=== PATIENT | male | born 1950 | race Caucasian/White ===

== ENCOUNTER → 2016-12-11 | Outpatient (CLI) | payer MEDICARE, OTHER ==
[~2016-12-11] MED LIST: AMLO10TA PO; APIX5TAB2 PO; ASP81CT PO; ATEN-158 PO; ATR20T PO; ATRV10T PO; CEFD300C3 PO; CHLO25TA2 PO; DILT180C67 PO; DLT120CCR PO; ENAL20TA PO; ENALAPRIL MALEATE; FURO40TA4 PO; HYDR-3004 PO; HYDR-3156 PO; INSU100I14 SQ; INSU100V5 SQ; LISI40TA PO; METF-380 PO; OMEP20CA12 PO; PNT40TEC PO; POTA10TA36 PO; POTA20TA15 PO; ROPI1TAB PO; ROSU40TA PO; amlodipine besylate; atenolol; chlorthalidone; hydralazine hcl; levemir SQ; metformin; novalog SQ
--- OUTSIDE RECORDS SUMMARY | 2016-12-11 13:40 | XMS REPORT | Continuity of Care Document ---
Author Author [facility] Organization [facility] Address Unknown Phone Unavailable Care Team Providers Care Shrimp Picker Name Role Phone SHALINI GONZALEZ MD PCP Insurance Providers Payer Name Policy Number Subscriber Name Relationship [employer] [id number] Mery Green 18 Self / Same As Patient Comm Crossover Enter Ins Name [id number] Mery Green 17 Self / Same As Patient Advance Directives Directive Response Recorded Date/Time Advance Directives No 04/12/16 5:10pm Health Care Power of Novelty Dipper No 04/12/16 5:10pm Organ Donor No 04/12/16 5:10pm Problems Active Problems Medical Problem Onset Date Status Anemia Unknown Acute Anemia Unknown Acute Atrial fibrillation Unknown Acute Atrial fibrillation with normal ventricular rate Unknown Acute CHF exacerbation Unknown Acute Pharyngitis Unknown Acute Pneumonia Unknown Acute Transient cerebral ischemia Unknown Acute Uvulitis Unknown Acute fluid overload Unknown Acute Medications Current Home Medications Medication Dose Units Route Directions Days/Qty Instructions Start Date Aspirin 81 Mg 81 Mg Oral Daily 12/17/13 Metformin Hcl (Glucophage) 1,000 Mg 1,000 Mg Oral Twice A Day With Meals 12/17/13 Insulin Detemir 100 Unit/1 Ml 69 Unit Sub-Q 12/17/13 Insulin Aspart 100 Unit/1 Ml 35 Units Sub-Q Before Meals TAKES WITH MEALS 12/17/13 Apixaban 5 Mg 5 Mg Oral Twice A Day 12/18/13 Diltiazem Hcl 180 Mg 180 Mg Oral Daily 04/26/15 Hydralazine Hcl (Apresoline) 50 Mg 50 Mg Oral Three Times A Day 05/04 Furosemide (Lasix) 40 Mg 40 Mg Oral Daily 04/26/15 Potassium Chloride 20 Meq 10 Meq Oral Daily 04/26/15 Omeprazole 20 Mg 20 Mg Oral Daily 30 04/26/15 Lisinopril 40 Mg 40 Mg Oral Twice A Day 04/26/15 Rosuvastatin Calcium 40 Mg 20 Mg Oral Bedtime TAKES ONE HALF OF 40 MG TAB 04/26/15 Ropinirole Hcl 1 Mg 3 Mg Oral Bedtime for Restlessness 04/29/15 Cefdinir (Omnicef) 300 Mg 300 Mg Oral Twice A Day 04/12/16 Past Home Medications Medication Directions Ordered Status [Enalapril Maleate] , 12/17/13 Discontinued [Amlodipine Besylate] , 12/17/13 Discontinued [Atenolol] , 12/17/13 Discontinued [Chlorthalidone] , 12/17/13 Discontinued [Hydralazine Hcl] , 12/17/13 Discontinued [Metformin] , 12/17/13 Discontinued [Novalog ] , 47 Sub-Q Twice A Day 12/17/13 Discontinued [Levemir] , 18 Sub-Q As Directed 12/17/13 Discontinued Enalapril Maleate 20 Mg Tablet, 40 Mg Oral Daily 12/17/13 Discontinued Amlodipine Besylate 10 Mg Tablet, 10 Mg Oral Daily 12/17/13 Discontinued Atenolol 50 Mg Tab, 75 Mg Oral Daily 12/17/13 Discontinued Chlorthalidone 25 Mg Tablet, 25 Mg Oral Daily 12/17/13 Discontinued Hydralazine Hcl (Apresoline) 25 Mg Tablet, 50 Mg Oral Twice A Day 12/17/13 Discontinued Atorvastatin Calcium 10 Mg Tablet, 2.5 Mg Oral Bedtime 12/17/13 Discontinued Atorvastatin Calcium 20 Mg Tablet, 5 Mg Oral Bedtime 12/17/13 Discontinued Diltiazem Hcl 120 Mg Cap.sr.24h, 120 Mg Oral Daily 12/18/13 Discontinued Hydralazine Hcl (Apresoline) 25 Mg Tablet, 25 Mg Oral Twice A Day 12/18/13 Discontinued Furosemide (Lasix) 40 Mg Tablet, 1 Each Oral Daily 12/18/13 Discontinued Pantoprazole Sodium 40 Mg Tablet.dr, 1 Tab Oral Daily 12/18/13 Discontinued Potassium Chloride 10 Meq Tab.prt.sr, 1 Each Oral Daily With Meal 12/18/13 Discontinued Social History Social History Problem Response Recorded Date/Time Alcohol Use Denies Use 04/12/2016 5:10pm Recreational Drug Use No 04/12/2016 5:10pm Recent Foreign Travel No 12/17/2013 1:30am Recent Infectious Disease Exposure No 12/17/2013 1:30am Hospitalization with Isolation Denies 12/18/2013 12:14pm Do you dip or chew tobacco? No 04/12/2016 5:10pm Hospitalization with Isolation Denies 12/18/2013 12:14pm Hospital Discharge Instructions No hospital discharge instructions. Plan of Care Discharge Date 10/20/16 3:35am Prescriptions See Medication Section Functional Status No functional status results. Allergies, Adverse Reactions, Alerts No known allergies. Immunizations No immunization records. Vital Signs No known vital signs results. Results No known relevant diagnostic tests, laboratory data and/or discharge summary. Procedures No known history of procedures. Encounters Encounter Location Arrival/Admit Date Discharge/Depart Date Attending Provider Departed Clinic [facility] 10/19/16 7:57pm 10/20/16 3: 35am FLIP PEDERSEN DO
== END ==
LOC: RAD 13:29
PROVIDERS: ATTEND Internal Medicine Cardiovascular Disease
DX: I73.9 Peripheral vascular disease, unspecified (principal); I48.0 Paroxysmal atrial fibrillation; I65.23 Occlusion and stenosis of bilateral carotid arteries; R06.09 Other forms of dyspnea; Z87.891 Personal history of nicotine dependence; E78.4 Other hyperlipidemia; I10 Essential (primary) hypertension; G47.33 Obstructive sleep apnea (adult) (pediatric); J98.4 Other disorders of lung
CPT/HCPCS: 93923

== ENCOUNTER → 2017-02-04 | Outpatient (CLI) | payer MEDICARE, OTHER ==
--- NOTE | 2017-02-04 13:46 | Diagnostic Imaging Report ---
PROCEDURE: CT chest without contrast. TECHNIQUE: Multiple contiguous axial images were obtained through the chest without the use of intravenous contrast. INDICATION: Lung nodule follow-up. COMPARISON: 07/27/2016. FINDINGS: There is a 5 mm left lower lobe nodule stable from the April 2015 exam suggestive of benign etiology. There is no significant consolidation, mass, or suspicious nodule seen otherwise. Minimal atelectasis in the left lung base is seen. The heart size is slightly enlarged. There is minimal lymphadenopathy in the mediastinum up to 1 cm short axis in the infracarinal station and similar-sized lymph node in the right paratracheal station similar to the prior exams with no adverse development. No significantly enlarged axillary lymph nodes are noted. The thoracic aorta is normal in caliber. Sections of the upper abdomen demonstrate hepatic steatosis. The osseous structures demonstrate degenerative changes. IMPRESSION: 1. Stable left lower lobe 5 mm pulmonary nodule from April 2015 suggestive of scarring. 2. Hepatic steatosis. Dictated by: Dictated on workstation # [id number]
== END ==
LOC: RAD 12:39
PROVIDERS: ATTEND Internal Medicine Critical Care Medicine
DX: R06.09 Other forms of dyspnea (principal); G47.33 Obstructive sleep apnea (adult) (pediatric); J98.4 Other disorders of lung; R06.02 Shortness of breath; Z87.891 Personal history of nicotine dependence
CPT/HCPCS: 71250

== ENCOUNTER → 2017-05-20 | Outpatient (CLI) | payer MEDICARE, OTHER ==
[~2017-05-20] MED LIST changes: +CLON0.3T PO
[2017-05-20 14:39] LABS: BASOPHILS % (AUTO) 0 % (0-10); EOSINOPHILS # (AUTO) 0.3 10^3/uL (0.0-0.3); EOSINOPHILS % (AUTO) 3 % (0-10); LYMPHOCYTES # (AUTO) 1.9 X 10^3 (1.0-4.0); LYMPHOCYTES % (AUTO) 18 % (12-44); MEAN CORPUSCULAR HEMOGLOBIN 23 PG (25-34); MEAN CORPUSCULAR HGB CONC 30 G/DL (32-36); MEAN CORPUSCULAR VOLUME 75 FL (80-99); MEAN PLATELET VOLUME 9.8 FL (7.4-10.4); MONOCYTES % (AUTO) 9 % (0-12); NEUTROPHILS % (AUTO) 69 % (42-75); PLATELET COUNT 294 10^3/uL (130-400); RED BLOOD COUNT 4.79 10^6/uL (4.35-5.85); RED CELL DISTRIBUTION WIDTH 18.1 % (10.0-14.5); WHITE BLOOD COUNT 10.1 10^3/uL (4.3-11.0)
[2017-05-20 14:56] LABS: ALANINE AMINOTRANSFERASE 16 U/L (0-55); ALBUMIN 3.9 GM/DL (3.2-4.5); ANION GAP 10 MMOL/L (5-14); ASPARTATE AMINO TRANSFERASE 16 U/L (5-34); BILIRUBIN,TOTAL 0.5 MG/DL (0.1-1.0); BLOOD UREA NITROGEN 14 MG/DL (7-18); BUN/CREATININE RATIO 14; CALCIUM 9.6 MG/DL (8.5-10.1); CARBON DIOXIDE 26 MMOL/L (21-32); CHLORIDE 105 MMOL/L (98-107); GFR ESTIMATED > 60; GLUCOSE 144 MG/DL (70-105); MAGNESIUM 1.9 MG/DL (1.8-2.4); POTASSIUM 3.7 MMOL/L (3.6-5.0); SODIUM 141 MMOL/L (135-145); TOTAL PROTEIN 7.2 GM/DL (6.4-8.2)
== END ==
LOC: LAB 14:16
PROVIDERS: ATTEND Nurse Practitioner Family
DX: R06.09 Other forms of dyspnea (principal); I10 Essential (primary) hypertension; E78.4 Other hyperlipidemia; J98.4 Other disorders of lung; I73.89 Other specified peripheral vascular diseases
CPT/HCPCS: 36415; 80053; 83735; 85025

== ENCOUNTER 2017-06-04 06:42 | Day surgery (SDC) | payer MEDICARE, OTHER ==
[2017-06-04] VITALS (12 sets, daily range): BP systolic 138–178; BP diastolic 70–88
[~2017-06-04] VITALS: Ht 180.3 cm; Wt 106.6 kg
[~2017-06-04 06:42] MED LIST changes: -CLON0.3T PO
[2017-06-04] MEDS ORDERED: HEParin (CATH LAB) 2,000 ML IV ONE (07:00)
[2017-06-04] MEDS ORDERED: NS IV 1000 ML 1,000 ML ONE (07:00)
[2017-06-04] MEDS ORDERED: NS IV 1000 ML 1,000 ML IV SCH ×2 (07:15→09:21)
[2017-06-04 07:42] LABS: MEAN PLATELET VOLUME 10.2 FL (7.4-10.4); RED BLOOD COUNT 4.8 10^6/uL (4.35-5.85); RED CELL DISTRIBUTION WIDTH 17.7 % (10.0-14.5); WHITE BLOOD COUNT 8.4 10^3/uL (4.3-11.0)
[2017-06-04] MEDS ORDERED: CLON0.3T PO (07:48)
[2017-06-04 07:52] LABS: INR 1.1 (0.8-1.4); PROTHROMBIN TIME PATIENT 13.4 SEC (12.2-14.7)
[2017-06-04 07:58] LABS: ALANINE AMINOTRANSFERASE 24 U/L (0-55); ALBUMIN 3.9 GM/DL (3.2-4.5); ANION GAP 10 MMOL/L (5-14); ASPARTATE AMINO TRANSFERASE 25 U/L (5-34); BILIRUBIN,TOTAL 0.4 MG/DL (0.1-1.0); BLOOD UREA NITROGEN 16 MG/DL (7-18); BUN/CREATININE RATIO 17; CALCIUM 9.2 MG/DL (8.5-10.1); CARBON DIOXIDE 24 MMOL/L (21-32); CHLORIDE 104 MMOL/L (98-107); CHOLESTEROL 95 MG/DL (< 200); CREATININE SERUM 0.94 MG/DL (0.60-1.30); DIRECT LDL 52 MG/DL (1-129); GFR ESTIMATED > 60; GLUCOSE 235 MG/DL (70-105); POTASSIUM 4.2 MMOL/L (3.6-5.0); SODIUM 138 MMOL/L (135-145); TOTAL PROTEIN 7.4 GM/DL (6.4-8.2); TRIGLYCERIDES 121 MG/DL (<150); VLDL CHOLESTEROL 24 MG/DL (5-40)
[2017-06-04] MEDS ORDERED: MIDAZOLAM 5 MG/5 ML (VERSED) VIAL ONE (08:17)
[2017-06-04] MEDS ORDERED: fentaNYL INJECTION 100 MCG/2 ML AMP ONE (08:17)
[2017-06-04] MEDS ORDERED: diphenhydrAMINE 50 MG/ML INJ (BENADRYL) ONE (08:17)
--- NOTE | 2017-06-04 09:21 | Cardiac Procedure Note-CS/ASA ---
Pre-Procedure Note Pre-Op Procedure Note H&P Reviewed The H&P was reviewed, patient examined and no changes noted. Date H&P Reviewed: Jun 04, 2017 Time H&P Reviewed: 08:50 Conscious Sedation Pre-Proced Time Reviewed: 08:50 ASA Class: 3 Airway Mallampati Classification: (holy cross appropriate class) I. II. III, IV Lungs Heart ASA score ASA 1: a normal healthy patient ASA 2: a patient with a mild systemic disease (mid diabetes, controlled hypertension, obesity ASA 3: a patient with a severe systemic disease that limits activity (angina , COPD, prior Myocardial infarction) ASA 4: a patient with an incapacitating disease that is a constant threat to life (CHF, renal failure) ASA 5: a moribund patient not expected to survive 24 hrs. (ruptured aneurysm) ASA 6: a declared brain patient whose organs are being harvested. For emergent operations, add the letter E after the classification Grade 3 Sedation Plan: Analgesia, Amnesia, Plan communicated to team members, Discussed options with patient/fam, Discussed risks with patient/fam Note The patient is an appropriate candidate to undergo the planned procedure, sedation, and anesthesia. The patient immediately re-assessed prior to indication. ANTONIO LAWRENCE MD FACP FAC [facility] Jun 04, 2017 09:21
--- NOTE | 2017-06-04 09:24 | Discharge Inst-Post CATH ---
Discharge Inst-CATH Post Cardiac Cath D/C Inst Follow Up/Plan F/u with Dr Hannon in 2 weeks CARDIAC CATH DISCHARGE INSTRUCTIONS *Hold Metformin for 48 hours post heart cath. ACTIVITY * Go Home directly and rest. * Limit activity of the leg (or wrist if it was used) for 7 days including aerobics, swimming, jogging, bicycling, etc. * Restrict stair-climbing for 7 days if possible, if not, climb up with your non -cath leg, then bring together on the same step. * Avoid lifting, pushing, pulling or excessive movement of the affected extremity for 7 days. * Customary sexual activity may be resumed after 2 days-use caution not to use a position that strains or causes pain to the affected extremity. * No driving for 24 hours. * NO SMOKING. * Avoid straining for bowel movements for 7 days. * Gentle walking on level ground is allowed. * Returning to work will depend on the type of procedure and the results. Your doctor will discuss this with you. CALL YOUR DOCTOR FOR ANY OF THE FOLLOWING: *If bleeding from the puncture site occurs- Apply gentle pressure to site with clean cloth and call your doctor or EMS. * If a knot or lump forms under the skin, increases in size, or causes pain. * If bruising appears to be worsening or moving further down your leg instead of disappearing. * Temperature above 101 F. CARE OF YOUR GROIN INCISION; * Bruising or purple discoloration of the skin near the puncture site is common. * You may shower only, no bathtub bathing for 5 days. Be careful to avoid slipping as your leg may feel stiff. * If a closure device was used on your femoral artery, please see the attached guide regarding care of the device and your leg. * REMOVE the dressing from your groin the next day after your procedure in the shower. CARE OF YOUR WRIST INCISION; * Bruising or purple discoloration of the skin near the puncture site is common. * You may shower. * DO NOT submerge wrist. * Remove dressing in 24 hours. ANTONIO HANNON MD [facility] Jun 04, 2017 09:24
--- NOTE | 2017-06-04 09:25 | Discharge Inst-Cardiology ---
Discharge Inst-Cardiac Discharge Medications Continued Medications: Apixaban (Eliquis Tablet) 5 Mg Tablet 5 MG PO BID, #30 Aspirin (Aspirin 81 Mg Chew Tab) 81 Mg Chew 81 MG PO DAILY, TAB.CHEW Cefdinir (Cefdinir) 300 Mg Capsule 300 MG PO BID, #14 CAP Clonidine HCl (Clonidine HCl) 0.3 Mg Tablet 0.15 MG PO BID, TAB Diltiazem HCl (Cardizem Cd) 180 Mg Cap.er.24h 180 MG PO DAILY, CAP Furosemide (Furosemide) 40 Mg Tablet 40 MG PO DAILY, TAB Hydralazine Hcl (Hydralazine Hcl) 50 Mg Tablet 50 MG PO TID, TAB Insulin Aspart (Novolog Pen) 100 Unit/1 Ml Insuln.pen 35 UNITS SQ AC TAKES WITH MEALS Insulin Detemir (Levemir Vial) 100 Unit/1 Ml Vial 69 UNIT SQ , Lisinopril (Prinivil) 40 Mg Tablet 40 MG PO BID, TAB Metformin Hcl (Metformin 1000 Mg) 1,000 Mg Tablet 1000 MG PO BID WITH MEALS Potassium Chloride (Potassium Chloride 20 Meq Tab) 20 Meq Tab.prt.sr 10 MEQ PO DAILY, TAB Ropinirole Hcl (Requip Tablet) 1 Mg Tablet 3 MG PO HS for Restlessness, #30 TAB 1 Refill Rosuvastatin Calcium (Crestor) 40 Mg Tablet 20 MG PO HS, TAB TAKES ONE HALF OF 40 MG TAB Patient Instructions Patient Instructions: DO NOT TAKE METFORMIN until the evening of 06/06/17 ANTONIO LAWRENCE MD [facility] Jun 04, 2017 09:25
[2017-06-04] MEDS ORDERED: PATIENT MAY USE OWN MEDS, ALL PO SCH (09:30)
--- NOTE | 2017-06-04 10:28 | CARDIAC CATHETERIZATION ---
DATE OF SERVICE: 06/04/2017 The patient is a 67-year-old man with multiple coronary artery disease risk factors and symptoms of exertional shortness of breath. Cardiac catheterization was carried out today after having obtained informed consent. PROCEDURE: He was brought to the cardiac catheterization laboratory in a fasting state. Right groin was prepared and draped in usual sterile fashion. Lidocaine 1% local anesthesia. Modified Seldinger technique was used to advance a 5-[place] sheath into the right femoral artery. Angiography of the right femoral artery was carried out through the sheath. We used 5-[place] JL3.5 catheter for left coronary angiography and 5-[place] JR4 catheter for right coronary angiography. We used 5-[place] pigtail catheter for left heart catheterization and left ventricular angiography. This was then pulled back to the aortic arch and aortic arch angiography was performed. The catheter was then removed and Mynx was used to achieve hemostasis following sheath removal. He tolerated the procedure well. HEMODYNAMICS: Left ventricular end-diastolic pressure following coronary angiography was 16 mmHg. There was no significant pressure gradient on pullback across the aortic valve. Ascending aortic pressure was 151/80 with a mean of 104 mmHg. LEFT VENTRICULAR ANGIOGRAPHY: Left ventricular angiography was carried out in the right anterior oblique projection. Global left ventricular systolic function appears well preserved. Left ventricular ejection fraction is 50% to 55%. There did not appear to be significant mitral regurgitation. AORTIC ARCH ANGIOGRAPHY: Aortic arch angiography shows aortic arch calcification. There is no significant thoracic aortic aneurysm or dissection to the extent visualized. The neck arteries, to the extent visualized, do not have significant obstructive disease. There is significant obstructive disease in their proximal portions. CORONARY ANGIOGRAPHY: Coronary calcification is present. Left main coronary artery does not exhibit significant disease. Left anterior descending artery has 50% mid vessel stenosis. The left circumflex artery has 30% proximal and 70% distal stenosis. The distal stenosis is at the site where the vessel is of a relatively small caliber. The right coronary artery is dominant and has mild plaques. CONCLUSIONS: 1. Mild to moderate coronary artery disease as outlined above. The left anterior descending artery has 50% mid vessel stenosis. Left circumflex artery has approximately 70% distal stenosis. 2. Well preserved global left ventricular systolic function with ejection fraction of 50 to 55%. 3. Mild to moderate elevation of left ventricular end-diastolic pressure. 4. No significant mitral regurgitation. DISCUSSION AND RECOMMENDATIONS: Based on the results of the study, it appears appropriate to continue a conservative approach. There is moderate distal disease in the left circumflex, but the vessel is of a relatively small caliber and no ischemia was demonstrated in this territory at the time of myocardial perfusion imaging of mid 2015. We will continue to follow this clinically closely. Stenting can be considered if clinically indicated. However, given his troubles with gastrointestinal bleeding at this stage a conservative approach appears best. Risk factor modification has been reviewed. Outpatient followup is advised. Job ID: [id number] DocumentID: [id number] Dictated Date: 06/04/2017 09:32:06 Heel Molder Date: 06/04/2017 10:27:26 Dictated By: ANTONIO LAWRENCE MD, MA, FACP, FACC,
== END 2017-06-04 14:00 | disposition home or self-care (01) ==
LOC: CATH 06:42 → SURG 09:40 → ENPENDDIS 14:00 → CATH 14:00
PROVIDERS: ATTEND Internal Medicine Cardiovascular Disease
DX: R06.02 Shortness of breath (principal); I25.10 Atherosclerotic heart disease of native coronary artery without angina pectoris; I25.84 Coronary atherosclerosis due to calcified coronary lesion; I70.0 Atherosclerosis of aorta; I48.2 Chronic atrial fibrillation; G47.33 Obstructive sleep apnea (adult) (pediatric); E11.9 Type 2 diabetes mellitus without complications; I10 Essential (primary) hypertension; E66.01 Morbid (severe) obesity due to excess calories; E78.5 Hyperlipidemia, unspecified; D64.9 Anemia, unspecified; Z87.891 Personal history of nicotine dependence; Z79.899 Other long term (current) drug therapy; Z79.01 Long term (current) use of anticoagulants; Z68.32 Body mass index [BMI] 32.0-32.9, adult
CPT/HCPCS: 36221; 36415; 80053; 80061; 85027; 85610; 85730; 87081; 93005; 93458

== ENCOUNTER → 2017-06-20 | Outpatient (CLI) | payer MEDICARE, OTHER ==
[~2017-06-20] MED LIST changes: +CLON0.3T PO
--- NOTE | 2017-06-20 14:42 | Diagnostic Imaging Report ---
INDICATION: Difficulty breathing. PA and lateral chest obtained at 11:17 a.m. and compared with 05/28/2015. There is mild cardiomegaly. There is mild central vascular prominence without ronal edema. There is no consolidation, pneumothorax, or pleural fluid. IMPRESSION: Cardiomegaly with mild central vascular prominence. No ronal edema, infiltrate, or pleural fluid. Dictated by: Dictated on workstation # [id number]
== END ==
LOC: RAD 10:47
PROVIDERS: ATTEND Nurse Practitioner Family
DX: I51.7 Cardiomegaly (principal); R06.02 Shortness of breath; R05 Cough; R06.09 Other forms of dyspnea
CPT/HCPCS: 71020

== ENCOUNTER 2017-12-26 10:00 | Outpatient (RCR) | payer MEDICARE, OTHER | END 2017-12-29 | disposition home or self-care (01) | LOC: PULM 10:00 | PROVIDERS: ATTEND Nurse Practitioner Family | DX: J98.4 Other disorders of lung (principal); R06.09 Other forms of dyspnea | CPT/HCPCS: 99211 ==

== ENCOUNTER 2018-01-07 10:19 | Outpatient (RCR) | payer MEDICARE, OTHER ==
[2018-04-01] MEDS ORDERED: ROSU40TA21 PO (08:26)
[2018-04-01] MEDS ORDERED: ROPI3TAB PO (08:26)
[2018-04-01] MEDS ORDERED: POTA-51 PO (08:26)
[2018-04-01] MEDS ORDERED: METF10002 PO (08:26)
[2018-04-01] MEDS ORDERED: ASPI-586 PO (08:26)
[2018-04-01] MEDS ORDERED: INSU100V5 SQ (08:26)
[2018-04-01] MEDS ORDERED: LOSA50TA36 PO (08:26)
[2018-04-01] MEDS ORDERED: APIX5TAB PO (08:26)
[2018-04-01] MEDS ORDERED: INSU100I14 SQ (08:26)
[2018-04-01] MEDS ORDERED: BUDE10.2 IH (08:26)
[2018-04-01] MEDS ORDERED: CHOL10007 PO (08:26)
[2018-04-01] MEDS ORDERED: DILT180C82 PO (08:26)
[2018-04-01] MEDS ORDERED: FURO40TA4 PO (08:26)
[2018-04-01] MEDS ORDERED: HYDR100T27 PO (08:26)
== END 2018-04-07 | disposition home or self-care (01) ==
LOC: PULM 10:19
PROVIDERS: ATTEND Nurse Practitioner Family
DX: J98.4 Other disorders of lung (principal); R06.09 Other forms of dyspnea

== ENCOUNTER → 2018-04-01 | Day surgery (SDC) | payer MEDICARE, OTHER ==
[2018-04-01] VITALS (8 sets, daily range): BP systolic 142–163; BP diastolic 68–82
[~2018-04-01] VITALS: Ht 175.3 cm; Wt 113.4 kg
[~2018-04-01] MED LIST changes: +APIX5TAB PO; +ASPI-586 PO; +BUDE10.2 IH; +CHOL10007 PO; +DILT180C82 PO; +HYDR100T27 PO; +LOSA50TA36 PO; +METF10002 PO; +MIDAZOLAM 2 MG/2 ML (VERSED) VIAL ONE; +NS IV 1000 ML 1,000 ML IV SCH; +NS IV 1000 ML 1,000 ML ONE; +POTA-51 PO; +ROPI3TAB PO; +ROSU40TA21 PO; +proPOfol 200 MG/20 ML (DIPRIVAN) VIAL IV ONE
--- OUTSIDE RECORDS SUMMARY | 2018-04-01 07:25 | XMS REPORT | Continuity of Care Document ---
Author Author [facility] Organization [facility] Address Unknown Phone Unavailable Allergies Active Description Code Type Severity Reaction Onset Reported/Identified Relationship to Patient Clinical Status Yes No Known Drug Allergies [id number] Drug Allergy Unknown N/A 12/16/2013 Medications There is no data. Problems Date Dx Coded Attending Type Code Diagnosis Diagnosed By 12/18/2013 SHALINI GONZALEZ MD R Ot 250.00 DIAB ROMY WO COMPL, TYPE II OR UNSPEC TY 12/18/2013 SHALINI GONZALEZ MD Ot 272.4 HYPERLIPIDEMIA NEC/NOS 12/18/2013 SHALINI GONZALEZ MD Ot 276.9 ELECTROLYT/FLUID DIS NEC 12/18/2013 SHALINI GONZALEZ MD R Ot 403.90 HYPTNSV CHR KID DIS, UNSPEC, W CHR KD ST 12/18/2013 SHALINI GONZALEZ MD R Ot 414.01 CORONARY ATHEROSCLEROSIS OF [place] CORON 12/18/2013 SHALINI GONZALEZ MD Ot 427.31 ATRIAL FIBRILLATION 12/18/2013 SHALINI GONZALEZ MD Ot 428.0 CONGESTIVE HEART FAILURE NOS 12/18/2013 SHALINI GONZALEZ MD, Ot 428.31 ACUTE DIASTOLIC HRT FAILURE 12/18/2013 SHALINI GONZALEZ MD Ot 486 PNEUMONIA, ORGANISM NOS 12/18/2013 SHALINI GONZALEZ MD Ot 585.9 CHRONIC KIDNEY DISEASE, UNSPECIFIED 12/18/2013 SHALINI GONZALEZ MD Ot V12.54 PERSONAL HX OF TIA, CEREBRAL INFARCTION 12/18/2013 SHALINI GONZALEZ MD Ot V15.82 HISTORY OF TOBACCO USE 12/18/2013 SHALINI GONZALEZ MD Ot V58.67 LONG-TERM (CURRENT) USE OF INSULIN 04/25/2015 SHALINI GONZALEZ MD Ot 276.69 04/25/2015 ANTONIO LAWRENCE MD, FACC, FACP CCDS Ot 250.00 04/25/2015 ANTONIO LAWRENCE MD, FACC, FACP CCDS Ot 280.0 04/25/2015 HOWARD LACEY FACC, ALI FACP CCDS Ot 401.9 04/25/2015 HOWARD LACEY FACC, ALI FACP CCDS Ot 427.31 04/25/2015 HOWARD LACEY FACC, ALI FACP CCDS Ot 428.0 04/25/2015 HOWARD LACEY FACC, ALI FACP CCDS Ot 486 04/25/2015 HOWARD LACEY FACC, ALI FACP CCDS Ot 593.9 04/25/2015 HOWARD LACEY FACC, ALI FACP CCDS Ot V85.33 04/25/2015 PAULINE RINALDI METAL NEUTRALIZER Ot 275.2 04/26/2015 CARLOS LACEY, SHALINI R Ot 276.69 04/26/2015 HOWARD LACEY FACC, ALI FACP CCDS Ot 250.00 04/26/2015 HOWARD LACEY FACC, ALI FACP CCDS Ot 280.0 04/26/2015 HOWARD LACEY FACC, ALI FACP CCDS Ot 401.9 04/26/2015 HOWARD LACEY FACC, ALI FACP CCDS Ot 427.31 04/26/2015 HOWARD LACEY FACC, ALI FACP CCDS Ot 428.0 04/26/2015 HOWARD LACEY FACC, ALI FACP CCDS Ot 486 04/26/2015 HOWARD LACEY FACC, ALI FACP CCDS Ot 593.9 04/26/2015 HOWARD LACEY FACC, ALI FACP CCDS Ot V85.33 04/26/2015 PAULINE RINALDI L METAL NEUTRALIZER Ot 275.2 04/28/2015 CARLOS LACEY, SHALINI R Ot 276.69 04/28/2015 HOWARD LACEY FACC, ALI FACP CCDS Ot 250.00 04/28/2015 HOWARD LACEY FACC, ALI FACP CCDS Ot 280.0 04/28/2015 HOWARD LACEY FACC, ALI FACP CCDS Ot 401.9 04/28/2015 HOWARD LACEY FACC, ALI FACP CCDS Ot 427.31 04/28/2015 HOWARD LACEY FACC, ALI FACP CCDS Ot 428.0 04/28/2015 HOWARD LACEY FACC, ALI FACP CCDS Ot 486 04/28/2015 HOWARD LACEY FACC, ALI FACP CCDS Ot 593.9 04/28/2015 HOWARD LACEY FACC, ALI FACP CCDS Ot V85.33 04/28/2015 PAULINE RINALDI METAL NEUTRALIZER Ot 275.2 04/29/2015 CARLOS LACEY, SHALINI R Ot 211.3 BENIGN NEOPLASM LG BOWEL 04/29/2015 CARLOS LACEY, SHALINI R Ot 211.4 BENIGN NEOPL RECTUM/ANUS 04/29/2015 CARLOS LACEY, SHALINI R Ot 250.00 DIAB ROMY WO COMPL, TYPE II OR UNSPEC TY 04/29/2015 SHALINI GONZALEZ MD R Ot 272.4 HYPERLIPIDEMIA NEC/NOS 04/29/2015 SHALINI GONZALEZ MD R Ot 285.1 AC POSTHEMORRHAG ANEMIA 04/29/2015 SHALINI GONZALEZ MD R Ot 285.9 04/29/2015 SHALINI GONZALEZ MD R Ot 401.9 HYPERTENSION NOS 04/29/2015 SHALINI GONZALEZ MD R Ot 427.31 ATRIAL FIBRILLATION 04/29/2015 SHALINI GONZALEZ MD R Ot 455.0 04/29/2015 SHALINI GONZALEZ MD R Ot 455.2 INT HEMRRHOID W COMP NEC 04/29/2015 SHALINI GONZALEZ MD R Ot 455.3 04/29/2015 CARLOS LACEY, SHALINI R Ot 455.5 EXT HEMRRHOID W COMP NEC 04/29/2015 SHALINI GONZALEZ MD R Ot 530.11 REFLUX ESOPHAGITIS 04/29/2015 SHALINI GONZALEZ MD R Ot 535.50 UNSP GASTRITIS GASTRODUODENITIS W/O ME 04/29/2015 SHALINI GONZALEZ MD R Ot 553.3 DIAPHRAGMATIC HERNIA 04/29/2015 SHALINI GONZALEZ MD R Ot V03.82 PROPHYLACTIC VACC AGAINST STREPTOCOCCUS 04/29/2015 SHALINI GONZALEZ MD R Ot V12.54 PERSONAL HX OF TIA, CEREBRAL INFARCTION 04/29/2015 SHALINI GONZALEZ MD R Ot V12.72 PERSONAL HISTORY OF COLONIC POLYPS 04/29/2015 SHALINI GONZALEZ MD R Ot V15.82 HISTORY OF TOBACCO USE 04/29/2015 SHALINI GONZALEZ MD R Ot V58.66 LONG-TERM (CURRENT) USE OF ASPIRIN 04/29/2015 SHALINI GONZALEZ MD R Ot V58.67 LONG-TERM (CURRENT) USE OF INSULIN 04/29/2015 CARLOS LACEY, SHALINI R Ot V64.1 05/20/2015 SHALINI GONZALEZ MD R Ot 276.69 05/20/2015 HOWARD LACEY FAC, ALI FACP CCDS Ot 250.00 05/20/2015 HOWARD LCAEY FAC, ALI FACP CCDS Ot 280.0 05/20/2015 HOWADR LACEY FAC, ALI FACP CCDS Ot 401.9 05/20/2015 HOWARD LACEY FAC, ALI FACP CCDS Ot 427.31 05/20/2015 HOWARD LACEY FAC, ALI FACP CCDS Ot 428.0 05/20/2015 HOWARD LACEY FAC, ALI FACP CCDS Ot 486 05/20/2015 HOWARD LACEY FAC, ALI FACP CCDS Ot 593.9 05/20/2015 HOWARD LACEY [facility], ALI FACP CCDS Ot V85.33 05/20/2015 BAIMA, PAULINE L METAL NEUTRALIZER Ot 275.2 05/20/2015 BAIMA, PAULINE L METAL NEUTRALIZER Ot 272.4 05/20/2015 BAIMA, PAULINE L METAL NEUTRALIZER Ot 285.9 05/20/2015 BAIMA, PAULINE L METAL NEUTRALIZER Ot 427.31 05/20/2015 BAIMA, PAULINE L METAL NEUTRALIZER Ot 428.0 05/28/2015 VIDA ESTEVEZ DO Ot 250.00 DIAB ORMY WO COMPL, TYPE II OR UNSPEC TY 05/28/2015 VIDA ESTEVEZ DO Ot 285.9 ANEMIA NOS 05/28/2015 VIDA ESTEVEZ DO Ot 427.31 ATRIAL FIBRILLATION 05/28/2015 VIDA ESTEVEZ DO Ot 428.0 CONGESTIVE HEART FAILURE NOS 05/28/2015 VIDA ESTEVEZ DO Ot 786.05 SHORTNESS OF BREATH 05/28/2015 VIDA ESTEVEZ DO Ot V58.67 LONG-TERM (CURRENT) USE OF INSULIN 06/08/2015 BAIMA, PAULINE L METAL NEUTRALIZER Ot 272.4 06/08/2015 BAIMA, PAULINE L METAL NEUTRALIZER Ot 285.9 06/08/2015 BAIMA, PAULINE L METAL NEUTRALIZER Ot 427.31 06/08/2015 BAIMA, PAULINE L METAL NEUTRALIZER Ot 428.0 06/23/2015 BAIMA, PAULINE L METAL NEUTRALIZER Ot 272.4 06/23/2015 BAIMA, PAULINE L METAL NEUTRALIZER Ot 285.9 06/23/2015 NIMCOPAULINE METAL NEUTRALIZER Ot 427.31 06/23/2015 NIMCOPAULINE METAL NEUTRALIZER Ot 428.0 08/03/2015 DADA ALEXIS MD Ot G45.9 TRANSIENT CEREBRAL ISCHEMIC ATTACK, UNSP 08/03/2015 DADA ALEXIS MD Ot R20.0 ANESTHESIA OF SKIN 03/07/2016 Ot E78.4 OTHER HYPERLIPIDEMIA 03/07/2016 Ot G47.33 OBSTRUCTIVE SLEEP APNEA (ADULT) (PEDIATR 03/07/2016 Ot I10 ESSENTIAL ( PRIMARY) HYPERTENSION 03/07/2016 Ot I48.0 PAROXYSMAL ATRIAL FIBRILLATION 03/07/2016 Ot I50.32 CHRONIC DIASTOLIC (CONGESTIVE) HEART TONE 03/07/2016 Ot I65.23 OCCLUSION AND STENOSIS OF BILATERAL WEBB 03/07/2016 Ot R06.02 SHORTNESS OF BREATH 03/26/2016 HOWARD LACEY FACC, ANTONIO FACP CCDS Ot E78.4 OTHER HYPERLIPIDEMIA 03/26/2016 HOWARD LACEY FACC, ANTONIO FACP CCDS Ot G47.33 OBSTRUCTIVE SLEEP APNEA (ADULT) (PEDIATR 03/26/2016 HOWARD LACEY FACC, ALI FACP CCDS Ot I10 ESSENTIAL (PRIMARY) HYPERTENSION 03/26/2016 HOWARD LACEY FACC, ALI FACP CCDS Ot I48.0 PAROXYSMAL ATRIAL FIBRILLATION 03/26/2016 HOWARD LACEY FACC, ALI FACP CCDS Ot I50.23 ACUTE ON CHRONIC SYSTOLIC (CONGESTIVE) H 03/26/2016 HOWARD LACEY FACC, ANTONIO FACP CCDS Ot I65.23 OCCLUSION AND STENOSIS OF BILATERAL WEBB 03/26/2016 HOWARD LACEY FACC, ALI FACP CCDS Ot R06.02 SHORTNESS OF BREATH 03/26/2016 HOWARD LACEY FACC, ALI FACP CCDS Ot E78.4 OTHER HYPERLIPIDEMIA 03/26/2016 HOWARD LACEY FACC, ALI FACP CCDS Ot G47.33 OBSTRUCTIVE SLEEP APNEA (ADULT) (PEDIATR 03/26/2016 HOWARD LACEY FACC, ALI FACP CCDS Ot I10 ESSENTIAL (PRIMARY) HYPERTENSION 03/26/2016 HOWARD LACEY FACC, ALI FACP CCDS Ot I48.0 PAROXYSMAL ATRIAL FIBRILLATION 03/26/2016 HOWARD LACEY FACC, ALI FACP CCDS Ot I50.23 ACUTE ON CHRONIC SYSTOLIC (CONGESTIVE) H 03/26/2016 HOWARD LACEY FACC, ALI FACP CCDS Ot I65.23 OCCLUSION AND STENOSIS OF BILATERAL WEBB 03/26/2016 HOWARD LACEY FACC, ALI FACP CCDS Ot R06.02 SHORTNESS OF BREATH 03/27/2016 CARLOS LACEY, SHALINI R Ot 276.69 OTHER FLUID OVERLOAD 03/27/2016 HOWARD LACEY FACC, ALI FACP CCDS Ot 250.00 DIAB ROMY WO COMPL, TYPE II OR UNSPEC TY 03/27/2016 HOWARD LACEY FACC, ALI FACP CCDS Ot 280.0 CHR BLOOD LOSS ANEMIA 03/27/2016 HOWARD LACEY FACC, ALI FACP CCDS Ot 401.9 HYPERTENSION NOS 03/27/2016 HOWARD LACEY FACC, ALI FACP CCDS Ot 427.31 ATRIAL FIBRILLATION 03/27/2016 HOWARD LACEY FACC, ALI FACP CCDS Ot 428.0 CONGESTIVE HEART FAILURE NOS 03/27/2016 HOWARD LACEY FACC, ALI FACP CCDS Ot 486 PNEUMONIA, ORGANISM NOS 03/27/2016 HOWARD LACEY FACC, ALI FACP CCDS Ot 593.9 RENAL URETERAL DIS NOS 03/27/2016 HOWARD LACEY FACC, ALI FACP CCDS Ot V85.33 BODY MASS INDEX 33.0-33.9, ADULT 03/27/2016 BAIMA, PAULINE L METAL NEUTRALIZER Ot 275.2 DIS MAGNESIUM METABOLISM 03/27/2016 BAIMA PAULINE L METAL NEUTRALIZER Ot 272.4 HYPERLIPIDEMIA NEC/NOS 03/27/2016 BAIMA, PAULINE L METAL NEUTRALIZER Ot 285.9 ANEMIA NOS 03/27/2016 CHEOMA PAULINE L METAL NEUTRALIZER Ot 427.31 ATRIAL FIBRILLATION 03/27/2016 BAIMA PAULINE L METAL NEUTRALIZER Ot 428.0 CONGESTIVE HEART FAILURE NOS 03/27/2016 HOWARD LACEY FACC, ALI FACP CCDS Ot E78.4 OTHER HYPERLIPIDEMIA 03/27/2016 HOWARD LACEY FACC, ALI FACP CCDS Ot G47.33 OBSTRUCTIVE SLEEP APNEA (ADULT) (PEDIATR 03/27/2016 HOWARD LACEY FACC, ALI FACP CCDS Ot I10 ESSENTIAL (PRIMARY) HYPERTENSION 03/27/2016 HOWARD LACEY FACC, ALI FACP CCDS Ot I48.0 PAROXYSMAL ATRIAL FIBRILLATION 03/27/2016 HOWARD LACEY FACC, ALI FACP CCDS Ot I50.23 ACUTE ON CHRONIC SYSTOLIC (CONGESTIVE) H 03/27/2016 HOWARD MD FACC, ALI FACP CCDS Ot I65.23 OCCLUSION AND STENOSIS OF BILATERAL [place]BB 03/27/2016 HOWARD LACEY FACC, ALI FACP CCDS Ot R06.02 SHORTNESS OF BREATH 03/27/2016 Ot E78.4 OTHER HYPERLIPIDEMIA 03/27/2016 Ot G47.33 OBSTRUCTIVE SLEEP APNEA (ADULT) (PEDIATR 03/27/2016 Ot I10 ESSENTIAL ( PRIMARY) HYPERTENSION 03/27/2016 Ot I48.0 PAROXYSMAL ATRIAL FIBRILLATION 03/27/2016 Ot I50.32 CHRONIC DIASTOLIC (CONGESTIVE) HEART OTNE 03/27/2016 Ot I65.23 OCCLUSION AND STENOSIS OF BILATERAL [place] 03/27/2016 Ot R06.02 SHORTNESS OF BREATH 03/28/2016 HOWARD LACEY FACC, ALI FACP CCDS Ot E78.4 OTHER HYPERLIPIDEMIA 03/28/2016 HOWARD LACEY FACC, ALI FACP CCDS Ot G47.33 OBSTRUCTIVE SLEEP APNEA (ADULT) (PEDIATR 03/28/2016 HOWARD CASTILLOC, ALI FACP CCDS Ot I10 ESSENTIAL (PRIMARY) HYPERTENSION 03/28/2016 HOWARD CASTILLOC, ALI FACP CCDS Ot I48.0 PAROXYSMAL ATRIAL FIBRILLATION 03/28/2016 HOWARD LACEY FACC, ALI FACP CCDS Ot I50.32 CHRONIC DIASTOLIC (CONGESTIVE) HEART TONE 03/28/2016 HOWARD CASTILLOC, ALI FACP CCDS Ot I65.23 OCCLUSION AND STENOSIS OF BILATERAL [place]BB 03/28/2016 HOWARD LACEY FACC, ALI FACP CCDS Ot R06.02 SHORTNESS OF BREATH 03/28/2016 HOWARD LACEY FACC, ALI FACP CCDS Ot E78.4 OTHER HYPERLIPIDEMIA 03/28/2016 HOWARD LACEY FACC, ALI FACP CCDS Ot G47.33 OBSTRUCTIVE SLEEP APNEA (ADULT) (PEDIATR 03/28/2016 HOWARD LACEY FACC, ALI FACP CCDS Ot I10 ESSENTIAL (PRIMARY) HYPERTENSION 03/28/2016 HOWARD LACEY FACC, ALI FACP CCDS Ot I48.0 PAROXYSMAL ATRIAL FIBRILLATION 03/28/2016 HOWARD LACEY FACC, ALI FACP CCDS Ot I50.32 CHRONIC DIASTOLIC (CONGESTIVE) HEART TONE 03/28/2016 HOWARD LACEY FACC, ALI FACP CCDS Ot I65.23 OCCLUSION AND STENOSIS OF BILATERAL [place]BB 03/28/2016 HOWARD LACEY FACC, ALI FACP CCDS Ot R06.02 SHORTNESS OF BREATH 04/06/2016 Ot E78.4 OTHER HYPERLIPIDEMIA 04/06/2016 Ot G47.33 OBSTRUCTIVE SLEEP APNEA (ADULT) (PEDIATR 04/06/2016 Ot I10 ESSENTIAL ( PRIMARY) HYPERTENSION 04/06/2016 Ot I48.0 PAROXYSMAL ATRIAL FIBRILLATION 04/06/2016 Ot I50.32 CHRONIC DIASTOLIC (CONGESTIVE) HEART TONE 04/06/2016 Ot I65.23 OCCLUSION AND STENOSIS OF BILATERAL WEBB 04/06/2016 Ot R06.02 SHORTNESS OF BREATH 04/12/2016 HOWARD LACEY FACC, ALI FACP CCDS Ot E78.4 OTHER HYPERLIPIDEMIA 04/12/2016 HOWARD LACEY FACC, ALI FACP CCDS Ot G47.33 OBSTRUCTIVE SLEEP APNEA (ADULT) (PEDIATR 04/12/2016 HOWARD LACEY FACC, ALI FACP CCDS Ot I10 ESSENTIAL (PRIMARY) HYPERTENSION 04/12/2016 HOWARD LACEY FACC, ALI FACP CCDS Ot I48.0 PAROXYSMAL ATRIAL FIBRILLATION 04/12/2016 HOWARD LACEY FACC, ALI FACP CCDS Ot I50.23 ACUTE ON CHRONIC SYSTOLIC (CONGESTIVE) H 04/12/2016 HOWARD LACEY FACC, ALI FACP CCDS Ot I65.23 OCCLUSION AND STENOSIS OF BILATERAL [place]BB 04/12/2016 HOWARD LACEY FACC, ALI FACP CCDS Ot R06.02 SHORTNESS OF BREATH 04/12/2016 FÁTIMA ADRIAN MD Ot J02.9 ACUTE PHARYNGITIS, UNSPECIFIED 04/12/2016 FÁTIMA ADRIAN MD Ot K12.2 CELLULITIS AND ABSCESS OF MOUTH 04/13/2016 FÁTIMA ADRIAN MD Ot J02.9 ACUTE PHARYNGITIS, UNSPECIFIED 04/13/2016 FÁTIMA ADRIAN MD Ot K12.2 CELLULITIS AND ABSCESS OF MOUTH 04/14/2016 FÁTIMA ADRIAN MD Ot J02.9 ACUTE PHARYNGITIS, UNSPECIFIED 04/14/2016 FÁTIMA ADRIAN MD Ot K12.2 CELLULITIS AND ABSCESS OF MOUTH 04/17/2016 HOWARD LACEY FACC, ALI FACP CCDS Ot E78.4 OTHER HYPERLIPIDEMIA 04/17/2016 HOWARD LACEY FACC, ALI FACP CCDS Ot G47.33 OBSTRUCTIVE SLEEP APNEA (ADULT) (PEDIATR 04/17/2016 HOWARD LACEY FACC, ALI FACP CCDS Ot I10 ESSENTIAL (PRIMARY) HYPERTENSION 04/17/2016 HOWARD LACEY FACC, ALI FACP CCDS Ot I48.0 PAROXYSMAL ATRIAL FIBRILLATION 04/17/2016 HOWARD LACEY FACC, ALI FACP CCDS Ot I50.32 CHRONIC DIASTOLIC (CONGESTIVE) HEART TONE 04/17/2016 HOWARD LACEY FACC, ALI FACP CCDS Ot I65.23 OCCLUSION AND STENOSIS OF BILATERAL WEBB 04/17/2016 HOWARD LACEY FACC, ALI FACP CCDS Ot R06.02 SHORTNESS OF BREATH 07/13/2016 CARLOS LACEY, SHALINI R Ot 276.69 OTHER FLUID OVERLOAD 07/13/2016 HOWARD LACEY FACC, ALI FACP CCDS Ot 250.00 DIAB ROMY WO COMPL, TYPE II OR UNSPEC TY 07/13/2016 HOWARD LACEY FACC, ALI FACP CCDS Ot 280.0 CHR BLOOD LOSS ANEMIA 07/13/2016 HOWARD LACEY FACC, ALI FACP CCDS Ot 401.9 HYPERTENSION NOS 07/13/2016 HOWARD LACEY FACC, ALI FACP CCDS Ot 427.31 ATRIAL FIBRILLATION 07/13/2016 HOWARD LACEY FACC, ALI FACP CCDS Ot 428.0 CONGESTIVE HEART FAILURE NOS 07/13/2016 HOWARD LACEY FACC, ALI FACP CCDS Ot 486 PNEUMONIA, ORGANISM NOS 07/13/2016 HOWARD LACEY FACC, ALI FACP CCDS Ot 593.9 RENAL URETERAL DIS NOS 07/13/2016 HOWARD LACEY FACC, ALI FACP CCDS Ot V85.33 BODY MASS INDEX 33.0-33.9, ADULT 07/13/2016 SANJANA RINALDIHER L METAL NEUTRALIZER Ot 275.2 DIS MAGNESIUM METABOLISM 07/13/2016 NIMCO PAULINE L METAL NEUTRALIZER Ot 272.4 HYPERLIPIDEMIA NEC/NOS 07/13/2016 BAIMA, PAULINE L METAL NEUTRALIZER Ot 285.9 ANEMIA NOS 07/13/2016 CHEOMA, PAULINE L METAL NEUTRALIZER Ot 427.31 ATRIAL FIBRILLATION 07/13/2016 CHEOMA PAULINE L METAL NEUTRALIZER Ot 428.0 CONGESTIVE HEART FAILURE NOS 07/13/2016 HOWARD LACEY FACC, ALI FACP CCDS Ot E78.4 OTHER HYPERLIPIDEMIA 07/13/2016 HOWARD LACEY FACC, ALI FACP CCDS Ot G47.33 OBSTRUCTIVE SLEEP APNEA (ADULT) (PEDIATR 07/13/2016 HOWARD LACEY FACC, ALI FACP CCDS Ot I10 ESSENTIAL (PRIMARY) HYPERTENSION 07/13/2016 HOWARD LACEY FACC, ALI FACP CCDS Ot I48.0 PAROXYSMAL ATRIAL FIBRILLATION 07/13/2016 HOWARD LACEY FACC, ALI FACP CCDS Ot I50.23 ACUTE ON CHRONIC SYSTOLIC (CONGESTIVE) H 07/13/2016 HOWARD LACEY FACNydia, ALI FACP CCDS Ot I65.23 OCCLUSION AND STENOSIS OF BILATERAL [place]BB 07/13/2016 HOWARD LACEY FACC, ALI FACP CCDS Ot R06.02 SHORTNESS OF BREATH 07/13/2016 HOWARD LACEY FACC, ALI FACP CCDS Ot E78.4 OTHER HYPERLIPIDEMIA 07/13/2016 HOWARD LACEY FACC, ALI FACP CCDS Ot G47.33 OBSTRUCTIVE SLEEP APNEA (ADULT) (PEDIATR 07/13/2016 HOWARD LACEY FACC, ALI FACP CCDS Ot I10 ESSENTIAL (PRIMARY) HYPERTENSION 07/13/2016 HOWARD LACEY FACC, ALI FACP CCDS Ot I48.0 PAROXYSMAL ATRIAL FIBRILLATION 07/13/2016 HOWARD LACEY FACC, ALI FACP CCDS Ot I50.32 CHRONIC DIASTOLIC (CONGESTIVE) HEART TONE 07/13/2016 HOWARD LACEY FACC, ALI FACP CCDS Ot I65.23 OCCLUSION AND STENOSIS OF BILATERAL [place]BB 07/13/2016 HOWARD LACEY FACC, ALI FACP CCDS Ot R06.02 SHORTNESS OF BREATH 07/13/2016 Ot E78.4 OTHER HYPERLIPIDEMIA 07/13/2016 Ot G47.33 OBSTRUCTIVE SLEEP APNEA (ADULT) (PEDIATR 07/13/2016 Ot I10 ESSENTIAL ( PRIMARY) HYPERTENSION 07/13/2016 Ot I48.0 PAROXYSMAL ATRIAL FIBRILLATION 07/13/2016 Ot I50.32 CHRONIC DIASTOLIC (CONGESTIVE) HEART TONE 07/13/2016 Ot I65.23 OCCLUSION AND STENOSIS OF BILATERAL WEBB 07/13/2016 Ot R06.02 SHORTNESS OF BREATH 07/16/2016 ANTHONY ROMERO MD Ot J02.9 ACUTE PHARYNGITIS, UNSPECIFIED 07/16/2016 ANTHONY ROMERO MD Ot R06.02 SHORTNESS OF BREATH 07/24/2016 CARLOS LACEY, SHALINI R Ot 276.69 OTHER FLUID OVERLOAD 07/24/2016 HOWARD LACEY FACC, ALI FACP CCDS Ot 250.00 DIAB ROMY WO COMPL, TYPE II OR UNSPEC TY 07/24/2016 HOWARD LACEY FACC, ALI FACP CCDS Ot 280.0 CHR BLOOD LOSS ANEMIA 07/24/2016 HOWARD LACEY FACC, ALI FACP CCDS Ot 401.9 HYPERTENSION NOS 07/24/2016 HOWARD LACEY FACC, ALI FACP CCDS Ot 427.31 ATRIAL FIBRILLATION 07/24/2016 HOWARD LACEY FACC, ALI FACP CCDS Ot 428.0 CONGESTIVE HEART FAILURE NOS 07/24/2016 HOWARD LACEY FACC, ALI FACP CCDS Ot 486 PNEUMONIA, ORGANISM NOS 07/24/2016 HOWARD LACEY FACC, ALI FACP CCDS Ot 593.9 RENAL URETERAL DIS NOS 07/24/2016 HOWARD LACEY FACC, ANTONIO FACP CCDS Ot V85.33 BODY MASS INDEX 33.0-33.9, ADULT 07/24/2016 BAIMA PAULINE L METAL NEUTRALIZER Ot 275.2 DIS MAGNESIUM METABOLISM 07/24/2016 BAIJORDEN PAULINE L METAL NEUTRALIZER Ot 272.4 HYPERLIPIDEMIA NEC/NOS 07/24/2016 CHEOMA PAULINE L METAL NEUTRALIZER Ot 285.9 ANEMIA NOS 07/24/2016 CHEOMA, PAULINE L METAL NEUTRALIZER Ot 427.31 ATRIAL FIBRILLATION 07/24/2016 BAIMA, PAULINE L METAL NEUTRALIZER Ot 428.0 CONGESTIVE HEART FAILURE NOS 07/24/2016 ANTONIO LAWRENCE MD, FACC FACP CCDS Ot E78.4 OTHER HYPERLIPIDEMIA 07/24/2016 HOWARD LACEY FACC, ANTONIO FACP CCDS Ot G47.33 OBSTRUCTIVE SLEEP APNEA (ADULT) (PEDIATR 07/24/2016 HOWARD LACEY FACC, ANTONIO FACP CCDS Ot I10 ESSENTIAL (PRIMARY) HYPERTENSION 07/24/2016 HOWARD LACEY FACC, ALI FACP CCDS Ot I48.0 PAROXYSMAL ATRIAL FIBRILLATION 07/24/2016 ANTONIO LAWRENCE MD, FACC FACP CCDS Ot I50.23 ACUTE ON CHRONIC SYSTOLIC (CONGESTIVE) H 07/24/2016 ANTONIO LAWRENCE MD, FACC FACP CCDS Ot I65.23 OCCLUSION AND STENOSIS OF BILATERAL WEBB 07/24/2016 HOWARD LACEY FACC ALI FACP CCDS Ot R06.02 SHORTNESS OF BREATH 07/24/2016 HOWARD LACEY FACC ALI FACP CCDS Ot E78.4 OTHER HYPERLIPIDEMIA 07/24/2016 HOWARD LACEY FACC, ALI FACP CCDS Ot G47.33 OBSTRUCTIVE SLEEP APNEA (ADULT) (PEDIATR 07/24/2016 HOWARD LACEY [facility], ALI FACP CCDS Ot I10 ESSENTIAL (PRIMARY) HYPERTENSION 07/24/2016 HOWARD LACEY FAC, ALI FACP CCDS Ot I48.0 PAROXYSMAL ATRIAL FIBRILLATION 07/24/2016 HOWARD LACEY FAC, ALI FACP CCDS Ot I50.32 CHRONIC DIASTOLIC (CONGESTIVE) HEART TONE 07/24/2016 HOWARD LACEY FAC, ALI FACP CCDS Ot I65.23 OCCLUSION AND STENOSIS OF BILATERAL WEBB 07/24/2016 HOWARD LACEY [facility], ALI FACP CCDS Ot R06.02 SHORTNESS OF BREATH 07/24/2016 Ot E78.4 OTHER HYPERLIPIDEMIA 07/24/2016 Ot G47.33 OBSTRUCTIVE SLEEP APNEA (ADULT) (PEDIATR 07/24/2016 Ot I10 ESSENTIAL ( PRIMARY) HYPERTENSION 07/24/2016 Ot I48.0 PAROXYSMAL ATRIAL FIBRILLATION 07/24/2016 Ot I50.32 CHRONIC DIASTOLIC (CONGESTIVE) HEART TONE 07/24/2016 Ot I65.23 OCCLUSION AND STENOSIS OF BILATERAL WEBB 07/24/2016 Ot R06.02 SHORTNESS OF BREATH 07/24/2016 HEATHER LACEY, ANTHONY Claros Ot J02.9 ACUTE PHARYNGITIS, UNSPECIFIED 07/24/2016 ANTHONY ORMERO MD Ot R06.02 SHORTNESS OF BREATH 07/26/2016 ANTHONY ROMERO MD Ot J02.9 ACUTE PHARYNGITIS, UNSPECIFIED 07/26/2016 ANTHONY ROMERO MD Ot R06.02 SHORTNESS OF BREATH 07/26/2016 PAULINE RINALDI METAL NEUTRALIZER Ot I48.0 PAROXYSMAL ATRIAL FIBRILLATION 07/27/2016 PAULINE RINALDI METAL NEUTRALIZER Ot I48.0 PAROXYSMAL ATRIAL FIBRILLATION 07/27/2016 PAULINE RINALDI METAL NEUTRALIZER Ot I48.0 PAROXYSMAL ATRIAL FIBRILLATION 08/01/2016 FLIP PEDERSEN DO Ot D68.9 COAGULATION DEFECT, UNSPECIFIED 08/01/2016 FLIP PEDERSEN DO Ot G47.33 OBSTRUCTIVE SLEEP APNEA (ADULT) (PEDIATR 08/01/2016 FLIP PEDERSEN DO Ot I50.32 CHRONIC DIASTOLIC (CONGESTIVE) HEART TONE 08/01/2016 FLIP PEDERSEN DO Ot R06.02 SHORTNESS OF BREATH 08/01/2016 FLIP PEDERSEN DO Ot R06.09 OTHER FORMS OF DYSPNEA 08/01/2016 FLIP PEDERSEN DO Ot R91.8 OTHER NONSPECIFIC ABNORMAL FINDING OF DIVAY 08/01/2016 FLIP PEDERSEN DO Ot Z87.891 PERSONAL HISTORY OF NICOTINE DEPENDENCE 08/03/2016 FLIP PEDERSEN DO Ot D68.9 COAGULATION DEFECT, UNSPECIFIED 08/03/2016 FLIP PEDERSEN DO Ot G47.33 OBSTRUCTIVE SLEEP APNEA (ADULT) (PEDIATR 08/03/2016 FLIP PEDERSEN DO Ot I50.32 CHRONIC DIASTOLIC (CONGESTIVE) HEART TONE 08/03/2016 FLIP PEDERSEN DO Ot R06.02 SHORTNESS OF BREATH 08/03/2016 FLIP PEDERSEN DO Ot R06.09 OTHER FORMS OF DYSPNEA 08/03/2016 FLIP PEDERSEN DO Ot R91.8 OTHER NONSPECIFIC ABNORMAL FINDING OF DIVYA 08/03/2016 FLIP PEDERSEN DO Ot Z87.891 PERSONAL HISTORY OF NICOTINE DEPENDENCE 08/03/2016 HEATHER LACEY, ANTHONY Claros Ot J02.9 ACUTE PHARYNGITIS, UNSPECIFIED 08/03/2016 HEATHER LACEY, ANTHONY Claros Ot R06.02 SHORTNESS OF BREATH 08/10/2016 FLIP PEDERSEN DO Ot G47.33 OBSTRUCTIVE SLEEP APNEA (ADULT) (PEDIATR 08/11/2016 FLIP PEDERSEN DO Ot G47.33 OBSTRUCTIVE SLEEP APNEA (ADULT) (PEDIATR 08/15/2016 FLIP PEDERSEN DO Ot D64.9 ANEMIA, UNSPECIFIED 08/15/2016 FLIP PEDERSEN DO Ot D68.9 COAGULATION DEFECT, UNSPECIFIED 08/15/2016 FLIP PEDERSEN DO Ot G47.33 OBSTRUCTIVE SLEEP APNEA (ADULT) (PEDIATR 08/15/2016 FLIP PEDERSEN DO Ot I48.0 PAROXYSMAL ATRIAL FIBRILLATION 08/15/2016 FLIP PEDERSEN DO Ot I50.32 CHRONIC DIASTOLIC (CONGESTIVE) HEART TONE 08/15/2016 FLIP PEDERSEN DO Ot Z87.891 PERSONAL HISTORY OF NICOTINE DEPENDENCE 08/16/2016 FLIP PEDERSEN DO Ot G47.33 OBSTRUCTIVE SLEEP APNEA (ADULT) (PEDIATR 08/16/2016 PAULINE RINALDI Ot I48.0 PAROXYSMAL ATRIAL FIBRILLATION 08/20/2016 FLIP PEDERSEN DO Ot D68.9 COAGULATION DEFECT, UNSPECIFIED 08/20/2016 FLIP PEDERSEN DO Ot G47.33 OBSTRUCTIVE SLEEP APNEA (ADULT) (PEDIATR 08/20/2016 FLIP PEDERSEN DO Ot I50.32 CHRONIC DIASTOLIC (CONGESTIVE) HEART TONE 08/20/2016 FLIP PEDERSEN DO Ot R06.02 SHORTNESS OF BREATH 08/20/2016 FLIP PEDERSEN DO Ot R06.09 OTHER FORMS OF DYSPNEA 08/20/2016 FLIP PEDERSEN DO Ot R91.8 OTHER NONSPECIFIC ABNORMAL FINDING OF DIVYA 08/20/2016 FLIP PEDERSEN DO Ot Z87.891 PERSONAL HISTORY OF NICOTINE DEPENDENCE 09/03/2016 FLIP PEDERSEN DO Ot D68.9 COAGULATION DEFECT, UNSPECIFIED 09/03/2016 FLIP PEDERSEN DO Ot G47.33 OBSTRUCTIVE SLEEP APNEA (ADULT) (PEDIATR 09/03/2016 FLIP PEDERSEN DO Ot I50.32 CHRONIC DIASTOLIC (CONGESTIVE) HEART TONE 09/03/2016 FLIP PEDERSEN DO Ot R06.02 SHORTNESS OF BREATH 09/03/2016 FLIP PEDERSEN DO Ot R06.09 OTHER FORMS OF DYSPNEA 09/03/2016 FLIP PEDERSEN DO Ot Z87.891 PERSONAL HISTORY OF NICOTINE DEPENDENCE 10/20/2016 FLIP PEDERSEN DO Ot G47.33 OBSTRUCTIVE SLEEP APNEA (ADULT) (PEDIATR 10/22/2016 FLIP PEDERSEN DO Ot G47.33 OBSTRUCTIVE SLEEP APNEA (ADULT) (PEDIATR 12/12/2016 HOWARD LACEY FACC, ANTONIO FACP CCDS Ot I73.9 PERIPHERAL VASCULAR DISEASE, UNSPECIFIED 01/01/2017 HOWARD LACEY FACC, ANTONIO FACP CCDS Ot E78.4 OTHER HYPERLIPIDEMIA 01/01/2017 HOWARD LACEY FACC, ANOTNIO FACP CCDS Ot G47.33 OBSTRUCTIVE SLEEP APNEA (ADULT) (PEDIATR 01/01/2017 HOWARD LACEY FACC, ALI FACP CCDS Ot I10 ESSENTIAL (PRIMARY) HYPERTENSION 01/01/2017 HOWARD LACEY FACC, ALI FACP CCDS Ot I48.0 PAROXYSMAL ATRIAL FIBRILLATION 01/01/2017 HOWARD LACEY FACC, ALI FACP CCDS Ot I65.23 OCCLUSION AND STENOSIS OF BILATERAL WEBB 01/01/2017 HOWARD LACEY FACC, ALI FACP CCDS Ot I73.9 PERIPHERAL VASCULAR DISEASE, UNSPECIFIED 01/01/2017 HOWARD LACEY FACC, ALI FACP CCDS Ot J98.4 OTHER DISORDERS OF LUNG 01/01/2017 HOWARD LACEY FACC, ALI FACP CCDS Ot R06.09 OTHER FORMS OF DYSPNEA 01/01/2017 HOWARD LACEY FACC, ALI FACP CCDS Ot Z87.891 PERSONAL HISTORY OF NICOTINE DEPENDENCE 02/04/2017 CARLOS LACEY, SHALINI R Ot 276.69 OTHER FLUID OVERLOAD 02/04/2017 HOWARD LACEY FACC, ALI FACP CCDS Ot 250.00 DIAB ROMY WO COMPL, TYPE II OR UNSPEC TY 02/04/2017 HOWARD CASTILLOC, ALI FACP CCDS Ot 280.0 CHR BLOOD LOSS ANEMIA 02/04/2017 HOWARD LACEY FACC, ALI FACP CCDS Ot 401.9 HYPERTENSION NOS 02/04/2017 HOWARD LACEY FACC, ALI FACP CCDS Ot 427.31 ATRIAL FIBRILLATION 02/04/2017 HOWARD LACEY FACC, ALI FACP CCDS Ot 428.0 CONGESTIVE HEART FAILURE NOS 02/04/2017 HOWARD LACEY FACC, ALI FACP CCDS Ot 486 PNEUMONIA, ORGANISM NOS 02/04/2017 HOWARD LACEY FACC, ALI FACP CCDS Ot 593.9 RENAL URETERAL DIS NOS 02/04/2017 HOWARD LACEY FACC, ALI FACP CCDS Ot V85.33 BODY MASS INDEX 33.0-33.9, ADULT 02/04/2017 BAIMA, PAULINE L METAL NEUTRALIZER Ot 275.2 DIS MAGNESIUM METABOLISM 02/04/2017 BAIMA, PAULINE L METAL NEUTRALIZER Ot 272.4 HYPERLIPIDEMIA NEC/NOS 02/04/2017 BAIMA, PAULINE L METAL NEUTRALIZER Ot 285.9 ANEMIA NOS 02/04/2017 BAIMA, PAULINE L METAL NEUTRALIZER Ot 427.31 ATRIAL FIBRILLATION 02/04/2017 BAIMA, PAULINE L METAL NEUTRALIZER Ot 428.0 CONGESTIVE HEART FAILURE NOS 02/04/2017 HOWARD LACEY FACC, ALI FACP CCDS Ot E78.4 OTHER HYPERLIPIDEMIA 02/04/2017 HOWARD LACEY FACC, ALI FACP CCDS Ot G47.33 OBSTRUCTIVE SLEEP APNEA (ADULT) (PEDIATR 02/04/2017 HOWARD LACEY FACC, ALI FACP CCDS Ot I10 ESSENTIAL (PRIMARY) HYPERTENSION 02/04/2017 HOWARD LACEY FACC, ALI FACP CCDS Ot I48.0 PAROXYSMAL ATRIAL FIBRILLATION 02/04/2017 HOWARD LACEY FAC, ALI FACP CCDS Ot I50.23 ACUTE ON CHRONIC SYSTOLIC (CONGESTIVE) H 02/04/2017 HOWARD LACEY FACC, ALI FACP CCDS Ot I65.23 OCCLUSION AND STENOSIS OF BILATERAL [place]BB 02/04/2017 HOWARD LACEY FACC, ALI FACP CCDS Ot R06.02 SHORTNESS OF BREATH 02/04/2017 HOWARD LACEY FACC, ALI FACP CCDS Ot E78.4 OTHER HYPERLIPIDEMIA 02/04/2017 HOWARD LACEY FAC, ALI FACP CCDS Ot G47.33 OBSTRUCTIVE SLEEP APNEA (ADULT) (PEDIATR 02/04/2017 HOWARD LACEY FACC, ALI FACP CCDS Ot I10 ESSENTIAL (PRIMARY) HYPERTENSION 02/04/2017 HOWARD LACEY FACC, ALI FACP CCDS Ot I48.0 PAROXYSMAL ATRIAL FIBRILLATION 02/04/2017 HOWARD LACEY FACC, ALI FACP CCDS Ot I50.32 CHRONIC DIASTOLIC (CONGESTIVE) HEART TONE 02/04/2017 HOWARD LACEY FACC, ALI FACP CCDS Ot I65.23 OCCLUSION AND STENOSIS OF BILATERAL [place]BB 02/04/2017 HOWARD LACEY FACC, ALI FACP CCDS Ot R06.02 SHORTNESS OF BREATH 02/04/2017 Ot E78.4 OTHER HYPERLIPIDEMIA 02/04/2017 Ot G47.33 OBSTRUCTIVE SLEEP APNEA (ADULT) (PEDIATR 02/04/2017 Ot I10 ESSENTIAL ( PRIMARY) HYPERTENSION 02/04/2017 Ot I48.0 PAROXYSMAL ATRIAL FIBRILLATION 02/04/2017 Ot I50.32 CHRONIC DIASTOLIC (CONGESTIVE) HEART TONE 02/04/2017 Ot I65.23 OCCLUSION AND STENOSIS OF BILATERAL [place]BB 02/04/2017 Ot R06.02 SHORTNESS OF BREATH 02/04/2017 ANTHONY ROMERO MD Ot J02.9 ACUTE PHARYNGITIS, UNSPECIFIED 02/04/2017 ANTHONY ROMERO MD Ot R06.02 SHORTNESS OF BREATH 02/04/2017 FLIP PEDERSEN DO Ot D68.9 COAGULATION DEFECT, UNSPECIFIED 02/04/2017 FLIP PEDERSEN DO Ot G47.33 OBSTRUCTIVE SLEEP APNEA (ADULT) (PEDIATR 02/04/2017 FLIP PEDERSEN DO Ot I50.32 CHRONIC DIASTOLIC (CONGESTIVE) HEART TONE 02/04/2017 SLAVA DO, FLIP M Ot R06.02 SHORTNESS OF BREATH 02/04/2017 FLIP PEDERSEN DO Ot R06.09 OTHER FORMS OF DYSPNEA 02/04/2017 FLIP PEDERSEN DO Ot R91.8 OTHER NONSPECIFIC ABNORMAL FINDING OF DIVYA 02/04/2017 FLIP PEDERSEN DO Ot Z87.891 PERSONAL HISTORY OF NICOTINE DEPENDENCE 02/04/2017 FLIP PEDERSEN DO Ot D64.9 ANEMIA, UNSPECIFIED 02/04/2017 FLIP PEDERSEN DO Ot D68.9 COAGULATION DEFECT, UNSPECIFIED 02/04/2017 FLIP PEDERSEN DO Ot G47.33 OBSTRUCTIVE SLEEP APNEA (ADULT) (PEDIATR 02/04/2017 FLIP PEDERSEN DO Ot I48.0 PAROXYSMAL ATRIAL FIBRILLATION 02/04/2017 FLIP PEDERSEN DO Ot I50.32 CHRONIC DIASTOLIC (CONGESTIVE) HEART TONE 02/04/2017 FLIP PEDERSEN DO Ot Z87.891 PERSONAL HISTORY OF NICOTINE DEPENDENCE 02/04/2017 PAULINE RINALDI Ot I48.0 PAROXYSMAL ATRIAL FIBRILLATION 02/04/2017 FLIP PEDERSEN DO Ot D68.9 COAGULATION DEFECT, UNSPECIFIED 02/04/2017 FLIP PEDERSEN DO Ot G47.33 OBSTRUCTIVE SLEEP APNEA (ADULT) (PEDIATR 02/04/2017 FLIP PEDERSEN DO Ot I50.32 CHRONIC DIASTOLIC (CONGESTIVE) HEART TONE 02/04/2017 FLIP PEDERSEN DO Ot R06.02 SHORTNESS OF BREATH 02/04/2017 FLIP PEDERSEN DO Ot R06.09 OTHER FORMS OF DYSPNEA 02/04/2017 FLIP PEDERSEN DO Ot Z87.891 PERSONAL HISTORY OF NICOTINE DEPENDENCE 02/04/2017 HOWARD LACEY FACC, ANTONIO FACP CCDS Ot E78.4 OTHER HYPERLIPIDEMIA 02/04/2017 HOWARD LACEY FACC, ANTONIO FACP CCDS Ot G47.33 OBSTRUCTIVE SLEEP APNEA (ADULT) (PEDIATR 02/04/2017 HOWARD LACEY FACC, ALI FACP CCDS Ot I10 ESSENTIAL (PRIMARY) HYPERTENSION 02/04/2017 HOWARD LACEY FACC, ALI FACP CCDS Ot I48.0 PAROXYSMAL ATRIAL FIBRILLATION 02/04/2017 HOWARD LACEY FACC, ALI FACP CCDS Ot I65.23 OCCLUSION AND STENOSIS OF BILATERAL [place]BB 02/04/2017 HOWARD LACEY FACC, ANTONIO FACP CCDS Ot I73.9 PERIPHERAL VASCULAR DISEASE, UNSPECIFIED 02/04/2017 HOWARD LACEY FACC, ANTONIO FACP CCDS Ot J98.4 OTHER DISORDERS OF LUNG 02/04/2017 HOWARD LACEY FACC, ALI FACP CCDS Ot R06.09 OTHER FORMS OF DYSPNEA 02/04/2017 HOWARD LACEY FACC, ALI FACP CCDS Ot Z87.891 PERSONAL HISTORY OF NICOTINE DEPENDENCE 02/10/2017 FLIP PEDERSEN DO Ot G47.33 OBSTRUCTIVE SLEEP APNEA (ADULT) (PEDIATR 02/10/2017 FLIP PEDERSEN DO Ot J98.4 OTHER DISORDERS OF LUNG 02/10/2017 FLIP PEDERSEN DO Ot R06.02 SHORTNESS OF BREATH 02/10/2017 FLIP PEDERSEN DO Ot R06.09 OTHER FORMS OF DYSPNEA 02/10/2017 FLIP PEDERSEN DO Ot Z87.891 PERSONAL HISTORY OF NICOTINE DEPENDENCE 03/04/2017 FLIP PEDERSEN DO Ot G47.33 OBSTRUCTIVE SLEEP APNEA (ADULT) (PEDIATR 03/04/2017 FLIP PEDERSEN DO Ot J98.4 OTHER DISORDERS OF LUNG 03/04/2017 FLIP PEDERSEN DO Ot R06.02 SHORTNESS OF BREATH 03/04/2017 FLIP PEDERSEN DO Ot R06.09 OTHER FORMS OF DYSPNEA 03/04/2017 FLIP PEDERSEN DO Ot Z87.891 PERSONAL HISTORY OF NICOTINE DEPENDENCE 05/26/2017 PAULINE RINALDI METAL NEUTRALIZER Ot E78.4 OTHER HYPERLIPIDEMIA 05/26/2017 PAULINE RINALDI METAL NEUTRALIZER Ot I10 ESSENTIAL (PRIMARY) HYPERTENSION 05/26/2017 PAULINE RINALDI METAL NEUTRALIZER Ot I73.89 OTHER SPECIFIED PERIPHERAL VASCULAR DISE 05/26/2017 PAULINE RINALDI METAL NEUTRALIZER Ot J98.4 OTHER DISORDERS OF LUNG 05/26/2017 PAULINE RINALDI METAL NEUTRALIZER Ot R06.09 OTHER FORMS OF DYSPNEA 06/04/2017 HOWARD LACEY FACC, ANTONIO FACP CCDS Ot D64.9 ANEMIA, UNSPECIFIED 06/04/2017 HOWARD LACEY FACC, ALI FACP CCDS Ot E11.9 TYPE 2 DIABETES MELLITUS WITHOUT COMPLIC 06/04/2017 HOWARD LACEY FACC, ALI FACP CCDS Ot E66.01 MORBID (SEVERE) OBESITY DUE TO EXCESS CA 06/04/2017 HOWARD LACEY FACC, ANTONIO FACP CCDS Ot E78.5 HYPERLIPIDEMIA, UNSPECIFIED 06/04/2017 HOWARD LACEY FACC, ALI FACP CCDS Ot G47.33 OBSTRUCTIVE SLEEP APNEA (ADULT) (PEDIATR 06/04/2017 HOWARD LACEY FACC, ALI FACP CCDS Ot I10 ESSENTIAL (PRIMARY) HYPERTENSION 06/04/2017 HOWARD LACEY FACC, ALI FACP CCDS Ot I25.10 ATHSCL HEART DISEASE OF [place] CORONARY 06/04/2017 HOWARD LACEY FACC, ALI FACP CCDS Ot I25.84 CORONARY ATHEROSCLEROSIS DUE TO CALCIFIE 06/04/2017 HOWARD LACEY FACC, ANTONIO FACP CCDS Ot I48.2 CHRONIC ATRIAL FIBRILLATION 06/04/2017 HOWARD LACEY FACC, ALI FACP CCDS Ot I70.0 ATHEROSCLEROSIS OF [place] 06/04/2017 HOWARD LACEY FACC, ANTONIO FACP CCDS Ot R06.02 SHORTNESS OF BREATH 06/04/2017 HOWARD LACEY FACC, ALI FACP CCDS Ot Z68.32 BODY MASS INDEX (BMI) 32.0-32.9, ADULT 06/04/2017 HOWARD LACEY FACC, ANTONIO FACP CCDS Ot Z79.01 CORRECTION (CURRENT) USE OF ANTICOAGULANT 06/04/2017 HOWARD LACEY FACC, ALI FACP CCDS Ot Z79.899 OTHER CORRECTION (CURRENT) DRUG THERAPY 06/04/2017 HOWARD LACEY FACC, ALI FACP CCDS Ot Z87.891 PERSONAL HISTORY OF NICOTINE DEPENDENCE 06/13/2017 ANTONIO LAWRENCE MD, FACC FACP CCDS Ot D64.9 ANEMIA, UNSPECIFIED 06/13/2017 HOWARD LACEY FACC, ALI FACP CCDS Ot E11.9 TYPE 2 DIABETES MELLITUS WITHOUT COMPLIC 06/13/2017 HOWARD LACEY FACC, ANTONIO FACP CCDS Ot E66.01 MORBID (SEVERE) OBESITY DUE TO EXCESS CA 06/13/2017 HOWARD LACEY FACC, ALI FACP CCDS Ot E78.5 HYPERLIPIDEMIA, UNSPECIFIED 06/13/2017 HOWARD LACEY FACC, ALI FACP CCDS Ot G47.33 OBSTRUCTIVE SLEEP APNEA (ADULT) (PEDIATR 06/13/2017 HOWARD LACEY FACC, ALI FACP CCDS Ot I10 ESSENTIAL (PRIMARY) HYPERTENSION 06/13/2017 HOWARD LACEY FACC, ANTONIO FACP CCDS Ot I25.10 ATHSCL HEART DISEASE OF [place] CORONARY 06/13/2017 HOWARD LACEY FACC, ANTONIO FACP CCDS Ot I25.84 CORONARY ATHEROSCLEROSIS DUE TO CALCIFIE 06/13/2017 HOWARD LACEY FACC, ANTONIO FACP CCDS Ot I48.2 CHRONIC ATRIAL FIBRILLATION 06/13/2017 HOWARD LACEY FACC, ANTONIO FACP CCDS Ot I70.0 ATHEROSCLEROSIS OF [place] 06/13/2017 HOWARD LACEY FACC, ANTONIO FACP CCDS Ot R06.02 SHORTNESS OF BREATH 06/13/2017 HOWARD LACEY FACC, ALI FACP CCDS Ot Z68.32 BODY MASS INDEX (BMI) 32.0-32.9, ADULT 06/13/2017 HOWARD LACEY FACC, ALI FACP CCDS Ot 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 06/13/2017 HOWARD LACEY FACC, ANTONIO FACP CCDS Ot Z79.899 OTHER PROJECTION TECHNICIAN (CURRENT) DRUG THERAPY 06/13/2017 HOWARD LACEY FACC, ALI FACP CCDS Ot Z87.891 PERSONAL HISTORY OF NICOTINE DEPENDENCE 06/17/2017 PAULINE RINALDI METAL NEUTRALIZER Ot E78.4 OTHER HYPERLIPIDEMIA 06/17/2017 PAULINE RINALDI METAL NEUTRALIZER Ot I10 ESSENTIAL (PRIMARY) HYPERTENSION 06/17/2017 PAULINE RINALDI METAL NEUTRALIZER Ot I73.89 OTHER SPECIFIED PERIPHERAL VASCULAR DISE 06/17/2017 PAULINE RINALDI METAL NEUTRALIZER Ot J98.4 OTHER DISORDERS OF LUNG 06/17/2017 PAULINE RINALDI METAL NEUTRALIZER Ot R06.09 OTHER FORMS OF DYSPNEA 06/22/2017 JASS CORDOVA MILLER FIRST Ot I51.7 CARDIOMEGALY 06/22/2017 JASS CORDOVA MILLER FIRST Ot R05 COUGH 06/22/2017 JASS CORDOVA MILLER FIRST Ot R06.02 SHORTNESS OF BREATH 06/22/2017 JASS CORDOVA MILLER FIRST Ot R06.09 OTHER FORMS OF DYSPNEA 06/22/2017 JASS CORDOVA MILLER FIRST Ot I51.7 CARDIOMEGALY 06/22/2017 JASS CORDOVA MILLER FIRST Ot R05 COUGH 06/22/2017 ART, JASS E MILLER FIRST Ot R06.02 SHORTNESS OF BREATH 06/22/2017 ART, JASS E MILLER FIRST Ot R06.09 OTHER FORMS OF DYSPNEA 06/26/2017 ART, JASS E MILLER FIRST Ot I51.7 CARDIOMEGALY 06/26/2017 ART, JASS E MILLER FIRST Ot R05 COUGH 06/26/2017 ART, JASS E MILLER FIRST Ot R06.02 SHORTNESS OF BREATH 06/26/2017 ART, JASS E MILLER FIRST Ot R06.09 OTHER FORMS OF DYSPNEA 07/12/2017 ART, JASS E MILLER FIRST Ot I51.7 CARDIOMEGALY 07/12/2017 ART, JASS E MILLER FIRST Ot R05 COUGH 07/12/2017 ART, JASS E MILLER FIRST Ot R06.02 SHORTNESS OF BREATH 07/12/2017 ART, JASS E MILLER FIRST Ot R06.09 OTHER FORMS OF DYSPNEA 10/01/2017 ART, JASS E MILLER FIRST Ot J98.4 OTHER DISORDERS OF LUNG 10/01/2017 ART, JASS E MILLER FIRST Ot R06.09 OTHER FORMS OF DYSPNEA 11/12/2017 ART, JASS E MILLER FIRST Ot J98.4 OTHER DISORDERS OF LUNG 11/12/2017 ART, JASS E MILLER FIRST Ot R06.09 OTHER FORMS OF DYSPNEA 12/17/2017 ART, JASS E MILLER FIRST Ot J98.4 OTHER DISORDERS OF LUNG 12/17/2017 ART, JASS E MILLER FIRST Ot R06.09 OTHER FORMS OF DYSPNEA 12/26/2017 ART, JASS E MILLER FIRST Ot J98.4 OTHER DISORDERS OF LUNG 12/26/2017 ART, JASS E MILLER FIRST Ot R06.09 OTHER FORMS OF DYSPNEA 12/29/2017 ART, JASS E MILLER FIRST Ot J98.4 OTHER DISORDERS OF LUNG 12/29/2017 ART, JASS E MILLER FIRST Ot R06.09 OTHER FORMS OF DYSPNEA 12/31/2017 ART, JASS E MILLER FIRST Ot J98.4 OTHER DISORDERS OF LUNG 12/31/2017 ART, JASS E MILLER FIRST Ot R06.09 OTHER FORMS OF DYSPNEA 01/08/2018 ART, JASS E MILLER FIRST Ot J98.4 OTHER DISORDERS OF LUNG 01/08/2018 ART, JASS E MILLER FIRST Ot R06.09 OTHER FORMS OF DYSPNEA 01/24/2018 CARLOS LACEY, SHALINI R Ot 276.69 OTHER FLUID OVERLOAD 01/24/2018 HOWARD LACEY FACC, ALI FACP CCDS Ot 250.00 DIAB ROMY WO COMPL, TYPE II OR UNSPEC TY 01/24/2018 HOWARD LACEY FACC, ALI FACP CCDS Ot 280.0 CHR BLOOD LOSS ANEMIA 01/24/2018 HOWARD LACEY FACC, ALI FACP CCDS Ot 401.9 HYPERTENSION NOS 01/24/2018 HOWARD LACEY FACC, ALI FACP CCDS Ot 427.31 ATRIAL FIBRILLATION 01/24/2018 HOWARD LACEY FACC, ALI FACP CCDS Ot 428.0 CONGESTIVE HEART FAILURE NOS 01/24/2018 HOWARD LACEY FACC, ALI FACP CCDS Ot 486 PNEUMONIA, ORGANISM NOS 01/24/2018 HOWARD LACEY FACC, ALI FACP CCDS Ot 593.9 RENAL URETERAL DIS NOS 01/24/2018 HOWARD LACEY FACC, ALI FACP CCDS Ot V85.33 BODY MASS INDEX 33.0-33.9, ADULT 01/24/2018 BAIMA, PAULINE L METAL NEUTRALIZER Ot 275.2 DIS MAGNESIUM METABOLISM 01/24/2018 BAIMA, PAULINE L METAL NEUTRALIZER Ot 272.4 HYPERLIPIDEMIA NEC/NOS 01/24/2018 BAIMA, PAULINE L METAL NEUTRALIZER Ot 285.9 ANEMIA NOS 01/24/2018 BAIMA, PAULINE L METAL NEUTRALIZER Ot 427.31 ATRIAL FIBRILLATION 01/24/2018 BAIMA, PAULINE L METAL NEUTRALIZER Ot 428.0 CONGESTIVE HEART FAILURE NOS 01/24/2018 HOWARD LACEY FACC, ANTONIO FACP CCDS Ot E78.4 OTHER HYPERLIPIDEMIA 01/24/2018 HOWARD LACEY FACC, ALI FACP CCDS Ot G47.33 OBSTRUCTIVE SLEEP APNEA (ADULT) (PEDIATR 01/24/2018 HOWARD LACEY FACC, ALI FACP CCDS Ot I10 ESSENTIAL (PRIMARY) HYPERTENSION 01/24/2018 HOWARD LACEY FACC, ALI FACP CCDS Ot I48.0 PAROXYSMAL ATRIAL FIBRILLATION 01/24/2018 HOWARD LACEY FACC, ALI FACP CCDS Ot I50.23 ACUTE ON CHRONIC SYSTOLIC (CONGESTIVE) H 01/24/2018 HOWARD LACEY FACC, ALI FACP CCDS Ot I65.23 OCCLUSION AND STENOSIS OF BILATERAL [place] 01/24/2018 HOWARD LACEY FACC, ALI FACP CCDS Ot R06.02 SHORTNESS OF BREATH 01/24/2018 HOWARD LACEY FAC, ALI FACP CCDS Ot E78.4 OTHER HYPERLIPIDEMIA 01/24/2018 HOWARD LACEY FAC, ALI FACP CCDS Ot G47.33 OBSTRUCTIVE SLEEP APNEA (ADULT) (PEDIATR 01/24/2018 HOWARD LACEY FACC, ALI FACP CCDS Ot I10 ESSENTIAL (PRIMARY) HYPERTENSION 01/24/2018 HOWARD LACEY FAC, ALI FACP CCDS Ot I48.0 PAROXYSMAL ATRIAL FIBRILLATION 01/24/2018 HOWARD LACEY FAC, ALI FACP CCDS Ot I50.32 CHRONIC DIASTOLIC (CONGESTIVE) HEART TONE 01/24/2018 HOWARD LACEY FAC, ALI FACP CCDS Ot I65.23 OCCLUSION AND STENOSIS OF BILATERAL [place] 01/24/2018 HOWARD LACEY FAC, ALI FACP CCDS Ot R06.02 SHORTNESS OF BREATH 01/24/2018 Ot E78.4 OTHER HYPERLIPIDEMIA 01/24/2018 Ot G47.33 OBSTRUCTIVE SLEEP APNEA (ADULT) (PEDIATR 01/24/2018 Ot I10 ESSENTIAL ( PRIMARY) HYPERTENSION 01/24/2018 Ot I48.0 PAROXYSMAL ATRIAL FIBRILLATION 01/24/2018 Ot I50.32 CHRONIC DIASTOLIC (CONGESTIVE) HEART TONE 01/24/2018 Ot I65.23 OCCLUSION AND STENOSIS OF BILATERAL [place] 01/24/2018 Ot R06.02 SHORTNESS OF BREATH 01/24/2018 HEATHER LACEY, ANTHONY Claros Ot J02.9 ACUTE PHARYNGITIS, UNSPECIFIED 01/24/2018 HEATHER LACEY, ANTHONY Claros Ot R06.02 SHORTNESS OF BREATH 01/24/2018 FLIP PEDERSEN DO Ot D68.9 COAGULATION DEFECT, UNSPECIFIED 01/24/2018 FLIP PEDERSEN DO Ot G47.33 OBSTRUCTIVE SLEEP APNEA (ADULT) (PEDIATR 01/24/2018 FLIP PEDERSEN DO Ot I50.32 CHRONIC DIASTOLIC (CONGESTIVE) HEART TONE 01/24/2018 FLIP PEDERSEN DO Ot R06.02 SHORTNESS OF BREATH 01/24/2018 FLIP PEDERSEN DO Ot R06.09 OTHER FORMS OF DYSPNEA 01/24/2018 FLIP PEDERSEN DO Ot R91.8 OTHER NONSPECIFIC ABNORMAL FINDING OF DIVYA 01/24/2018 FLIP PEDERSEN DO Ot Z87.891 PERSONAL HISTORY OF NICOTINE DEPENDENCE 01/24/2018 FLIP PEDERSEN DO Ot D64.9 ANEMIA, UNSPECIFIED 01/24/2018 FLIP PEDERSEN DO Ot D68.9 COAGULATION DEFECT, UNSPECIFIED 01/24/2018 FLIP PEDERSEN DO Ot G47.33 OBSTRUCTIVE SLEEP APNEA (ADULT) (PEDIATR 01/24/2018 FLIP PEDERSEN DO Ot I48.0 PAROXYSMAL ATRIAL FIBRILLATION 01/24/2018 FLIP PEDERSEN DO Ot I50.32 CHRONIC DIASTOLIC (CONGESTIVE) HEART TONE 01/24/2018 FLIP PEDERSEN DO Ot Z87.891 PERSONAL HISTORY OF NICOTINE DEPENDENCE 01/24/2018 CHEOPAULINE LEONARDO VIKTORIA Ot I48.0 PAROXYSMAL ATRIAL FIBRILLATION 01/24/2018 FLIP EPDERSEN DO Ot G47.33 OBSTRUCTIVE SLEEP APNEA (ADULT) (PEDIATR 01/24/2018 FLIP PEDERSEN DO Ot J98.4 OTHER DISORDERS OF LUNG 01/24/2018 FLIP PEDERSEN DO Ot R06.02 SHORTNESS OF BREATH 01/24/2018 FLIP PEDERSEN DO Ot R06.09 OTHER FORMS OF DYSPNEA 01/24/2018 FLIP PEDERSEN DO Ot Z87.891 PERSONAL HISTORY OF NICOTINE DEPENDENCE 01/24/2018 FLIP PEDERSEN DO Ot D68.9 COAGULATION DEFECT, UNSPECIFIED 01/24/2018 FLIP PEDERSEN DO Ot G47.33 OBSTRUCTIVE SLEEP APNEA (ADULT) (PEDIATR 01/24/2018 FLIP PEDERSEN DO Ot I50.32 CHRONIC DIASTOLIC (CONGESTIVE) HEART TONE 01/24/2018 FLIP PEDERSEN DO Ot R06.02 SHORTNESS OF BREATH 01/24/2018 FLIP PEDERSEN DO Ot R06.09 OTHER FORMS OF DYSPNEA 01/24/2018 FLIP PEDERSEN DO Ot Z87.891 PERSONAL HISTORY OF NICOTINE DEPENDENCE 01/24/2018 HOWARD LACEY FACC, ANTONIO CASTILLOP CCDS Ot E78.4 OTHER HYPERLIPIDEMIA 01/24/2018 HOWARD LACEY FACC, ANTONIO CASTILLOP CCDS Ot G47.33 OBSTRUCTIVE SLEEP APNEA (ADULT) (PEDIATR 01/24/2018 HOWARD LACEY FACC, ANTONIO FACP CCDS Ot I10 ESSENTIAL (PRIMARY) HYPERTENSION 01/24/2018 HOWARD LACEY FACC, ANTONIO CASTILLOP CCDS Ot I48.0 PAROXYSMAL ATRIAL FIBRILLATION 01/24/2018 HOWARD LACEY FACC, ANTONIO FACP CCDS Ot I65.23 OCCLUSION AND STENOSIS OF BILATERAL [place] 01/24/2018 HOWARD LACEY FACC, ALI FACP CCDS Ot I73.9 PERIPHERAL VASCULAR DISEASE, UNSPECIFIED 01/24/2018 HOWARD LACEY FACC, ALI FACP CCDS Ot J98.4 OTHER DISORDERS OF LUNG 01/24/2018 HOWARD LACEY FACC, ALI FACP CCDS Ot R06.09 OTHER FORMS OF DYSPNEA 01/24/2018 HOWARD LACEY FACC, ALI FACP CCDS Ot Z87.891 PERSONAL HISTORY OF NICOTINE DEPENDENCE 01/24/2018 NIMCO PAULINE L METAL NEUTRALIZER Ot E78.4 OTHER HYPERLIPIDEMIA 01/24/2018 PAULINE RINALDI METAL NEUTRALIZER Ot I10 ESSENTIAL (PRIMARY) HYPERTENSION 01/24/2018 NIMCO PAULINE L METAL NEUTRALIZER Ot I73.89 OTHER SPECIFIED PERIPHERAL VASCULAR DISE 01/24/2018 PAULINE RINALDI METAL NEUTRALIZER Ot J98.4 OTHER DISORDERS OF LUNG 01/24/2018 PAULINE RINALDI METAL NEUTRALIZER Ot R06.09 OTHER FORMS OF DYSPNEA 01/24/2018 JASS CORDOVA MILLER FIRST Ot I51.7 CARDIOMEGALY 01/24/2018 JASS CORDOVA MILLER FIRST Ot R05 COUGH 01/24/2018 JASS CORDOVA E MILLER FIRST Ot R06.02 SHORTNESS OF BREATH 01/24/2018 JASS CORDOVA E MILLER FIRST Ot R06.09 OTHER FORMS OF DYSPNEA 01/24/2018 JASS CORDOVA E MILLER FIRST Ot J98.4 OTHER DISORDERS OF LUNG 01/24/2018 JASS CORDOVA MILLER FIRST Ot R06.09 OTHER FORMS OF DYSPNEA 01/25/2018 JASS CORDOVA E MILLER FIRST Ot J98.4 OTHER DISORDERS OF LUNG 01/25/2018 ZULAY CORDOVAINE E MILLER FIRST Ot R06.09 OTHER FORMS OF DYSPNEA Procedures Code Description Performed By Performed On 45.16 ESOPHAGOGASTRODUODENOSCOPY [ EGD] W/CLOSE 04/29/2015 45.42 ENDOSC POLYPECTOMY OF LG INTEST 04/29/2015 48.36 ENDO RECTUM POLYPECTOMY 04/29/2015 Results Test Result Range [id number] - 07/13/16 14:15 Serum or plasma urea nitrogen measurement (mass/volume) 15 mg/dL 7-18 Serum or plasma creatinine measurement (mass/volume) 0.95 mg/dL 0.60-1.30 Serum or plasma urea nitrogen/creatinine mass ratio 16 NRG Serum or plasma creatinine measurement with calculation of estimated glomerular filtration rate > NRG Arterial blood gas measurement - 08/10/16 10:49 Blood pCO2 39 mm[Hg] 35-45 Blood pO2 97 mm[Hg] 79-93 Arterial blood bicarbonate measurement (moles/volume) 25 mmol/L 23-27 Arterial blood base excess by calculation 0.4 mmol/L -2.5 -2.5 Arterial blood oxygen saturation measurement 98 % 94-100 * Inhaled oxygen flow rate RA NRG Arterial blood pH measurement with patient temperature correction 7.42 7.37-7.43 Arterial blood carbon dioxide, total measurement (moles/volume) 25.9 mmol/L 21.0-31.0 Body site L RAD NRG Assessment of wrist artery patency prior to arterial puncture YES- POS NRG Setting of ventilation mode NO NRG Measurement of body temperature 98.8 NRG Automated blood complete blood count (hemogram) panel - 06/04/17 07:29 Blood leukocytes automated count (number/volume) 8.4 10*3/uL 4.3-11.0 Blood erythrocytes automated count (number/volume) 4.80 10*6/uL 4.35-5.85 Venous blood hemoglobin measurement (mass/volume) 10.7 g/dL 13.3-17.7 Blood hematocrit (volume fraction) 36 % 40-54 Automated erythrocyte mean corpuscular volume 75 [foz_us] 80-99 Automated erythrocyte mean corpuscular hemoglobin (mass per erythrocyte) 22 pg 25-34 Automated erythrocyte mean corpuscular hemoglobin concentration measurement ( mass/volume) 30 g/dL 32-36 Automated erythrocyte distribution width ratio 17.7 % 10.0-14.5 Automated blood platelet count (count/volume) 268 10*3/uL 130-400 Automated blood platelet mean volume measurement 10.2 [foz_us] 7.4-10.4 PT panel in platelet poor plasma by coagulation assay - 06/04/17 07:29 Prothrombin time (PT) in platelet poor plasma by coagulation assay 13.4 s 12.2-14.7 INR in platelet poor plasma or blood by coagulation assay 1.1 0.8-1.4 Activated partial thromboplastin time (aPTT) in platelet poor plasma bycoagulation assay - 06/04/17 07:29 Activated partial thromboplastin time (aPTT) in platelet poor plasma bycoagulation assay 30 s 24-35 Comprehensive metabolic panel - 06/04/17 07:29 Serum or plasma sodium measurement (moles/volume) 138 mmol/L 135-145 Serum or plasma potassium measurement (moles/volume) 4.2 mmol/L 3.6-5.0 Serum or plasma chloride measurement (moles/volume) 104 mmol/L 98-107 Carbon dioxide 24 mmol/L 21-32 Serum or plasma anion gap determination (moles/volume) 10 mmol/L 5-14 Serum or plasma urea nitrogen measurement (mass/volume) 16 mg/dL 7-18 Serum or plasma creatinine measurement (mass/volume) 0.94 mg/dL 0.60-1.30 Serum or plasma urea nitrogen/creatinine mass ratio 17 NRG Serum or plasma creatinine measurement with calculation of estimated glomerular filtration rate > NRG Serum or plasma glucose measurement (mass/volume) 235 mg/dL 70-105 Serum or plasma calcium measurement (mass/volume) 9.2 mg/dL 8.5-10.1 Serum or plasma total bilirubin measurement (mass/volume) 0.4 mg/dL 0.1-1.0 Serum or plasma alkaline phosphatase measurement (enzymatic activity/volume) 80 U/L 40-136 Serum or plasma aspartate aminotransferase measurement (enzymatic activity/ volume) 25 U/L 5-34 Serum or plasma alanine aminotransferase measurement (enzymatic activity/volume ) 24 U/L 0-55 Serum or plasma protein measurement (mass/volume) 7.4 g/dL 6.4-8.2 Serum or plasma albumin measurement (mass/volume) 3.9 g/dL 3.2-4.5 Lipid 1996 panel - 06/04/17 07:29 Serum or plasma triglyceride measurement (mass/volume) 121 mg/dL <150 Serum or plasma cholesterol measurement (mass/volume) 95 mg/dL < 200 Serum or plasma cholesterol in HDL measurement (mass/volume) 29 mg/ dL 40-60 Cholesterol in LDL [mass/volume] in serum or plasma by direct assay 52 mg/dL 1-129 Serum or plasma cholesterol in VLDL measurement (mass/volume) 24 mg/ dL 5-40 Methicillin resistant Staphylococcus aureus (MRSA) screening culture - 07:29 Methicillin resistant Staphylococcus aureus (MRSA) screening culture NEG NRG Encounters ACCT No. Visit Date/Time Discharge Status Pt. 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 LUNG DISEASE [id number] 06/20/2017 10:47:00 06/20/2017 23:59:59 CLS Outpatient JASS CORDOVA APRN [facility] RAD R06.02;R05;R06.09; J98.4 [id number] 06/04/2017 06:42:00 06/04/2017 14:00:00 DIS Outpatient ANTONIO LAWRENCE MD, FACC, FACP CCDS [facility] CATH SOB,ANGINA [id number] 05/20/2017 14:16:00 05/20/2017 23:59:59 CLS Outpatient PAULINE RINALDI [facility] LAB R06.09 I10 [id number] 02/04/2017 12:39:00 02/04/2017 23:59:59 CLS Outpatient FLIP PEDERSEN DO [facility] RAD LUNG NODULE [id number] 12/11/2016 13:29:00 12/11/2016 23:59:59 CLS Outpatient ANTONIO LAWRENCE MD, FACC, FACP CCDS [facility] RAD LEFT LEG CLAUDICATION,AFIB,CAROTID ARTERIAL DISEAS [id number] 10/19/2016 19:57:00 10/20/2016 03:35:00 DIS Outpatient FLIP PEDERSEN DO [facility] SLEEP OBSERVED APNEAS, IVANNA [id number] 08/10/2016 19:00:00 08/11/2016 04:10:00 DIS Outpatient FLIP PEDERSEN DO [facility] SLEEP IVANNA [id number] 08/10/2016 10:22:00 08/10/2016 23:59:59 CLS Outpatient SLAVA MARTINEZFLIP [facility] LAB RIDER,SOB,CHF,IVANNA [id number] 07/27/2016 11:58:00 07/27/2016 23:59:59 CLS Outpatient SLAVA FLIP [facility] RAD IRDER,CHF,IVANNA,SOB,BLEEDING DIATHESIS [id number] 07/26/2016 11:45:00 07/26/2016 23:59:59 CLS Outpatient CHEOPAULINE LEONARDO Antonella BLUM [facility] CARD AFIB [id number] 07/24/2016 12:03:00 07/24/2016 23:59:59 CLS Outpatient SLAVA MARTINEZ FLIP Barakat [facility] LAB RIDER,CHF,IVANNA,SOB,HX OF TOBACCO USE,BLEEDING DIATHES [id number] 07/13/2016 14:05:00 07/13/2016 23:59:59 CLS Outpatient ANTHONY ROMERO MD [facility] RAD SOB W/ACTIVITY,HX SORE THROATS [id number] 04/12/2016 17:07:00 04/12/2016 19:22:00 DIS Emergency FÁTIMA ADRIAN MD [facility] ER SOA/SWOLLEN TONSILS [id number] 03/27/2016 07:32:00 03/27/2016 23:59:59 CLS Outpatient ANTONIO LAWRENCE MD, FACC, FACP CCDS [facility] CARD SOB, AFIB [id number] 03/23/2016 14:09:00 03/23/2016 23:59:59 CLS Outpatient ANTONIO LAWRENCE MD, FACC, FACP CCDS [facility] CARD SOB AFIB [id number] 08/03/2015 10:25:00 08/03/2015 11:25:00 DIS Emergency DADA ALEXIS MD [facility] ER RIGHT SIDE NUMB [id number] 05/28/2015 08:47:00 05/28/2015 11:39:00 DIS Emergency VIDA ESTEVEZ DO [facility] ER SOA [id number] 05/16/2015 10:59:00 05/16/2015 23:59:59 CLS Outpatient PAULINE RINALDI [facility] LAB ATRIAL FIB,CHF,ANEMIA ,HYPERLIPIDEMIA [id number] 04/26/2015 12:46:00 04/29/2015 18:30:00 DIS Inpatient SHALINI GONZALEZ MD [facility] CSD SEVERE ANEMIA,AFIB, DSYPNEA,HLP,HTN [id number] 01/12/2014 07:20:00 01/12/2014 23:59:59 CLS Outpatient PAULINE RINALDI [facility] LAB LOW BLOOD MAGNESIUM [id number] 12/29/2013 07:37:00 12/29/2013 23:59:59 CLS Outpatient HOWARD LACEY FACC, ANTONIO THOMAS CCDS [facility] RAD AFIB,CHF,DM, HTN [id number] 12/21/2013 09:36:00 12/21/2013 23:59:59 CLS Outpatient SHALINI GONZALEZ MD [facility] LAB FLUID OVER [id number] 12/17/2013 00:45:00 12/18/2013 11:50:00 DIS Inpatient SHALINI GONZALEZ MD [facility] CSD A-FIB(NEW ONSET),FLUID OVERLOAD,PNEUMONIA [id number] 03/06/2016 09:42:00 Document Registration
[2018-04-01 08:11] LABS: HEMOGLOBIN 9.7 G/DL (13.3-17.7); MEAN PLATELET VOLUME 9.8 FL (7.4-10.4); RED BLOOD COUNT 4.27 10^6/uL (4.35-5.85); RED CELL DISTRIBUTION WIDTH 18.5 % (10.0-14.5)
[2018-04-01 08:22] LABS: INR 1.3 (0.8-1.4); PROTHROMBIN TIME PATIENT 16.4 SEC (12.2-14.7)
[2018-04-01 08:29] LABS: ALANINE AMINOTRANSFERASE 17 U/L (0-55); ALBUMIN 3.7 GM/DL (3.2-4.5); ALKALINE PHOSPHATASE 76 U/L (40-136); BILIRUBIN,TOTAL 0.4 MG/DL (0.1-1.0); BUN/CREATININE RATIO 21; CALCIUM 9.2 MG/DL (8.5-10.1); CARBON DIOXIDE 22 MMOL/L (21-32); CHLORIDE 106 MMOL/L (98-107); CHOLESTEROL 83 MG/DL (< 200); CREATININE SERUM 0.92 MG/DL (0.60-1.30); GFR ESTIMATED > 60; GLUCOSE 191 MG/DL (70-105); HDL CHOLESTEROL 25 MG/DL (40-60); POTASSIUM 4.2 MMOL/L (3.6-5.0); SODIUM 139 MMOL/L (135-145); TRIGLYCERIDES 134 MG/DL (<150); VLDL CHOLESTEROL 27 MG/DL (5-40)
--- NOTE | 2018-04-01 09:39 | Cardiac Procedure Note-CS/ASA ---
Pre-Procedure Note Pre-Op Procedure Note H&P Reviewed The H&P was reviewed, patient examined and no changes noted. Date H&P Reviewed: Apr 01, 2018 Time H&P Reviewed: 09:30 Conscious Sedation Pre-Proced Time Reviewed: 09:30 ASA Class: 3 Airway Mallampati Classification: ([place] appropriate class) I. II. III, IV Lungs Heart ASA score ASA 1: a normal healthy patient ASA 2: a patient with a mild systemic disease (mid diabetes, controlled hypertension, obesity ASA 3: a patient with a severe systemic disease that limits activity (angina , COPD, prior Myocardial infarction) ASA 4: a patient with an incapacitating disease that is a constant threat to life (CHF, renal failure) ASA 5: a moribund patient not expected to survive 24 hrs. (ruptured aneurysm) ASA 6: a declared brain patient whose organs are being harvested. For emergent operations, add the letter E after the classification Grade 3 Sedation Plan: Analgesia, Amnesia, Plan communicated to team members, Discussed options with patient/fam, Discussed risks with patient/fam Note The patient is an appropriate candidate to undergo the planned procedure, sedation, and anesthesia. The patient immediately re-assessed prior to indication. ANTONIO LAWRENCE MD FACP FACC CCDS Apr 01, 2018 09:39
--- NOTE | 2018-04-01 09:42 | Discharge Inst-Cardiology ---
Discharge Inst-Cardiac Discharge Medications Continued Medications: Apixaban (Eliquis) 5 Mg Tablet 5 MG PO BID, TAB Aspirin (Aspir 81) 81 Mg Tablet.dr 81 MG PO DAILY, TAB Budesonide/Formoterol Fumarate (Symbicort 160-4.5 Mcg Inhaler) 10.2 Gm Hfa.aer.ad 2 PUFF IH BID, INHALER Cholecalciferol (Vitamin D3) (Vitamin D3) 1,000 Unit Capsule 1000 UNIT PO DAILY, CAP Clonidine HCl (Clonidine HCl) 0.3 Mg Tablet 0.15 MG PO BID, TAB TAKES 1/2 (0.3MG) TABLET Diltiazem HCl (Diltiazem ER) 180 Mg Capsule.er 180 MG PO DAILY, CAP Furosemide (Furosemide) 40 Mg Tablet 80 MG PO DAILY, TAB TAKES 2 (40MG) TABLETS Hydralazine HCl (Hydralazine HCl) 100 Mg Tablet 100 MG PO BID, TAB Insulin Aspart (Novolog Flexpen) 300 Units/3 Ml Solution 50 UNITS SQ AC, EA Insulin Determir (Levemir) 1,000 Units/10 Ml Soln 75 UNITS SQ BID, EA Losartan Potassium (Losartan Potassium) 50 Mg Tablet 50 MG PO DAILY, TAB Metformin HCl (Metformin HCl) 1,000 Mg Tablet 1000 MG PO BID WITH MEALS, TAB Potassium Chloride (Potassium Chloride) 20 Meq Tablet.er 20 MEQ PO DAILY, TAB Ropinirole HCl (Requip) 3 Mg Tablet 3 MG PO HS, TAB Rosuvastatin Calcium (Rosuvastatin Calcium) 40 Mg Tablet 20 MG PO HS, TAB TAKES 1/2 (40MG) TABLET Patient Instructions Patient Instructions: F/u with Dr Hannon next week ANTONIO HNANON MD [facility] CCDS Apr 01, 2018 09:42
--- NOTE | 2018-04-01 09:44 | Anesthesia-Procedure Note ---
Procedures/Interventions Procedure Start/Stop/Diagnosis Date of Procedure: Apr 01, 2018 Start Time: 09:32 Stop Time: 09:38 LICHA/Cardioversion Anesthesia Type: mac ASA Class: 3 Medications Propofol 50 mg IV Monitors and Equipment: Continuous EKG, End Tidal CO2, Pulse Oximeter ZACH CÁRDENAS CRNA Apr 01, 2018 09:43
--- NOTE | 2018-04-01 10:54 | Anesthesia-General Post-Op ---
MAC Patient Condition Mental Status/LOC: Same as Preop Cardiovascular: Satisfactory Nausea/Vomiting: Absent Respiratory: Satisfactory Pain: Controlled Complications: Absent Post Op Complications Complications None Follow Up Care/Instructions Patient Instructions None needed. Anesthesiology Discharge Order Discharge Order Patient is doing well, no complaints, stable vital signs, no apparent adverse anesthesia problems. No complications reported per nursing. ZACH CÁRDENAS CRNA Apr 01, 2018 10:54
--- NOTE | 2018-04-01 14:39 | OPERATIVE REPORT ---
DATE OF SERVICE: 04/01/2018 PREOPERATIVE DIAGNOSIS: Atrial fibrillation. POSTOPERATIVE DIAGNOSIS: Normal sinus rhythm. PROCEDURE: External electrical cardioversion. SURGEON: Esvin Hannon MD, JORDEN, JONATHANP, FACC INDICATIONS: The patient is a 67-year-old man, who is known to have atrial fibrillation and is on chronic stroke prophylaxis with apixaban, which he has continued without any interruption. DESCRIPTION OF PROCEDURE: Informed consent was obtained for electrical cardioversion and this was carried out under short acting anesthesia that was administered by the nurse boat canvas maker and installer. 120 joules of synchronized shock did not convert to sinus rhythm, but 200 joules of external synchronized shock did convert to normal sinus rhythm. He tolerated the procedure well. Job ID: [id number] DocumentID: [id number] Dictated Date: 04/01/2018 09:44:57 Director Of Global Sales Date: 04/01/2018 14:38:24 Dictated By: ESVIN HANNON MD, JORDEN, FACP, FACC,
== END | disposition home or self-care (01) ==
LOC: CATH 07:20
PROVIDERS: ATTEND Internal Medicine Cardiovascular Disease
DX: I48.2 Chronic atrial fibrillation (principal); I50.9 Heart failure, unspecified; I11.0 Hypertensive heart disease with heart failure; E11.9 Type 2 diabetes mellitus without complications; E78.5 Hyperlipidemia, unspecified; E66.2 Morbid (severe) obesity with alveolar hypoventilation; J44.9 Chronic obstructive pulmonary disease, unspecified; D64.9 Anemia, unspecified; I77.89 Other specified disorders of arteries and arterioles; Z79.4 Long term (current) use of insulin; Z87.891 Personal history of nicotine dependence
CPT/HCPCS: 36415; 80053; 80061; 85027; 85610; 85730; 87081; 92960; 93005

== ENCOUNTER → 2018-04-02 | Outpatient (CLI) | payer MEDICARE ==
[~2018-04-02] MED LIST changes: -MIDAZOLAM 2 MG/2 ML (VERSED) VIAL ONE; -NS IV 1000 ML 1,000 ML IV SCH; -NS IV 1000 ML 1,000 ML ONE; -proPOfol 200 MG/20 ML (DIPRIVAN) VIAL IV ONE
== END ==
LOC: CARD 10:19
PROVIDERS: ATTEND Internal Medicine Cardiovascular Disease
DX: I48.0 Paroxysmal atrial fibrillation (principal); R06.02 Shortness of breath
CPT/HCPCS: 93306

== ENCOUNTER → 2018-04-29 | Outpatient (CLI) | payer MEDICARE ==
[~2018-04-29] VITALS: Ht 175.3 cm; Wt 113.4 kg
[2018-04-29] VITALS (8 sets, daily range): BP systolic 121–141; BP diastolic 52–67
[~2018-04-29] MED LIST changes: +NS IV 500 ML 500 ML IV SCH; +NS IV 500 ML 500 ML ONE; -ROSU40TA21 PO; +ROSU40TA22 PO
[2018-04-29 10:58] LABS: BASOPHILS % (AUTO) 0 % (0-10); EOSINOPHILS # (AUTO) 0.3 10^3/uL (0.0-0.3); EOSINOPHILS % (AUTO) 3 % (0-10); HEMATOCRIT 31 % (40-54); HEMOGLOBIN 9.6 G/DL (13.3-17.7); LYMPHOCYTES # (AUTO) 1.3 X 10^3 (1.0-4.0); LYMPHOCYTES % (AUTO) 17 % (12-44); MEAN CORPUSCULAR HEMOGLOBIN 22 PG (25-34); MEAN CORPUSCULAR HGB CONC 31 G/DL (32-36); MEAN CORPUSCULAR VOLUME 73 FL (80-99); MEAN PLATELET VOLUME 9.3 FL (7.4-10.4); MONOCYTES # (AUTO) 0.7 X 10^3 (0.0-1.0); MONOCYTES % (AUTO) 9 % (0-12); NEUTROPHILS # (AUTO) 5.6 X 10^3 (1.8-7.8); NEUTROPHILS % (AUTO) 71 % (42-75); PLATELET COUNT 304 10^3/uL (130-400); RED BLOOD COUNT 4.29 10^6/uL (4.35-5.85); WHITE BLOOD COUNT 7.9 10^3/uL (4.3-11.0)
[2018-04-29 11:19] LABS: ALANINE AMINOTRANSFERASE 16 U/L (0-55); ALBUMIN 3.8 GM/DL (3.2-4.5); ALKALINE PHOSPHATASE 72 U/L (40-136); BILIRUBIN,TOTAL 0.4 MG/DL (0.1-1.0); BUN/CREATININE RATIO 17; CALCIUM 9.3 MG/DL (8.5-10.1); CARBON DIOXIDE 28 MMOL/L (21-32); CHLORIDE 105 MMOL/L (98-107); CREATININE SERUM 1.02 MG/DL (0.60-1.30); GFR ESTIMATED > 60; GLUCOSE 159 MG/DL (70-105); POTASSIUM 3.9 MMOL/L (3.6-5.0); SODIUM 140 MMOL/L (135-145)
== END ==
LOC: LAB 10:35
PROVIDERS: ATTEND Family Medicine
DX: D64.9 Anemia, unspecified (principal)
CPT/HCPCS: 36415; 36430; 80053; 82728; 83540; 85018; 85025; 86850; 86900; 86901; 86920

== ENCOUNTER → 2018-04-30 | Outpatient (CLI) | payer MEDICARE ==
[~2018-04-30] MED LIST changes: -NS IV 500 ML 500 ML IV SCH; -NS IV 500 ML 500 ML ONE
[2018-04-30 10:15] LABS: HEMOGLOBIN 11.1 G/DL (13.3-17.7)
== END ==
LOC: LAB 09:58
PROVIDERS: ATTEND Family Medicine
DX: D64.9 Anemia, unspecified (principal)
CPT/HCPCS: 36415; 85014; 85018

== ENCOUNTER → 2018-08-01 | Outpatient (CLI) | payer MEDICARE ==
[~2018-08-01] MED LIST changes: +DILT180C84 PO; -LOSA50TA36 PO; +LOSA50TA7 PO; +METF-399 PO; -METF10002 PO; +OMEP40CA36 PO; +PANT40TA2 PO; +REGADENOSON 0.4 MG/5 ML SYR (LEXISCAN) IV ONE
[2018-08-01] MEDS: CATHETER FLUSH 10 ML SYR IV PRN ×2 (07:26→09:20)
[2018-08-01 09:18] VITALS: BP 173/93
--- NOTE | 2018-08-01 13:49 | STRESS TEST ---
DATE OF SERVICE: 08/01/2018 RESTING AND POST REGADENOSON TECHNETIUM-99M TETROFOSMIN SPECT CT IMAGING ORDERING PHYSICIAN: Glo Mims APRN PRIMARY PHYSICIAN: Dr. Schultz. CLINICAL DIAGNOSIS: Atrial fibrillation. Baseline images were carried out after injection of 10.64 mCi of technetium-99m Tetrofosmin. This was followed by 0.4 mg of regadenoson and 29.6 mCi of technetium-99m Tetrofosmin for stress imaging. The electrocardiogram showed atrial fibrillation throughout the study. There was nonspecific ST and T-wave abnormality. The electrocardiogram did not change significantly with the regadenoson infusion. Review of images at rest and following stress does not indicate any distinct perfusion defects consistent with significant myocardial ischemia or infarction. Gated images show well preserved global left ventricular systolic function with a calculated ejection fraction of 52%. Left ventricular end-diastolic volume indicated cardiomegaly. TID is absent (1.07). CONCLUSIONS: 1. No evidence of significant myocardial ischemia or infarction on this study. 2. Well preserved global left ventricular systolic function with ejection fraction of approximately 52%. 3. No regional wall motion abnormalities are seen on this study. 4. Moderate cardiomegaly. Job ID: [id number] DocumentID: [id number] Dictated Date: 08/01/2018 13:06:19 Mail Handlers Supervisor Date: 08/01/2018 13:48:28 Dictated By: ANTONIO LAWRENCE MD, MA, FACP, FACC, MTDD
== END ==
LOC: CARD 06:46
PROVIDERS: ATTEND Nurse Practitioner Family
DX: I48.91 Unspecified atrial fibrillation (principal); I10 Essential (primary) hypertension
CPT/HCPCS: 78452; 93017

== ENCOUNTER 2018-08-07 08:16 | Outpatient (CLI) | payer MEDICARE ==
[~2018-08-07] VITALS: Ht 175.3 cm; Wt 118.9 kg
[~2018-08-07 08:16] MED LIST changes: -DILT180C84 PO; -OMEP40CA36 PO; -PANT40TA2 PO; -REGADENOSON 0.4 MG/5 ML SYR (LEXISCAN) IV ONE
[2018-08-07] MEDS ORDERED: LISI40TA PO (08:33)
[2018-08-07] MEDS ORDERED: OMEP40CA36 PO (08:34)
[2018-08-07 08:38] VITALS: BP 119/60
[2018-08-07 09:14] LABS: BASOPHILS % (AUTO) 0 % (0-10); EOSINOPHILS # (AUTO) 0.4 10^3/uL (0.0-0.3); EOSINOPHILS % (AUTO) 4 % (0-10); HEMATOCRIT 32 % (40-54); HEMOGLOBIN 9.4 G/DL (13.3-17.7); LYMPHOCYTES # (AUTO) 1.4 X 10^3 (1.0-4.0); LYMPHOCYTES % (AUTO) 16 % (12-44); MEAN CORPUSCULAR HEMOGLOBIN 21 PG (25-34); MEAN CORPUSCULAR HGB CONC 30 G/DL (32-36); MEAN CORPUSCULAR VOLUME 71 FL (80-99); MEAN PLATELET VOLUME 10.4 FL (7.4-10.4); MONOCYTES # (AUTO) 0.8 X 10^3 (0.0-1.0); MONOCYTES % (AUTO) 9 % (0-12); NEUTROPHILS # (AUTO) 6.4 X 10^3 (1.8-7.8); NEUTROPHILS % (AUTO) 71 % (42-75); PLATELET COUNT 276 10^3/uL (130-400); RED BLOOD COUNT 4.48 10^6/uL (4.35-5.85); RED CELL DISTRIBUTION WIDTH 17.3 % (10.0-14.5); WHITE BLOOD COUNT 9.1 10^3/uL (4.3-11.0)
[2018-08-07 09:39] LABS: BUN/CREATININE RATIO 16; CALCIUM 9.5 MG/DL (8.5-10.1); CARBON DIOXIDE 23 MMOL/L (21-32); CHLORIDE 104 MMOL/L (98-107); CREATININE SERUM 1.06 MG/DL (0.60-1.30); GFR ESTIMATED > 60; GLUCOSE 162 MG/DL (70-105); POTASSIUM 4.1 MMOL/L (3.6-5.0); SODIUM 139 MMOL/L (135-145)
[2018-08-07] MEDS ORDERED: DILT180C84 PO (13:57)
[2018-08-07] MEDS ORDERED: PANT40TA2 PO (13:59)
== END 2018-08-07 16:30 | disposition home or self-care (01) ==
LOC: PREOP 08:16
PROVIDERS: ATTEND Surgery
DX: Z01.812 Encounter for preprocedural laboratory examination (principal); Z11.2 Encounter for screening for other bacterial diseases; D12.6 Benign neoplasm of colon, unspecified; Z79.01 Long term (current) use of anticoagulants
CPT/HCPCS: 36415; 80048; 85025; 86850; 86900; 86901; 87081

== ENCOUNTER → 2018-09-23 | Outpatient (CLI) | payer MEDICARE ==
[~2018-09-23] MED LIST changes: +DILT180C84 PO; +HYDR-3812 PO; +OMEP40CA36 PO; +PANT40TA2 PO
== END ==
LOC: ONC 08:56
PROVIDERS: ATTEND Nurse Practitioner Adult Health
DX: Z86.010 Personal history of colon polyps (principal); Z80.0 Family history of malignant neoplasm of digestive organs; E11.9 Type 2 diabetes mellitus without complications; I50.9 Heart failure, unspecified; Z87.891 Personal history of nicotine dependence; E78.5 Hyperlipidemia, unspecified; I10 Essential (primary) hypertension; I48.91 Unspecified atrial fibrillation
CPT/HCPCS: 99213

== ENCOUNTER → 2018-10-15 | Outpatient (CLI) | payer MEDICARE ==
[~2018-10-15] MED LIST changes: +ALBU18HF2 INH
[2018-10-15 09:34] LABS: BASOPHILS % (AUTO) 1 % (0-10); EOSINOPHILS # (AUTO) 0.3 10^3/uL (0.0-0.3); EOSINOPHILS % (AUTO) 4 % (0-10); HEMATOCRIT 30 % (40-54); HEMOGLOBIN 8.5 G/DL (13.3-17.7); LYMPHOCYTES # (AUTO) 1.4 X 10^3 (1.0-4.0); LYMPHOCYTES % (AUTO) 17 % (12-44); MEAN CORPUSCULAR HGB CONC 28 G/DL (32-36); MEAN CORPUSCULAR VOLUME 69 FL (80-99); MEAN PLATELET VOLUME 9.7 FL (7.4-10.4); MONOCYTES # (AUTO) 0.7 X 10^3 (0.0-1.0); MONOCYTES % (AUTO) 9 % (0-12); NEUTROPHILS # (AUTO) 5.8 X 10^3 (1.8-7.8); NEUTROPHILS % (AUTO) 70 % (42-75); PLATELET COUNT 358 10^3/uL (130-400); RED BLOOD COUNT 4.36 10^6/uL (4.35-5.85); RED CELL DISTRIBUTION WIDTH 21.7 % (10.0-14.5); WHITE BLOOD COUNT 8.3 10^3/uL (4.3-11.0)
[2018-10-15 09:35] LABS: MEAN CORPUSCULAR HEMOGLOBIN 19 PG (25-34)
[2018-10-15 09:49] LABS: ALANINE AMINOTRANSFERASE 14 U/L (0-55); ALBUMIN 3.8 GM/DL (3.2-4.5); ALKALINE PHOSPHATASE 92 U/L (40-136); BILIRUBIN,TOTAL 0.7 MG/DL (0.1-1.0); BUN/CREATININE RATIO 18; CALCIUM 9.2 MG/DL (8.5-10.1); CARBON DIOXIDE 23 MMOL/L (21-32); CHLORIDE 106 MMOL/L (98-107); CREATININE SERUM 1.03 MG/DL (0.60-1.30); GFR ESTIMATED > 60; GLUCOSE 188 MG/DL (70-105); POTASSIUM 3.8 MMOL/L (3.6-5.0); SODIUM 141 MMOL/L (135-145); TOTAL PROTEIN 7.1 GM/DL (6.4-8.2)
== END ==
LOC: LAB 09:19
PROVIDERS: ATTEND Family Medicine
DX: K92.2 Gastrointestinal hemorrhage, unspecified (principal)
CPT/HCPCS: 36415; 80053; 85025

== ENCOUNTER 2018-10-27 08:50 | Inpatient (IN) | payer MEDICARE, OTHER ==
[~2018-10-27] VITALS: Ht 180.3 cm; Wt 108.6 kg
[2018-10-27] MEDS ORDERED: ONDANSETRON 4 MG/2 ML (SDV) Z0FRAN IV PRN ×2 (09:00→12:15)
[2018-10-27] MEDS ORDERED: RT-ALBUTEROL/IPRATROPIUM 3 ML (DUONEB) VIAL INH ONE (09:00)
[2018-10-27] MEDS ORDERED: cefTRIAXone FOR IV USE 1,000 MG in NS (IVPB) 50 ML IV ONE (09:00)
--- NOTE | 2018-10-27 09:03 | ED Respiratory ---
General Stated Complaint: SOB Source: patient, spouse Exam Limitations: no limitations History of Present Illness Date Seen by Provider: Oct 27, 2018 Time Seen by Provider: 08:50 Initial Comments Patient presents to ER by private conveyance with chief complaint that he is having shortness of breath since last night. He's had a productive cough with sputum but no known fevers or chills. His history of COPD, restrictive lung disease, uses CPAP for sleep apnea at night but no oxygen at baseline. He's noted Dr. Grey, pulmonology. He is not having any pain but he is having some nausea without vomiting occasionally. No sick contacts known. He had pneumonia in the past and feels like he is getting it again. He also has a history of diabetes. He is having increased swelling in his feet for the last day or so. No known history of CHF but he does have a history of atrial fibrillation. Allergies and Home Medications Allergies Coded Allergies: No Known Drug Allergies (Unverified , 10/04/18) Home Medications Albuterol Sulfate 18 Gm Hfa.aer.ad, 1-2 PUFF INH Q4H PRN for SHORTNESS OF BREATH , (Reported) Aspirin 81 Mg Tablet.dr, 81 MG PO DAILY, (Reported) Budesonide/Formoterol Fumarate 10.2 Gm Hfa.aer.ad, 2 PUFF IH BID, (Reported) Cholecalciferol (Vitamin D3) 1,000 Unit Capsule, 1,000 UNIT PO DAILY, (Reported) Clonidine HCl 0.3 Mg Tablet, 0.15 MG PO BID, (Reported) TAKES 1/2 (0.3MG) TABLET Diltiazem HCl 180 Mg Cap.er.24h, 180 MG PO DAILY, (Reported) Furosemide 40 Mg Tablet, 80 MG PO DAILY, (Reported) TAKES 2 (40MG) TABLETS Hydralazine HCl 100 Mg Tablet, 100 MG PO BID, (Reported) Hydrocodone/Acetaminophen 1 Each Tablet, 1-2 EACH PO Q4-6hr PRN for PAIN- MODERATE Prescribed by: MALIKA THOMSON on 08/17/18 1102 Insulin Aspart 300 Units/3 Ml Solution, 35 UNITS SQ AC, (Reported) Insulin Determir 1,000 Units/10 Ml Soln, 75 UNITS SQ BID, (Reported) Losartan Potassium 50 Mg Tablet, 50 MG PO DAILY, (Reported) Metformin HCl 1,000 Mg Tablet, 1,000 MG PO BID WITH MEALS, (Reported) Pantoprazole Sodium 40 Mg Tablet.dr, 40 MG PO DAILY, (Reported) Potassium Chloride 20 Meq Tablet.er, 20 MEQ PO DAILY, (Reported) Ropinirole HCl 3 Mg Tablet, 3 MG PO HS, (Reported) Rosuvastatin Calcium 40 Mg Tablet, 20 MG PO HS, (Reported) TAKES 1/2 (40MG) TABLET Patient Home Medication List Home Medication List Reviewed: Yes Review of Systems Review of Systems Constitutional: No chills, No fever; malaise EENTM: No ear discharge, No ear pain Respiratory: cough, phlegm, short of breath, wheezing Cardiovascular: No chest pain; edema; No palpitations Gastrointestinal: No abdominal pain, No constipation, No diarrhea, No nausea Genitourinary: No discharge, No dysuria Musculoskeletal: No back pain, No joint pain Skin: No pruritus, No rash Psychiatric/Neurological: Denies Headache, Denies Numbness, Denies Paresthesia Past Nhzedtf-Gfdxut-Ukkhiv Hx Patient Social History Alcohol Use: Denies Use Recreational Drug Use: No Smoking Status: Former Smoker Type Used: Cigarettes Former Smoker, Quit: Jun 04, 1997 Recent Hopitalizations: Yes (JUL 2018) Immunizations Up To Date Date of Pneumonia Vaccine: Jul 21, 2018 Date of Influenza Vaccine: Jul 21, 2018 Seasonal Allergies Seasonal Allergies: No Past Medical History Surgeries: Yes (MULTIPLE HERNIA REPAIRS, HEMMORHOIDECTOMY right hemicolectomy) Abdominal, Cardiac Respiratory: Yes Sleep Apnea, COPD Currently Using CPAP: Yes Currently Using BIPAP: No Cardiac: Yes Atrial Fibrillation, Coronary Artery Disease, Hypertension Neurological: Yes Stroke Reproductive Disorders: No Sexually Transmitted Disease: No HIV/AIDS: No Genitourinary: No Gastrointestinal: Yes Gastroesophageal Reflux, Hemorrhoids, Polyps Musculoskeletal: No Endocrine: Yes Diabetes, Insulin dep HEENT: Yes (GLASSES, DENTURES) Loss of Vision: Bilateral Hearing Impairment: Denies Cancer: No Psychosocial: No Integumentary: No Blood Disorders: No Adverse Reaction/Blood Tranf: No (N/A) Family Medical History Family history: Hypertension 03 FATHER, Onset:Unknown 03 MOTHER, Onset:50's - 60 Stroke 03 MOTHER, Onset:50's - 60 No Family History of: Cancer of colon Chest pain Dementia Family history: Alzheimer's disease Family history: Asthma Family history: Diabetes mellitus Kidney disease Myocardial infarction Seizure disorder CVA, Hypertension Physical Exam Vital Signs - First Documented 10/27/18 08:50 Temp 99.4 Pulse 96 Resp 21 B/P (MAP) 177/72 (107) Pulse Ox 97 O2 Delivery Nasal Cannula O2 Flow Rate 4.00 Capillary Refill : Height: 5'11.00" Weight: 254lbs. 0.9oz. 115.000035lu; 36.3 BMI Method:Stated General Appearance: moderate distress, obese Eyes: Bilateral Eye Normal Inspection, Bilateral Eye PERRL, Bilateral Eye EOMI HEENT: PERRL/EOMI, pharynx normal Respiratory: chest non-tender, respiratory distress (mod), decreased breath sounds, accessory muscle use, wheezing Cardiovascular: normal peripheral pulses, regular rate, rhythm, tachycardia, other (bilateral lower extremity edema 1+ pitting up the legs) Gastrointestinal: normal bowel sounds, non tender, soft Extremities: non-tender, no calf tenderness, normal capillary refill, pedal edema Neurologic/Psychiatric: alert, normal mood/affect, oriented x 3 Skin: normal color, warm/dry Focused Exam Lactate Level 10/27/18 09:05: Lactic Acid Level 1.90 Lactic Acid Level Laboratory Tests Test 10/27/18 09:05 Lactic Acid Level 1.90 MMOL/L (0.50-2.00) Progress/Results/Core Measures Suspected Sepsis SIRS Temperature: Pulse: Respiratory Rate: Laboratory Tests 10/27/18 09:05: White Blood Count 10.7 Blood Pressure / Mean: 10/27/18 09:05: Lactic Acid Level 1.90 Laboratory Tests 10/27/18 09:05: Creatinine 1.07, INR Comment 1.7H, Platelet Count 350, Total Bilirubin 1.5H Results/Orders Lab Results Laboratory Tests Test 10/27/18 09:05 Range/Units White Blood Count 10.7 4.3-11.0 10^3/uL Red Blood Count 4.57 4.35-5.85 10^6/uL Hemoglobin 8.6 L 13.3-17.7 G/DL Hematocrit 31 L 40-54 % Mean Corpuscular Volume 67 L 80-99 FL Mean Corpuscular Hemoglobin 19 L 25-34 PG Mean Corpuscular Hemoglobin Concent 28 L 32-36 G/DL Red Cell Distribution Width 21.6 H 10.0-14.5 % Platelet Count 350 130-400 10^3/uL Mean Platelet Volume 9.7 7.4-10.4 FL Neutrophils (%) (Auto) 84 H 42-75 % Lymphocytes (%) (Auto) 6 L 12-44 % Monocytes (%) (Auto) 8 0-12 % Eosinophils (%) (Auto) 1 0-10 % Basophils (%) (Auto) 0 0-10 % Neutrophils # (Auto) 9.0 H 1.8-7.8 X 10^3 Lymphocytes # (Auto) 0.7 L 1.0-4.0 X 10^3 Monocytes # (Auto) 0.9 0.0-1.0 X 10^3 Eosinophils # (Auto) 0.1 0.0-0.3 10^3/uL Basophils # (Auto) 0.0 0.0-0.1 10^3/uL Neutrophils % (Manual) 86 % Lymphocytes % (Manual) 7 % Monocytes % (Manual) 7 % Eosinophils % (Manual) 0 % Basophils % (Manual) 0 % Band Neutrophils 0 % Polychromasia SLIGHT Hypochromasia MODERATE Anisocytosis MARKED Microcytosis SLIGHT Elliptocytes SLIGHT Prothrombin Time 20.4 H 12.2-14.7 SEC INR Comment 1.7 H 0.8-1.4 Activated Partial Thromboplast Time 44 H 24-35 SEC Sodium Level 138 135-145 MMOL/L Potassium Level 3.6 3.6-5.0 MMOL/L Chloride Level 101 98-107 MMOL/L Carbon Dioxide Level 23 21-32 MMOL/L Anion Gap 14 5-14 MMOL/L Blood Urea Nitrogen 14 7-18 MG/DL Creatinine 1.07 0.60-1.30 MG/DL Estimat Glomerular Filtration Rate > 60 BUN/Creatinine Ratio 13 Glucose Level 103 70-105 MG/DL Lactic Acid Level 1.90 0.50-2.00 MMOL/L Calcium Level 9.4 8.5-10.1 MG/DL Corrected Calcium 9.2 8.5-10.1 MG/DL Total Bilirubin 1.5 H 0.1-1.0 MG/DL Aspartate Amino Transf (AST/SGOT) 19 5-34 U/L Alanine Aminotransferase (ALT/SGPT) 9 0-55 U/L Alkaline Phosphatase 112 40-136 U/L C-Reactive Protein High Sensitivity 5.91 H 0.00-0.50 MG/DL B-Type Natriuretic Peptide 484.0 H <100.0 PG/ML Total Protein 8.3 H 6.4-8.2 GM/DL Albumin 4.2 3.2-4.5 GM/DL My Orders Orders - RHONDA PEREIRA Cbc With Automated Diff (10/27/18 08:54) Comprehensive Metabolic Panel (10/27/18 08:54) Blood Culture (10/27/18 08:54) Sputum Culture (10/27/18 08:54) Protime With Inr (10/27/18 08:54) Partial Thromboplastin Time (10/27/18 08:54) Chest 1 View, Ap/Pa Only (10/27/18 08:54) Saline Lock/Iv-Start (10/27/18 08:54) Saline Lock/Iv-Start (10/27/18 08:54) Vital Signs Adult Sepsis Patie Q15M (10/27/18 08:54) Ondansetron Injection (Zofran Injectio (10/27/18 09:00) O2 (10/27/18 08:54) Remove Rings In Anticipation O (10/27/18 08:54) Lactic Acid Analyzer (10/27/18 08:54) Ceftriaxone For Iv Use (Rocephin For I (10/27/18 09:00) BNP (10/27/18 08:54) Hs C Reactive Protein (10/27/18 08:54) Albuterol/Ipra Inhalation Soln (Duoneb I (10/27/18 09:00) Svn Small Volume Nebulizer (10/27/18 08:54) Manual Differential (10/27/18 09:05) Cefepime Injection (Maxipime Injection) (10/27/18 09:30) Furosemide Injection (Lasix Injection) (10/27/18 10:30) Medications Given in ED Current Medications Medications Dose Ordered Sig/Silva Route Start Time Stop Time Status Last Admin Dose Admin Albuterol/ Ipratropium 3 ml ONCE ONCE INH 10/27/18 09:00 10/27/18 09:01 DC 10/27/18 09:10 3 ML Cefepime HCl 2000 mg/Sodium Chloride 50 ml @ 100 mls/hr ONCE ONCE IV 10/27/18 09:30 10/27/18 09:59 DC 10/27/18 09:37 100 MLS/HR Vital Signs/I&O 10/27/18 10/27/18 08:50 09:13 Temp 99.4 Pulse 96 Resp 21 B/P (MAP) 177/72 (107) Pulse Ox 97 98 O2 Delivery Nasal Cannula Nasal Cannula O2 Flow Rate 4.00 4.00 Capillary Refill : Progress Note #1: Time: 09:10 Progress Note CHF versus COPD. He is not having any hemoptysis or chest pain: Well score of 1.5 points, PE unlikely. DuoNeb breathing treatment, chest x-ray and labs. Approximately a month ago the patient had some GI bleeds and required transfusions. Dr. Davidson did a EGD and colonoscopy and with multiple polypectomy. Prior to that in July, 2 months ago he had right hemicolectomy secondary to polyposis by Dr. Mcbride. He was off of his Eliquis but recently restarted. Cardiac catheterization 2016 mild to moderate coronary artery disease with a left ventricular ejection fraction of 50-55%. Mild to moderate left ventricular end diastolic pressure elevation. History of diastolic CHF with an echocardiogram of March 2018 showing mild to moderate concentric left ventricular hypertrophy, LV EF 60-65% Progress Note #2: Time: 09:34 Progress Note Switch his antibiotic to cefepime since he was here in the hospital for more 2 days and the last 90 days. After the breathing treatment is having less wheezes however he still has crackles especially in the right base. Diagnostic Imaging Diagonstic Imaging: Xray Plain Films/CT/US/NM/MRI: chest (1v) Comments NAME: MERY GARCIA MED REC#: [id number] PT STATUS: REG ER : 1950 PHYSICIAN: RHONDA PEREIRA MD ADMIT DATE: 10/27/18/ER Draft Date of Exam:10/27/18 CHEST 1 VIEW, AP/PA ONLY EXAMINATION: CHEST 1 VIEW, AP/PA ONLY INDICATION: Shortness of air. COMPARISON: Chest radiograph dated 10/04/2018. FINDINGS: Cardiomegaly with mild pulmonary venous congestion. Calcified aorta. No focal pulmonary opacity, pleural effusion or pneumothorax. No acute osseous findings. IMPRESSION: Cardiomegaly with mild pulmonary venous congestion which has progressed since the prior exam. Dictated on workstation # [id number] Dict: 10/27/1826 Trans: 10/27/1830 [facility] [id number] Interpreted by: FELIPE DYSON MD Electronically signed by: Reviewed: Reviewed by Me Departure Communication (Admissions) Time/Spoke to Admitting Phy: 10:08 Dr Jones agrees to accept the patient would like pulmonology and cardiology consulted. Time/Spoke to Consulting Phy: 10:15 Dr. Hannon consulted and he recommends Lasix. Dr. Grey consulted: He will follow along Impression Primary Impression: Acute and chronic respiratory failure with hypoxia Additional Impressions: COPD (chronic obstructive pulmonary disease) Qualified Codes: J44.1 - Chronic obstructive pulmonary disease with (acute) exacerbation Pneumonia Qualified Codes: J18.9 - Pneumonia, unspecified organism Heart failure, diastolic, with acute decompensation Disposition: ADMITTED INPATIENT Condition: Stable Admissions Decision to Admit Reason: Admit from ER (General) Decision to Admit/Date: Oct 27, 2018 Time/Decision to Admit Time: 10:19 Departure-Patient Inst. Referrals: SHALINI GONZALEZ MD (PCP/Family) Primary Care Physician RHONDA PEREIRA Oct 27, 2018 09:03
[2018-10-27 09:17] LABS: BASOPHILS % (AUTO) 0 % (0-10); EOSINOPHILS # (AUTO) 0.1 10^3/uL (0.0-0.3); EOSINOPHILS % (AUTO) 1 % (0-10); HEMATOCRIT 31 % (40-54); HEMOGLOBIN 8.6 G/DL (13.3-17.7); LYMPHOCYTES # (AUTO) 0.7 X 10^3 (1.0-4.0); LYMPHOCYTES % (AUTO) 6 % (12-44); MEAN CORPUSCULAR HEMOGLOBIN 19 PG (25-34); MEAN CORPUSCULAR HGB CONC 28 G/DL (32-36); MEAN CORPUSCULAR VOLUME 67 FL (80-99); MEAN PLATELET VOLUME 9.7 FL (7.4-10.4); MONOCYTES # (AUTO) 0.9 X 10^3 (0.0-1.0); MONOCYTES % (AUTO) 8 % (0-12); NEUTROPHILS % (AUTO) 84 % (42-75); PLATELET COUNT 350 10^3/uL (130-400); RED BLOOD COUNT 4.57 10^6/uL (4.35-5.85); RED CELL DISTRIBUTION WIDTH 21.6 % (10.0-14.5); WHITE BLOOD COUNT 10.7 10^3/uL (4.3-11.0)
[2018-10-27] MEDS ORDERED: CEFEPIME INJECTION 2,000 MG in NS (IVPB) 50 ML IV ONE (09:30)
--- NOTE | 2018-10-27 09:31 | Diagnostic Imaging Report ---
EXAMINATION: CHEST 1 VIEW, AP/PA ONLY INDICATION: Shortness of air. COMPARISON: Chest radiograph dated 10/04/2018. FINDINGS: Cardiomegaly with mild pulmonary venous congestion. Calcified aorta. No focal pulmonary opacity, pleural effusion or pneumothorax. No acute osseous findings. IMPRESSION: Cardiomegaly with mild pulmonary venous congestion which has progressed since the prior exam. Dictated by: Dictated on workstation # [id number]
[2018-10-27 09:34] LABS: INR 1.7 (0.8-1.4); PROTHROMBIN TIME PATIENT 20.4 SEC (12.2-14.7)
[2018-10-27 09:40] LABS: ALANINE AMINOTRANSFERASE 9 U/L (0-55); ALBUMIN 4.2 GM/DL (3.2-4.5); ALKALINE PHOSPHATASE 112 U/L (40-136); BILIRUBIN,TOTAL 1.5 MG/DL (0.1-1.0); BUN/CREATININE RATIO 13; CALCIUM 9.4 MG/DL (8.5-10.1); CARBON DIOXIDE 23 MMOL/L (21-32); CHLORIDE 101 MMOL/L (98-107); CREATININE SERUM 1.07 MG/DL (0.60-1.30); GFR ESTIMATED > 60; GLUCOSE 103 MG/DL (70-105); POTASSIUM 3.6 MMOL/L (3.6-5.0); SODIUM 138 MMOL/L (135-145); TOTAL PROTEIN 8.3 GM/DL (6.4-8.2)
[2018-10-27 09:56] LABS: ANISOCYTOSIS MARKED; BAND NEUTROPHILS 0 %; BASOPHILS % (MANUAL) 0 %; EOSINOPHILS % (MANUAL) 0 %; HYPOCHROMASIA MODERATE; LYMPHOCYTES % (MANUAL) 7 %; MONOCYTES % (MANUAL) 7 %; NEUTROPHILS % (MANUAL) 86 %; POLYCHROMASIA SLIGHT
[2018-10-27 09:57] LABS: ELLIPT/OVALOCYTES SLIGHT; MICROCYTOSIS SLIGHT
[2018-10-27] MEDS ORDERED: FUROSEMIDE 40 MG/4 ML INJ (LASIX) IVP ONE (10:30)
--- NOTE | 2018-10-27 10:30 | NUR ---
Pastoral care visit in the ER just prior to pt moving to the floor, offered support and encouragement.
--- NOTE | 2018-10-27 11:44 | NUR ---
pharmacy called for med rec
[2018-10-27 11:45] VITALS: BP 149/57
--- NOTE | 2018-10-27 12:10 | History & Physical-Hospitalist ---
MAYE MULLINS DO 10/27/18 1209: History of Present Illness HPI/Chief Complaint CC: Shortness of breath HPI: This is a 68-year-old white male clinic patient of Dr. Schultz'chicho with a past medical history of severe anemia who presented to the hospital ER with shortness of breath and wheezing. Patient was found to have elevated BNP and exacerbation of COPD component requiring oxygen and multiple other interventions. I have consulted Dr. Warren for continued iron deficiency issues with a previous vinicio-colectomy due to severe polyps. Source: patient Exam Limitations: no limitations Date Seen 10/27/18 Time Seen by a Provider: 12:00 Attending Physician Maye Mullins DO PCP Álvaro Schultz MD Referring Physician Date of Admission Oct 27, 2018 at 11:25 Home Medications & Allergies Home Medications Reviewed patient Home Medication Reconciliation performed by pharmacy medication reconciliations medical records field technician and/or nursing. Patients Allergies have been reviewed. Allergies Allergies Coded Allergies No Known Drug Allergies (Megdhfilch08/15/18) Past Chkxrzg-Lceiil-Mcobkg Hx Past Med/Social Hx: Reviewed Nursing Past Med/Soc Hx, Reviewed and Corrections made Patient Social History Marrital Status: Employed/Student: retired Alcohol Use: Denies Use Recreational Drug Use: No Smoking Status: Former Smoker Former Smoker, Quit: Jun 04, 1997 Type Used: Cigarettes Recent Foreign Travel: No Contact w/other who traveled: No Recent Hopitalizations: Yes (JUL 2018) Recent Infectious Disease Expo: No Immunizations Up To Date Date of Pneumonia Vaccine: Jul 21, 2018 Date of Influenza Vaccine: Jul 21, 2018 Seasonal Allergies Seasonal Allergies: No Past Medical History Surgeries: Abdominal, Cardiac Respiratory: COPD Currently Using CPAP: Yes Currently Using BIPAP: No Cardiac: Atrial Fibrillation, Coronary Artery Disease, Hypertension Neurological: Stroke Reproductive: No Sexually Transmitted Disease: No HIV/AIDS: No Gastrointestinal: Gastroesophageal Reflux, Hemorrhoids, Polyps Endocrine: Diabetes, Insulin dep Loss of Vision: Bilateral Hearing Impairment: Denies History of Blood Disorders: No Adverse Reaction to Blood [place]worth: No (N/A) Family History Family history: Hypertension 03 FATHER, Onset:Unknown 03 MOTHER, Onset:50's - 60 Stroke 03 MOTHER, Onset:50's - 60 No Family History of: Cancer of colon Chest pain Dementia Family history: Alzheimer's disease Family history: Asthma Family history: Diabetes mellitus Kidney disease Myocardial infarction Seizure disorder CVA, Hypertension Review of Systems Constitutional: see HPI, malaise, weakness EENTM: no symptoms reported Respiratory: cough, dyspnea on exertion, short of breath, wheezing Cardiovascular: palpitations Gastrointestinal: loss of appetite Genitourinary: no symptoms reported Musculoskeletal: no symptoms reported Skin: no symptoms reported Psychiatric/Neurological: No Symptoms Reported All Other Systems Reviewed Negative Unless Noted: Yes Physical Exam Physical Exam Vital Signs Vital Signs - First Documented 10/27/18 08:50 Temp 99.4 Pulse 96 Resp 21 B/P (MAP) 177/72 (107) Pulse Ox 97 O2 Delivery Nasal Cannula O2 Flow Rate 4.00 Capillary Refill : Less Than 3 Seconds Height, Weight, BMI Height: 5'11.00" Weight: 240lbs. 0.9oz. 108.212362lu; 36.3 BMI Method:Stated General Appearance: No Apparent Distress, WD/WN, Chronically ill Eyes: Bilateral Eye Normal Inspection, Bilateral Eye PERRL HEENT: PERRL/EOMI, TMs Normal, Normal ENT Inspection, Pharynx Normal Neck: Full Range of Motion, Normal Inspection, Non Tender, Supple, Carotid Bruit Respiratory: Chest Non Tender, Lungs Clear, No Accessory Muscle Use, No Respiratory Distress, Crackles, Decreased Breath Sounds, Respiratory Distress ( mild), Wheezing Cardiovascular: Regular Rate, Rhythm, No Edema, No Gallop, No JVD, No Murmur, Normal Peripheral Pulses Gastrointestinal: Normal Bowel Sounds, No Organomegaly, No Pulsatile Mass, Non Tender, Soft Back: Normal Inspection, No CVA Tenderness, No Vertebral Tenderness Extremity: Normal Capillary Refill, Normal Inspection, Normal Range of Motion, Non Tender, No Calf Tenderness, No Pedal Edema Neurologic/Psychiatric: Alert, Oriented x3, No Motor/Sensory Deficits, Normal Mood/Affect Skin: Normal Color, Warm/Dry Lymphatic: No Adenopathy Results Results/Procedures Labs Laboratory Tests 10/27/18 09:05 10/28/18 06:00 Patient resulted labs reviewed. Assessment/Plan Admission Diagnosis Assessment: Acute dyspnea Volume overload with elevated BNP Acute exacerbation of COPD Hypoxia Severe anemia iron deficiency type consulting hematology since he's been given 11 units of blood in the past year History of colon polyps status post hemicolectomy July and EGD and colonoscopy recently done in September 2018 no source found may need capsule endoscopy Atrial fibrillation CAD Hypertension Plan: Restart all home meds Consult hematology Check iron studies Admission Status: Inpatient Order (span 2 midnights) Reason for Inpatient Admission: Dyspnea with anemia and elevated BNP will require 3 days of hospital stay Diagnosis/Problems Diagnosis/Problems (1) Heart failure, diastolic, with acute decompensation Status: Acute (2) COPD (chronic obstructive pulmonary disease) Status: Chronic Qualifiers: COPD type: COPD with acute exacerbation Qualified Codes: J44.1 - Chronic obstructive pulmonary disease with (acute) exacerbation (3) GI bleed Status: Chronic Qualifiers: GI bleed type/associated pathology: unspecified gastrointestinal hemorrhage type Qualified Codes: K92.2 - Gastrointestinal hemorrhage, unspecified (4) Anemia Status: Chronic Qualifiers: Anemia type: iron deficiency Iron deficiency anemia type: chronic blood loss Qualified Codes: D50.0 - Iron deficiency anemia secondary to blood loss ( chronic) (5) IVANNA (obstructive sleep apnea) Status: Chronic (6) Insulin dependent diabetes mellitus Status: Chronic (7) Atrial fibrillation with normal ventricular rate Status: Chronic (8) fluid overload Status: Acute ANTHONY WILLETT MEDICAL STUDENT 10/27/18 1246: History of Present Illness HPI/Chief Complaint 68 year old male with Hx of COPD, DM, ristrictive lung disease, HTN, HLD admitted from the ED for 1 day history of progressively worsening SOB. Pt states that this is the worse episode that he has had. Pt states that laying down or activity worsens symptoms and if he sits up for longer periods of time his symptoms improve slightly. Pt sates his SOB was so bad last night he couldnt even use his CPAP. Pt states that he was hospitalized last month for GI bleed from unknown source and had to be given 2 units of RBC. Pt admits orthopnea, RIDER, and productive cough with yellow sputum. Pt states he has not coughed up any blood. Pt states he has not taken anything for his symptoms at home but the duoneb in the ED has helped improve his symptoms. Pt denies fever, chills, CP. Past Ilgwwpg-Qopcgz-Yxtvcl Hx Family History Family history: Hypertension 03 FATHER, Onset:Unknown 03 MOTHER, Onset:50's - 60 Stroke 03 MOTHER, Onset:50's - 60 No Family History of: Cancer of colon Chest pain Dementia Family history: Alzheimer's disease Family history: Asthma Family history: Diabetes mellitus Kidney disease Myocardial infarction Seizure disorder Review of Systems Constitutional: No chills, No fever Respiratory: cough; No hemoptysis; orthopnea, phlegm, short of breath Gastrointestinal: No abdominal pain, No vomiting Psychiatric/Neurological: No Symptoms Reported Physical Exam Physical Exam General Appearance: Mild Distress Eyes: Bilateral Eye PERRL, Bilateral Eye EOMI HEENT: PERRL/EOMI Neck: Full Range of Motion, Supple; No JVD Respiratory: Decreased Breath Sounds, Respiratory Distress (mild) Cardiovascular: Regular Rate, Rhythm, No JVD Gastrointestinal: Normal Bowel Sounds, Non Tender, Soft Extremity: Pedal Edema Assessment/Plan Admission Diagnosis Admission Status: Inpatient Order (span 2 midnights) Assessment and Plan AECOPE CHF Anemia secondary to unknown source History of DM History of HTN History HLD DVT prophylaxis IV Steroids, nebulizer ACEi and diuresis Consult Dr. Camacho for anemia Start on home meds SCD MAYE MULLINS DO Oct 27, 2018 12:09 ANTHONY WILLETT MEDICAL STUDENT Oct 27, 2018 12:46
[2018-10-27] MEDS ORDERED: CALCIUM CARBONATE 500 MG (TUMS) TAB.CHEW PO PRN (12:15)
[2018-10-27] MEDS ORDERED: HYDROcodone/APAP 5 MG/325 MG (LORTAB) TAB PO PRN (12:15)
[2018-10-27] MEDS ORDERED: ONDANSETRON 4 MG (ZOFRAN) ORAL DISSOLVE TAB PO PRN (12:15)
[2018-10-27] MEDS ORDERED: ALPRAZolam 0.25 MG (XANAX) TAB PO PRN (12:15)
[2018-10-27] MEDS ORDERED: MELATONIN 3 MG TABLET PO PRN (12:15)
[2018-10-27] MEDS ORDERED: ACETAMINOPHEN 500 MG TAB (TYLENOL) PO PRN ×2 (12:15)
[2018-10-27] MEDS ORDERED: DOCUSATE SODIUM 100 MG (COLACE) CAP PO PRN (12:15)
[2018-10-27] MEDS ORDERED: diphenhydrAMINE 25 MG TAB (BENADRYL) PO PRN (12:15)
[2018-10-27] MEDS ORDERED: LOPERAMIDE 2 MG (IMODIUM) CAP PO PRN (12:15)
--- NOTE | 2018-10-27 12:55 | Pulmonary Consultation ---
History of Present Illness History of Present Illness Date of Consultation 10/27/18 12:50 Time Seen by Provider: 12:50 Date of Admission History of Present Illness 68yo with hx of recent hospitalization for GIB, IVANNA, COPD/RLD presented to ED secondary to worsening SOB over the last 1-2dyas. He was not able to use his CPAP last night secondary to SOB. Last hospitalization he was transfused 2 units of PRBC. No F/NS/C. No CP or syncope. I am consulted for pulmonary management. Allergies and Home Medications Allergies Coded Allergies: No Known Drug Allergies (Unverified , 10/04/18) Home Medications Albuterol Sulfate 18 Gm Hfa.aer.ad, 1-2 PUFF INH Q4H PRN for SHORTNESS OF BREATH , (Reported) Aspirin 81 Mg Tablet.dr, 81 MG PO DAILY, (Reported) Budesonide/Formoterol Fumarate 10.2 Gm Hfa.aer.ad, 2 PUFF IH BID, (Reported) Cholecalciferol (Vitamin D3) 1,000 Unit Capsule, 1,000 UNIT PO DAILY, (Reported) Clonidine HCl 0.3 Mg Tablet, 0.15 MG PO BID, (Reported) TAKES 1/2 (0.3MG) TABLET Diltiazem HCl 180 Mg Cap.er.24h, 180 MG PO DAILY, (Reported) Furosemide 40 Mg Tablet, 80 MG PO DAILY, (Reported) TAKES 2 (40MG) TABLETS Hydralazine HCl 100 Mg Tablet, 100 MG PO BID, (Reported) Hydrocodone/Acetaminophen 1 Each Tablet, 1-2 EACH PO Q4-6hr PRN for PAIN- MODERATE Prescribed by: MALIKA THOMSON on 08/17/18 1102 Insulin Aspart 300 Units/3 Ml Solution, 35 UNITS SQ AC, (Reported) Insulin Determir 1,000 Units/10 Ml Soln, 75 UNITS SQ BID, (Reported) Losartan Potassium 50 Mg Tablet, 50 MG PO DAILY, (Reported) Metformin HCl 1,000 Mg Tablet, 1,000 MG PO BID WITH MEALS, (Reported) Pantoprazole Sodium 40 Mg Tablet.dr, 40 MG PO DAILY, (Reported) Potassium Chloride 20 Meq Tablet.er, 20 MEQ PO DAILY, (Reported) Ropinirole HCl 3 Mg Tablet, 3 MG PO HS, (Reported) Rosuvastatin Calcium 40 Mg Tablet, 20 MG PO HS, (Reported) TAKES 1/2 (40MG) TABLET Past Pynwhnd-Wzuwpx-Mojmcq Hx Patient Social History Alcohol Use: Denies Use Recreational Drug Use: No Smoking Status: Former Smoker Type Used: Cigarettes Former Smoker, Quit: Jun 04, 1997 Recent Foreign Travel: No Contact w/Someone Who Travel: No Recent Infectious Disease Expo: No Recent Hopitalizations: Yes (JUL 2018) Physical Abuse: No Sexual Abuse: No Immunizations Up To Date Date of Pneumonia Vaccine: Jul 21, 2018 Date of Influenza Vaccine: Jul 21, 2018 Seasonal Allergies Seasonal Allergies: No Past Medical History Surgeries: Yes (MULTIPLE HERNIA REPAIRS, HEMMORHOIDECTOMY right hemicolectomy) Abdominal, Cardiac Respiratory: Yes Sleep Apnea, COPD Currently Using CPAP: Yes Currently Using BIPAP: No Cardiac: Yes Atrial Fibrillation, Coronary Artery Disease, Hypertension Neurological: Yes Stroke Reproductive Disorders: No Sexually Transmitted Disease: No HIV/AIDS: No Genitourinary: No Gastrointestinal: Yes Gastroesophageal Reflux, Hemorrhoids, Polyps Musculoskeletal: No Endocrine: Yes Diabetes, Insulin dep HEENT: Yes (GLASSES, DENTURES) Loss of Vision: Bilateral Hearing Impairment: Denies Cancer: No Psychosocial: No Integumentary: No Blood Disorders: No Adverse Reaction/Blood Tranf: No (N/A) Family Medical History Family history: Hypertension 03 FATHER, Onset:Unknown 03 MOTHER, Onset:50's - 60 Stroke 03 MOTHER, Onset:50's - 60 No Family History of: Cancer of colon Chest pain Dementia Family history: Alzheimer's disease Family history: Asthma Family history: Diabetes mellitus Kidney disease Myocardial infarction Seizure disorder CVA, Hypertension Sepsis Event Evaluation Height, Weight, BMI Height: 5'11.00" Weight: 240lbs. 3.2oz. 108.166086jj; 36.3 BMI Method:Stated Exam Exam Vital Signs Date Time Temp Pulse Resp B/P (MAP) Pulse Ox O2 Delivery O2 Flow Rate FiO2 10/27/18 11:45 98.7 64 20 149/57 (87) 96 Room Air 10/27/18 11:38 99.4 73 28 137/56 (83) 99 Nasal Cannula 4.00 10/27/18 09:13 98 Nasal Cannula 4.00 10/27/18 08:50 99.4 96 21 177/72 (107) 97 Nasal Cannula 4.00 Height & Weight Height: '." Weight: 240lbs. 3.2oz. 108.128789mv; 36.3 BMI Method:Stated General Appearance: Mild Distress HEENT: PERRL/EOMI Neck: Full Range of Motion, Supple; No JVD Respiratory: Decreased Breath Sounds, Respiratory Distress (mild) Cardiovascular: Regular Rate, Rhythm, No JVD Capillary Refill: Less Than 3 Seconds Gastrointestinal: normal bowel sounds, non tender, soft Extremity: Pedal Edema Results Lab Laboratory Tests 10/27/18 09:05 Assessment/Plan Assessment/Plan Acute on chronic respiratory failure -Oxygen -Check ABG COPDAE --SVNS -Solumedrol 40 IV Q 6 CHFAE -Lasix Hypokalemia -replace IVANNA -He uses home CPAP FLIP PEDERSEN DO Oct 27, 2018 12:55
[2018-10-27] MEDS ORDERED: KCL 10 MEQ TAB (MICRO K) PO NR (13:01)
--- NOTE | 2018-10-27 13:43 | Consultation-Cardiology ---
HPI-Cardiology Cardiology Consultation: Date of Consultation 10/27/18 Time Seen by a Provider: 12:45 Date of Admission Attending Physician Maye Jones DO Admitting Physician Álvaro Schultz MD Consulting Physician ANTONIO LAWRENCE MD, MA, FACP, FACC, FSCAI, CCDS HPI: Chief Complaint: CC: Shortness of breath and cough 68 yo man with increasing shortness of breath and cough productive of yellowish sputum for the last 1-2 days. No cp or palp or syncope. No significant leg swelling. Notes gen malaise and tiredness. No blood in stools or stool discoloration. Review of Systems-Cardiology Review of Systems Constitutional: malaise, tiredness; No weight loss, No weight gain Ears/Nose/Throat: As described under HPI; No nasal drainage, No recent hearing loss Respiratory: As described under HPI Cardiovascular: As described under HPI Gastrointestinal: No constipation, No diarrhea, No nausea, No vomiting Genitourinary: No dysuria, No hematuria, No urine frequency changes Musculoskeletal: back pain (chronic), joint pain (chronic) Skin: No rash, No ulcerations Psychiatric/Neurological: No seizure, No focal weakness, No syncope Hematologic: No bleeding abnormalities TOP-Fwruwe-Duwcnl Hx Patient Social History Alcohol Use: Denies Use Recreational Drug Use: No Smoking Status: Former Smoker Former smoker/When Quit: Apr 26, 1994 Type Used: Cigarettes Recent Foreign Travel: No Recent Infectious Disease Expo: No Hospitalization with Isolation: Denies Physical Abuse Screen: No Sexual Abuse: No Immunizations Up To Date Date of Pneumonia Vaccine: Jul 21, 2018 Date of Influenza Vaccine: Jul 21, 2018 Past Medical History PMH As described under Assessment. Family Medical History Family History: Family history: Hypertension 03 FATHER, Onset:Unknown 03 MOTHER, Onset:50's - 60 Stroke 03 MOTHER, Onset:50's - 60 No Family History of: Cancer of colon Chest pain Dementia Family history: Alzheimer's disease Family history: Asthma Family history: Diabetes mellitus Kidney disease Myocardial infarction Seizure disorder Allergies and Home Medications Allergies Coded Allergies: No Known Drug Allergies (Unverified , 10/04/18) Home Medications Albuterol Sulfate 18 Gm Hfa.aer.ad, 1-2 PUFF INH Q4H PRN for SHORTNESS OF BREATH , (Reported) Aspirin 81 Mg Tablet.dr, 81 MG PO DAILY, (Reported) Budesonide/Formoterol Fumarate 10.2 Gm Hfa.aer.ad, 2 PUFF IH BID, (Reported) Cholecalciferol (Vitamin D3) 1,000 Unit Capsule, 1,000 UNIT PO DAILY, (Reported) Clonidine HCl 0.3 Mg Tablet, 0.15 MG PO BID, (Reported) TAKES 1/2 (0.3MG) TABLET Diltiazem HCl 180 Mg Cap.er.24h, 180 MG PO DAILY, (Reported) Furosemide 40 Mg Tablet, 80 MG PO DAILY, (Reported) TAKES 2 (40MG) TABLETS Hydralazine HCl 100 Mg Tablet, 100 MG PO BID, (Reported) Hydrocodone/Acetaminophen 1 Each Tablet, 1-2 EACH PO Q4-6hr PRN for PAIN- MODERATE Prescribed by: MALIKA THOMSON on 08/17/18 1102 Insulin Aspart 300 Units/3 Ml Solution, 35 UNITS SQ AC, (Reported) Insulin Determir 1,000 Units/10 Ml Soln, 75 UNITS SQ BID, (Reported) Losartan Potassium 50 Mg Tablet, 50 MG PO DAILY, (Reported) Metformin HCl 1,000 Mg Tablet, 1,000 MG PO BID WITH MEALS, (Reported) Pantoprazole Sodium 40 Mg Tablet.dr, 40 MG PO DAILY, (Reported) Potassium Chloride 20 Meq Tablet.er, 20 MEQ PO DAILY, (Reported) Ropinirole HCl 3 Mg Tablet, 3 MG PO HS, (Reported) Rosuvastatin Calcium 40 Mg Tablet, 20 MG PO HS, (Reported) TAKES 1/2 (40MG) TABLET Patient Home Medication List Home Medication List Reviewed: Yes Physical Exam-Cardiology Physical Exam Vital Signs/I&O 10/27/18 10/27/18 10/27/18 10/27/18 08:50 09:13 11:38 11:45 Temp 99.4 99.4 98.7 Pulse 96 73 64 Resp 21 28 20 B/P (MAP) 177/72 (107) 137/56 (83) 149/57 (87) Pulse Ox 97 98 99 96 O2 Delivery Nasal Cannula Nasal Cannula Nasal Cannula Room Air O2 Flow Rate 4.00 4.00 4.00 10/27/18 12:53 O2 Delivery Nasal Cannula O2 Flow Rate 2.00 Capillary Refill : Less Than 3 Seconds Constitutional: AAO x 3, well-developed, well-nourished HEENT: EOMI, hearing is well preserved; No xanthelasmas are seen Neck: carotid pulses are 2 + bilaterally, with good upstrokes Respiratory: No accessory muscle use; other (fair to good air entry, prolong exp phase, rhonchi over large airways) Cardiovascular: regular rate-rhythm, S1 and S2, systolic murmur (soft CEASAR at card base) Gastrointestinal: No tender; soft; No guarding, No rebound; audible bowel sounds Extremities: No clubbing, No cyanosis, No significant edema Neurologic/Psychiatric: oriented x 3, grossly intact, power is 5/5 both on sides Skin: No rash on exposed areas, No ulcerations on exposed areas Data Review Labs Laboratory Tests 10/27/18 09:05: White Blood Count 10.7, Red Blood Count 4.57, Hemoglobin 8.6L, Hematocrit 31L, Mean Corpuscular Volume 67L, Mean Corpuscular Hemoglobin 19L, Mean Corpuscular Hemoglobin Concent 28L, Red Cell Distribution Width 21.6H, Platelet Count 350, Mean Platelet Volume 9.7, Neutrophils (%) (Auto) 84H, Lymphocytes (%) (Auto) 6L , Monocytes (%) (Auto) 8, Eosinophils (%) (Auto) 1, Basophils (%) (Auto) 0, Neutrophils # (Auto) 9.0H, Lymphocytes # (Auto) 0.7L, Monocytes # (Auto) 0.9, Eosinophils # (Auto) 0.1, Basophils # (Auto) 0.0, Neutrophils % (Manual) 86, Lymphocytes % (Manual) 7, Monocytes % (Manual) 7, Eosinophils % (Manual) 0, Basophils % (Manual) 0, Band Neutrophils 0, Polychromasia SLIGHT, Hypochromasia MODERATE, Anisocytosis MARKED, Microcytosis SLIGHT, Elliptocytes SLIGHT, Prothrombin Time 20.4H, INR Comment 1.7H, Activated Partial Thromboplast Time 44H, Sodium Level 138, Potassium Level 3.6, Chloride Level 101, Carbon Dioxide Level 23, Anion Gap 14, Blood Urea Nitrogen 14, Creatinine 1.07, Estimat Glomerular Filtration Rate > 60, BUN/Creatinine Ratio 13, Glucose Level 103, Lactic Acid Level 1.90, Calcium Level 9.4, Corrected Calcium 9.2, Total Bilirubin 1.5H, Aspartate Amino Transf (AST/SGOT) 19, Alanine Aminotransferase ( ALT/SGPT) 9, Alkaline Phosphatase 112, C-Reactive Protein High Sensitivity 5.91H , B-Type Natriuretic Peptide 484.0H, Total Protein 8.3H, Albumin 4.2 Laboratory Tests 10/27/18 09:05 A/P-Cardiology Assessment/Admission Diagnosis Multifactorial shorntess of breath: COPD with ac exac due to lower resp tract infection, ac diastolic CHF, blood-loss anemia, obesity-hypoventilation Recent (Sep 2018)GI bleed and anemia requiring transfusions GI history: H/o anemia d/t GI bleed. Upper and lower endoscopy by Dr. Mcbride on 04-28-15 showed reflux esophagitis and gastritis and a small hiatal hernia. He also had ext and int hemorrhoids. He underwent colon polypectomy by Dr. Mcbride. H /H on 04/01/18. History of right hemicolectomy in July 2018. Repeat endoscopy in Sep 2018 Ch atrial fibrillation with RVR, first diagnosed in Nov 2013, requiring apixaban stroke prophylaxis - rate controlled. Successful conversion to NSR on , but has reverted back to A Fib with a controlled rate (ECG of 04/16/18) Obesity with obesity-hypoventilation syndrome. IVANNA diagnosed in Sep 2016, treated with CPAP COPD, followed by his special educator (Dr Salmeron in [place], [place]) MPI of 08-01-18 did not show any evidence of alok significant myocardial ischemia or infarction, LVEF was 52%, there was no no significant regional wall motion abnormality, there was moderate cardiomegaly Cardiac cath of May 2017: mild to mod CAD. The left cx has approx 70% distal stenosis which is of relatively small caliber. LVEF 50-55%. Mild to mod LVEDP elevation. No signif MR PAD: mild to mod inflow disease in the arterial circulation fo the right lower limb and mild mod inflow and outflow disease in the L lower limb H/o diastolic CHF in Nov 2013, currently clinically compensated. Echo of 04/02/18 : mild to mod conc LVH, LVEF 60-65%, mild MAC, mild MR, PASP 40 mmHg DMII, insulin requiring H/o possible diabetic nephropathy. eGFR on blood work of 12/18/13 is >60 Hyperlipidemia, treated with statin therapy. His hepatic and lipid profiles and other blood work [facility] [place] [place] Hypertension - controlled on current multi-therapy regimen Mild carotid art disease on carotid u/s of 09/24/17 Quit tobacco use in or around 1999 Discussion and Recomendations * Diuretics for CHF * Apixaban for stroke prophylaxis (if no evidence of ongoing bleeding) * Monitor labs * Risk factor mod reviewed and questions answered Clinical Quality Measures DVT/VTE Risk/Contraindication: Risk Factor Score Per Nursin RFS Level Per Nursing on Admit: 4+=Very High ANTONIO LAWRENCE MD FACP FAC CCDS Oct 27, 2018 13:43
[2018-10-27] MEDS ORDERED: PANT40TA3 PO (14:07)
[2018-10-27 14:50] VITALS: BP 137/56
[2018-10-27 14:55] LABS: ABG BASE EXCESS 2.4 MMOL/L (-2.5-2.5); ABG OXYGEN SATURATION 98 % (94-100); ABG PCO2 36 MMHG (35-45); ABG PH 7.47 (7.37-7.43); ABG PO2 83 MMHG (79-93); ABG TCO2 26.9 MMOL/L (21.0-31.0)
[2018-10-27 14:56] LABS: ALLENS TEST YES-POS; INSPIRED O2 2; VENTILATOR NO
[2018-10-27 14:57] LABS: PATIENT TEMP 98.7
[2018-10-27] MEDS ORDERED: RT-ALBUTEROL/IPRATROPIUM 3 ML (DUONEB) VIAL INH PRN (15:00)
[2018-10-27] MEDS ORDERED: RT-ALBUTEROL/IPRATROPIUM 3 ML (DUONEB) VIAL ONE (15:01)
--- NOTE | 2018-10-27 15:13 | NUR ---
PATIENT FILLS HIS MEDICATIONS PRIM[facility]ILY [facility]. I REQUESTED A LIST FROM THEM HOWEVER IT IS UNCLEAR WHEN THAT INFORMATION WILL ARRIVE. I WENT OVER THE LIST WE HAD ON FILE FROM THE PATIENTS ADMISSION IN SEPTEMBER AND HE VERIFIED NOTHING HAS CHANGED. Addendum: 10/28/18 at 1436 by ASHLEY STEVE [facility] RECEIVED THE MEDICATION LIST FROM [facility] AT THIS TIME AND COMPARED IT WITH WHAT WAS ON FILE FOR THE PATIENT. IN ADDITION TO WHAT I REVIEWED WITH THE PATIENT YESTERDAY WHEN HE WAS ADMITTED THE [facility] HAS DISPENSED IRON 324MG TID AND ELIQUIS 5MG BID. THE PATIENT VERIFIED HE HAS BEEN TAKING THE IRON TID WHICH WAS NOT ON THE MED LIST FROM THE PREVIOUS ADMISSION. THE ELIQUIS WAS STOPPED AT DISCHARGE ON 10-08-18 HOWEVER THE PATIENT HAD SINCE RESUMED TAKING IT JUST 2 DOSES PRIOR TO RE ADMISSION. HE STATES NOW THAT HE HAS BEEN HERE IN THE HOSPITAL THEY HAVE SAID TO STOP TAKING IT AGAIN. I ADDED BOTH MEDS TO THE MED REC TO BE ADDRESSED AT DISCHARGE. INFORMED PHARMACIST LINDSAY OF CHANGES MADE TO MED REC.
[2018-10-27 16:00] VITALS: BP 154/64
[2018-10-27] MEDS: inSUlin ASPART (NovoLOG) 1 UNIT/0.01 ML (CHARGE PER UNIT) SC SCH ×3 (16:15→21:07)
[2018-10-27] MEDS: metFORMIN 500 MG (GLUCOPHAGE) TAB PO SCH (17:42)
[2018-10-27] MEDS: methylPREDNISolone 40 MG/ML (Solu-MEDROL) VIAL IV SCH ×2 (17:43→23:58)
[2018-10-27] MEDS: FUROSEMIDE 40 MG/4 ML INJ (LASIX) IV SCH (17:46)
[2018-10-27 18:00] VITALS: BP 163/63
[2018-10-27] MEDS: inSUlin DETERMIR 1 UNIT/0.01 ML (LEVEMIR) CHARGE PER UNIT SQ SCH (18:23)
[2018-10-27] MEDS: RT-ADVAIR HFA 115/21 MCG PER PUFF IH SCH (18:51)
[2018-10-27] MEDS: RT-ALBUTEROL/IPRATROPIUM 3 ML (DUONEB) VIAL INH SCH ×2 (18:51→21:51)
[2018-10-27 20:09] VITALS: BP 163/63
[2018-10-27] MEDS ORDERED: CEFEPIME 2 GM/NS 50 ML IVPB IV SCH ×2 (21:00)
[2018-10-27 21:38] VITALS: BP 170/72
[2018-10-27] MEDS: rOPINIRole 1 MG (REQUIP) TABLET PO SCH (21:41)
[2018-10-27] MEDS: ROSUVASTATIN 20 MG (CRESTOR) TABLET PO SCH (21:41)
[2018-10-27] MEDS: hydrALAZINE (APRESOLINE) 25 MG TAB PO SCH (21:41)
[2018-10-27] MEDS: cloNIDine 0.1 MG (CATAPRES) TAB PO SCH (21:41)
--- NOTE | 2018-10-27 23:27 | CONSULTATION REPORT ---
DATE OF SERVICE: 10/27/2018 The patient is admitted to room 416. REFERRING PHYSICIAN: Maye Jones DO. IMPRESSION: 1. A 68-year-old male admitted with worsening shortness of breath, it is probably multifactorial. 2. Microcytic anemia with a history of iron deficiency during the last 1-1/2 years. The patient has required 11 units of packed red blood cell transfusion during this time and has been on oral iron replacement throughout. 3. EGD and colonoscopy with multiple colon polyps, but no definite bleeding source in the past. The patient underwent a right hemicolectomy in 07/2018 because of numerous polyps. 4. History of atrial fibrillation and chronic anticoagulation with rivaroxaban and aspirin. RECOMMENDATIONS: 1. Agree with serum iron studies and I will await the serum ferritin level before making a decision on parenteral iron therapy. 2. Obtain reticulocyte count with CBC tomorrow. 3. I will obtain an occult blood test on stools to rule out chronic GI bleeding. If the stool studies are positive, the patient will need a capsule endoscopy to rule out bleeding site, as he had recent EGD and colonoscopy in 09/2018. 4. Agree with holding anticoagulation with rivaroxaban until the workup for anemia is completed. 5. Continue management of exacerbation of COPD as you are doing. 6. We will follow the patient with you. BRIEF HISTORY OF PRESENT ILLNESS: The patient is a 68-year-old male admitted to the hospital with a significant shortness of breath. He has a longstanding history of microcytic anemia with a low iron level documented in 04/2018. He has been on oral iron replacement and has required multiple transfusions during the last 1.5 years. He has received a total of 11 units of packed red blood cells during this time. He was also noted to have numerous polyps in the right colon and underwent a right hemicolectomy in 07/2018. No evidence of invasive malignancy, but several tubular and serrated adenomas were noted. The patient continues to be anemic and a hematology consultation was obtained for further evaluation and management. PAST MEDICAL HISTORY: Significant for COPD diagnosed several years ago. He has history of coronary artery disease involving small vessels, hypertension and was diagnosed with atrial fibrillation last year. He has had a history of CVA several years ago with no residual. He has a history of diabetes mellitus, which is insulin requiring. He was diagnosed with obstructive sleep apnea and has a CPAP machine at home. PRIOR SURGERIES: Include right hemicolectomy in 07/2018 as mentioned above. He has had bilateral inguinal hernia repair in the past as well as an abdominal hernia repair. SOCIAL HISTORY: The patient is and lives in [place], [place]. He has one son who lives close by. The patient has an approximately [id number] history of tobacco use. He smoked 2 packs a day for 35 years. He quit smoking approximately 20 years ago. Denied any alcohol or other recreational drug use. He served in the [employer] and he is a [place] war . He gives history of significant exposure to Agent [place] for a year when he served in [employer]. 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 and worked at [employer] for 23 years in the [employer] before retiring four years ago. FAMILY HISTORY: Unremarkable with no malignancies or hematologic problems that the patient knows of. Parents had hypertension. Mother had history of a CVA. PHYSICAL EXAMINATION: GENERAL: Today showed an elderly male, moderately obese, awake and oriented, in mild respiratory distress. VITAL SIGNS: His temperature was 100.2, pulse rate 65, respirations 21, blood pressure 154/64 with oxygen saturation of 97% on 2 liters of oxygen by nasal cannula. HEENT: Normocephalic with male pattern baldness, extraocular muscles intact, conjunctivae slightly pale, oral mucosa moist without lesions. NECK: Supple with no JVD. No cervical, supraclavicular or axillary lymphadenopathy palpable. CHEST: Symmetrical. Lungs with diminished breath sounds bilaterally without wheezes or rales. CARDIOVASCULAR: Irregular, but with controlled rate. No murmurs or gallops heard. ABDOMEN: Slightly obese with a healed midline incision. No hepatosplenomegaly or other masses palpable. EXTREMITIES: Showed no edema. NEUROLOGIC: Showed no focal motor deficits. LABORATORY DATA: CBC done today morning showed WBC 10.7, hemoglobin 8.6, MCV 67, RDW 21.6, platelet count 350,000 with a neutrophil count 9.0 and lymphocyte count 0.7. Chemistry panel done today showed normal electrolytes. BUN was 14 and creatinine 1.07 with GFR more than 60 mL per minute. Total bilirubin was 1.5. The rest of the liver function studies within normal limits. Serum ferritin level is pending and serum iron level was below normal at 19. Protime was 20.4 with INR of 1.7 and PTT was 44. Serum ferritin level from 04/29/2018 was low at 11.8 with serum iron level of 21 and TIBC of 363. Pathology report from right hemicolectomy done on 08/14/2018 showed a serrated adenoma x5 and tubular adenoma x10 with a submucosal lipoma. Five lymph nodes were benign. Mismatch repair protein IHC analysis showed a normal immunohistochemical expression. Thank you for allowing me to participate in this patient's care. I will follow the patient with you and make appropriate recommendations. Job ID: [id number] DocumentID: [id number] Dictated Date: 10/27/2018 18:30:42 Tower Truck Driver Date: 10/27/2018 23:26:24 Dictated By: TIERRA GRIFFIN MD
[2018-10-28 00:05] VITALS: BP 161/67
[2018-10-28] MEDS: guaiFENesin/CODEINE (ROBITUSSIN AC) 10ML UDC PO PRN ×2 (01:23→22:18)
[2018-10-28] MEDS: RT-ALBUTEROL/IPRATROPIUM 3 ML (DUONEB) VIAL INH SCH ×6 (01:31→21:35)
--- NOTE | 2018-10-28 01:45 | NUR ---
0115-PT SITTING UP ON SIDE OF THE BED COUGHING-PT STATES THAT HE WOULD LIKE SOME COUGH SYRUP-PT SATES "BEING UP LATE LIKE THIS REMINDS ME OF COMING HOME FROM [place] WHEN I WAS UP FOR DAYS." THIS RN ATTEMPTED THERAPEUTIC COMMUNICATION. PT STATES THAT BEING DARK OUTSIDE & BEING IN THE HOSPITAL IS WHAT IS CAUSING HIM TO THINK ABOUT HIS DIFFICULT TIME. PT STATED THAT HE YOU LAY BACK DOWN AFTER HIS COUGH SYRUP IS GIVEN. PRN ROBITUSSIN GIVEN 0145-PT LAYING IN BED RESTING WITH EYES CLOSED-RESPIRATIONS EVEN NOT LABORED-NO COUGHING NOTED
[2018-10-28 04:07] VITALS: BP 169/66
[2018-10-28 06:14] LABS: ABSOLUTE RETIC # 64 10e9/L (24-90); BASOPHILS % (AUTO) 0 % (0-10); EOSINOPHILS % (AUTO) 0 % (0-10); HEMATOCRIT 28 % (40-54); HEMOGLOBIN 8.1 G/DL (13.3-17.7); LYMPHOCYTES # (AUTO) 0.4 X 10^3 (1.0-4.0); LYMPHOCYTES % (AUTO) 5 % (12-44); MEAN CORPUSCULAR HEMOGLOBIN 19 PG (25-34); MEAN CORPUSCULAR HGB CONC 29 G/DL (32-36); MEAN CORPUSCULAR VOLUME 66 FL (80-99); MONOCYTES # (AUTO) 0.1 X 10^3 (0.0-1.0); MONOCYTES % (AUTO) 2 % (0-12); NEUTROPHILS % (AUTO) 93 % (42-75); PLATELET COUNT 324 10^3/uL (130-400); RED BLOOD COUNT 4.28 10^6/uL (4.35-5.85); RED CELL DISTRIBUTION WIDTH 21.9 % (10.0-14.5); RETICULOCYTE % 1.49 % (0.50-2.40); WHITE BLOOD COUNT 7.6 10^3/uL (4.3-11.0)
[2018-10-28 06:40] LABS: ALANINE AMINOTRANSFERASE 14 U/L (0-55); ALKALINE PHOSPHATASE 93 U/L (40-136); BILIRUBIN,TOTAL 1.1 MG/DL (0.1-1.0); BUN/CREATININE RATIO 19; CALCIUM 9.2 MG/DL (8.5-10.1); CARBON DIOXIDE 23 MMOL/L (21-32); CHLORIDE 101 MMOL/L (98-107); CREATININE SERUM 1.18 MG/DL (0.60-1.30); GFR ESTIMATED > 60; GLUCOSE 230 MG/DL (70-105); MAGNESIUM 2.3 MG/DL (1.8-2.4); POTASSIUM 3.8 MMOL/L (3.6-5.0); SODIUM 137 MMOL/L (135-145); TOTAL PROTEIN 7.5 GM/DL (6.4-8.2)
[2018-10-28] MEDS: RT-ADVAIR HFA 115/21 MCG PER PUFF IH SCH ×2 (06:42→18:35)
[2018-10-28] MEDS: methylPREDNISolone 40 MG/ML (Solu-MEDROL) VIAL IV SCH ×4 (06:51→23:59)
[2018-10-28] MEDS: KCL 20 MEQ TAB (K-DUR) PO SCH (06:53)
[2018-10-28] MEDS: FUROSEMIDE 40 MG/4 ML INJ (LASIX) IV SCH ×2 (06:53→16:51)
[2018-10-28] MEDS: metFORMIN 500 MG (GLUCOPHAGE) TAB PO SCH ×2 (06:53→16:52)
[2018-10-28] MEDS: inSUlin DETERMIR 1 UNIT/0.01 ML (LEVEMIR) CHARGE PER UNIT SQ SCH ×2 (06:54→17:41)
[2018-10-28] MEDS: inSUlin ASPART (NovoLOG) 1 UNIT/0.01 ML (CHARGE PER UNIT) SC SCH ×7 (06:54→20:38)
--- NOTE | 2018-10-28 06:55 | Pulmonary Progress Note ---
Sepsis Event Evaluation Height, Weight, BMI Height: " Weight: 239lbs. 8.0oz. [id number]; 33.4 BMI Method:Stated Focused Exam Lactate Level 10/27/18 09:05: Lactic Acid Level 1.90 Exam Exam Vital Signs Date Time Temp Pulse Resp B/P (MAP) Pulse Ox O2 Delivery O2 Flow Rate FiO2 10/28/18 06:43 94 Room Air 10/28/18 04:07 97.8 95 20 169/66 (100) 96 Nasal Cannula 2.00 10/28/18 01:31 96 Nasal Cannula 2.00 10/28/18 00:05 97.9 79 18 161/67 (98) 97 Nasal Cannula 2.00 10/27/18 21:51 96 Nasal Cannula 2.00 10/27/18 21:38 80 20 170/72 (104) 97 Nasal Cannula 2.00 10/27/18 20:09 80 19 163/63 (96) 95 Room Air 10/27/18 20:00 Nasal Cannula 2.00 10/27/18 18:59 Nasal Cannula 2.00 10/27/18 18:52 94 Nasal Cannula 2.00 10/27/18 18:00 80 19 163/63 (96) 95 Room Air 10/27/18 16:00 100.2 65 21 154/64 (94) 97 Room Air 10/27/18 15:07 95 Nasal Cannula 2.00 10/27/18 14:50 61 95 10/27/18 12:53 Nasal Cannula 2.00 10/27/18 11:45 98.7 64 20 149/57 (87) 96 Room Air 10/27/18 11:38 99.4 73 28 137/56 (83) 99 Nasal Cannula 4.00 10/27/18 09:13 98 Nasal Cannula 4.00 10/27/18 08:50 99.4 96 21 177/72 (107) 97 Nasal Cannula 4.00 I & O 10/28/18 07:00 Intake Total 2160 ml Output Total 2875 ml Balance -715 ml Height & Weight Height: '00" Weight: 239lbs. 8.0oz. 108.589218zr; 33.4 BMI Method:Stated General Appearance: No Apparent Distress HEENT: PERRL/EOMI Neck: Full Range of Motion, Supple; No JVD Respiratory: Decreased Breath Sounds, Respiratory Distress (mild) Cardiovascular: Regular Rate, Rhythm, No JVD Capillary Refill: Less Than 3 Seconds Gastrointestinal: normal bowel sounds, non tender, soft Extremity: Pedal Edema Results Lab Laboratory Tests 10/27/18 09:05 10/28/18 06:00 Assessment/Plan Assessment/Plan Acute on chronic respiratory failure -Oxygen COPDAE - Doubt pneumonia -D/C cefepime --SVNS -Solumedrol 40 IV Q 6 CHFAE -Lasix IVANNA -He uses home CPAP FLIP PEDERSEN DO Oct 28, 2018 06:55
[2018-10-28 08:00] VITALS: BP 168/70
[2018-10-28] MEDS: cloNIDine 0.1 MG (CATAPRES) TAB PO SCH ×2 (08:27→20:39)
[2018-10-28] MEDS: hydrALAZINE (APRESOLINE) 25 MG TAB PO SCH ×2 (08:28→20:38)
[2018-10-28] MEDS: PANTOPRAZOLE 40 MG (PROTONIX) TAB PO SCH (08:28)
[2018-10-28] MEDS: ASPIRIN 81 MG CHEW (CHILDREN'S ASA) PO SCH (08:29)
[2018-10-28] MEDS: DILTIAZEM 180 MG (CARDIZEM CD) CAP PO SCH (08:29)
[2018-10-28] MEDS ORDERED: LOSARTAN 50 MG (COZAAR) TAB PO SCH (09:00)
--- NOTE | 2018-10-28 09:06 | Progress Note-Hospitalist ---
DOMITILA MULLINS DO 10/28/18 0906: Subjective HPI/CC On Admission Date Seen by Provider: Oct 28, 2018 Time Seen by Provider: 09:00 68 year old male with Hx of COPD, DM, ristrictive lung disease, HTN, HLD admitted from the ED for 1 day history of progressively worsening SOB. Pt states that this is the worse episode that he has had. Pt states that laying down or activity worsens symptoms and if he sits up for longer periods of time his symptoms improve slightly. Pt sates his SOB was so bad last night he couldnt even use his CPAP. Pt states that he was hospitalized last month for GI bleed from unknown source and had to be given 2 units of RBC. Pt admits orthopnea, RIDER, and productive cough with yellow sputum. Pt states he has not coughed up any blood. Pt states he has not taken anything for his symptoms at home but the duoneb in the ED has helped improve his symptoms. Pt denies fever, chills, CP. 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 Denies any pain Review of Systems General: Fatigue Pulmonary: Dyspnea Focused Exam Lactate Level 10/27/18 09:05: Lactic Acid Level 1.90 Objective Exam Vital Signs Vital Signs Date Time Temp Pulse Resp B/P (MAP) Pulse Ox O2 Delivery O2 Flow Rate FiO2 10/28/18 08:00 Nasal Cannula 2.00 10/28/18 06:43 94 10/28/18 04:07 97.8 95 20 169/66 (100) Capillary Refill : Less Than 3 Seconds General Appearance: No Apparent Distress, WD/WN, Chronically ill, Obese Neck: Full Range of Motion, Normal Inspection, Non Tender, Supple, Carotid Bruit Respiratory: Chest Non Tender, Lungs Clear, Normal Breath Sounds, No Accessory Muscle Use, No Respiratory Distress Cardiovascular: No Edema, No Gallop, No JVD, No Murmur, Normal Peripheral Pulses, Irregularly Irregular Neurologic/Psychiatric: Alert, Oriented x3, No Motor/Sensory Deficits, Normal Mood/Affect Results/Procedures Lab Laboratory Tests 10/28/18 06:00 Patient resulted labs reviewed. Assessment/Plan Assessment and Plan Assess & Plan/Chief Complaint Assessment: Acute dyspnea Volume overload with elevated BNP Acute exacerbation of COPD Hypoxia Severe anemia iron deficiency type consulting hematology since he's been given 11 units of blood in the past year History of colon polyps status post hemicolectomy July and EGD and colonoscopy recently done in September 2018 no source found may need capsule endoscopy Atrial fibrillation CAD Hypertension Plan: Restart all home meds Consult hematology Check iron studies Appreciate all consultation advice Diagnosis/Problems Diagnosis/Problems (1) fluid overload Status: Acute (2) Atrial fibrillation with normal ventricular rate Status: Chronic (3) IVANNA (obstructive sleep apnea) Status: Chronic (4) GI bleed Status: Chronic Qualifiers: GI bleed type/associated pathology: unspecified gastrointestinal hemorrhage type Qualified Codes: K92.2 - Gastrointestinal hemorrhage, unspecified (5) Anemia Status: Chronic Qualifiers: Anemia type: iron deficiency Iron deficiency anemia type: chronic blood loss Qualified Codes: D50.0 - Iron deficiency anemia secondary to blood loss ( chronic) (6) Insulin dependent diabetes mellitus Status: Chronic (7) Acute and chronic respiratory failure with hypoxia Status: Acute Clinical Quality Measures DVT/VTE Risk/Contraindication: Risk Factor Score Per Nursin RFS Level Per Nursing on Admit: 4+=Very High ANTHONY WILLETT MEDICAL STUDENT 10/28/18 0943: Subjective Subjective/Events-last exam Pt feeling much better today, not using any supplemental O2 Pt able to ambulate without dyspnea Pt tolerated sleeping supine Objective Exam General Appearance: No Apparent Distress, WD/WN HEENT: PERRL/EOMI Neck: Full Range of Motion, Supple Respiratory: No Respiratory Distress, Wheezing Cardiovascular: Regular Rate, Rhythm Assessment/Plan Assessment and Plan Assess & Plan/Chief Complaint AECOPD CHF Anemia Pt SOB symptoms much improved Dr Grey does not think pt has PNA, d/c cefepime, continue IV steroids Continue IV diuresis Iron and ferritin low at 19 and 22.9, will discuss management with DOMITILA Whitmore DO Oct 28, 2018 09:06 ANTHONY WILLETT MEDICAL STUDENT Oct 28, 2018 09:43
--- NOTE | 2018-10-28 09:18 | Diagnostic Imaging Report ---
INDICATION: Shortness of breath, COPD. COMPARISON: 10/27/2018. FINDINGS: Frontal and lateral views of the chest demonstrate cardiac enlargement with central vascular congestion. No focal consolidation is seen. There is no pneumothorax. Osseous structures are stable. IMPRESSION: Cardiac enlargement with persistent but slightly decreased central vascular congestion. Dictated by: Dictated on workstation # [id number]
[2018-10-28] MEDS ORDERED: LOSARTAN 50 MG (COZAAR) TAB PO NR (09:30)
--- NOTE | 2018-10-28 09:30 | Progress Note-Cardiology ---
Cardiology SOAP Progress Note Objective: I&O/Vital Signs 10/28/18 10/28/18 10/28/18 10/28/18 04:07 06:43 08:00 08:00 Temp 97.8 98.6 Pulse 95 84 Resp 20 20 B/P (MAP) 169/66 (100) 168/70 (102) Pulse Ox 96 94 97 O2 Delivery Nasal Cannula Room Air Nasal Cannula Nasal Cannula O2 Flow Rate 2.00 2.00 2.00 10/28/18 10/28/18 10/28/18 10/28/18 09:00 10:48 11:37 13:00 Temp 98.6 Pulse 83 74 Pulse Ox 95 O2 Delivery Room Air 10/28/18 14:26 Pulse Ox 93 O2 Delivery Room Air 10/28/18 00:00 Intake Total 1810 ml Output Total 2375 ml Balance -565 ml Weight (Pounds): 239 Weight (Ounces): 8.0 Weight (Calculated Kilograms): 108.411124 Constitutional: AAO x 3, well-developed, well-nourished Respiratory: No accessory muscle use; other (fair to good air entry, prolong exp phase, rhonchi over large airways) Cardiovascular: regular rate-rhythm, S1 and S2, systolic murmur (soft CEASAR at card base) Gastrointestional: No tender; soft; No guarding, No rebound; audible bowel sounds Extremities: No clubbing, No cyanosis, No significant edema Neurologic/Psychiatric: oriented x 3, grossly intact, power is 5/5 both on sides Skin: No rash on exposed areas, No ulcerations on exposed areas Results/Procedures: Labs Laboratory Tests 10/27/18 15:39: Glucometer 86 10/27/18 20:52: Glucometer 180H 10/28/18 05:53: Glucometer 258H 10/28/18 06:00: White Blood Count 7.6, Red Blood Count 4.28L, Hemoglobin 8.1L, Hematocrit 28L, Mean Corpuscular Volume 66L, Mean Corpuscular Hemoglobin 19L, Mean Corpuscular Hemoglobin Concent 29L, Red Cell Distribution Width 21.9H, Platelet Count 324, Mean Platelet Volume 9.0, Neutrophils (%) (Auto) 93H, Lymphocytes (%) (Auto) 5L , Monocytes (%) (Auto) 2, Eosinophils (%) (Auto) 0, Basophils (%) (Auto) 0, Neutrophils # (Auto) 7.0, Lymphocytes # (Auto) 0.4L, Monocytes # (Auto) 0.1, Eosinophils # (Auto) 0.0, Basophils # (Auto) 0.0, Absolute Reticulocyte Count 64 , Percent Reticulocyte Count 1.49, Sodium Level 137, Potassium Level 3.8, Chloride Level 101, Carbon Dioxide Level 23, Anion Gap 13, Blood Urea Nitrogen 23H, Creatinine 1.18, Estimat Glomerular Filtration Rate > 60, BUN/Creatinine Ratio 19, Glucose Level 230H, Calcium Level 9.2, Corrected Calcium 9.2, Magnesium Level 2.3, Total Bilirubin 1.1H, Aspartate Amino Transf (AST/SGOT) 16 , Alanine Aminotransferase (ALT/SGPT) 14, Alkaline Phosphatase 93, Total Protein 7.5, Albumin 4.0 10/28/18 11:42: Glucometer 170H Microbiology 10/27/18 Blood Culture - Preliminary, Resulted No growth Procedures NAME: MERY GARCIA [facility] REC#: [id number] PT STATUS: ADM IN : 1950 PHYSICIAN: DOMITILA MULLINS DO ADMIT DATE: 10/27/18 Draft Date of Exam:10/28/18 CHEST PA/LAT (2 VIEW) INDICATION: Shortness of breath, COPD. COMPARISON: 10/27/2018. FINDINGS: Frontal and lateral views of the chest demonstrate cardiac enlargement with central vascular congestion. No focal consolidation is seen. There is no pneumothorax. Osseous structures are stable. IMPRESSION: Cardiac enlargement with persistent but slightly decreased central vascular congestion. Dictated on workstation # [id number] Dict: 10/28/18 0747 Trans: 10/28/18 0918 [id number] Interpreted by: GAVIN WESLEY Electronically signed by: A/P: Assessment: Multifactorial shorntess of breath: COPD with ac exac due to lower resp tract infection, ac diastolic CHF, blood-loss anemia, obesity-hypoventilation Recent (Sep 2018)GI bleed and anemia requiring transfusions GI history: H/o anemia d/t GI bleed. Upper and lower endoscopy by Dr. Mcbride on 7- 9-15 showed reflux esophagitis and gastritis and a small hiatal hernia. He also had ext and int hemorrhoids. He underwent colon polypectomy by Dr. Mcbride. H /H on 04/01/18. History of right hemicolectomy in July 2018. Repeat endoscopy in Sep 2018 Ch atrial fibrillation with RVR, first diagnosed in Nov 2013, requiring apixaban stroke prophylaxis - rate controlled. Successful conversion to NSR on , but has reverted back to A Fib with a controlled rate (ECG of 04/16/18) Obesity with obesity-hypoventilation syndrome. IVANNA diagnosed in Sep 2016, treated with CPAP COPD, followed by his registered dietitian (Dr Salmeron in [place], [place]) MPI of 08-01-18 did not show any evidence of alok significant myocardial ischemia or infarction, LVEF was 52%, there was no no significant regional wall motion abnormality, there was moderate cardiomegaly Cardiac cath of May 2017: mild to mod CAD. The left cx has approx 70% distal stenosis which is of relatively small caliber. LVEF 50-55%. Mild to mod LVEDP elevation. No signif MR PAD: mild to mod inflow disease in the arterial circulation fo the right lower limb and mild mod inflow and outflow disease in the L lower limb H/o diastolic CHF in Nov 2013, currently clinically compensated. Echo of 04/02/18 : mild to mod conc LVH, LVEF 60-65%, mild MAC, mild MR, PASP 40 mmHg DMII, insulin requiring H/o possible diabetic nephropathy. eGFR on blood work of 12/18/13 is >60 Hyperlipidemia, treated with statin therapy. His hepatic and lipid profiles and other blood work [facility] [place] [place] Hypertension - controlled on current multi-therapy regimen Mild carotid art disease on carotid u/s of 09/24/17 Quit tobacco use in or around 1999 Plan: * Diuretics for CHF * Worsening anemia of undetermined source, suspect slow GI bleed. Apixaban currently being withheld d/t worsening anemia. This seems reasonable to do for now. However, it does place him at increased risk for stroke d/t known a-fib. Advise source of bleeding be determined and treated expediently so that stroke prophylaxis can be resumed. ASA is being continued at this point which will provide some protection. * HTN not well controlled, increase ARB * Monitor labs * Risk factor mod reviewed and questions answered BAIMA,PAULINE L ORTHOPEDIC RN Oct 28, 2018 09:30
--- NOTE | 2018-10-28 11:37 | Progress Note-Cardiology ---
Cardiology SOAP Progress Note Subjective: Generally weak and tired Shortness of breath somewhat improved No cp or palp or syncope Objective: I&O/Vital Signs 10/28/18 10/28/18 10/28/18 10/28/18 00:05 01:31 04:07 06:43 Temp 97.9 97.8 Pulse 79 95 Resp 18 20 B/P (MAP) 161/67 (98) 169/66 (100) Pulse Ox 97 96 96 94 O2 Delivery Nasal Cannula Nasal Cannula Nasal Cannula Room Air O2 Flow Rate 2.00 2.00 2.00 10/28/18 10/28/18 10/28/18 10/28/18 08:00 08:00 09:00 10:48 Temp 98.6 98.6 Pulse 84 Resp 20 B/P (MAP) 168/70 (102) Pulse Ox 97 95 O2 Delivery Nasal Cannula Nasal Cannula Room Air O2 Flow Rate 2.00 2.00 10/27/18 23:59 Intake Total 1810 ml Output Total 2375 ml Balance -565 ml Weight (Pounds): 239 Weight (Ounces): 8.0 Weight (Calculated Kilograms): 108.531322 Constitutional: AAO x 3, well-developed, well-nourished Respiratory: No accessory muscle use; other (fair to good air entry, prolong exp phase, rhonchi over large airways) Cardiovascular: regular rate-rhythm, S1 and S2, systolic murmur (soft CEASAR at card base) Gastrointestional: No tender; soft; No guarding, No rebound; audible bowel sounds Extremities: No clubbing, No cyanosis, No significant edema Neurologic/Psychiatric: oriented x 3, grossly intact, power is 5/5 both on sides Skin: No rash on exposed areas, No ulcerations on exposed areas Results/Procedures: Labs Laboratory Tests 10/27/18 14:48: Blood Gas Puncture Site R RADIAL, Blood Gas Patient Temperature 98.7, Arterial Blood pH 7.47H, Arterial Blood Partial Pressure CO2 36, Arterial Blood Partial Pressure O2 83, Arterial Blood HCO3 26, Arterial Blood Total CO2 26.9, Arterial Blood Oxygen Saturation 98, Arterial Blood Base Excess 2.4, Shade Test YES-POS, Blood Gas Ventilator Setting NO, Blood Gas Inspired Oxygen 2 10/27/18 15:39: Glucometer 86 10/27/18 20:52: Glucometer 180H 10/28/18 05:53: Glucometer 258H 10/28/18 06:00: White Blood Count 7.6, Red Blood Count 4.28L, Hemoglobin 8.1L, Hematocrit 28L, Mean Corpuscular Volume 66L, Mean Corpuscular Hemoglobin 19L, Mean Corpuscular Hemoglobin Concent 29L, Red Cell Distribution Width 21.9H, Platelet Count 324, Mean Platelet Volume 9.0, Neutrophils (%) (Auto) 93H, Lymphocytes (%) (Auto) 5L , Monocytes (%) (Auto) 2, Eosinophils (%) (Auto) 0, Basophils (%) (Auto) 0, Neutrophils # (Auto) 7.0, Lymphocytes # (Auto) 0.4L, Monocytes # (Auto) 0.1, Eosinophils # (Auto) 0.0, Basophils # (Auto) 0.0, Absolute Reticulocyte Count 64 , Percent Reticulocyte Count 1.49, Sodium Level 137, Potassium Level 3.8, Chloride Level 101, Carbon Dioxide Level 23, Anion Gap 13, Blood Urea Nitrogen 23H, Creatinine 1.18, Estimat Glomerular Filtration Rate > 60, BUN/Creatinine Ratio 19, Glucose Level 230H, Calcium Level 9.2, Corrected Calcium 9.2, Magnesium Level 2.3, Total Bilirubin 1.1H, Aspartate Amino Transf (AST/SGOT) 16 , Alanine Aminotransferase (ALT/SGPT) 14, Alkaline Phosphatase 93, Total Protein 7.5, Albumin 4.0 Laboratory Tests 10/27/18 09:05 10/28/18 06:00 A/P: Assessment: Multifactorial shorntess of breath: COPD with ac exac due to lower resp tract infection, ac diastolic CHF, blood-loss anemia, obesity-hypoventilation Recent (Sep 2018)GI bleed and anemia requiring transfusions GI history: H/o anemia d/t GI bleed. Upper and lower endoscopy by Dr. Mcbride on 04-28-15 showed reflux esophagitis and gastritis and a small hiatal hernia. He also had ext and int hemorrhoids. He underwent colon polypectomy by Dr. Mcbride. H /H on 04/01/18. History of right hemicolectomy in July 2018. Repeat endoscopy in Sep 2018 Ch atrial fibrillation with RVR, first diagnosed in Nov 2013, requiring apixaban stroke prophylaxis - rate controlled. Successful conversion to NSR on , but has reverted back to A Fib with a controlled rate (ECG of 04/16/18) Obesity with obesity-hypoventilation syndrome. IVANNA diagnosed in Sep 2016, treated with CPAP COPD, followed by his review nurse (Dr Salmeron in [place], [place]) MPI of 08-01-18 did not show any evidence of alok significant myocardial ischemia or infarction, LVEF was 52%, there was no no significant regional wall motion abnormality, there was moderate cardiomegaly Cardiac cath of May 2017: mild to mod CAD. The left cx has approx 70% distal stenosis which is of relatively small caliber. LVEF 50-55%. Mild to mod LVEDP elevation. No signif MR PAD: mild to mod inflow disease in the arterial circulation fo the right lower limb and mild mod inflow and outflow disease in the L lower limb H/o diastolic CHF in Nov 2013, currently clinically compensated. Echo of 04/02/18 : mild to mod conc LVH, LVEF 60-65%, mild MAC, mild MR, PASP 40 mmHg DMII, insulin requiring H/o possible diabetic nephropathy. eGFR on blood work of 12/18/13 is >60 Hyperlipidemia, treated with statin therapy. His hepatic and lipid profiles and other blood work [facility] [place] [place] Hypertension - controlled on current multi-therapy regimen Mild carotid art disease on carotid u/s of 09/24/17 Quit tobacco use in or around 1999 Plan: * Diuretics for CHF * Worsening anemia of undetermined source, suspect slow GI bleed. Apixaban currently being withheld d/t worsening anemia. This seems reasonable to do for now. However, it does place him at increased risk for stroke d/t known a-fib. Advise source of bleeding be determined and treated expediently so that stroke prophylaxis can be resumed. ASA is being continued at this point which will provide some protection. * HTN not well controlled, increase ARB * Monitor labs * Risk factor mod reviewed and questions answered ANTONIO LAWRENCE MD FACP FAC CCDS Oct 28, 2018 11:37
[2018-10-28 12:00] VITALS: BP 160/61
--- NOTE | 2018-10-28 13:44 | NUR ---
Initial analyst programmer visit: Pt is non-denominational, however demonstrates appreciation of analyst programmer presence and support. 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 Strong emotional support present through his , Randa, and friends in the community. Expresses desire to have root issue of blood loss resolved. States he will swallow a camera and do any test necessary to pinpoint the issue. He demonstrated a positive attitude and engaged warmly throughout our visit.
[2018-10-28] MEDS ORDERED: FERR324T4 PO (14:26)
[2018-10-28] MEDS ORDERED: APIX5TAB PO (14:26)
--- NOTE | 2018-10-28 15:23 | NUR ---
Pastoral Care Visit.
[2018-10-28 16:00] VITALS: BP 159/70
--- NOTE | 2018-10-28 16:14 | Progress Note-Standard ---
Standard Progress Note Progress Notes/Assess & Plan Date Seen by a Provider: Oct 28, 2018 Time Seen by a Provider: 16:10 Progress/Assessment & Plan 68-year-old male admitted with increasing shortness of breath. History of microcytic anemia and iron deficiency most likely related to chronic GI blood loss. Status post EGD and colonoscopy multiple times with the numerous colon polyps. Status post right hemicolectomy in July 2018 with several serrated polyps. Has been taking oral iron preparations for several months. Serum ferritin level low. We will start the patient on event of further 200 mg IV 5 doses. Fecal occult blood test pending. If this is positive, patient may benefit from a capsule endoscopy to rule out small bowel lesions or bleeding. Will follow patient with you. Focused Exam Lactate Level 10/27/18 09:05: Lactic Acid Level 1.90 TIERRA GRIFFIN Oct 28, 2018 16:14
[2018-10-28] MEDS ORDERED: IRON SUCROSE 200 MG/10 ML (VENOFER) VIAL IV SCH (16:33)
[2018-10-28 20:33] VITALS: BP 184/74
[2018-10-28] MEDS: ROSUVASTATIN 20 MG (CRESTOR) TABLET PO SCH (20:37)
[2018-10-28] MEDS: rOPINIRole 1 MG (REQUIP) TABLET PO SCH (20:38)
--- NOTE | 2018-10-28 22:19 | NUR ---
pt coughing requesting prn cough medication-see mar
[2018-10-29] VITALS: BP 176/77
[2018-10-29] MEDS: RT-ALBUTEROL/IPRATROPIUM 3 ML (DUONEB) VIAL INH SCH ×3 (01:30→10:53)
[2018-10-29 04:01] VITALS: BP 140/69
[2018-10-29] MEDS: inSUlin ASPART (NovoLOG) 1 UNIT/0.01 ML (CHARGE PER UNIT) SC SCH ×4 (05:34→11:23)
[2018-10-29] MEDS: metFORMIN 500 MG (GLUCOPHAGE) TAB PO SCH (05:35)
--- NOTE | 2018-10-29 05:35 | NUR ---
pt states that he is not going to take the metformin until the tells him to. this rn spoke with the pt about the fact that the doctors are the ones that order the medications. pt still stating he will not take it.
[2018-10-29] MEDS: KCL 20 MEQ TAB (K-DUR) PO SCH (07:02)
[2018-10-29] MEDS: methylPREDNISolone 40 MG/ML (Solu-MEDROL) VIAL IV SCH (07:03)
[2018-10-29] MEDS: FUROSEMIDE 40 MG/4 ML INJ (LASIX) IV SCH (07:03)
[2018-10-29] MEDS: inSUlin DETERMIR 1 UNIT/0.01 ML (LEVEMIR) CHARGE PER UNIT SQ SCH (07:04)
[2018-10-29 07:22] LABS: ALANINE AMINOTRANSFERASE 14 U/L (0-55); ALKALINE PHOSPHATASE 92 U/L (40-136); BILIRUBIN,TOTAL 0.7 MG/DL (0.1-1.0); BUN/CREATININE RATIO 36; CALCIUM 9.6 MG/DL (8.5-10.1); CARBON DIOXIDE 23 MMOL/L (21-32); CHLORIDE 102 MMOL/L (98-107); CREATININE SERUM 1.17 MG/DL (0.60-1.30); GFR ESTIMATED > 60; GLUCOSE 97 MG/DL (70-105); MAGNESIUM 2.3 MG/DL (1.8-2.4); POTASSIUM 3.5 MMOL/L (3.6-5.0); SODIUM 139 MMOL/L (135-145); TOTAL PROTEIN 7.7 GM/DL (6.4-8.2)
[2018-10-29 08:00] VITALS: BP 135/58
[2018-10-29] MEDS: RT-ADVAIR HFA 115/21 MCG PER PUFF IH SCH (08:01)
[2018-10-29] MEDS: cloNIDine 0.1 MG (CATAPRES) TAB PO SCH (08:28)
[2018-10-29] MEDS: ASPIRIN 81 MG CHEW (CHILDREN'S ASA) PO SCH (08:28)
[2018-10-29] MEDS: hydrALAZINE (APRESOLINE) 25 MG TAB PO SCH (08:28)
[2018-10-29] MEDS: PANTOPRAZOLE 40 MG (PROTONIX) TAB PO SCH (08:28)
[2018-10-29] MEDS: DILTIAZEM 180 MG (CARDIZEM CD) CAP PO SCH (08:28)
[2018-10-29] MEDS ORDERED: LOSARTAN 100 MG (COZAAR) TABLET PO SCH (09:00)
--- NOTE | 2018-10-29 09:08 | Progress Note-Cardiology ---
Cardiology SOAP Progress Note Subjective: Notes some improvement of shortness of breath Has gen weakness and malaise Denies palp or syncope or cp Objective: I&O/Vital Signs 10/28/18 10/29/18 10/29/18 10/29/18 21:35 00:00 01:08 01:30 Temp 98.6 Pulse 81 87 Resp 18 B/P (MAP) 176/77 (110) Pulse Ox 95 95 94 O2 Delivery Room Air Nasal Cannula Room Air O2 Flow Rate 2.00 10/29/18 10/29/18 10/29/18 04:01 07:00 08:02 Temp 97.4 Pulse 83 77 Resp 18 B/P (MAP) 140/69 (92) Pulse Ox 94 95 O2 Delivery Nasal Cannula Room Air O2 Flow Rate 2.00 10/29/18 00:00 Intake Total 2260 ml Output Total 2550 ml Balance -290 ml Weight (Pounds): 239 Weight (Ounces): 8.0 Weight (Calculated Kilograms): 108.358937 Constitutional: AAO x 3, well-developed, well-nourished Respiratory: No accessory muscle use; other (fair to good air entry, prolong exp phase, rhonchi over large airways) Cardiovascular: irregularly irregular, S1 and S2, systolic murmur (soft CEASAR at card base) Gastrointestional: No tender; soft; No guarding, No rebound; audible bowel sounds Extremities: No clubbing, No cyanosis, No significant edema Neurologic/Psychiatric: oriented x 3, grossly intact, power is 5/5 both on sides Skin: No rash on exposed areas, No ulcerations on exposed areas Results/Procedures: Labs Laboratory Tests 10/28/18 11:42: Glucometer 170H 10/28/18 15:59: Glucometer 285H 10/28/18 19:40: Glucometer 286H 10/29/18 05:32: Glucometer 107 10/29/18 06:20: Sodium Level 139, Potassium Level 3.5L, Chloride Level 102, Carbon Dioxide Level 23, Anion Gap 14, Blood Urea Nitrogen 42H, Creatinine 1.17, Estimat Glomerular Filtration Rate > 60, BUN/Creatinine Ratio 36, Glucose Level 97, Calcium Level 9.6, Corrected Calcium 9.6, Magnesium Level 2.3, Total Bilirubin 0.7, Aspartate Amino Transf (AST/SGOT) 27, Alanine Aminotransferase (ALT/SGPT) 14, Alkaline Phosphatase 92, Total Protein 7.7, Albumin 4.0 Microbiology 10/27/18 Blood Culture - Preliminary, Resulted No growth Laboratory Tests 10/27/18 09:05 10/28/18 06:00 10/29/18 06:20 A/P: Assessment: Multifactorial shorntess of breath: COPD with ac exac due to lower resp tract infection, ac diastolic CHF, blood-loss anemia, obesity-hypoventilation Recent (Sep 2018)GI bleed and anemia requiring transfusions GI history: H/o anemia d/t GI bleed. Upper and lower endoscopy by Dr. Mcbride on 04-28-15 showed reflux esophagitis and gastritis and a small hiatal hernia. He also had ext and int hemorrhoids. He underwent colon polypectomy by Dr. Mcbride. H /H on 04/01/18. History of right hemicolectomy in July 2018. Repeat endoscopy in Sep 2018 Ch atrial fibrillation with RVR, first diagnosed in Nov 2013. Last successful conversion to NSR on 04/01/18, but has reverted back to A Fib with a controlled rate (ECG of 04/16/18). Currently rate-controlled. Has been on apixaban for stroke prophylaxis that the Med Sv[facility] is currently holding because of occult GI bleed leading to anemia requiring transfusions Obesity with obesity-hypoventilation syndrome. IVANNA diagnosed in Sep 2016, treated with CPAP COPD, followed by his behavioral psychologist (Dr Salmeron in [place], [place]) MPI of 08-01-18 did not show any evidence of alok significant myocardial ischemia or infarction, LVEF was 52%, there was no no significant regional wall motion abnormality, there was moderate cardiomegaly Cardiac cath of May 2017: mild to mod CAD. The left cx has approx 70% distal stenosis which is of relatively small caliber. LVEF 50-55%. Mild to mod LVEDP elevation. No signif MR PAD: mild to mod inflow disease in the arterial circulation fo the right lower limb and mild mod inflow and outflow disease in the L lower limb H/o diastolic CHF in Nov 2013, currently clinically compensated. Echo of 04/02/18 : mild to mod conc LVH, LVEF 60-65%, mild MAC, mild MR, PASP 40 mmHg DMII, insulin requiring H/o possible diabetic nephropathy. eGFR on blood work of 12/18/13 is >60 Hyperlipidemia, treated with statin therapy. His hepatic and lipid profiles and other blood work [facility] [place] [place] Hypertension - controlled on current multi-therapy regimen Mild carotid art disease on carotid u/s of 09/24/17 Quit tobacco use in or around 1999 Plan: * Complex management due to multiple comorbidities, some of which are opposing, such as the simultaneous need for OAC and the need to hold off on OAC (see above ) * Monitor labs * Follow closely as outpt when discharged * I spoke with him and answered his questions ANTONIO LAWRENCE MD FACP FACC CCDS Oct 29, 2018 09:08
[2018-10-29] MEDS ORDERED: KCL 20 MEQ TAB (K-DUR) PO ONE (09:15)
[2018-10-29] MEDS ORDERED: LOSA100T8 PO (09:32)
[2018-10-29] MEDS ORDERED: PRED10TA22 PO (09:32)
[2018-10-29] MEDS ORDERED: IPRA3AMP31 INH (09:32)
[2018-10-29] MEDS ORDERED: IRON100V2 IV (09:34)
--- NOTE | 2018-10-29 09:35 | Discharge Summary-Hospitalist ---
DOMITILA MULLINS DO 10/29/18 0935: Diagnosis/Chief Complaint Date of Admission Oct 27, 2018 at 11:25 Date of Discharge Discharge Date: Oct 29, 2018 Admission Diagnosis Assessment: Acute dyspnea Volume overload with elevated BNP Acute exacerbation of COPD Hypoxia Severe anemia iron deficiency type consulting hematology since he's been given 11 units of blood in the past year History of colon polyps status post hemicolectomy July and EGD and colonoscopy recently done in September 2018 no source found may need capsule endoscopy Atrial fibrillation CAD Hypertension Plan: Restart all home meds Consult hematology Check iron studies Discharge Diagnosis (1) COPD exacerbation Status: Acute (2) fluid overload Status: Acute (3) Atrial fibrillation with normal ventricular rate Status: Chronic (4) IVANNA (obstructive sleep apnea) Status: Chronic (5) GI bleed Status: Chronic (6) Anemia Status: Chronic (7) Insulin dependent diabetes mellitus Status: Chronic (8) Acute and chronic respiratory failure with hypoxia Status: Acute Discharge Summary Discharge Physical Exam Allergies: Coded Allergies: No Known Drug Allergies (Unverified , 10/04/18) Vitals & I&Os Vital Signs Date Time Temp Pulse Resp B/P (MAP) Pulse Ox O2 Delivery O2 Flow Rate FiO2 10/29/18 11:30 10/29/18 08:45 Room Air 10/29/18 08:02 95 10/29/18 08:00 99.8 90 20 10/29/18 04:01 2.00 General Appearance: No Apparent Distress, WD/WN Respiratory: Chest Non Tender, Lungs Clear, Normal Breath Sounds, No Accessory Muscle Use, No Respiratory Distress Cardiovascular: Regular Rate, Rhythm, No Edema, No Gallop, No JVD, No Murmur, Normal Peripheral Pulses Neurologic/Psychiatric: Alert, Oriented x3, No Motor/Sensory Deficits, Normal Mood/Affect Hospital Course Hospital course: Patient was admitted for exacerbation of respiratory insufficiency placed on IV Solu-Medrol and pulmonology and cardiology consultations were initiated. He responded quickly no longer needed oxygen and he did not meet criteria for home oxygen at discharge. He will remain on a tapered dose of steroids and will have iron infusions under Dr. Hester care and will have close follow-up with primary care provider. Labs (last 24 hrs) Laboratory Tests 10/28/18 15:59: Glucometer 285H 10/28/18 19:40: Glucometer 286H 10/29/18 05:32: Glucometer 107 10/29/18 06:20: Sodium Level 139, Potassium Level 3.5L, Chloride Level 102, Carbon Dioxide Level 23, Anion Gap 14, Blood Urea Nitrogen 42H, Creatinine 1.17, Estimat Glomerular Filtration Rate > 60, BUN/Creatinine Ratio 36, Glucose Level 97, Calcium Level 9.6, Corrected Calcium 9.6, Magnesium Level 2.3, Total Bilirubin 0.7, Aspartate Amino Transf (AST/SGOT) 27, Alanine Aminotransferase (ALT/SGPT) 14, Alkaline Phosphatase 92, Total Protein 7.7, Albumin 4.0 Microbiology 10/27/18 Blood Culture - Preliminary, Resulted No growth Patient resulted labs reviewed. Pending Labs Laboratory Tests 10/29/18 06:20: Sodium Level 139, Potassium Level 3.5, Chloride Level 102, Carbon Dioxide Level 23, Anion Gap 14, Blood Urea Nitrogen 42, Creatinine 1.17, Estimat Glomerular Filtration Rate > 60, BUN/Creatinine Ratio 36, Glucose Level 97, Calcium Level 9.6, Corrected Calcium 9.6, Magnesium Level 2.3, Total Bilirubin 0.7, Aspartate Amino Transf (AST/SGOT) 27, Alanine Aminotransferase (ALT/SGPT) 14, Alkaline Phosphatase 92, Total Protein 7.7, Albumin 4.0 Discussion & Recommendations Discharge Planning: <30 minutes discharge planning Discharge Home Medications: Active Scripts Active Venofer (Iron Sucrose Complex) 200 Mg/10 Ml Vial 200 Mg IV Q48H Prednisone 10 Mg Tab.ds.pk 10 Mg PO DAILY Take 6 tabs(60mg)daily,decrease by 1 tab(10MG)daily. Losartan Potassium 100 Mg Tablet 100 Mg PO DAILY Iprat-Albut 0.5-3(2.5) mg/3 ml (Ipratropium/Albuterol Sulfate) 3 Ml Ampul.neb 3 Ml INH RTQ4HR Reported Pantoprazole Sodium 40 Mg Tablet.dr 40 Mg PO DAILY Ventolin Hfa (Albuterol Sulfate) 18 Gm Hfa.aer.ad 1-2 Puff INH Q4H PRN Diltiazem 24Hr Cd (Diltiazem HCl) 180 Mg Cap.er.24h 180 Mg PO DAILY Requip (Ropinirole HCl) 3 Mg Tablet 3 Mg PO HS Vitamin D3 (Cholecalciferol (Vitamin D3)) 1,000 Unit Capsule 1,000 Unit PO DAILY Symbicort 160-4.5 Mcg Inhaler (Budesonide/Formoterol Fumarate) 10.2 Gm Hfa.aer.ad 2 Puff IH BID Rosuvastatin Calcium 40 Mg Tablet 20 Mg PO HS TAKES 1/2 (40MG) TABLET Potassium Chloride 20 Meq Tablet.er 20 Meq PO DAILY Furosemide 40 Mg Tablet 80 Mg PO DAILY TAKES 2 (40MG) TABLETS Hydralazine HCl 100 Mg Tablet 100 Mg PO BID Novolog Flexpen (Insulin Aspart) 300 Units/3 Ml Solution 35 Units SQ AC Levemir (Insulin Determir) 1,000 Units/10 Ml Soln 75 Units SQ 0600,1800 Metformin HCl 1,000 Mg Tablet 1,000 Mg PO BID WITH MEALS Aspir 81 (Aspirin) 81 Mg Tablet.dr 81 Mg PO DAILY Clonidine HCl 0.3 Mg Tablet 0.15 Mg PO BID TAKES 1/2 (0.3MG) TABLET Instructions to patient/family Please see electronic discharge instructions given to patient. Clinical Quality Measures DVT/VTE Risk/Contraindication: Risk Factor Score Per Nursin RFS Level Per Nursing on Admit: 4+=Very High ANTHONY WILLETT MEDICAL STUDENT 10/29/18 1140: Discharge Summary Discharge Physical Exam Allergies: Coded Allergies: No Known Drug Allergies (Unverified , 10/04/18) General Appearance: No Apparent Distress HEENT: PERRL/EOMI Respiratory: No Respiratory Distress, Wheezing Cardiovascular: Regular Rate, Rhythm Hospital Course Pt is a 68 year old male with Hx of COPD, DM, restrictive lung disease, HTN, HLD , CHF who was admitted on 10/27/18 for SOB with orthopnea and RIDER. Pt was started on IV solumedrol and duonebs. Pt was also found to have anemia and Dr Warren was consulted. Pt received Iron infusion and will follow up with Dr Warren. Pt has history of colon polyps and had R hemicolectomy in September [address] Mcbride. Pt had elevated BNP and was given lasix. CXR showed cardiomegally with mild pulmonary venous congestion that has progressed. Pt improved, no longer requiring oxygen, will discharge patient home with nebulizer. Problem Qualifiers (1) GI bleed: GI bleed type/associated pathology: unspecified gastrointestinal hemorrhage type Qualified Codes: K92.2 - Gastrointestinal hemorrhage, unspecified (2) Anemia: Anemia type: iron deficiency Iron deficiency anemia type: chronic blood loss Qualified Codes: D50.0 - Iron deficiency anemia secondary to blood loss ( chronic) DOMITILA MULLINS DO Oct 29, 2018 09:35 ANTHONY WILLETT MEDICAL STUDENT Oct 29, 2018 11:40
--- NOTE | 2018-10-29 10:33 | NUR ---
CM/SS patient is discharging this day and has new need for a nebulizer. Patient would like to sampler pickup his new nebulizer from [facility]. Information sent and patient will sampler pickup. Patient will have Iron from [facility] 10[facility].
--- NOTE | 2018-10-29 11:23 | NUR ---
PT DOES NOT WANT INSULIN, IS D/C'ING HOME.
--- NOTE | 2018-10-29 11:30 | NUR ---
MERY GARCIA demonstrates understanding of discharge instructions and accurately returns instructions upon questioning. Copy of Post-Discharge Instructions and Medication Discharge Instructions given to PT. MERY GARCIA is able to manage continuing needs after discharge. Patients belongings returned to PT. Skin dry and intact; no breakdown noted. Patient discharged from [facility] on 10/29/18 at 1130. MERY GARCIA left floor via AMBULATION, accompanied by STAFF/.
== END 2018-10-29 11:30 | disposition home or self-care (01) | DRG 189 ==
LOC: EDUNIT# 08:50 → ER 08:51 → 4TH 11:25
PROVIDERS: ADMIT Internal Medicine; ATTEND Internal Medicine
DX: J96.21 Acute and chronic respiratory failure with hypoxia (principal); I11.0 Hypertensive heart disease with heart failure; I50.31 Acute diastolic (congestive) heart failure; J44.1 Chronic obstructive pulmonary disease with (acute) exacerbation; K92.2 Gastrointestinal hemorrhage, unspecified; D50.0 Iron deficiency anemia secondary to blood loss (chronic); E11.52 Type 2 diabetes mellitus with diabetic peripheral angiopathy with gangrene; E87.6 Hypokalemia; G47.33 Obstructive sleep apnea (adult) (pediatric); I25.10 Atherosclerotic heart disease of native coronary artery without angina pectoris; I48.91 Unspecified atrial fibrillation; K21.9 Gastro-esophageal reflux disease without esophagitis; E78.5 Hyperlipidemia, unspecified; Z79.4 Long term (current) use of insulin; Z87.891 Personal history of nicotine dependence; Z90.49 Acquired absence of other specified parts of digestive tract; Z86.010 Personal history of colon polyps; Z86.73 Personal history of transient ischemic attack (TIA), and cerebral infarction without residual deficits; Z87.01 Personal history of pneumonia (recurrent)
CPT/HCPCS: 36415; 36600; 71045; 71046; 80053; 82728; 82805; 82962; 83540; 83605; 83735; 83880; 85007; 85025; 85027; 85045; 85610; 85730; 86141; 87040; 94640; 94760; 96365; 96375

== ENCOUNTER → 2018-11-05 | Outpatient (CLI) | payer MEDICARE, OTHER ==
[~2018-11-05] MED LIST changes: +FERR324T4 PO; +IPRA3AMP31 INH; +IRON100V2 IV; +LOSA100T8 PO; +PANT40TA3 PO; +PRED10TA22 PO
[2018-11-05 10:39] LABS: BASOPHILS % (AUTO) 0 % (0-10); EOSINOPHILS # (AUTO) 0.4 10^3/uL (0.0-0.3); EOSINOPHILS % (AUTO) 2 % (0-10); HEMATOCRIT 37 % (40-54); HEMOGLOBIN 10.7 G/DL (13.3-17.7); LYMPHOCYTES % (AUTO) 12 % (12-44); MEAN CORPUSCULAR HEMOGLOBIN 20 PG (25-34); MEAN CORPUSCULAR HGB CONC 29 G/DL (32-36); MEAN CORPUSCULAR VOLUME 70 FL (80-99); MEAN PLATELET VOLUME 9.3 FL (7.4-10.4); MONOCYTES # (AUTO) 1.3 X 10^3 (0.0-1.0); MONOCYTES % (AUTO) 7 % (0-12); NEUTROPHILS # (AUTO) 13.9 X 10^3 (1.8-7.8); NEUTROPHILS % (AUTO) 79 % (42-75); PLATELET COUNT 431 10^3/uL (130-400); RED BLOOD COUNT 5.32 10^6/uL (4.35-5.85); RED CELL DISTRIBUTION WIDTH 26.1 % (10.0-14.5); WHITE BLOOD COUNT 17.5 10^3/uL (4.3-11.0)
[2018-11-05 11:42] LABS: BAND NEUTROPHILS 0 %; BASOPHILS % (MANUAL) 0 %; EOSINOPHILS % (MANUAL) 0 %; LYMPHOCYTES % (MANUAL) 17 %; MONOCYTES % (MANUAL) 5 %; NEUTROPHILS % (MANUAL) 78 %
[2018-11-05 11:43] LABS: ANISOCYTOSIS MARKED; ELLIPT/OVALOCYTES SLIGHT; POLYCHROMASIA SLIGHT
== END ==
LOC: LAB 10:28
PROVIDERS: ATTEND Family Medicine
DX: D50.9 Iron deficiency anemia, unspecified (principal)
CPT/HCPCS: 36415; 85007; 85027

== ENCOUNTER 2019-01-15 08:45 | Outpatient (RCR) | payer MEDICARE, OTHER ==
[2018-12-08 09:37] LABS: ABSOLUTE RETIC # 74 10e9/L (24-90); BASOPHILS % (AUTO) 0 % (0-10); EOSINOPHILS # (AUTO) 0.3 10^3/uL (0.0-0.3); EOSINOPHILS % (AUTO) 3 % (0-10); HEMATOCRIT 36 % (40-54); HEMOGLOBIN 10.6 G/DL (13.3-17.7); LYMPHOCYTES # (AUTO) 1.2 X 10^3 (1.0-4.0); LYMPHOCYTES % (AUTO) 11 % (12-44); MEAN CORPUSCULAR HEMOGLOBIN 23 PG (25-34); MEAN CORPUSCULAR HGB CONC 29 G/DL (32-36); MEAN CORPUSCULAR VOLUME 77 FL (80-99); MONOCYTES # (AUTO) 0.7 X 10^3 (0.0-1.0); MONOCYTES % (AUTO) 7 % (0-12); NEUTROPHILS # (AUTO) 8.3 X 10^3 (1.8-7.8); NEUTROPHILS % (AUTO) 79 % (42-75); PLATELET COUNT 299 10^3/uL (130-400); RED CELL DISTRIBUTION WIDTH 25.1 % (10.0-14.5); RETICULOCYTE % 1.57 % (0.50-2.40); WHITE BLOOD COUNT 10.4 10^3/uL (4.3-11.0)
[2018-12-08 10:00] LABS: BILIRUBIN,TOTAL 0.5 MG/DL (0.1-1.0); CALCIUM 9.9 MG/DL (8.5-10.1); CREATININE SERUM 1.23 MG/DL (0.60-1.30); POTASSIUM 3.8 MMOL/L (3.6-5.0); TOTAL PROTEIN 7.2 GM/DL (6.4-8.2)
[2019-01-12 10:10] LABS: ABSOLUTE RETIC # 71 10e9/L (24-90); BASOPHILS % (AUTO) 1 % (0-10); EOSINOPHILS # (AUTO) 0.3 10^3/uL (0.0-0.3); EOSINOPHILS % (AUTO) 3 % (0-10); HEMATOCRIT 37 % (40-54); HEMOGLOBIN 11.3 G/DL (13.3-17.7); LYMPHOCYTES # (AUTO) 1.2 X 10^3 (1.0-4.0); LYMPHOCYTES % (AUTO) 15 % (12-44); MEAN CORPUSCULAR HEMOGLOBIN 26 PG (25-34); MEAN CORPUSCULAR HGB CONC 31 G/DL (32-36); MEAN CORPUSCULAR VOLUME 84 FL (80-99); MEAN PLATELET VOLUME 9.8 FL (7.4-10.4); MONOCYTES # (AUTO) 0.6 X 10^3 (0.0-1.0); MONOCYTES % (AUTO) 8 % (0-12); NEUTROPHILS # (AUTO) 5.8 X 10^3 (1.8-7.8); NEUTROPHILS % (AUTO) 73 % (42-75); PLATELET COUNT 217 10^3/uL (130-400); RED CELL DISTRIBUTION WIDTH 20.4 % (10.0-14.5); RETICULOCYTE % 1.64 % (0.50-2.40); WHITE BLOOD COUNT 7.9 10^3/uL (4.3-11.0)
[2019-01-12 10:30] LABS: ALANINE AMINOTRANSFERASE 18 U/L (0-55); ALKALINE PHOSPHATASE 82 U/L (40-136); BILIRUBIN,TOTAL 0.5 MG/DL (0.1-1.0); BUN/CREATININE RATIO 17; CALCIUM 9.3 MG/DL (8.5-10.1); CARBON DIOXIDE 25 MMOL/L (21-32); CHLORIDE 105 MMOL/L (98-107); CREATININE SERUM 0.94 MG/DL (0.60-1.30); GFR ESTIMATED > 60; GLUCOSE 182 MG/DL (70-105); POTASSIUM 3.7 MMOL/L (3.6-5.0); SODIUM 141 MMOL/L (135-145); TOTAL PROTEIN 6.7 GM/DL (6.4-8.2)
[~2019-01-15 08:45] MED LIST changes: +FERRIC CARBOXYMALTOSE (CANCER) 750 MG in NS (IVPB) CANCER CENTER 250 ML IV SCH; +IRON SUCROSE 100 MG/5 ML (VENOFER) VIAL CANCER CTR IV SCH; +LOSA100T57 PO; -LOSA100T8 PO; +LOSA50TA63 PO; -LOSA50TA7 PO
== END 2019-01-28 | disposition home or self-care (01) ==
LOC: ONC 08:45
PROVIDERS: ATTEND Internal Medicine Hematology & Oncology
DX: D50.9 Iron deficiency anemia, unspecified (principal); Z86.010 Personal history of colon polyps; Z80.0 Family history of malignant neoplasm of digestive organs; E11.9 Type 2 diabetes mellitus without complications; I11.0 Hypertensive heart disease with heart failure; I50.9 Heart failure, unspecified; E78.5 Hyperlipidemia, unspecified; I48.91 Unspecified atrial fibrillation; Z87.891 Personal history of nicotine dependence; Z79.82 Long term (current) use of aspirin; Z79.4 Long term (current) use of insulin; Z79.899 Other long term (current) drug therapy
CPT/HCPCS: 36415; 80053; 82728; 85025; 85045; 96365; 96374; 99213

== ENCOUNTER → 2019-02-23 | Outpatient (CLI) | payer MEDICARE, OTHER ==
[~2019-02-23] MED LIST changes: -FERRIC CARBOXYMALTOSE (CANCER) 750 MG in NS (IVPB) CANCER CENTER 250 ML IV SCH; -IRON SUCROSE 100 MG/5 ML (VENOFER) VIAL CANCER CTR IV SCH
== END ==
LOC: CARD 11:50
PROVIDERS: ATTEND Internal Medicine Cardiovascular Disease
DX: R00.1 Bradycardia, unspecified (principal); I12.9 Hypertensive chronic kidney disease with stage 1 through stage 4 chronic kidney disease, or unspecified chronic kidney disease; N18.3 Chronic kidney disease, stage 3 (moderate); E78.5 Hyperlipidemia, unspecified; R06.02 Shortness of breath
CPT/HCPCS: 93225; 93226

== ENCOUNTER → 2019-03-25 | Outpatient (CLI) | payer MEDICARE ==
[2019-03-25 09:46] LABS: BASOPHILS % (AUTO) 0 % (0-10); EOSINOPHILS # (AUTO) 0.2 10^3/uL (0.0-0.3); EOSINOPHILS % (AUTO) 3 % (0-10); HEMATOCRIT 39 % (40-54); HEMOGLOBIN 12.5 G/DL (13.3-17.7); LYMPHOCYTES % (AUTO) 13 % (12-44); MEAN CORPUSCULAR HEMOGLOBIN 28 PG (25-34); MEAN CORPUSCULAR HGB CONC 32 G/DL (32-36); MEAN CORPUSCULAR VOLUME 85 FL (80-99); MEAN PLATELET VOLUME 10.4 FL (7.4-10.4); MONOCYTES # (AUTO) 0.5 X 10^3 (0.0-1.0); MONOCYTES % (AUTO) 7 % (0-12); NEUTROPHILS # (AUTO) 5.9 X 10^3 (1.8-7.8); NEUTROPHILS % (AUTO) 77 % (42-75); PLATELET COUNT 179 10^3/uL (130-400); RED CELL DISTRIBUTION WIDTH 17.3 % (10.0-14.5); WHITE BLOOD COUNT 7.7 10^3/uL (4.3-11.0)
[2019-03-25 10:12] LABS: ERYTHROCYTE SEDIMENTATION RATE 20 MM/HR (0-30)
[2019-03-25 10:18] LABS: ALANINE AMINOTRANSFERASE 18 U/L (0-55); ALBUMIN 4.1 GM/DL (3.2-4.5); ALKALINE PHOSPHATASE 96 U/L (40-136); BILIRUBIN,TOTAL 0.6 MG/DL (0.1-1.0); BUN/CREATININE RATIO 15; CALCIUM 9.9 MG/DL (8.5-10.1); CARBON DIOXIDE 24 MMOL/L (21-32); CHLORIDE 101 MMOL/L (98-107); CREATININE SERUM 1.12 MG/DL (0.60-1.30); GFR ESTIMATED > 60; GLUCOSE 341 MG/DL (70-105); MAGNESIUM 1.7 MG/DL (1.8-2.4); POTASSIUM 3.5 MMOL/L (3.6-5.0); SODIUM 138 MMOL/L (135-145); TOTAL PROTEIN 7.1 GM/DL (6.4-8.2)
== END ==
LOC: LAB 09:26
PROVIDERS: ATTEND Internal Medicine Cardiovascular Disease
DX: E78.5 Hyperlipidemia, unspecified (principal); R06.02 Shortness of breath; I12.9 Hypertensive chronic kidney disease with stage 1 through stage 4 chronic kidney disease, or unspecified chronic kidney disease; N18.3 Chronic kidney disease, stage 3 (moderate); R00.1 Bradycardia, unspecified
CPT/HCPCS: 36415; 80053; 83735; 84443; 85025; 85652

== ENCOUNTER → 2019-03-31 | Outpatient (CLI) | payer MEDICARE, OTHER ==
[~2019-03-31] MED LIST changes: +HOLD METFORMIN - RECEIVED CONTRAST 20 ML VIAL IV SCH; +IOHEXOL 350 MG/ML 100 ML (OMNIPAQUE 350) VIAL IV ONE; +NS 100 ML (IVPB) BAG IV ONE
[2019-03-31 07:57] LABS: BUN/CREATININE RATIO 18; CREATININE SERUM 1.06 MG/DL (0.60-1.30); GFR ESTIMATED > 60
--- NOTE | 2019-03-31 12:21 | Diagnostic Imaging Report ---
PROCEDURE: CT chest with contrast only. TECHNIQUE: Multiple contiguous axial images were obtained through the chest after administration of intravenous contrast. Auto Exposure Controls were utilized during the CT exam to meet ALARA standards for radiation dose reduction. INDICATION: Restrictive lung disease, cough. FINDINGS: The previous CT chest exam of 02/04/2017 noted mild cardiomegaly but failed to show any sign of an acute cardiopulmonary abnormality. There was a 5 mm nodule in the left lower lobe. On this study, the cardiomegaly noted previously is again evident and no different. Extensive coronary artery calcifications are also again visualized. The aorta is not abnormally dilated and there is no sign of a dissection. The pulmonary arteries were not fully opacified and consequently difficult to assess for a pulmonary embolus. There is no definite defect to suggest a pulmonary embolus. The mediastinal node seen previously appears stable. The thyroid gland is unremarkable. As noted on the prior exam, there is a 5 mm benign-appearing nodular density in the left lung base (image 39 of 72). This finding is essentially no different since the prior exam of 04/27/2015. The lungs are otherwise generally clear. There is no sign of failure, pneumonia, or pleural effusion. Sections through the upper abdomen fail to show any sign of an acute abnormality. The bone windows are unremarkable for an acute fracture or for a destructive lesion. IMPRESSION: 1. When compared to the prior study, there does not appear to have been any significant change. There is cardiomegaly and coronary artery disease but there is no sign of an acute cardiopulmonary abnormality. 2. The pulmonary arteries were not well opacified and consequently difficult to assess for a pulmonary embolus. 3. The small nodular density in the left lung base seen previously appears stable and is most likely a benign process. Dictated by: Dictated on workstation # [id number]
== END ==
LOC: RAD 07:22
PROVIDERS: ATTEND Nurse Practitioner Family
DX: J98.4 Other disorders of lung (principal); I25.10 Atherosclerotic heart disease of native coronary artery without angina pectoris; I51.7 Cardiomegaly; G47.33 Obstructive sleep apnea (adult) (pediatric); Z87.891 Personal history of nicotine dependence
CPT/HCPCS: 36415; 71260; 82565; 84520

== ENCOUNTER → 2019-04-15 | Outpatient (CLI) | payer MEDICARE, OTHER ==
[~2019-04-15] MED LIST changes: -HOLD METFORMIN - RECEIVED CONTRAST 20 ML VIAL IV SCH; -IOHEXOL 350 MG/ML 100 ML (OMNIPAQUE 350) VIAL IV ONE; -NS 100 ML (IVPB) BAG IV ONE; +RT-ALBUTEROL SULF 2.5 MG/3 ML PRE-MIX VIAL INH ONE
== END ==
LOC: RT 09:52
PROVIDERS: ATTEND Nurse Practitioner Family
DX: R06.02 Shortness of breath (principal); R06.09 Other forms of dyspnea; R05 Cough; J98.4 Other disorders of lung; G47.33 Obstructive sleep apnea (adult) (pediatric); Z87.891 Personal history of nicotine dependence

== ENCOUNTER 2019-05-14 09:40 | Outpatient (RCR) | payer MEDICARE, OTHER ==
[2019-02-17 08:59] LABS: ABSOLUTE RETIC # 91 10e9/L (24-90); BASOPHILS % (AUTO) 0 % (0-10); EOSINOPHILS # (AUTO) 0.4 10^3/uL (0.0-0.3); EOSINOPHILS % (AUTO) 4 % (0-10); HEMATOCRIT 37 % (40-54); HEMOGLOBIN 11.6 G/DL (13.3-17.7); LYMPHOCYTES # (AUTO) 1.4 X 10^3 (1.0-4.0); LYMPHOCYTES % (AUTO) 11 % (12-44); MEAN CORPUSCULAR HEMOGLOBIN 26 PG (25-34); MEAN CORPUSCULAR HGB CONC 32 G/DL (32-36); MEAN CORPUSCULAR VOLUME 83 FL (80-99); MEAN PLATELET VOLUME 10.2 FL (7.4-10.4); MONOCYTES # (AUTO) 0.9 X 10^3 (0.0-1.0); MONOCYTES % (AUTO) 8 % (0-12); NEUTROPHILS # (AUTO) 9.2 X 10^3 (1.8-7.8); NEUTROPHILS % (AUTO) 77 % (42-75); PLATELET COUNT 311 10^3/uL (130-400); RED CELL DISTRIBUTION WIDTH 16.5 % (10.0-14.5); RETICULOCYTE % 2.03 % (0.50-2.40); WHITE BLOOD COUNT 11.9 10^3/uL (4.3-11.0)
[2019-02-17 09:19] LABS: BILIRUBIN,TOTAL 0.6 MG/DL (0.1-1.0); CREATININE SERUM 1.27 MG/DL (0.60-1.30); TOTAL PROTEIN 7.2 GM/DL (6.4-8.2)
[2019-03-18 09:38] LABS: ABSOLUTE RETIC # 144 10e9/L (24-90); BASOPHILS % (AUTO) 0 % (0-10); EOSINOPHILS # (AUTO) 0.2 10^3/uL (0.0-0.3); EOSINOPHILS % (AUTO) 3 % (0-10); HEMATOCRIT 38 % (40-54); LYMPHOCYTES # (AUTO) 0.9 X 10^3 (1.0-4.0); LYMPHOCYTES % (AUTO) 10 % (12-44); MEAN CORPUSCULAR HEMOGLOBIN 27 PG (25-34); MEAN CORPUSCULAR HGB CONC 32 G/DL (32-36); MEAN CORPUSCULAR VOLUME 86 FL (80-99); MEAN PLATELET VOLUME 10.7 FL (7.4-10.4); MONOCYTES # (AUTO) 0.5 X 10^3 (0.0-1.0); MONOCYTES % (AUTO) 6 % (0-12); NEUTROPHILS # (AUTO) 7.2 X 10^3 (1.8-7.8); NEUTROPHILS % (AUTO) 81 % (42-75); PLATELET COUNT 216 10^3/uL (130-400); RED CELL DISTRIBUTION WIDTH 19.4 % (10.0-14.5); RETICULOCYTE % 3.28 % (0.50-2.40); WHITE BLOOD COUNT 8.9 10^3/uL (4.3-11.0)
[2019-03-18 10:00] LABS: ALANINE AMINOTRANSFERASE 18 U/L (0-55); ALKALINE PHOSPHATASE 88 U/L (40-136); BILIRUBIN,TOTAL 0.5 MG/DL (0.1-1.0); BUN/CREATININE RATIO 14; CALCIUM 9.6 MG/DL (8.5-10.1); CARBON DIOXIDE 23 MMOL/L (21-32); CHLORIDE 105 MMOL/L (98-107); CREATININE SERUM 1.06 MG/DL (0.60-1.30); GFR ESTIMATED > 60; GLUCOSE 299 MG/DL (70-105); POTASSIUM 3.8 MMOL/L (3.6-5.0); SODIUM 143 MMOL/L (135-145); TOTAL PROTEIN 7.1 GM/DL (6.4-8.2)
[2019-04-15 09:49] LABS: BASOPHILS % (AUTO) 0 % (0-10); EOSINOPHILS # (AUTO) 0.3 10^3/uL (0.0-0.3); EOSINOPHILS % (AUTO) 4 % (0-10); HEMATOCRIT 40 % (40-54); HEMOGLOBIN 13.1 G/DL (13.3-17.7); LYMPHOCYTES # (AUTO) 1.3 X 10^3 (1.0-4.0); LYMPHOCYTES % (AUTO) 16 % (12-44); MEAN CORPUSCULAR HEMOGLOBIN 27 PG (25-34); MEAN CORPUSCULAR HGB CONC 33 G/DL (32-36); MEAN CORPUSCULAR VOLUME 84 FL (80-99); MEAN PLATELET VOLUME 9.9 FL (7.4-10.4); MONOCYTES # (AUTO) 0.7 X 10^3 (0.0-1.0); MONOCYTES % (AUTO) 9 % (0-12); NEUTROPHILS # (AUTO) 5.8 X 10^3 (1.8-7.8); NEUTROPHILS % (AUTO) 72 % (42-75); PLATELET COUNT 269 10^3/uL (130-400); RED CELL DISTRIBUTION WIDTH 16.6 % (10.0-14.5); WHITE BLOOD COUNT 8.1 10^3/uL (4.3-11.0)
[2019-05-12 09:34] LABS: ABSOLUTE RETIC # 40 10e9/L (24-90); BASOPHILS % (AUTO) 0 % (0-10); EOSINOPHILS # (AUTO) 0.3 10^3/uL (0.0-0.3); EOSINOPHILS % (AUTO) 3 % (0-10); HEMATOCRIT 40 % (40-54); HEMOGLOBIN 13.1 G/DL (13.3-17.7); LYMPHOCYTES % (AUTO) 13 % (12-44); MEAN CORPUSCULAR HEMOGLOBIN 27 PG (25-34); MEAN CORPUSCULAR HGB CONC 32 G/DL (32-36); MEAN CORPUSCULAR VOLUME 85 FL (80-99); MEAN PLATELET VOLUME 9.9 FL (7.4-10.4); MONOCYTES # (AUTO) 0.7 X 10^3 (0.0-1.0); MONOCYTES % (AUTO) 9 % (0-12); NEUTROPHILS # (AUTO) 6.2 X 10^3 (1.8-7.8); NEUTROPHILS % (AUTO) 75 % (42-75); PLATELET COUNT 286 10^3/uL (130-400); RED CELL DISTRIBUTION WIDTH 16.3 % (10.0-14.5); RETICULOCYTE % 0.84 % (0.50-2.40); WHITE BLOOD COUNT 8.2 10^3/uL (4.3-11.0)
[2019-05-12 09:55] LABS: ALBUMIN 4.1 GM/DL (3.2-4.5); BILIRUBIN,TOTAL 0.6 MG/DL (0.1-1.0); CALCIUM 9.9 MG/DL (8.5-10.1); CREATININE SERUM 1.22 MG/DL (0.60-1.30); POTASSIUM 3.6 MMOL/L (3.6-5.0); TOTAL PROTEIN 7.1 GM/DL (6.4-8.2)
[~2019-05-14 09:40] MED LIST changes: +FERRIC CARBOXYMALTOSE (CANCER) 750 MG in NS (IVPB) CANCER CENTER 250 ML IV SCH; -RT-ALBUTEROL SULF 2.5 MG/3 ML PRE-MIX VIAL INH ONE
== END 2019-05-18 | disposition home or self-care (01) ==
LOC: ONC 09:40
PROVIDERS: ATTEND Internal Medicine Hematology & Oncology
DX: D50.9 Iron deficiency anemia, unspecified (principal); Z86.010 Personal history of colon polyps; Z80.0 Family history of malignant neoplasm of digestive organs; E11.9 Type 2 diabetes mellitus without complications; I11.0 Hypertensive heart disease with heart failure; I50.9 Heart failure, unspecified; E78.5 Hyperlipidemia, unspecified; I48.91 Unspecified atrial fibrillation; Z87.891 Personal history of nicotine dependence; Z79.82 Long term (current) use of aspirin; Z79.4 Long term (current) use of insulin; Z79.899 Other long term (current) drug therapy
CPT/HCPCS: 36415; 80053; 82728; 85025; 85045; 96365; 99213

== ENCOUNTER → 2019-06-23 | Outpatient (CLI) | payer MEDICARE ==
[~2019-06-23] MED LIST changes: -FERRIC CARBOXYMALTOSE (CANCER) 750 MG in NS (IVPB) CANCER CENTER 250 ML IV SCH; -ROSU40TA22 PO; +ROSU40TA23 PO
[2019-06-23 10:27] LABS: CALCIUM 9.4 MG/DL (8.5-10.1); CREATININE SERUM 1.2 MG/DL (0.60-1.30); MAGNESIUM 2.1 MG/DL (1.6-2.4); POTASSIUM 4.1 MMOL/L (3.6-5.0)
== END ==
LOC: LAB 09:57
PROVIDERS: ATTEND Internal Medicine Cardiovascular Disease
DX: I11.0 Hypertensive heart disease with heart failure (principal); I50.9 Heart failure, unspecified; I48.0 Paroxysmal atrial fibrillation; I65.29 Occlusion and stenosis of unspecified carotid artery; E11.9 Type 2 diabetes mellitus without complications; E78.5 Hyperlipidemia, unspecified; Z79.01 Long term (current) use of anticoagulants
CPT/HCPCS: 36415; 80048; 83735

== ENCOUNTER → 2019-09-10 | Outpatient (CLI) | payer MEDICARE ==
[2019-09-10 09:37] LABS: HEMATOCRIT 40 % (40-54); MEAN CORPUSCULAR HEMOGLOBIN 28 PG (25-34); MEAN CORPUSCULAR HGB CONC 33 G/DL (32-36); MEAN CORPUSCULAR VOLUME 86 FL (80-99)
[2019-09-10 09:38] LABS: BASOPHILS % (AUTO) 0 % (0-10); EOSINOPHILS # (AUTO) 0.3 10^3/uL (0.0-0.3); EOSINOPHILS % (AUTO) 4 % (0-10); LYMPHOCYTES # (AUTO) 1.3 X 10^3 (1.0-4.0); LYMPHOCYTES % (AUTO) 16 % (12-44); MEAN PLATELET VOLUME 10.7 FL (7.4-10.4); MONOCYTES # (AUTO) 0.6 X 10^3 (0.0-1.0); MONOCYTES % (AUTO) 8 % (0-12); NEUTROPHILS # (AUTO) 5.7 X 10^3 (1.8-7.8); NEUTROPHILS % (AUTO) 72 % (42-75); PLATELET COUNT 226 10^3/uL (130-400); RED CELL DISTRIBUTION WIDTH 15.4 % (10.0-14.5)
[2019-09-10 09:55] LABS: ALBUMIN 4.2 GM/DL (3.2-4.5); BILIRUBIN,TOTAL 0.5 MG/DL (0.1-1.0); CALCIUM 10.2 MG/DL (8.5-10.1); CREATININE SERUM 1.28 MG/DL (0.60-1.30); MAGNESIUM 1.9 MG/DL (1.6-2.4); POTASSIUM 3.7 MMOL/L (3.6-5.0); TOTAL PROTEIN 7.1 GM/DL (6.4-8.2)
== END ==
LOC: LAB 09:24
PROVIDERS: ATTEND Internal Medicine Cardiovascular Disease
DX: I50.9 Heart failure, unspecified (principal); I77.89 Other specified disorders of arteries and arterioles
CPT/HCPCS: 36415; 80053; 80061; 83735; 85025

== ENCOUNTER 2019-10-06 09:41 | Outpatient (RCR) | payer MEDICARE ==
[2019-07-13 08:48] LABS: BASOPHILS % (AUTO) 0 % (0-10); EOSINOPHILS # (AUTO) 0.2 10^3/uL (0.0-0.3); EOSINOPHILS % (AUTO) 3 % (0-10); HEMATOCRIT 37 % (40-54); HEMOGLOBIN 12.1 G/DL (13.3-17.7); LYMPHOCYTES # (AUTO) 1.1 X 10^3 (1.0-4.0); LYMPHOCYTES % (AUTO) 14 % (12-44); MEAN CORPUSCULAR HEMOGLOBIN 27 PG (25-34); MEAN CORPUSCULAR HGB CONC 32 G/DL (32-36); MEAN CORPUSCULAR VOLUME 84 FL (80-99); MEAN PLATELET VOLUME 10.3 FL (7.4-10.4); MONOCYTES # (AUTO) 0.6 X 10^3 (0.0-1.0); MONOCYTES % (AUTO) 8 % (0-12); NEUTROPHILS % (AUTO) 75 % (42-75); PLATELET COUNT 217 10^3/uL (130-400); RED CELL DISTRIBUTION WIDTH 14.9 % (10.0-14.5)
[2019-07-13 09:04] LABS: ALANINE AMINOTRANSFERASE 23 U/L (0-55); ALBUMIN 4.3 GM/DL (3.2-4.5); ALKALINE PHOSPHATASE 90 U/L (40-136); BILIRUBIN,TOTAL 0.7 MG/DL (0.1-1.0); BUN/CREATININE RATIO 23; CALCIUM 9.9 MG/DL (8.5-10.1); CARBON DIOXIDE 26 MMOL/L (21-32); CHLORIDE 105 MMOL/L (98-107); CREATININE SERUM 1.14 MG/DL (0.60-1.30); GFR ESTIMATED > 60; GLUCOSE 150 MG/DL (70-105); POTASSIUM 3.5 MMOL/L (3.6-5.0); SODIUM 143 MMOL/L (135-145); TOTAL PROTEIN 7.3 GM/DL (6.4-8.2)
[2019-09-10 09:34] LABS: BASOPHILS % (AUTO) 0 % (0-10); EOSINOPHILS # (AUTO) 0.3 10^3/uL (0.0-0.3); EOSINOPHILS % (AUTO) 4 % (0-10); HEMATOCRIT 40 % (40-54); LYMPHOCYTES # (AUTO) 1.3 X 10^3 (1.0-4.0); LYMPHOCYTES % (AUTO) 16 % (12-44); MEAN CORPUSCULAR HEMOGLOBIN 28 PG (25-34); MEAN CORPUSCULAR HGB CONC 33 G/DL (32-36); MEAN CORPUSCULAR VOLUME 86 FL (80-99); MEAN PLATELET VOLUME 10.7 FL (7.4-10.4); MONOCYTES # (AUTO) 0.6 X 10^3 (0.0-1.0); MONOCYTES % (AUTO) 8 % (0-12); NEUTROPHILS # (AUTO) 5.7 X 10^3 (1.8-7.8); NEUTROPHILS % (AUTO) 72 % (42-75); PLATELET COUNT 226 10^3/uL (130-400); RED CELL DISTRIBUTION WIDTH 15.4 % (10.0-14.5)
[2019-09-10 09:52] LABS: ALBUMIN 4.3 GM/DL (3.2-4.5); BILIRUBIN,TOTAL 0.6 MG/DL (0.1-1.0); CREATININE SERUM 1.25 MG/DL (0.60-1.30); POTASSIUM 3.7 MMOL/L (3.6-5.0); TOTAL PROTEIN 7.2 GM/DL (6.4-8.2)
[~2019-10-06 09:41] MED LIST changes: +FERRIC CARBOXYMALTOSE (CANCER) 750 MG in NS (IVPB) CANCER CENTER 250 ML IV SCH
[2019-10-06 10:14] LABS: BASOPHILS % (AUTO) 0 % (0-10); EOSINOPHILS # (AUTO) 0.2 10^3/uL (0.0-0.3); EOSINOPHILS % (AUTO) 2 % (0-10); HEMATOCRIT 38 % (40-54); HEMOGLOBIN 12.6 G/DL (13.3-17.7); LYMPHOCYTES # (AUTO) 1.1 X 10^3 (1.0-4.0); LYMPHOCYTES % (AUTO) 11 % (12-44); MEAN CORPUSCULAR HEMOGLOBIN 28 PG (25-34); MEAN CORPUSCULAR HGB CONC 33 G/DL (32-36); MEAN CORPUSCULAR VOLUME 84 FL (80-99); MONOCYTES # (AUTO) 0.6 X 10^3 (0.0-1.0); MONOCYTES % (AUTO) 7 % (0-12); NEUTROPHILS # (AUTO) 7.4 X 10^3 (1.8-7.8); NEUTROPHILS % (AUTO) 80 % (42-75); PLATELET COUNT 281 10^3/uL (130-400); RED CELL DISTRIBUTION WIDTH 15.3 % (10.0-14.5); WHITE BLOOD COUNT 9.3 10^3/uL (4.3-11.0)
[2019-10-06 10:35] LABS: ALBUMIN 4.1 GM/DL (3.2-4.5); BILIRUBIN,TOTAL 0.5 MG/DL (0.1-1.0); CALCIUM 9.7 MG/DL (8.5-10.1); CREATININE SERUM 1.25 MG/DL (0.60-1.30); POTASSIUM 3.3 MMOL/L (3.6-5.0); TOTAL PROTEIN 7.2 GM/DL (6.4-8.2)
== END 2019-10-11 | disposition home or self-care (01) ==
LOC: ONC 09:41
PROVIDERS: ATTEND Internal Medicine Hematology & Oncology
DX: D50.9 Iron deficiency anemia, unspecified (principal); Z86.010 Personal history of colon polyps; Z80.0 Family history of malignant neoplasm of digestive organs; E11.9 Type 2 diabetes mellitus without complications; I11.0 Hypertensive heart disease with heart failure; I50.9 Heart failure, unspecified; E78.5 Hyperlipidemia, unspecified; I48.91 Unspecified atrial fibrillation; Z87.891 Personal history of nicotine dependence; Z79.82 Long term (current) use of aspirin; Z79.4 Long term (current) use of insulin; Z79.899 Other long term (current) drug therapy
CPT/HCPCS: 36415; 80053; 82728; 85025; 96365; 99213

== ENCOUNTER → 2019-10-19 | Outpatient (CLI) | payer MEDICARE ==
[~2019-10-19] MED LIST changes: -FERRIC CARBOXYMALTOSE (CANCER) 750 MG in NS (IVPB) CANCER CENTER 250 ML IV SCH; +OMEP40CA27 PO; -OMEP40CA36 PO
== END ==
LOC: CARD 07:43
PROVIDERS: ATTEND Nurse Practitioner Family
DX: I48.91 Unspecified atrial fibrillation (principal); R00.1 Bradycardia, unspecified
CPT/HCPCS: 93225; 93226

== ENCOUNTER 2019-11-22 17:36 | Inpatient (IN) | payer MEDICARE, OTHER ==
[~2019-11-22] VITALS: Ht 180.3 cm; Wt 115.5 kg
[2019-11-22] MEDS ORDERED: ACETAMINOPHEN 500 MG TAB (TYLENOL) PO PRN ×2 (17:45→21:00)
[2019-11-22] MEDS ORDERED: CEFEPIME INJECTION 1,000 MG in WATER (STERILE) FOR INJECTION 10 ML IV ONE (17:45)
[2019-11-22] MEDS ORDERED: NS IV 1000 ML 1,000 ML IV SCH ×2 (17:45)
[2019-11-22] MEDS ORDERED: RT-ALBUTEROL/IPRATROPIUM 3 ML (DUONEB) VIAL INH ONE (17:45)
[2019-11-22] MEDS ORDERED: VANCOMYCIN INJECTION 1,000 MG in NS (IVPB) 250 ML IV ONE (17:45)
[2019-11-22] MEDS ORDERED: RT-ALBUTEROL/IPRATROPIUM 3 ML (DUONEB) VIAL ONE (17:48)
--- NOTE | 2019-11-22 18:10 | ED Respiratory ---
General Chief Complaint: Respiratory Problems Stated Complaint: SOB Nursing Triage Note: Pt c/o increased SOB for a couple days. Pt reports albuterol breathing treatment twice today. Source: patient, spouse Exam Limitations: no limitations (RHONDA CHAVEZ) History of Present Illness Date Seen by Provider: Nov 22, 2019 Time Seen by Provider: 17:30 Initial Comments The patient presents to ER by private conveyance from home with chief complaint of 3-4 days progressively worsening shortness of breath, wheezing, productive cough and now today subjective fevers. He has not taken anything for the fever. He is not having any pain. No coronary history but he does have a history of atr ial fibrillation on Eliquis followed by Dr. Hannon. He is also known to Dr. Vaca and has had a hemicolectomy and hernia surgical repairs in the past due to multiple polyps. Recently he's been having rectal bleeding with anemia and has an appointment to go get a scope done this week. Is also recently followed by Dr. Schultz and has plans to follow now with Grazyna Graves at [facility] however he has not had the first appointment yet. He has received his flu vaccine this year. He is not having any nausea but he is having sweats and chills. He has a history of distant stroke. He follows with Dr. 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 (RHONDA CHAVEZ) Allergies and Home Medications Allergies Coded Allergies: No Known Drug Allergies (Unverified , 10/04/18) Home Medications Albuterol Sulfate 18 Gm Hfa.aer.ad, 1-2 PUFF INH Q4H PRN for SHORTNESS OF BREATH, (Reported) Aspirin 81 Mg Tablet.dr, 81 MG PO DAILY, (Reported) Budesonide/Formoterol Fumarate 10.2 Gm Hfa.aer.ad, 2 PUFF IH BID, (Reported) Cholecalciferol (Vitamin D3) 1,000 Unit Capsule, 1,000 UNIT PO DAILY, (Reported) Clonidine HCl 0.3 Mg Tablet, 0.15 MG PO BID, (Reported) TAKES 1/2 (0.3MG) TABLET Diltiazem HCl 180 Mg Cap.er.24h, 180 MG PO DAILY, (Reported) Furosemide 40 Mg Tablet, 80 MG PO DAILY, (Reported) TAKES 2 (40MG) TABLETS Hydralazine HCl 100 Mg Tablet, 100 MG PO BID, (Reported) Insulin Aspart 300 Units/3 Ml Solution, 35 UNITS SQ AC, (Reported) Insulin Determir 1,000 Units/10 Ml Soln, 75 UNITS SQ 0600,1800, (Reported) Ipratropium/Albuterol Sulfate 3 Ml Ampul.neb, 3 ML INH RTQ4HR Prescribed by: DOMITILA MULLINS on 10/29/18931 Iron Sucrose Complex 200 Mg/10 Ml Vial, 200 MG IV Q48H Prescribed by: DOMITILA MULLINS on 10/29/18933 Losartan Potassium 100 Mg Tablet, 100 MG PO DAILY Prescribed by: DOMITILA MULLINS on 10/29/18931 Metformin HCl 1,000 Mg Tablet, 1,000 MG PO BID WITH MEALS, (Reported) Pantoprazole Sodium 40 Mg Tablet.dr, 40 MG PO DAILY, (Reported) Potassium Chloride 20 Meq Tablet.er, 20 MEQ PO DAILY, (Reported) Prednisone 10 Mg Tab.ds.pk, 10 MG PO DAILY Take 6 tabs(60mg)daily,decrease by 1 tab(10MG)daily. Prescribed by: DOMITILA MULLINS on 10/29/18931 Ropinirole HCl 3 Mg Tablet, 3 MG PO HS, (Reported) Rosuvastatin Calcium 40 Mg Tablet, 20 MG PO HS, (Reported) TAKES 1/2 (40MG) TABLET Patient Home Medication List Home Medication List Reviewed: Yes (RHONDA CHAVEZ) Review of Systems Review of Systems Constitutional: chills, diaphoresis, fever, malaise EENTM: No ear discharge, No ear pain Respiratory: cough, phlegm, short of breath, wheezing Cardiovascular: No chest pain, No edema Gastrointestinal: No abdominal pain, No nausea, No vomiting Genitourinary: No discharge, No dysuria Musculoskeletal: No back pain, No joint pain, No joint swelling Hematologic/Lymphatic: See HPI, Anemia; Denies Blood Clots; Easy Bleeding (blood thinners) (RHONDA CHAVEZ) All Other Systems Reviewed Negative Unless Noted: Yes (RHONDA CHAVEZ) Past Gxakqza-Mmlmzj-Nwhnmv Hx Patient Social History Type Used: Cigarettes Former Smoker, Quit: Jun 04, 1997 Recent Foreign Travel: No Contact w/Someone Who Travel: No Recent Infectious Disease Expo: No Recent Hopitalizations: Yes (JUL 2018) (RHONDA CHAVEZ) Immunizations Up To Date Date of Pneumonia Vaccine: Jul 21, 2018 Date of Influenza Vaccine: Jul 21, 2018 (RHONDA CHAVEZ) Seasonal Allergies Seasonal Allergies: No (RHONDA CHAVEZ) Past Medical History Surgeries: Yes (MULTIPLE HERNIA REPAIRS, HEMMORHOIDECTOMY right hemicolectomy) Abdominal, Cardiac Respiratory: Yes Sleep Apnea, COPD Currently Using CPAP: Yes Currently Using BIPAP: No Cardiac: Yes Atrial Fibrillation, Coronary Artery Disease, Hypertension Neurological: Yes Stroke Reproductive Disorders: No Sexually Transmitted Disease: No HIV/AIDS: No Genitourinary: No Gastrointestinal: Yes Gastroesophageal Reflux, Hemorrhoids, Polyps Musculoskeletal: No Endocrine: Yes Diabetes, Insulin dep HEENT: Yes (GLASSES, DENTURES) Loss of Vision: Bilateral Hearing Impairment: Denies Cancer: No Psychosocial: No Integumentary: No Blood Disorders: No Adverse Reaction/Blood Tranf: No (N/A) (RHONDA CHAVEZ) Family Medical History Family history: Hypertension 03 FATHER, Onset:Unknown 03 MOTHER, Onset:50's - 60 Stroke 03 MOTHER, Onset:50's - 60 No Family History of: Cancer of colon Chest pain Dementia Family history: Alzheimer's disease Family history: Asthma Family history: Diabetes mellitus Kidney disease Myocardial infarction Seizure disorder CVA, Hypertension (RHONDA CHAVEZ) Physical Exam Vital Signs - First Documented 11/22/19 11/22/19 17:36 17:55 Temp 38.6 Pulse 100 Resp 11 B/P (MAP) 162/62 (95) Pulse Ox 88 O2 Delivery Room Air O2 Flow Rate 4.00 (MAGGIE MEDRANO MD) Capillary Refill : Less Than 3 Seconds (RHONDA CHAVEZ) Height: 5'11.00" Weight: 239lbs. 8.0oz. [id number]; 32.00 BMI Method:Stated General Appearance: WD/WN, moderate distress (hypoxia, sweating, fatigue) Eyes: Bilateral Eye Normal Inspection, Bilateral Eye PERRL, Bilateral Eye EOMI HEENT: PERRL/EOMI, normal ENT inspection, TMs normal; No pharynx normal (oropharyngeal mucosa is dry.) Neck: full range of motion, supple, normal inspection Respiratory: respiratory distress (huws-uh-icdyzakd with hypoxia, oxygen sat of 81%.), decreased breath sounds, accessory muscle use (mild), wheezing (bilateral mild to moderate) Cardiovascular: normal peripheral pulses, regular rate, rhythm Gastrointestinal: normal bowel sounds, non tender, soft Extremities: normal range of motion, non-tender, normal capillary refill Neurologic/Psychiatric: alert, normal mood/affect, oriented x 3 Skin: normal color, diaphoresis (RHONDA CHAVEZ) Focused Exam Lactate Level 11/22/19 17:52: Lactic Acid Level 1.50 (MAGGIE MEDRANO MD) Lactic Acid Level Laboratory Tests Test 11/22/19 17:52 Lactic Acid Level 1.50 MMOL/L (0.50-2.00) (MAGGIE MEDRANO MD) Progress/Results/Core Measures Suspected Sepsis Recent Fever Within 48 Hours: Yes Infection Criteria Present: Suspected New Infection New/Unexplained Altered Menta: No Sepsis Screen: Possible Severe Sepsis Risk SIRS Temperature: Pulse: 100 Respiratory Rate: 11 Laboratory Tests 11/22/19 17:52: White Blood Count 12.3H Blood Pressure 162 /62 Mean: 95 11/22/19 17:52: Lactic Acid Level 1.50 Laboratory Tests 11/22/19 17:52: Creatinine 1.31H, INR Comment 1.4, Platelet Count 180, Total Bilirubin 0.9 (RHONDA CHAVEZ) Results/Orders Lab Results Laboratory Tests Test 11/22/19 17:52 11/22/19 18:05 11/22/19 18:10 Range/Units White Blood Count 12.3 H 4.3-11.0 10^3/uL Red Blood Count 4.19 L 4.35-5.85 10^6/uL Hemoglobin 12.0 L 13.3-17.7 G/DL Hematocrit 37 L 40-54 % Mean Corpuscular Volume 88 80-99 FL Mean Corpuscular Hemoglobin 29 25-34 PG Mean Corpuscular Hemoglobin Concent 33 32-36 G/DL Red Cell Distribution Width 15.9 H 10.0-14.5 % Platelet Count 180 130-400 10^3/uL Mean Platelet Volume 10.6 H 7.4-10.4 FL Neutrophils (%) (Auto) 86 H 42-75 % Lymphocytes (%) (Auto) 7 L 12-44 % Monocytes (%) (Auto) 7 0-12 % Eosinophils (%) (Auto) 0 0-10 % Basophils (%) (Auto) 0 0-10 % Neutrophils # (Auto) 10.6 H 1.8-7.8 X 10^3 Lymphocytes # (Auto) 0.8 L 1.0-4.0 X 10^3 Monocytes # (Auto) 0.9 0.0-1.0 X 10^3 Eosinophils # (Auto) 0.0 0.0-0.3 10^3/uL Basophils # (Auto) 0.0 0.0-0.1 10^3/uL Neutrophils % (Manual) 72 % Lymphocytes % (Manual) 3 % Monocytes % (Manual) 9 % Eosinophils % (Manual) 0 % Basophils % (Manual) 0 % Band Neutrophils 16 % Anisocytosis SLIGHT Prothrombin Time 17.5 H 12.2-14.7 SEC INR Comment 1.4 0.8-1.4 Activated Partial Thromboplast Time 39 H 24-35 SEC Sodium Level 139 135-145 MMOL/L Potassium Level 3.2 L 3.6-5.0 MMOL/L Chloride Level 99 98-107 MMOL/L Carbon Dioxide Level 25 21-32 MMOL/L Anion Gap 15 H 5-14 MMOL/L Blood Urea Nitrogen 18 7-18 MG/DL Creatinine 1.31 H 0.60-1.30 MG/DL Estimat Glomerular Filtration Rate 54 BUN/Creatinine Ratio 14 Glucose Level 134 H 70-105 MG/DL Lactic Acid Level 1.50 0.50-2.00 MMOL/L Calcium Level 8.6 8.5-10.1 MG/DL Corrected Calcium 8.5 8.5-10.1 MG/DL Total Bilirubin 0.9 0.1-1.0 MG/DL Aspartate Amino Transf (AST/SGOT) 25 5-34 U/L Alanine Aminotransferase (ALT/SGPT) 33 0-55 U/L Alkaline Phosphatase 116 40-136 U/L C-Reactive Protein High Sensitivity 5.15 H 0.00-0.50 MG/DL B-Type Natriuretic Peptide 137.5 H <100.0 PG/ML Total Protein 7.1 6.4-8.2 GM/DL Albumin 4.1 3.2-4.5 GM/DL Blood Gas Puncture Site LEFT RADIAL Blood Gas Patient Temperature 38.6 Arterial Blood pH 7.50 H 7.37-7.43 Arterial Blood Partial Pressure CO2 38 35-45 MMHG Arterial Blood Partial Pressure O2 95 H 79-93 MMHG Arterial Blood HCO3 29 H 23-27 MMOL/L Arterial Blood Total CO2 30.4 21.0-31.0 MMOL/L Arterial Blood Oxygen Saturation 96 94-100 % Arterial Blood Base Excess 6.2 H -2.5-2.5 MMOL/L Shdae Test POSITIVE Blood Gas Ventilator Setting NO Blood Gas Inspired Oxygen 4L Urine Color YELLOW Urine Clarity CLEAR Urine pH 5.5 5-9 Urine Specific [place] 1.025 H 1.016-1.022 Urine Protein TRACE H NEGATIVE Urine Glucose (UA) NEGATIVE NEGATIVE Urine Ketones NEGATIVE NEGATIVE Urine Nitrite NEGATIVE NEGATIVE Urine Bilirubin NEGATIVE NEGATIVE Urine Urobilinogen 1.0 < = 1.0 MG/DL Urine Leukocyte Esterase NEGATIVE NEGATIVE Urine RBC (Auto) NEGATIVE NEGATIVE Urine RBC NONE /HPF Urine WBC NONE /HPF Urine Squamous Epithelial Cells NONE /HPF Urine Crystals NONE /LPF Urine Bacteria NEGATIVE /HPF Urine Casts NONE /LPF Urine Mucus NEGATIVE /LPF Urine Culture Indicated CULTURE PENDING (MAGGIE MEDRANO MD) Micro Results Microbiology 11/22/19 Influenza Types A,B Antigen (NIKKI) - Final, Complete (MAGGIE MEDRANO MD) My Orders Orders - MAGGIE MEDRANO MD Oseltamivir 75 Mg Capsule (Tamiflu 75 (11/22/19 19:00) BNP (11/22/19 19:20) Hs C Reactive Protein (11/22/19 19:20) Methylprednisolone Sod Succ (Solu-Medrol (11/22/19 19:30) Apixaban Tablet (Eliquis Tablet) (11/22/19 19:30) Potassium Chloride (Tablet) (Klor Con Ta (11/22/19 19:45) (MAGGIE MEDRANO MD) Medications Given in ED Current Medications Medications Dose Ordered Sig/Silva Route Start Time Stop Time Status Last Admin Dose Admin Acetaminophen 1,000 mg ONCE PRN PO 11/22/19 17:45 11/22/19 18:39 DC 11/22/19 18:31 1,000 MG Cefepime HCl 1000 mg/Sterile Water 10 ml @ 200 mls/hr ONCE ONCE IV 11/22/19 17:45 11/22/19 18:03 DC 11/22/19 18:32 200 MLS/HR Oseltamivir Phosphate 75 mg ONCE ONCE PO 11/22/19 19:00 11/22/19 19:01 DC 11/22/19 19:11 75 MG Vancomycin HCl 1000 mg/Sodium Chloride 250 ml @ 250 mls/hr ONCE ONCE IV 11/22/19 17:45 11/22/19 18:44 DC 11/22/19 18:35 250 MLS/HR (MAGGIE MEDRANO MD) Vital Signs/I&O 11/22/19 11/22/19 11/22/19 17:36 17:55 18:31 Temp 38.6 38.4 Pulse 100 Resp 11 B/P (MAP) 162/62 (95) Pulse Ox 88 97 O2 Delivery Room Air Nasal Cannula O2 Flow Rate 4.00 (MAGGIE MEDRANO MD) Vital Signs/I&O Capillary Refill : Less Than 3 Seconds (RHONDA CHAVEZ) Blood Pressure Mean: 95 Progress Note : Time: 18:14 Progress Note Patient does not use oxygen at baseline but he is hypoxic so we put him on 4 L to get him in the mid 90s SPO2. His heart rate was initially around the 100. No evidence of rapid ventricular response. Thousand milligrams of Tylenol for fever. Septic workup. Based on ideal body weight he did have an adjusted body weight of 192 pounds. We gave him 2 L of IV fluids normal saline which would be greater than 20 mL/kg. Influenza swab. Cefepime and vancomycin. ABG and DuoNeb. (RHONDA CHAVEZ) Progress Note #1: Time: 19:43 Progress Note Care of this patient was assumed from Dr. Chavez. He was found to have influenza a and a right lower lobe pneumonia. He has been started on cefepime for broad-spectrum antibiotic coverage as well as Tamiflu. The degree of pulmonary congestion contributing to the x-ray findings is uncertain. A BNP is pending to help determine that. We will stop after 1 L of IV fluid and continue with maintenance fluids after that. Patient is receiving Tamiflu, potassium 40 mEq orally, and his evening dose of Eliquis in the emergency room. He is also receiving a dose of Solu-Medrol per Dr. Perez's request. We will continue his long-acting insulin as well as sliding scale insulin B on admission. He will be admitted to the cardiac step down unit. Although he is for 5 days into this illness, Tamiflu will be continued due to his high risk status. I discussed CODE STATUS with the patient and he wishes to remain full cardiac code but does not want to be intubated under any circumstances. Progress Note #2: Time: 19:53 Progress Note BNP is minimally elevated. There is likely not a significant component of heart failure. (MAGGIE MEDRANO MD) ECG Initial ECG Impression Date: Nov 22, 2019 Initial ECG Impression Time: 17:54 Initial ECG Rate: 92 Initial ECG Rhythm: Normal Sinus Initial ECG Intervals: Normal Initial ECG Impression: Normal Comment Atrial fibrillation without rapid ventricular response. No ST elevation or depression. PVC noted. (RHONDA CHAVEZ) Diagnostic Imaging Diagonstic Imaging: Xray Plain Films/CT/US/NM/MRI: chest (1v) Reviewed: Reviewed by Me (RHONDA CHAVEZ) Comments NAME: MERY GARCIA MED REC#: [id number] PT STATUS: REG ER : 1950 PHYSICIAN: RHONDA CHAVEZ MD ADMIT DATE: 11/22/19/ER Signed Date of Exam:11/22/19 CHEST 1 VIEW, AP/PA ONLY INDICATION: Fever and cough and shortness of breath Frontal chest obtained at 0644 p.m. and compared to 10/28/2018. Cardiomegaly is noted. There is mild central vascular congestion. There is infiltrate in the right lung base which may represent pneumonia. Left lung is clear. There is no pneumothorax or pleural fluid. IMPRESSION: Cardiomegaly and mild central vascular prominence. There is some infiltrate in the right lung base which may represent pneumonia. Follow-up is recommended. Dictated by: Dictated on workstation # [id number] Dict: 11/22/191846 Trans: 11/22/191906 MICHELA [id number] Interpreted by: CEDRIC MCCARTY MD Electronically signed by: CEDRIC MCCARTY MD 11/22/191906 (MAGGIE MEDRANO MD) Transfer of Care Transfer of Care Time: 18:20 Care transferred to: Dr. Torres (RHONDA CHAVEZ) Departure Communication (Admissions) Time/Spoke to Admitting Phy: 19:27 Dr. Perez (MAGGIE MEDRANO MD) Impression Primary Impression: Sepsis Qualified Codes: A41.9 - Sepsis, unspecified organism Additional Impressions: Influenza A Right lower lobe pneumonia Qualified Codes: J18.1 - Lobar pneumonia, unspecified organism COPD exacerbation Hypokalemia Disposition: ADMITTED INPATIENT Condition: Stable Admissions Decision to Admit Reason: Admit from ER (General) Decision to Admit/Date: Nov 22, 2019 Time/Decision to Admit Time: 18:15 (MAGGIE MEDRANO MD) Departure-Patient Inst. Referrals: [facility] (PCP/Family) Primary Care Physician RHONDA CHAVEZ Nov 22, 2019 18:10 MAGGIE MEDRANO MD Nov 22, 2019 19:44
[2019-11-22 18:12] LABS: ABG BASE EXCESS 6.2 MMOL/L (-2.5-2.5); ABG OXYGEN SATURATION 96 % (94-100); ABG PCO2 38 MMHG (35-45); ABG PO2 95 MMHG (79-93); ABG TCO2 30.4 MMOL/L (21.0-31.0)
[2019-11-22 18:12] LABS: BASOPHILS % (AUTO) 0 % (0-10); EOSINOPHILS % (AUTO) 0 % (0-10); HEMATOCRIT 37 % (40-54); LYMPHOCYTES # (AUTO) 0.8 X 10^3 (1.0-4.0); LYMPHOCYTES % (AUTO) 7 % (12-44); MEAN CORPUSCULAR HEMOGLOBIN 29 PG (25-34); MEAN CORPUSCULAR HGB CONC 33 G/DL (32-36); MEAN CORPUSCULAR VOLUME 88 FL (80-99); MEAN PLATELET VOLUME 10.6 FL (7.4-10.4); MONOCYTES # (AUTO) 0.9 X 10^3 (0.0-1.0); MONOCYTES % (AUTO) 7 % (0-12); NEUTROPHILS # (AUTO) 10.6 X 10^3 (1.8-7.8); NEUTROPHILS % (AUTO) 86 % (42-75); PLATELET COUNT 180 10^3/uL (130-400); RED CELL DISTRIBUTION WIDTH 15.9 % (10.0-14.5); WHITE BLOOD COUNT 12.3 10^3/uL (4.3-11.0)
[2019-11-22 18:13] LABS: ALLENS TEST POSITIVE; INSPIRED O2 4L; PATIENT TEMP 38.6; VENTILATOR NO
[2019-11-22 18:16] LABS: INR 1.4 (0.8-1.4); PROTHROMBIN TIME PATIENT 17.5 SEC (12.2-14.7)
[2019-11-22 18:24] LABS: ALBUMIN 4.1 GM/DL (3.2-4.5); BILIRUBIN,TOTAL 0.9 MG/DL (0.1-1.0); CALCIUM 8.6 MG/DL (8.5-10.1); CREATININE SERUM 1.31 MG/DL (0.60-1.30); POTASSIUM 3.2 MMOL/L (3.6-5.0); TOTAL PROTEIN 7.1 GM/DL (6.4-8.2)
[2019-11-22 18:27] LABS: BILIRUBIN,URINE NEGATIVE (NEGATIVE); CLARITY,URINE CLEAR; COLOR,URINE YELLOW; GLUCOSE, URINE (UA) NEGATIVE (NEGATIVE); KETONES,URINE NEGATIVE (NEGATIVE); LEUKOCYTE ESTERASE ,URINE NEGATIVE (NEGATIVE); NITRITE,URINE NEGATIVE (NEGATIVE); PH,URINE 5.5 (5-9); PROTEIN,URINE TRACE (NEGATIVE)
[2019-11-22 18:41] LABS: BACTERIA,URINE NEGATIVE /HPF
--- NOTE | 2019-11-22 18:51 | Diagnostic Imaging Report ---
INDICATION: Fever and cough and shortness of breath Frontal chest obtained at 0644 p.m. and compared to 10/28/2018. Cardiomegaly is noted. There is mild central vascular congestion. There is infiltrate in the right lung base which may represent pneumonia. Left lung is clear. There is no pneumothorax or pleural fluid. IMPRESSION: Cardiomegaly and mild central vascular prominence. There is some infiltrate in the right lung base which may represent pneumonia. Follow-up is recommended. Dictated by: Dictated on workstation # [id number]
[2019-11-22 19:00] LABS: ANISOCYTOSIS SLIGHT; BAND NEUTROPHILS 16 %; BASOPHILS % (MANUAL) 0 %; EOSINOPHILS % (MANUAL) 0 %; LYMPHOCYTES % (MANUAL) 3 %; MONOCYTES % (MANUAL) 9 %; NEUTROPHILS % (MANUAL) 72 %
[2019-11-22] MEDS ORDERED: OSELTAMIVIR 75 MG (TAMIFLU) CAPSULE PO ONE (19:00)
--- NOTE | 2019-11-22 19:06 | NUR ---
report given to jordon
[2019-11-22] MEDS ORDERED: methylPREDNISolone 125 MG (Solu-MEDROL) VIAL IVP ONE (19:30)
[2019-11-22] MEDS ORDERED: APIXABAN 5 MG (ELIQUIS) TABLET PO ONE (19:30)
[2019-11-22] MEDS ORDERED: KCL 10 MEQ TAB (MICRO K) PO ONE (19:45)
[2019-11-22] MEDS ORDERED: NS W/KCL 20 MEQ/L 1,000 ML IV ONE (20:36)
[2019-11-22 20:43] VITALS: BP 135/65
[2019-11-22 20:47] VITALS: BP 135/65
[2019-11-22] MEDS ORDERED: RT-ALBUTEROL SULF 2.5 MG/3 ML PRE-MIX VIAL IH PRN (21:00)
[2019-11-22] MEDS ORDERED: ONDANSETRON 4 MG/2 ML (SDV) Z0FRAN IV PRN (21:00)
[2019-11-22] MEDS: NS W/KCL 20 MEQ/L 1,000 ML IV SCH (21:06)
[2019-11-22] MEDS: RT-ALBUTEROL/IPRATROPIUM 3 ML (DUONEB) VIAL IH SCH (21:50)
[2019-11-22 21:52] VITALS: BP 135/65
[2019-11-23] VITALS (7 sets, daily range): BP systolic 112–184; BP diastolic 44–76
[2019-11-23] MEDS ORDERED: methylPREDNISolone 40 MG/ML (Solu-MEDROL) VIAL IV SCH
[2019-11-23 03:59] LABS: BASOPHILS % (AUTO) 0 % (0-10); EOSINOPHILS % (AUTO) 0 % (0-10); HEMATOCRIT 38 % (40-54); HEMOGLOBIN 11.9 G/DL (13.3-17.7); LYMPHOCYTES # (AUTO) 0.6 X 10^3 (1.0-4.0); LYMPHOCYTES % (AUTO) 5 % (12-44); MEAN CORPUSCULAR HEMOGLOBIN 28 PG (25-34); MEAN CORPUSCULAR HGB CONC 32 G/DL (32-36); MEAN CORPUSCULAR VOLUME 89 FL (80-99); MEAN PLATELET VOLUME 11.4 FL (7.4-10.4); MONOCYTES # (AUTO) 0.2 X 10^3 (0.0-1.0); MONOCYTES % (AUTO) 2 % (0-12); NEUTROPHILS # (AUTO) 11.4 X 10^3 (1.8-7.8); NEUTROPHILS % (AUTO) 93 % (42-75); PLATELET COUNT 154 10^3/uL (130-400); RED CELL DISTRIBUTION WIDTH 15.8 % (10.0-14.5); WHITE BLOOD COUNT 12.2 10^3/uL (4.3-11.0)
[2019-11-23 04:18] LABS: ALBUMIN 3.7 GM/DL (3.2-4.5); BILIRUBIN,TOTAL 0.9 MG/DL (0.1-1.0); CREATININE SERUM 1.36 MG/DL (0.60-1.30); POTASSIUM 3.8 MMOL/L (3.6-5.0); TOTAL PROTEIN 6.6 GM/DL (6.4-8.2)
[2019-11-23] MEDS ORDERED: inSUlin ASPART (NovoLOG) 1 UNIT/0.01 ML (CHARGE PER UNIT) SC SCH ×3 (04:45→06:00)
[2019-11-23] MEDS ORDERED: inSUlin ASPART (NovoLOG) 1 UNIT/0.01 ML (CHARGE PER UNIT) ONE (04:53)
[2019-11-23] MEDS: NS W/KCL 20 MEQ/L 1,000 ML IV SCH ×3 (05:01→21:22)
--- NOTE | 2019-11-23 05:29 | NUR ---
VERIFIED WITH PATIENT THAT PT TAKES 75 UNITS LEVEMIR BID
--- NOTE | 2019-11-23 05:42 | Pulmonary Consultation ---
History of Present Illness History of Present Illness Date Seen by Provider: Nov 23, 2019 Time Seen by Provider: 05:36 Date of Admission History of Present Illness 69yo with hx of Afib, rectal bleeding presented to ED secondary to worsening SOB, wheezing, and productive cough. Pt was found to have influenza upon ED admission. CXR shows pneumonia. denies n/v/d. he has been having subjective fevers, sweats and chills. No prior hx like this I am consulted for ICU/pulmonary management. Allergies and Home Medications Allergies Coded Allergies: No Known Drug Allergies (Unverified , 10/04/18) Home Medications Albuterol Sulfate 18 Gm Hfa.aer.ad, 1-2 PUFF INH Q4H PRN for SHORTNESS OF BREATH, (Reported) Aspirin 81 Mg Tablet.dr, 81 MG PO DAILY, (Reported) Budesonide/Formoterol Fumarate 10.2 Gm Hfa.aer.ad, 2 PUFF IH BID, (Reported) Cholecalciferol (Vitamin D3) 1,000 Unit Capsule, 1,000 UNIT PO DAILY, (Reported) Clonidine HCl 0.3 Mg Tablet, 0.15 MG PO BID, (Reported) TAKES 1/2 (0.3MG) TABLET Diltiazem HCl 180 Mg Cap.er.24h, 180 MG PO DAILY, (Reported) Furosemide 40 Mg Tablet, 80 MG PO DAILY, (Reported) TAKES 2 (40MG) TABLETS Hydralazine HCl 100 Mg Tablet, 100 MG PO BID, (Reported) Insulin Aspart 300 Units/3 Ml Solution, 35 UNITS SQ AC, (Reported) Insulin Determir 1,000 Units/10 Ml Soln, 75 UNITS SQ 0600,1800, (Reported) Ipratropium/Albuterol Sulfate 3 Ml Ampul.neb, 3 ML INH RTQ4HR Prescribed by: DOMITILA MULLINS on 10/29/18931 Iron Sucrose Complex 200 Mg/10 Ml Vial, 200 MG IV Q48H Prescribed by: DOMITILA MULLINS on 10/29/18 09 Losartan Potassium 100 Mg Tablet, 100 MG PO DAILY Prescribed by: DOMITILA MULLINS on 10/29/18931 Metformin HCl 1,000 Mg Tablet, 1,000 MG PO BID WITH MEALS, (Reported) Pantoprazole Sodium 40 Mg Tablet.dr, 40 MG PO DAILY, (Reported) Potassium Chloride 20 Meq Tablet.er, 20 MEQ PO DAILY, (Reported) Prednisone 10 Mg Tab.ds.pk, 10 MG PO DAILY Take 6 tabs(60mg)daily,decrease by 1 tab(10MG)daily. Prescribed by: DOMITILA MULLINS on 10/29/18 0932 Ropinirole HCl 3 Mg Tablet, 3 MG PO HS, (Reported) Rosuvastatin Calcium 40 Mg Tablet, 20 MG PO HS, (Reported) TAKES 1/2 (40MG) TABLET Past Lhsxnbd-Huuqlj-Owwpzq Hx Patient Social History Alcohol Use: Denies Use Recreational Drug Use: No Smoking Status: Former Smoker Type Used: Cigarettes Former Smoker, Quit: Jun 04, 1997 Recent Foreign Travel: No Contact w/Someone Who Travel: No Recent Infectious Disease Expo: No Recent Hopitalizations: Yes (JUL 2018) Physical Abuse: No Sexual Abuse: No Mistreated: No Fear: No Immunizations Up To Date Tetanus Booster (TDap): Unknown Date of Pneumonia Vaccine: Oct 21, 2019 Date of Influenza Vaccine: Oct 21, 2019 Seasonal Allergies Seasonal Allergies: No Past Medical History Surgeries: Yes (MULTIPLE HERNIA REPAIRS, HEMMORHOIDECTOMY right hemicolectomy) Abdominal, Cardiac Respiratory: Yes Sleep Apnea, COPD Currently Using CPAP: Yes Currently Using BIPAP: No Cardiac: Yes Atrial Fibrillation, Coronary Artery Disease, Hypertension Neurological: Yes Stroke Reproductive Disorders: No Sexually Transmitted Disease: No HIV/AIDS: No Genitourinary: No Gastrointestinal: Yes Gastroesophageal Reflux, Hemorrhoids, Polyps Musculoskeletal: No Endocrine: Yes Diabetes, Insulin dep HEENT: Yes (GLASSES, DENTURES) Loss of Vision: Bilateral Hearing Impairment: Denies Cancer: No Psychosocial: No Integumentary: No Blood Disorders: No Adverse Reaction/Blood Tranf: No (N/A) Family Medical History Family history: Hypertension 03 FATHER, Onset:Unknown 03 MOTHER, Onset:50's - 60 Stroke 03 MOTHER, Onset:50's - 60 No Family History of: Cancer of colon Chest pain Dementia Family history: Alzheimer's disease Family history: Asthma Family history: Diabetes mellitus Kidney disease Myocardial infarction Seizure disorder CVA, Hypertension Review of Systems Time Seen by Provider: 07:52 Constitutional: Fever, Chills, Sweats, Weakness, Malaise Eyes: No: Pain, Vision change, Conjunctivae inflammation, Eyelid inflammation, Other, Redness ENT: Nose discharge, Nose congestion; No: Ear pain, Ear discharge, Nose pain, Mouth pain, Mouth swelling, Throat pain, Throat swelling, Other Respiratory: Cough, Shortness of breath, SOB with excertion, Wheezing, Sputum; No: Hemoptysis Cardiovascular: Paroxysmal Noc. Dyspnea Sepsis Event Evaluation Height, Weight, BMI Height: 5'11.00" Weight: 239lbs. 8.0oz. 108.064549sp; 35.68 BMI Method:Stated Exam Exam Vital Signs Date Time Temp Pulse Resp B/P (MAP) Pulse Ox O2 Delivery O2 Flow Rate FiO2 11/23/19 04:00 36.0 56 20 136/56 (82) 100 NIV Bilevel 30.00 11/23/19 04:00 NIV Bilevel 30 11/23/19 01:54 62 12 94 30.00 11/23/19 01:00 60 11/23/19 00:00 35.8 55 22 112/44 (66) 96 NIV Bilevel 35.00 11/23/19 00:00 NIV Bilevel 35 11/22/19 21:52 64 12 95 21.00 11/22/19 21:00 92 Room Air 11/22/19 20:52 37.3 11/22/19 20:47 92 18 135/65 90 Room Air 11/22/19 20:43 92 18 135/65 (88) 90 Room Air 11/22/19 20:21 80 11/22/19 18:31 38.4 11/22/19 17:55 97 Nasal Cannula 4.00 11/22/19 17:36 38.6 100 11 162/62 (95) 88 Room Air I & O 11/23/19 07:00 Intake Total 1380 ml Balance 1380 ml Height & Weight Height: 5'11.00" Weight: 239lbs. 8.0oz. 108.003610af; 35.68 BMI Method:Stated General Appearance: No Apparent Distress, Anxious, Chronically ill, Obese HEENT: PERRL/EOMI, Pharynx Normal Neck: Full Range of Motion, Non Tender, Supple Respiratory: Chest Non Tender, No Accessory Muscle Use, No Respiratory Distress, Decreased Breath Sounds Cardiovascular: Regular Rate, Rhythm, No Edema Capillary Refill: Less Than 3 Seconds Gastrointestinal: normal bowel sounds, non tender, soft Extremity: Normal Capillary Refill Neurologic/Psychiatric: Alert, Oriented x3 Skin: Normal Color, Warm/Dry Lymphatic: No Adenopathy Results Lab Laboratory Tests 11/22/19 17:52 11/23/19 03:05 Assessment/Plan Assessment/Plan Sepsis with influenza A -Yin cultures r/o bacterial secondary infection -IVF Pneumonia RLL --Currently on Cefepime switch to Rocephin and azithromycin ARF -IVF Anemia -Monitor FLIP PEDERSEN DO Nov 23, 2019 05:42
[2019-11-23] MEDS ORDERED: cefTRIAXone FOR IV USE 1,000 MG in WATER (STERILE) FOR INJECTION 10 ML IV SCH ×2 (05:45→09:00)
[2019-11-23] MEDS ORDERED: AZITHROMYCIN INJECTION 500 MG in NS (IVPB) 250 ML IV SCH ×2 (05:45→09:00)
[2019-11-23] MEDS: RT-ALBUTEROL/IPRATROPIUM 3 ML (DUONEB) VIAL IH SCH ×5 (07:15→21:12)
[2019-11-23] MEDS: APIXABAN 5 MG (ELIQUIS) TABLET PO SCH ×2 (08:09→21:21)
[2019-11-23] MEDS: OSELTAMIVIR 75 MG (TAMIFLU) CAPSULE PO SCH ×2 (08:11→21:24)
[2019-11-23] MEDS: inSUlin ASPART (NovoLOG) 1 UNIT/0.01 ML (CHARGE PER UNIT) SC SCH ×7 (08:30→21:29)
[2019-11-23] MEDS ORDERED: AMLO5TAB9 PO (10:04)
[2019-11-23] MEDS ORDERED: FLUT16SP22 NS (10:04)
[2019-11-23] MEDS ORDERED: DOXA2TAB2 PO (10:04)
[2019-11-23] MEDS ORDERED: APIX5TAB PO (10:04)
[2019-11-23] MEDS ORDERED: CHOL10007 PO (10:06)
--- NOTE | 2019-11-23 10:06 | NUR ---
REPORT FROM DICK ROE AT THIS TIME. THIS RN WILL ASSUME CARE OF THIS PATIENT WHEN HE ARRIVES TO THIS FLOOR.
[2019-11-23] MEDS ORDERED: IPRA3AMP31 NEB (10:09)
--- NOTE | 2019-11-23 11:20 | NUR ---
Fire Production Operator visited and prayed w/ pt and .
--- NOTE | 2019-11-23 11:27 | NUR ---
Called Dr. Jane at this time to verify 15 units plus 17 units of Novolog will be given to treat a blood glucose of 437. Verified that 15 units will be given with meals along with sliding scale.
[2019-11-23] MEDS ORDERED: LOSA100T57 PO (12:17)
[2019-11-23] MEDS ORDERED: HYDR25TA4 PO (12:23)
--- NOTE | 2019-11-23 12:33 | History & Physical-Hospitalist ---
History of Present Illness HPI/Chief Complaint Mike Green is a 69-year-old male with past medical history of hypertension, hyperlipidemia, type II diabetes mellitus, COPD, GERD, restless leg syndrome, who presented with chills. He reports that he has been having shortness of breath and cough. He had subjective fevers at home. He denies any muscle aches. He denies any chest pain. He denies any abdominal pain, nausea, vomiting. He denies any diarrhea. Denies any dysuria. Denies any rash. Source: patient Exam Limitations: no limitations Date Seen 11/23/19 Time Seen by a Provider: 08:40 Attending Physician Mary Perez MD PCP Álvaro Schultz MD Referring Physician Date of Admission Nov 22, 2019 at 20:05 Home Medications & Allergies Home Medications Reviewed patient Home Medication Reconciliation performed by pharmacy medication reconciliations integrated pest management technician and/or nursing. Patients Allergies have been reviewed. Allergies Allergies Coded Allergies No Known Drug Allergies (Yjzpvnhufz02/15/18) Past Iygagwj-Vqhqwy-Qqrmnf Hx Past Med/Social Hx: Reviewed Nursing Past Med/Soc Hx Patient Social History Alcohol Use: Denies Use Recreational Drug Use: No Smoking Status: Former Smoker Former Smoker, Quit: Jun 04, 1997 Type Used: Cigarettes Recent Foreign Travel: No Contact w/other who traveled: No Recent Hopitalizations: Yes (JUL 2018) Recent Infectious Disease Expo: No Immunizations Up To Date Tetanus Booster (TDap): Unknown Date of Pneumonia Vaccine: Oct 21, 2019 Date of Influenza Vaccine: Oct 21, 2019 Seasonal Allergies Seasonal Allergies: No Past Medical History Surgeries: Abdominal, Cardiac Respiratory: COPD Currently Using CPAP: Yes Currently Using BIPAP: No Cardiac: Atrial Fibrillation, Coronary Artery Disease, Hypertension Neurological: Stroke Reproductive: No Sexually Transmitted Disease: No HIV/AIDS: No Gastrointestinal: Gastroesophageal Reflux, Hemorrhoids, Polyps Endocrine: Diabetes, Insulin dep Loss of Vision: Bilateral Hearing Impairment: Denies History of Blood Disorders: No Adverse Reaction to Blood Stallworth: No (N/A) Family History Family history: Hypertension 03 FATHER, Onset:Unknown 03 MOTHER, Onset:50's - 60 Stroke 03 MOTHER, Onset:50's - 60 No Family History of: Cancer of colon Chest pain Dementia Family history: Alzheimer's disease Family history: Asthma Family history: Diabetes mellitus Kidney disease Myocardial infarction Seizure disorder CVA, Hypertension Review of Systems Constitutional: chills, fever, malaise EENTM: no symptoms reported Respiratory: cough, short of breath Cardiovascular: no symptoms reported Gastrointestinal: no symptoms reported Genitourinary: no symptoms reported Musculoskeletal: no symptoms reported Skin: no symptoms reported Psychiatric/Neurological: No Symptoms Reported Physical Exam Physical Exam Vital Signs Vital Signs - First Documented 11/22/19 11/22/19 11/23/19 17:36 17:55 00:00 Temp 38.6 Pulse 100 Resp 11 B/P (MAP) 162/62 (95) Pulse Ox 88 O2 Delivery Room Air O2 Flow Rate 4.00 FiO2 35 Capillary Refill : Less Than 3 Seconds Height, Weight, BMI Height: 5'11.00" Weight: 239lbs. 8.0oz. 108.896843ul; 35.68 BMI Method:Stated General Appearance: No Apparent Distress, WD/WN HEENT: PERRL/EOMI, Pharynx Normal Neck: Normal Inspection, Supple Respiratory: No Respiratory Distress, Rhonci, Wheezing Cardiovascular: Regular Rate, Rhythm, No Edema, No Murmur Gastrointestinal: Normal Bowel Sounds, Non Tender, Soft Extremity: Normal Inspection, Non Tender, No Pedal Edema Neurologic/Psychiatric: Alert, Oriented x3, No Motor/Sensory Deficits, Normal Mood/Affect Skin: Normal Color, Warm/Dry Results Results/Procedures Labs Laboratory Tests 11/22/19 17:52 11/23/19 03:05 Patient resulted labs reviewed. Imaging: Reviewed Imaging Report Assessment/Plan Admission Diagnosis Sepsis due to pneumonia Admission Status: Inpatient Order (span 2 midnights) Reason for Inpatient Admission: Pneumonia requiring IV antibiotics Assessment and Plan Sepsis Pneumonia Influenza SIRS+ with x-ray consistent with pneumonia Influenza swab positive for influenza A Started on Tamiflu Started on ceftriaxone and azithromycin for pneumonia Type II diabetes mellitus with hyperglycemia Home regimen: Levemir 75 units twice daily, NovoLog 35 units with meals plus sliding scale Continue Levemir Continue NovoLog 15 units with meals Sliding scale insulin level C Chronic kidney disease Creatinine 1.36, appears to be near baseline Continue to monitor Hypertension Hyperlipidemia GERD RLS Paroxysmal atrial fibrillation Continue home meds DVT prophylaxis: Already receiving therapeutic anticoagulation Diagnosis/Problems Diagnosis/Problems (1) Sepsis Status: Acute Qualifiers: Sepsis type: sepsis due to unspecified organism Sepsis acute organ dysfunction status: without acute organ dysfunction Qualified Codes: A41.9 - Sepsis, unspecified organism (2) Influenza A Status: Acute (3) Right lower lobe pneumonia Status: Acute Qualifiers: Pneumonia type: due to unspecified organism Qualified Codes: J18.1 - Lobar pneumonia, unspecified organism Clinical Quality Measures DVT/VTE Risk/Contraindication: Risk Factor Score Per Nursin RFS Level Per Nursing on Admit: 3=High JAYMIE MURPHY MD Nov 23, 2019 12:32
--- NOTE | 2019-11-23 12:41 | Diagnostic Imaging Report ---
INDICATION: Sepsis. Influenza. Pneumonia. COMPARISON: 11/22/2019 FINDINGS: Frontal and lateral views of chest were obtained and demonstrate mild cardiomegaly. Pulmonary vasculature is within normal limits. Lungs are clear on today's exam normal heart size and pulmonary vascularity. The lungs are clear. There are no signs of infiltrate, pleural effusions or pneumothoraces. The visualized osseous structures show no acute abnormalities. IMPRESSION: 1. Mild cardiomegaly, but no evidence of failure or focal infiltrate. Dictated by: Dictated on workstation # [id number]
--- NOTE | 2019-11-23 17:17 | NUR ---
At 1135 pt received 32 units of Novolog. At 1706 the pt received a total of 14 units. This is the total number of units given between 0700 and 1900 per this RN. Addendum: 11/23/19 at 1731 by TAWNYA HILL RN Pt also received 15 units with his dinner increasing the total for this RN shift. Pt received a total of 32 units at lunch and 29 units at dinner time. This is new total for this RN's shift.
[2019-11-23] MEDS ORDERED: CEFEPIME 2,000 MG/SWFI 20 ML IV PUSH IV SCH ×2 (18:00)
[2019-11-23] MEDS ORDERED: rOPINIRole 5 MG TAB (REQUIP) PO SCH (21:00)
[2019-11-23] MEDS ORDERED: ROSUVASTATIN 20 MG (CRESTOR) TABLET PO SCH (21:00)
[2019-11-23] MEDS: RT-ADVAIR HFA 115/21 MCG PER PUFF IH SCH (21:11)
[2019-11-23] MEDS: hydrALAZINE (APRESOLINE) 25 MG TAB PO SCH (21:20)
[2019-11-24] VITALS: BP 175/65
[2019-11-24] MEDS: RT-ALBUTEROL/IPRATROPIUM 3 ML (DUONEB) VIAL IH SCH ×3 (01:00→10:18)
[2019-11-24 04:00] VITALS: BP 139/68
[2019-11-24 04:47] LABS: BASOPHILS % (AUTO) 0 % (0-10); EOSINOPHILS % (AUTO) 0 % (0-10); HEMATOCRIT 35 % (40-54); HEMOGLOBIN 11.3 G/DL (13.3-17.7); LYMPHOCYTES # (AUTO) 0.8 X 10^3 (1.0-4.0); LYMPHOCYTES % (AUTO) 6 % (12-44); MEAN CORPUSCULAR HEMOGLOBIN 28 PG (25-34); MEAN CORPUSCULAR HGB CONC 32 G/DL (32-36); MEAN CORPUSCULAR VOLUME 87 FL (80-99); MEAN PLATELET VOLUME 10.2 FL (7.4-10.4); MONOCYTES # (AUTO) 0.6 X 10^3 (0.0-1.0); MONOCYTES % (AUTO) 5 % (0-12); NEUTROPHILS # (AUTO) 11.4 X 10^3 (1.8-7.8); NEUTROPHILS % (AUTO) 89 % (42-75); PLATELET COUNT 172 10^3/uL (130-400); RED CELL DISTRIBUTION WIDTH 15.8 % (10.0-14.5); WHITE BLOOD COUNT 12.8 10^3/uL (4.3-11.0)
[2019-11-24 05:05] LABS: BUN/CREATININE RATIO 25; CALCIUM 7.7 MG/DL (8.5-10.1); CARBON DIOXIDE 23 MMOL/L (21-32); CHLORIDE 108 MMOL/L (98-107); CREATININE SERUM 1.02 MG/DL (0.60-1.30); GFR ESTIMATED > 60; GLUCOSE 227 MG/DL (70-105); POTASSIUM 3.7 MMOL/L (3.6-5.0); SODIUM 142 MMOL/L (135-145)
[2019-11-24] MEDS: NS W/KCL 20 MEQ/L 1,000 ML IV SCH (05:21)
[2019-11-24] MEDS: inSUlin ASPART (NovoLOG) 1 UNIT/0.01 ML (CHARGE PER UNIT) SC SCH ×2 (05:23)
--- NOTE | 2019-11-24 07:18 | Pulmonary Progress Note ---
Subjective Time Seen by a Provider: 07:16 Sepsis Event Evaluation Height, Weight, BMI Height: 5'11.00" Weight: 239lbs. 8.0oz. 108.105365ky; 35.68 BMI Method:Stated Focused Exam Lactate Level 11/22/19 17:52: Lactic Acid Level 1.50 Exam Exam Vital Signs Date Time Temp Pulse Resp B/P (MAP) Pulse Ox O2 Delivery O2 Flow Rate FiO2 11/24/19 04:51 98 Room Air 4.00 11/24/19 04:00 36.5 72 20 139/68 (91) 98 Room Air 11/24/19 01:01 65 20 97 30.00 11/24/19 01:00 60 11/24/19 00:00 97 NIV Bilevel 4.00 11/24/19 00:00 36.9 76 16 175/65 (101) 97 NIV Bilevel 11/23/19 21:12 96 Room Air 11/23/19 20:30 94 Nasal Cannula 4.00 11/23/19 20:23 37.0 60 20 184/74 (110) 94 Room Air 11/23/19 19:00 64 11/23/19 18:34 95 Room Air 11/23/19 16:04 36.9 66 20 162/72 (102) 95 Room Air 11/23/19 16:00 96 Room Air 4.00 11/23/19 12:51 65 11/23/19 12:10 96 Room Air 11/23/19 12:00 36.6 62 20 160/74 (102) 95 NIV Bilevel 30.00 11/23/19 12:00 94 NIV Bilevel 4.00 11/23/19 10:35 36.2 76 22 155/76 (102) 94 NIV Bilevel 30.00 11/23/19 09:00 96 Room Air 11/23/19 08:00 58 38 94 NIV Bilevel 30.00 11/23/19 08:00 Room Air 11/23/19 07:19 96 Room Air I & O 11/24/19 07:00 Intake Total 2290 ml Balance 2290 ml Height & Weight Height: 5'11.00" Weight: 239lbs. 8.0oz. 108.284607sp; 35.68 BMI Method:Stated General Appearance: No Apparent Distress, WD/WN HEENT: PERRL/EOMI, Pharynx Normal Neck: Normal Inspection, Supple Respiratory: No Respiratory Distress, Rhonci, Wheezing Cardiovascular: Regular Rate, Rhythm, No Edema, No Murmur Capillary Refill: Less Than 3 Seconds Gastrointestinal: normal bowel sounds, non tender, soft Extremity: Normal Inspection, Non Tender, No Pedal Edema Neurologic/Psychiatric: Alert, Oriented x3, No Motor/Sensory Deficits, Normal Mood/Affect Skin: Normal Color, Warm/Dry Lymphatic: No Adenopathy Results Lab Laboratory Tests 11/22/19 17:52 11/23/19 03:05 11/24/19 04:35 Assessment/Plan Assessment/Plan Sepsis with influenza A -Yin cultures pending- neg thus far -Rocephin and azithromycin Pneumonia -- Rocephin and azithromycin ARF -IVF Anemia -Monitor FLIP PEDERSEN DO Nov 24, 2019 07:18
[2019-11-24 08:00] VITALS: BP 167/78
[2019-11-24] MEDS ORDERED: FUROSEMIDE 40 MG (LASIX) TAB PO SCH (09:00)
[2019-11-24] MEDS ORDERED: amLODIPine 5 MG (NORVASC) TAB PO SCH (09:00)
[2019-11-24] MEDS ORDERED: LOSARTAN 100 MG (COZAAR) TABLET PO SCH (09:00)
[2019-11-24] MEDS ORDERED: cefTRIAXone FOR IV USE 1,000 MG in WATER (STERILE) FOR INJECTION 10 ML IV SCH (09:00)
[2019-11-24] MEDS ORDERED: ASPIRIN E.C. 81 MG (ECOTRIN) TAB PO SCH (09:00)
[2019-11-24] MEDS ORDERED: AZITHROMYCIN 250 MG TAB (ZITHROMAX) PO SCH (09:00)
[2019-11-24] MEDS: hydrALAZINE (APRESOLINE) 25 MG TAB PO SCH (09:09)
[2019-11-24] MEDS: APIXABAN 5 MG (ELIQUIS) TABLET PO SCH (09:10)
[2019-11-24] MEDS: OSELTAMIVIR 75 MG (TAMIFLU) CAPSULE PO SCH (09:10)
--- NOTE | 2019-11-24 09:10 | Discharge Summary ---
Discharge Summary Hospital Course Problems/Dx: (1) Sepsis Status: Acute Qualifiers: Qualified Codes: A41.9 - Sepsis, unspecified organism (2) Influenza A Status: Acute (3) Right lower lobe pneumonia Status: Acute Qualifiers: Qualified Codes: J18.1 - Lobar pneumonia, unspecified organism Hospital Course Date of Admission: Nov 22, 2019 at 20:05 Admission Diagnosis : Sepsis due to pneumonia Family Physician/Provider: Álvaro Schultz MD Date of Discharge: 11/24/19 Discharge Diagnosis: Community-acquired pneumonia, influenza Hospital Course: Mike Green is a 69-year-old male who presented with shortness of breath and was admitted with influenza and pneumonia. He tested positive for influenza A. He was started on Tamiflu and will receive a course of this as an outpatient. He was also found to have a pneumonia and was started on IV antibiotics. He will complete a course of Omnicef as an outpatient. His primary care doctor was Dr. Schultz, and he plans to establish care at the [facility]. Labs and Pending Lab Test: Laboratory Tests 11/23/19 11:05: Glucometer 437*H 11/23/19 16:13: Glucometer 317H 11/23/19 20:07: Glucometer 334H 11/24/19 04:35: White Blood Count 12.8H, Red Blood Count 4.01L, Hemoglobin 11.3L, Hematocrit 35L , Mean Corpuscular Volume 87, Mean Corpuscular Hemoglobin 28, Mean Corpuscular Hemoglobin Concent 32, Red Cell Distribution Width 15.8H, Platelet Count 172, Mean Platelet Volume 10.2, Neutrophils (%) (Auto) 89H, Lymphocytes (%) (Auto) 6L , Monocytes (%) (Auto) 5, Eosinophils (%) (Auto) 0, Basophils (%) (Auto) 0, Neutrophils # (Auto) 11.4H, Lymphocytes # (Auto) 0.8L, Monocytes # (Auto) 0.6, Eosinophils # (Auto) 0.0, Basophils # (Auto) 0.0, Sodium Level 142, Potassium Level 3.7, Chloride Level 108H, Carbon Dioxide Level 23, Anion Gap 11, Blood Urea Nitrogen 25H, Creatinine 1.02, Estimat Glomerular Filtration Rate > 60, BUN/Creatinine Ratio 25, Glucose Level 227H, Calcium Level 7.7L 11/24/19 05:15: Glucometer 214H Microbiology 11/22/19 Influenza Types A,B Antigen (NIKKI) - Final, Complete 11/22/19 Blood Culture - Preliminary, Resulted No growth Home Meds Active Reported Hydrochlorothiazide 25 Mg Tablet 25 Mg PO DAILY Losartan Potassium 100 Mg Tablet 100 Mg PO DAILY Iprat-Albut 0.5-3(2.5) mg/3 ml (Ipratropium/Albuterol Sulfate) 3 Ml Ampul.neb 3 Ml NEB Q6H PRN Vitamin D3 (Cholecalciferol (Vitamin D3)) 25 Mcg Capsule 25 Mcg PO DAILY Fluticasone Propionate 16 Gm [place].susp 1 [place] NS DAILY PRN Eliquis (Apixaban) 5 Mg Tablet 5 Mg PO BID Amlodipine Besylate 5 Mg Tablet 5 Mg PO DAILY Doxazosin Mesylate 2 Mg Tablet 2 Mg PO DAILY Ventolin Hfa (Albuterol Sulfate) 18 Gm Hfa.aer.ad 2 Puff INH QID PRN Requip (Ropinirole HCl) 3 Mg Tablet 3 Mg PO HS Symbicort 160-4.5 Mcg Inhaler (Budesonide/Formoterol Fumarate) 10.2 Gm Hfa.aer.ad 2 Puff IH BID Rosuvastatin Calcium 40 Mg Tablet 20 Mg PO HS LAST FILLED #45 07-28-19 TAKES 1/2 (40MG) TABLET Potassium Chloride 20 Meq Tablet.er 20 Meq PO BID Furosemide 40 Mg Tablet 80 Mg PO DAILY TAKES 2 (40MG) TABLETS Hydralazine HCl 100 Mg Tablet 100 Mg PO BID Novolog Flexpen (Insulin Aspart) 300 Units/3 Ml Solution 48-50 Units SQ TIDAC Levemir (Insulin Determir) 1,000 Units/10 Ml Soln 75 Units SQ 0600,1800 Metformin HCl 1,000 Mg Tablet 1,000 Mg PO BID WITH MEALS Aspir 81 (Aspirin) 81 Mg Tablet. 81 Mg PO DAILY Assessment/Pt Instructions Take medications as prescribed. Complete her course of Tamiflu for influenza. Complete her course of Omnicef for pneumonia. Establish care with your new primary care physician at [facility]. Discharge Planning: <30 minutes discharge planning Discharge Instructions Discharge Diet: No Restrictions Activity as Tolerated: Yes Discharge Physical Examination Vital Signs Vital Signs Date Time Temp Pulse Resp B/P (MAP) Pulse Ox O2 Delivery O2 Flow Rate FiO2 11/24/19 07:00 59 11/24/19 04:51 98 Room Air 4.00 11/24/19 04:00 36.5 20 139/68 (91) 11/23/19 04:00 30 General Appearance: No Apparent Distress, WD/WN, Obese HEENT: PERRL/EOMI, Pharynx Normal Respiratory: Lungs Clear, Normal Breath Sounds, No Respiratory Distress Cardiovascular: Regular Rate, Rhythm, No Murmur Gastrointestinal: Normal Bowel Sounds, Non Tender, Soft Extremity: Normal Inspection, Non Tender, Pedal Edema Skin: Normal Color, Warm/Dry Neurologic/Psychiatric: Alert, Oriented x3, No Motor/Sensory Deficits, Normal Mood/Affect Allergies: Coded Allergies: No Known Drug Allergies (Unverified , 10/04/18) Discharge Summary Date of Admission Nov 22, 2019 at 20:05 Date of Discharge Discharge Date: Nov 24, 2019 Discharge Time: 09:09 Admission Diagnosis Sepsis due to pneumonia Discharge Diagnosis Community acquired pneumonia, influenza (1) Sepsis Status: Acute Qualifiers: Qualified Codes: A41.9 - Sepsis, unspecified organism (2) Influenza A Status: Acute (3) Right lower lobe pneumonia Status: Acute Qualifiers: Qualified Codes: J18.1 - Lobar pneumonia, unspecified organism Clinical Quality Measures DVT/VTE Risk/Contraindication: Risk Factor Score Per Nursin RFS Level Per Nursing on Admit: 3=High JAYMIE MURPHY MD Nov 24, 2019 09:10
--- NOTE | 2019-11-24 09:24 | NUR ---
PATIENT STATES HE HAS HAD SOME MEDICATION CHANGES RECENTLY AND SOME THINGS WERE STOPPED AND REPLACED BY OTHERS. I CALLED DR. LAWRENCE'S OFFICE AND THEY WERE NOT ABLE TO GIVE ME SPECIFICS BUT FAXED ME A MEDICATION LIST. I CALLED THEM BACK YESTERDAY AROUND LUNCH TO CLARIFY SOME OF THE CHANGES THAT WERE MADE RECENTLY AND HAD TO LEAVE A MESSAGE. THEY HAVE NOT RETURNED MY CALL AT THIS TIME. I HAD A LIST FAXED OVER FROM THE [facility]. [place] FILLED: 11-12-19 SYMBICORT 160-4.5MCG 2 PUFFS BID #3 11-10-19 ELIQUIS 5MG BID #180 (09-08-19 FILLED 5MG 1/2 TAB BID #90, DOSE WAS INCREASED) 11-10-19 AMLODIPINE 10MG 1/2 DAILY #45 ([facility] 10-28-19 INSULIN DETEMIR 75 UNITS BID #14 10-27-19 HYDRALAZINE HCL 100MG BID #180 10-19-19 METFORMIN 1000MG BID #180 10-19-19 DILTIAZEM 240MG 24HR CAP DAILY #90 (ACTIVE ON [facility] LIST BUT NOT ON [facility] LIST) 10-12-19 CLONIDINE 0.3MG 1 AM 1/2 PM #135 (ALSO FILLED 1/2 BID #90 09-25-19) DISCONTINUED NOW 09-23-19 FUROSEMIDE 40MG 2 DAILY #180 09-23-19 ROPINIROLE 3MG HS #90 09-22-19 LOSARTAN 100MG DAILY #90 (ALSO FILLED AT [facility] #90 09-29-19) 09-16-19 HCTZ 25MG DAILY #90 (NOT ON THE LIST FROM DR. LAWRENCE'S OFFICE) 09-09-19 POTASSIUM 20MEQ BID #180 08-27-19 VITAMIN D 1,000 UNITS DAILY #100 07-28-19 ROSUVASTATIN 40MG 1/2 HS #45 04-24-19 FLONASE 2 SPRAYS DAILY #3 (STATES HE USES PRN) [facility] FILLED: DOXAZOSIN 2MG DAILY 11-07-19 AMLODIPINE 5MG DAILY #30 09-29-19 LOSARTAN 100MG DAILY #90 07-02-19 ALBUTEROL HFA INHALER 04-01-19 DUONEB (STATES HE USES PRN) PATIENT STATES HE USES NOVOLOG INSULIN AND THIS IS ON THE LIST FROM DR. LAWRENCE'S OFFICE HOWEVER IT IS NOT ON THE EXT MED HX OR [facility]IST [facility], I AM UNABLE TO VERIFY THE LAST FILL DATE BUT DID LEAVE IT ON THE MED REC. OTC: ASPIRIN 81MG DAILY I REMOVED THE DILTAZEM FROM THE MED REC IT IS A DUPLICATE THERAPY AND NOT ON THE LIST FROM DR. LAWRENCE'S OFFICE. I HAVE LEFT THE HCTZ AND DOXAZOSIN WITH YELLOW TRIANGLES. I WAS TRYING TO CLARIFY THESE TWO MEDS WITH DR. LAWRENCE'S OFFICE. NEITHER ONE IS ON THE LIST THEY SENT ME HOWEVER THE DOXAZOSIN WAS RECENTLY FILLED AND PICKED UP AT THE LOCAL PHARMACY PRESCRIBED BY PAULINE RINALDI. I WILL UPDATE WHEN THEY RETURN MY CALL.
[2019-11-24] MEDS: RT-ADVAIR HFA 115/21 MCG PER PUFF IH SCH (09:54)
[2019-11-24] MEDS ORDERED: CEFD300C3 PO (10:22)
[2019-11-24] MEDS ORDERED: OSLT75C PO (10:22)
[2019-11-24 10:43] VITALS: BP 167/78
== END 2019-11-24 10:43 | disposition home or self-care (01) | DRG 871 ==
LOC: EDUNIT# 17:36 → ER 17:37 → ICU 20:05 → 4TH 11-23 10:25
PROVIDERS: ADMIT Family Medicine; ATTEND Family Medicine
DX: A41.9 Sepsis, unspecified organism (principal); J10.00 Influenza due to other identified influenza virus with unspecified type of pneumonia; J18.1 Lobar pneumonia, unspecified organism; J44.1 Chronic obstructive pulmonary disease with (acute) exacerbation; K62.5 Hemorrhage of anus and rectum; E78.5 Hyperlipidemia, unspecified; E11.65 Type 2 diabetes mellitus with hyperglycemia; K21.9 Gastro-esophageal reflux disease without esophagitis; I12.9 Hypertensive chronic kidney disease with stage 1 through stage 4 chronic kidney disease, or unspecified chronic kidney disease; N18.9 Chronic kidney disease, unspecified; I48.0 Paroxysmal atrial fibrillation; G25.81 Restless legs syndrome; E66.9 Obesity, unspecified; G47.30 Sleep apnea, unspecified; I25.10 Atherosclerotic heart disease of native coronary artery without angina pectoris; E87.6 Hypokalemia; D50.0 Iron deficiency anemia secondary to blood loss (chronic); H54.3 Unqualified visual loss, both eyes; E11.22 Type 2 diabetes mellitus with diabetic chronic kidney disease; Z68.35 Body mass index [BMI] 35.0-35.9, adult; Z90.49 Acquired absence of other specified parts of digestive tract; Z86.010 Personal history of colon polyps; Z79.4 Long term (current) use of insulin; Z86.73 Personal history of transient ischemic attack (TIA), and cerebral infarction without residual deficits; Z79.01 Long term (current) use of anticoagulants; Z87.891 Personal history of nicotine dependence
CPT/HCPCS: 36415; 71045; 71046; 80048; 80053; 81000; 82805; 82962; 83605; 83880; 84145; 85007; 85025; 85027; 85610; 85730; 86141; 87040; 87081; 87088; 87804; 93005; 94640; 94660; 96361; 96365; 96367; 96368; 96375

== ENCOUNTER 2020-01-07 09:54 | Outpatient (RCR) | payer MEDICARE, OTHER ==
[2020-01-04 11:06] LABS: BASOPHILS % (AUTO) 0 % (0-10); EOSINOPHILS # (AUTO) 0.3 10^3/uL (0.0-0.3); EOSINOPHILS % (AUTO) 3 % (0-10); HEMATOCRIT 40 % (40-54); HEMOGLOBIN 12.5 G/DL (13.3-17.7); LYMPHOCYTES # (AUTO) 1.1 X 10^3 (1.0-4.0); LYMPHOCYTES % (AUTO) 12 % (12-44); MEAN CORPUSCULAR HEMOGLOBIN 28 PG (25-34); MEAN CORPUSCULAR HGB CONC 32 G/DL (32-36); MEAN CORPUSCULAR VOLUME 89 FL (80-99); MEAN PLATELET VOLUME 10.9 FL (7.4-10.4); MONOCYTES # (AUTO) 0.7 X 10^3 (0.0-1.0); MONOCYTES % (AUTO) 7 % (0-12); NEUTROPHILS # (AUTO) 7.2 X 10^3 (1.8-7.8); NEUTROPHILS % (AUTO) 78 % (42-75); PLATELET COUNT 222 10^3/uL (130-400); RED CELL DISTRIBUTION WIDTH 15.5 % (10.0-14.5); WHITE BLOOD COUNT 9.3 10^3/uL (4.3-11.0)
[2020-01-04 11:23] LABS: ALBUMIN 4.4 GM/DL (3.2-4.5); BILIRUBIN,TOTAL 0.7 MG/DL (0.1-1.0); CALCIUM 9.7 MG/DL (8.5-10.1); CREATININE SERUM 1.37 MG/DL (0.60-1.30); POTASSIUM 3.4 MMOL/L (3.6-5.0); TOTAL PROTEIN 7.4 GM/DL (6.4-8.2)
[~2020-01-07 09:54] MED LIST changes: +ACHD5005 PO; +AMLO5TAB9 PO; +DOXA2TAB2 PO; +FERRIC CARBOXYMALTOSE (CANCER) 750 MG in NS (IVPB) CANCER CENTER 250 ML IV SCH; +FLUT16SP22 NS; -HYDR-3812 PO; +HYDR25TA4 PO; +IPRA3AMP31 NEB; +OSLT75C PO
== END 2020-02-01 | disposition home or self-care (01) ==
LOC: ONC 09:54
PROVIDERS: ATTEND Internal Medicine Hematology & Oncology
DX: D50.0 Iron deficiency anemia secondary to blood loss (chronic) (principal); J44.9 Chronic obstructive pulmonary disease, unspecified; I25.10 Atherosclerotic heart disease of native coronary artery without angina pectoris; I13.0 Hypertensive heart and chronic kidney disease with heart failure and stage 1 through stage 4 chronic kidney disease, or unspecified chronic kidney disease; I48.91 Unspecified atrial fibrillation; E11.9 Type 2 diabetes mellitus without complications; I50.9 Heart failure, unspecified; N18.3 Chronic kidney disease, stage 3 (moderate); E78.5 Hyperlipidemia, unspecified; Z86.73 Personal history of transient ischemic attack (TIA), and cerebral infarction without residual deficits
CPT/HCPCS: 80053; 82728; 85025; 96365; 99213

== ENCOUNTER → 2020-03-23 | Outpatient (CLI) | payer MEDICARE, OTHER ==
[~2020-03-23] MED LIST changes: -FERRIC CARBOXYMALTOSE (CANCER) 750 MG in NS (IVPB) CANCER CENTER 250 ML IV SCH
== END ==
LOC: CARD 11:55
PROVIDERS: ATTEND Internal Medicine Cardiovascular Disease
DX: I48.91 Unspecified atrial fibrillation (principal); I65.23 Occlusion and stenosis of bilateral carotid arteries; G47.33 Obstructive sleep apnea (adult) (pediatric); I73.9 Peripheral vascular disease, unspecified; I25.10 Atherosclerotic heart disease of native coronary artery without angina pectoris; R06.09 Other forms of dyspnea; Z79.01 Long term (current) use of anticoagulants
CPT/HCPCS: 93225; 93226

== ENCOUNTER 2020-04-12 08:57 | Outpatient (RCR) | payer MEDICARE, OTHER ==
[2020-02-04 09:17] LABS: BASOPHILS % (AUTO) 0 % (0-10); EOSINOPHILS # (AUTO) 0.3 10^3/uL (0.0-0.3); EOSINOPHILS % (AUTO) 4 % (0-10); HEMATOCRIT 42 % (40-54); HEMOGLOBIN 13.7 G/DL (13.3-17.7); LYMPHOCYTES # (AUTO) 1.2 X 10^3 (1.0-4.0); LYMPHOCYTES % (AUTO) 14 % (12-44); MEAN CORPUSCULAR HEMOGLOBIN 28 PG (25-34); MEAN CORPUSCULAR HGB CONC 33 G/DL (32-36); MEAN CORPUSCULAR VOLUME 87 FL (80-99); MEAN PLATELET VOLUME 9.8 FL (7.4-10.4); MONOCYTES # (AUTO) 0.7 X 10^3 (0.0-1.0); MONOCYTES % (AUTO) 8 % (0-12); NEUTROPHILS # (AUTO) 6.3 X 10^3 (1.8-7.8); NEUTROPHILS % (AUTO) 74 % (42-75); PLATELET COUNT 257 10^3/uL (130-400); RED CELL DISTRIBUTION WIDTH 15.3 % (10.0-14.5); WHITE BLOOD COUNT 8.5 10^3/uL (4.3-11.0)
[2020-02-23 13:02] LABS: BASOPHILS % (AUTO) 0 % (0-10); EOSINOPHILS # (AUTO) 0.2 10^3/uL (0.0-0.3); EOSINOPHILS % (AUTO) 2 % (0-10); HEMATOCRIT 42 % (40-54); LYMPHOCYTES # (AUTO) 1.1 X 10^3 (1.0-4.0); LYMPHOCYTES % (AUTO) 11 % (12-44); MEAN CORPUSCULAR HEMOGLOBIN 28 PG (25-34); MEAN CORPUSCULAR HGB CONC 33 G/DL (32-36); MEAN CORPUSCULAR VOLUME 86 FL (80-99); MEAN PLATELET VOLUME 10.4 FL (7.4-10.4); MONOCYTES # (AUTO) 0.7 X 10^3 (0.0-1.0); MONOCYTES % (AUTO) 7 % (0-12); NEUTROPHILS # (AUTO) 7.5 X 10^3 (1.8-7.8); NEUTROPHILS % (AUTO) 79 % (42-75); PLATELET COUNT 278 10^3/uL (130-400); RED CELL DISTRIBUTION WIDTH 14.9 % (10.0-14.5); WHITE BLOOD COUNT 9.5 10^3/uL (4.3-11.0)
[2020-02-23 13:23] LABS: ALBUMIN 4.2 GM/DL (3.2-4.5); BILIRUBIN,TOTAL 0.7 MG/DL (0.1-1.0); CALCIUM 9.3 MG/DL (8.5-10.1); CREATININE SERUM 1.47 MG/DL (0.60-1.30); POTASSIUM 3.4 MMOL/L (3.6-5.0); TOTAL PROTEIN 7.5 GM/DL (6.4-8.2)
[2020-03-31 08:34] LABS: BASOPHILS % (AUTO) 0 % (0-10); EOSINOPHILS # (AUTO) 0.3 10^3/uL (0.0-0.3); EOSINOPHILS % (AUTO) 3 % (0-10); HEMATOCRIT 45 % (40-54); HEMOGLOBIN 14.8 G/DL (13.3-17.7); LYMPHOCYTES % (AUTO) 10 % (12-44); MEAN CORPUSCULAR HEMOGLOBIN 28 PG (25-34); MEAN CORPUSCULAR HGB CONC 33 G/DL (32-36); MEAN CORPUSCULAR VOLUME 86 FL (80-99); MEAN PLATELET VOLUME 10.6 FL (7.4-10.4); MONOCYTES # (AUTO) 0.6 X 10^3 (0.0-1.0); MONOCYTES % (AUTO) 6 % (0-12); NEUTROPHILS # (AUTO) 7.8 X 10^3 (1.8-7.8); NEUTROPHILS % (AUTO) 80 % (42-75); PLATELET COUNT 230 10^3/uL (130-400); RED CELL DISTRIBUTION WIDTH 15.2 % (10.0-14.5); WHITE BLOOD COUNT 9.7 10^3/uL (4.3-11.0)
[2020-03-31 08:51] LABS: ALBUMIN 4.3 GM/DL (3.2-4.5); BILIRUBIN,TOTAL 0.7 MG/DL (0.1-1.0); CALCIUM 9.4 MG/DL (8.5-10.1); CREATININE SERUM 1.45 MG/DL (0.60-1.30); POTASSIUM 3.3 MMOL/L (3.6-5.0); TOTAL PROTEIN 7.6 GM/DL (6.4-8.2)
[~2020-04-12 08:57] MED LIST changes: +FERRIC CARBOXYMALTOSE (CANCER) 750 MG in NS (IVPB) CANCER CENTER 250 ML IV SCH
== END 2020-05-04 | disposition home or self-care (01) ==
LOC: ONC 08:57
PROVIDERS: ATTEND Internal Medicine Hematology & Oncology
DX: D50.0 Iron deficiency anemia secondary to blood loss (chronic) (principal); J44.9 Chronic obstructive pulmonary disease, unspecified; I25.10 Atherosclerotic heart disease of native coronary artery without angina pectoris; I13.0 Hypertensive heart and chronic kidney disease with heart failure and stage 1 through stage 4 chronic kidney disease, or unspecified chronic kidney disease; I48.91 Unspecified atrial fibrillation; E11.9 Type 2 diabetes mellitus without complications; I50.9 Heart failure, unspecified; N18.3 Chronic kidney disease, stage 3 (moderate); E78.5 Hyperlipidemia, unspecified; Z86.73 Personal history of transient ischemic attack (TIA), and cerebral infarction without residual deficits
CPT/HCPCS: 80053; 82728; 85025; 96365; 99213

== ENCOUNTER → 2020-04-14 | Outpatient (CLI) | payer MEDICARE, OTHER ==
[~2020-04-14] MED LIST changes: -FERRIC CARBOXYMALTOSE (CANCER) 750 MG in NS (IVPB) CANCER CENTER 250 ML IV SCH
== END ==
LOC: CARD 12:25
PROVIDERS: ATTEND Internal Medicine Cardiovascular Disease
DX: I08.1 Rheumatic disorders of both mitral and tricuspid valves (principal); I48.91 Unspecified atrial fibrillation; I65.23 Occlusion and stenosis of bilateral carotid arteries; I50.32 Chronic diastolic (congestive) heart failure; N18.3 Chronic kidney disease, stage 3 (moderate); Z79.01 Long term (current) use of anticoagulants
CPT/HCPCS: 93306

== ENCOUNTER → 2020-06-07 | Outpatient (CLI) | payer MEDICARE | LOC: CARD 09:25 | PROVIDERS: ATTEND Nurse Practitioner Family | DX: I48.91 Unspecified atrial fibrillation (principal) | CPT/HCPCS: 93225; 93226 ==

== ENCOUNTER 2020-08-02 14:15 | Outpatient (RCR) | payer MEDICARE ==
[2020-05-24 09:16] LABS: BASOPHILS % (AUTO) 0 % (0-10); EOSINOPHILS # (AUTO) 0.3 10^3/uL (0.0-0.3); EOSINOPHILS % (AUTO) 3 % (0-10); HEMATOCRIT 44 % (40-54); HEMOGLOBIN 14.5 G/DL (13.3-17.7); LYMPHOCYTES # (AUTO) 1.1 X 10^3 (1.0-4.0); LYMPHOCYTES % (AUTO) 11 % (12-44); MEAN CORPUSCULAR HEMOGLOBIN 28 PG (25-34); MEAN CORPUSCULAR HGB CONC 33 G/DL (32-36); MEAN CORPUSCULAR VOLUME 86 FL (80-99); MEAN PLATELET VOLUME 10.4 FL (7.4-10.4); MONOCYTES # (AUTO) 0.6 X 10^3 (0.0-1.0); MONOCYTES % (AUTO) 6 % (0-12); NEUTROPHILS # (AUTO) 7.7 X 10^3 (1.8-7.8); NEUTROPHILS % (AUTO) 80 % (42-75); PLATELET COUNT 217 10^3/uL (130-400); WHITE BLOOD COUNT 9.6 10^3/uL (4.3-11.0)
[2020-05-24 09:37] LABS: ALANINE AMINOTRANSFERASE 26 U/L (0-55); ALBUMIN 4.1 GM/DL (3.2-4.5); ALKALINE PHOSPHATASE 102 U/L (40-136); BILIRUBIN,TOTAL 0.7 MG/DL (0.1-1.0); BUN/CREATININE RATIO 16; CALCIUM 9.2 MG/DL (8.5-10.1); CARBON DIOXIDE 25 MMOL/L (21-32); CHLORIDE 106 MMOL/L (98-107); CREATININE SERUM 1.11 MG/DL (0.60-1.30); GFR ESTIMATED > 60; GLUCOSE 248 MG/DL (70-105); POTASSIUM 3.7 MMOL/L (3.6-5.0); SODIUM 142 MMOL/L (135-145)
[2020-07-26 08:42] LABS: BASOPHILS % (AUTO) 0 % (0-10); EOSINOPHILS # (AUTO) 0.2 10^3/uL (0.0-0.3); EOSINOPHILS % (AUTO) 2 % (0-10); HEMATOCRIT 46 % (40-54); LYMPHOCYTES # (AUTO) 1.2 10^3/uL (1.0-4.0); LYMPHOCYTES % (AUTO) 13 % (12-44); MEAN CORPUSCULAR HEMOGLOBIN 29 pg (25-34); MEAN CORPUSCULAR HGB CONC 33 g/dL (32-36); MEAN CORPUSCULAR VOLUME 87 fL (80-99); MEAN PLATELET VOLUME 10.2 fL (9.0-12.2); MONOCYTES # (AUTO) 0.6 10^3/uL (0.0-1.0); MONOCYTES % (AUTO) 7 % (0-12); NEUTROPHILS # (AUTO) 7.1 10^3/uL (1.8-7.8); NEUTROPHILS % (AUTO) 77 % (42-75); PLATELET COUNT 212 10^3/uL (130-400); WHITE BLOOD COUNT 9.2 10^3/uL (4.3-11.0)
[2020-07-26 09:02] LABS: ALANINE AMINOTRANSFERASE 26 U/L (0-55); ALBUMIN 3.9 GM/DL (3.2-4.5); ALKALINE PHOSPHATASE 94 U/L (40-136); BILIRUBIN,TOTAL 0.8 MG/DL (0.1-1.0); BUN/CREATININE RATIO 26; CALCIUM 9.6 MG/DL (8.5-10.1); CARBON DIOXIDE 21 MMOL/L (21-32); CHLORIDE 104 MMOL/L (98-107); CREATININE SERUM 1.06 MG/DL (0.60-1.30); GFR ESTIMATED > 60; GLUCOSE 164 MG/DL (70-105); POTASSIUM 4.1 MMOL/L (3.6-5.0); SODIUM 140 MMOL/L (135-145); TOTAL PROTEIN 6.8 GM/DL (6.4-8.2)
[~2020-08-02 14:15] MED LIST changes: +AMLO-250 PO; -AMLO5TAB9 PO; -PANT40TA3 PO; +PANT40TA52 PO
== END 2020-08-22 | disposition home or self-care (01) ==
LOC: ONC 14:15
PROVIDERS: ATTEND Internal Medicine Hematology & Oncology
DX: D50.0 Iron deficiency anemia secondary to blood loss (chronic) (principal); J44.9 Chronic obstructive pulmonary disease, unspecified; I25.10 Atherosclerotic heart disease of native coronary artery without angina pectoris; I13.0 Hypertensive heart and chronic kidney disease with heart failure and stage 1 through stage 4 chronic kidney disease, or unspecified chronic kidney disease; I48.91 Unspecified atrial fibrillation; E11.9 Type 2 diabetes mellitus without complications; I50.9 Heart failure, unspecified; N18.30 Chronic kidney disease, stage 3 unspecified; E78.5 Hyperlipidemia, unspecified; Z86.73 Personal history of transient ischemic attack (TIA), and cerebral infarction without residual deficits
CPT/HCPCS: 80053; 82728; 85025; 99213

== ENCOUNTER → 2020-08-18 | Outpatient (CLI) | payer MEDICARE | LOC: CARD 11:00 | PROVIDERS: ATTEND Internal Medicine Cardiovascular Disease | DX: I48.91 Unspecified atrial fibrillation (principal); I25.10 Atherosclerotic heart disease of native coronary artery without angina pectoris; I65.29 Occlusion and stenosis of unspecified carotid artery; I11.0 Hypertensive heart disease with heart failure; I50.9 Heart failure, unspecified; E78.5 Hyperlipidemia, unspecified; Z79.01 Long term (current) use of anticoagulants; Z87.891 Personal history of nicotine dependence | CPT/HCPCS: 93225; 93226 ==

== ENCOUNTER 2020-09-12 14:59 | Outpatient (RCR) | payer MEDICARE ==
[2020-09-07 09:28] LABS: BASOPHILS # (AUTO) 0.1 10^3/uL (0.0-0.1); BASOPHILS % (AUTO) 1 % (0-10); EOSINOPHILS # (AUTO) 0.2 10^3/uL (0.0-0.3); EOSINOPHILS % (AUTO) 2 % (0-10); HEMATOCRIT 49 % (40-54); HEMOGLOBIN 15.8 g/dL (13.3-17.7); LYMPHOCYTES # (AUTO) 1.6 10^3/uL (1.0-4.0); LYMPHOCYTES % (AUTO) 14 % (12-44); MEAN CORPUSCULAR HEMOGLOBIN 29 pg (25-34); MEAN CORPUSCULAR HGB CONC 33 g/dL (32-36); MEAN CORPUSCULAR VOLUME 88 fL (80-99); MEAN PLATELET VOLUME 10.1 fL (9.0-12.2); MONOCYTES # (AUTO) 0.7 10^3/uL (0.0-1.0); MONOCYTES % (AUTO) 6 % (0-12); NEUTROPHILS # (AUTO) 8.5 10^3/uL (1.8-7.8); NEUTROPHILS % (AUTO) 77 % (42-75); PLATELET COUNT 248 10^3/uL (130-400); WHITE BLOOD COUNT 11.1 10^3/uL (4.3-11.0)
[2020-09-07 09:58] LABS: ALANINE AMINOTRANSFERASE 24 U/L (0-55); ALBUMIN 4.1 GM/DL (3.2-4.5); ALKALINE PHOSPHATASE 92 U/L (40-136); BILIRUBIN,TOTAL 0.6 MG/DL (0.1-1.0); BUN/CREATININE RATIO 23; CALCIUM 9.6 MG/DL (8.5-10.1); CARBON DIOXIDE 24 MMOL/L (21-32); CHLORIDE 103 MMOL/L (98-107); CREATININE SERUM 1.16 MG/DL (0.60-1.30); GFR ESTIMATED > 60; GLUCOSE 127 MG/DL (70-105); POTASSIUM 3.8 MMOL/L (3.6-5.0); SODIUM 141 MMOL/L (135-145); TOTAL PROTEIN 7.1 GM/DL (6.4-8.2)
[2020-10-24 09:54] LABS: BASOPHILS % (AUTO) 0 % (0-10); EOSINOPHILS # (AUTO) 0.3 10^3/uL (0.0-0.3); EOSINOPHILS % (AUTO) 3 % (0-10); HEMATOCRIT 46 % (40-54); HEMOGLOBIN 14.6 g/dL (13.3-17.7); LYMPHOCYTES # (AUTO) 1.3 10^3/uL (1.0-4.0); LYMPHOCYTES % (AUTO) 12 % (12-44); MEAN CORPUSCULAR HEMOGLOBIN 28 pg (25-34); MEAN CORPUSCULAR HGB CONC 32 g/dL (32-36); MEAN CORPUSCULAR VOLUME 88 fL (80-99); MEAN PLATELET VOLUME 9.6 fL (9.0-12.2); MONOCYTES # (AUTO) 0.7 10^3/uL (0.0-1.0); MONOCYTES % (AUTO) 6 % (0-12); NEUTROPHILS # (AUTO) 8.7 10^3/uL (1.8-7.8); NEUTROPHILS % (AUTO) 79 % (42-75); PLATELET COUNT 257 10^3/uL (130-400)
== END 2020-10-24 09:32 | disposition home or self-care (01) ==
LOC: ONC 14:59
PROVIDERS: ATTEND Internal Medicine Hematology & Oncology
DX: D50.0 Iron deficiency anemia secondary to blood loss (chronic) (principal); N18.30 Chronic kidney disease, stage 3 unspecified; J44.9 Chronic obstructive pulmonary disease, unspecified; I25.10 Atherosclerotic heart disease of native coronary artery without angina pectoris; I13.0 Hypertensive heart and chronic kidney disease with heart failure and stage 1 through stage 4 chronic kidney disease, or unspecified chronic kidney disease; I48.91 Unspecified atrial fibrillation; E11.9 Type 2 diabetes mellitus without complications; I50.9 Heart failure, unspecified; E78.5 Hyperlipidemia, unspecified; Z86.73 Personal history of transient ischemic attack (TIA), and cerebral infarction without residual deficits
CPT/HCPCS: 80053; 82728; 85025; 99213

== ENCOUNTER 2020-12-23 09:21 | Outpatient (RCR) | payer MEDICARE ==
[2020-12-01 13:59] LABS: BASOPHILS % (AUTO) 1 % (0-10); EOSINOPHILS # (AUTO) 0.1 10^3/uL (0.0-0.3); EOSINOPHILS % (AUTO) 1 % (0-10); HEMATOCRIT 46 % (40-54); HEMOGLOBIN 14.6 g/dL (13.3-17.7); LYMPHOCYTES # (AUTO) 0.9 10^3/uL (1.0-4.0); LYMPHOCYTES % (AUTO) 10 % (12-44); MEAN CORPUSCULAR HEMOGLOBIN 28 pg (25-34); MEAN CORPUSCULAR HGB CONC 32 g/dL (32-36); MEAN CORPUSCULAR VOLUME 88 fL (80-99); MEAN PLATELET VOLUME 10.1 fL (9.0-12.2); MONOCYTES # (AUTO) 0.8 10^3/uL (0.0-1.0); MONOCYTES % (AUTO) 10 % (0-12); NEUTROPHILS # (AUTO) 6.6 10^3/uL (1.8-7.8); NEUTROPHILS % (AUTO) 78 % (42-75); PLATELET COUNT 190 10^3/uL (130-400); WHITE BLOOD COUNT 8.4 10^3/uL (4.3-11.0)
[2020-12-01 14:24] LABS: ALBUMIN 4.1 GM/DL (3.2-4.5); BILIRUBIN,TOTAL 0.8 MG/DL (0.1-1.0); CALCIUM 9.3 MG/DL (8.5-10.1); CREATININE SERUM 1.25 MG/DL (0.60-1.30); POTASSIUM 3.5 MMOL/L (3.6-5.0); TOTAL PROTEIN 7.2 GM/DL (6.4-8.2)
[~2020-12-23 09:21] MED LIST changes: +LISI40TA9 PO
== END 2021-01-22 | disposition home or self-care (01) ==
LOC: ONC 09:21
PROVIDERS: ATTEND Internal Medicine Hematology & Oncology
DX: D50.9 Iron deficiency anemia, unspecified (principal); D63.1 Anemia in chronic kidney disease; N18.30 Chronic kidney disease, stage 3 unspecified; J44.9 Chronic obstructive pulmonary disease, unspecified; I25.10 Atherosclerotic heart disease of native coronary artery without angina pectoris; I13.0 Hypertensive heart and chronic kidney disease with heart failure and stage 1 through stage 4 chronic kidney disease, or unspecified chronic kidney disease; I48.91 Unspecified atrial fibrillation; E11.9 Type 2 diabetes mellitus without complications; I50.9 Heart failure, unspecified; E78.5 Hyperlipidemia, unspecified; Z86.73 Personal history of transient ischemic attack (TIA), and cerebral infarction without residual deficits
CPT/HCPCS: 80053; 82728; 85025; 99213

== ENCOUNTER 2021-04-13 09:36 | Outpatient (RCR) | payer MEDICARE ==
[2021-02-09 09:14] LABS: BASOPHILS % (AUTO) 0 % (0-10); EOSINOPHILS # (AUTO) 0.2 10^3/uL (0.0-0.3); EOSINOPHILS % (AUTO) 2 % (0-10); HEMATOCRIT 48 % (40-54); LYMPHOCYTES # (AUTO) 1.2 10^3/uL (1.0-4.0); LYMPHOCYTES % (AUTO) 15 % (12-44); MEAN CORPUSCULAR HEMOGLOBIN 28 pg (25-34); MEAN CORPUSCULAR HGB CONC 31 g/dL (32-36); MEAN CORPUSCULAR VOLUME 88 fL (80-99); MEAN PLATELET VOLUME 10.1 fL (9.0-12.2); MONOCYTES # (AUTO) 0.4 10^3/uL (0.0-1.0); MONOCYTES % (AUTO) 5 % (0-12); NEUTROPHILS # (AUTO) 5.9 10^3/uL (1.8-7.8); NEUTROPHILS % (AUTO) 76 % (42-75); PLATELET COUNT 202 10^3/uL (130-400); WHITE BLOOD COUNT 7.9 10^3/uL (4.3-11.0)
[2021-02-09 09:36] LABS: ALBUMIN 4.1 GM/DL (3.2-4.5); ALKALINE PHOSPHATASE 91 U/L (40-136); BILIRUBIN,TOTAL 0.6 MG/DL (0.1-1.0); BUN/CREATININE RATIO 19; CALCIUM 9.3 MG/DL (8.5-10.1); CARBON DIOXIDE 21 MMOL/L (21-32); CHLORIDE 107 MMOL/L (98-107); CREATININE SERUM 1.07 MG/DL (0.60-1.30); GFR ESTIMATED > 60; GLUCOSE 225 MG/DL (70-105); POTASSIUM 3.8 MMOL/L (3.6-5.0); SODIUM 142 MMOL/L (135-145); TOTAL PROTEIN 7.3 GM/DL (6.4-8.2)
[2021-02-09 10:24] LABS: ALANINE AMINOTRANSFERASE < 30 U/L (0-55)
[2021-04-10 09:30] LABS: BASOPHILS % (AUTO) 0 % (0-10); EOSINOPHILS # (AUTO) 0.2 10^3/uL (0.0-0.3); EOSINOPHILS % (AUTO) 2 % (0-10); HEMATOCRIT 47 % (40-54); HEMOGLOBIN 15.2 g/dL (13.3-17.7); LYMPHOCYTES % (AUTO) 12 % (12-44); MEAN CORPUSCULAR HEMOGLOBIN 29 pg (25-34); MEAN CORPUSCULAR HGB CONC 33 g/dL (32-36); MEAN CORPUSCULAR VOLUME 88 fL (80-99); MEAN PLATELET VOLUME 10.5 fL (9.0-12.2); MONOCYTES # (AUTO) 0.5 10^3/uL (0.0-1.0); MONOCYTES % (AUTO) 6 % (0-12); NEUTROPHILS # (AUTO) 6.4 10^3/uL (1.8-7.8); NEUTROPHILS % (AUTO) 78 % (42-75); PLATELET COUNT 193 10^3/uL (130-400); WHITE BLOOD COUNT 8.1 10^3/uL (4.3-11.0)
[2021-04-10 09:44] LABS: ALANINE AMINOTRANSFERASE 19 U/L (0-55); ALKALINE PHOSPHATASE 95 U/L (40-136); BILIRUBIN,TOTAL 0.9 MG/DL (0.1-1.0); BUN/CREATININE RATIO 17; CALCIUM 9.6 MG/DL (8.5-10.1); CARBON DIOXIDE 24 MMOL/L (21-32); CHLORIDE 104 MMOL/L (98-107); CREATININE SERUM 1.07 MG/DL (0.60-1.30); GFR ESTIMATED > 60; GLUCOSE 193 MG/DL (70-105); POTASSIUM 3.5 MMOL/L (3.6-5.0); SODIUM 139 MMOL/L (135-145)
[~2021-04-13 09:36] MED LIST changes: +FERRIC CARBOXYMALTOSE (CANCER) 750 MG in NS (IVPB) CANCER CENTER 250 ML IV SCH; -OMEP40CA27 PO; +OMEP40CA6 PO
== END 2021-05-10 | disposition home or self-care (01) ==
LOC: ONC 09:36
PROVIDERS: ATTEND Internal Medicine Hematology & Oncology
DX: D50.0 Iron deficiency anemia secondary to blood loss (chronic) (principal); I13.0 Hypertensive heart and chronic kidney disease with heart failure and stage 1 through stage 4 chronic kidney disease, or unspecified chronic kidney disease; E11.22 Type 2 diabetes mellitus with diabetic chronic kidney disease; D63.1 Anemia in chronic kidney disease; N18.30 Chronic kidney disease, stage 3 unspecified; J44.9 Chronic obstructive pulmonary disease, unspecified; I25.10 Atherosclerotic heart disease of native coronary artery without angina pectoris; I48.91 Unspecified atrial fibrillation; I63.9 Cerebral infarction, unspecified; I50.32 Chronic diastolic (congestive) heart failure; I73.9 Peripheral vascular disease, unspecified; E78.5 Hyperlipidemia, unspecified
CPT/HCPCS: 80053; 82728; 85025; 96365; 99213

== ENCOUNTER → 2021-04-28 | Outpatient (CLI) | payer MEDICARE ==
[~2021-04-28] MED LIST changes: -FERRIC CARBOXYMALTOSE (CANCER) 750 MG in NS (IVPB) CANCER CENTER 250 ML IV SCH; +HOLD METFORMIN - RECEIVED CONTRAST 20 ML VIAL IV SCH; +IOHEXOL 350 MG/ML 100 ML (OMNIPAQUE 350) VIAL IV ONE; +NS 100 ML (IVPB) BAG IV ONE; +RT-ALBUTEROL SULF 2.5 MG/3 ML PRE-MIX VIAL INH ONE
--- NOTE | 2021-04-28 13:30 | Diagnostic Imaging Report ---
PROCEDURE: CT angiography of the chest with contrast. TECHNIQUE: Multiple contiguous axial images were obtained through the chest after uneventful bolus administration of intravenous contrast. 3D reconstructed CTA MIP acquisitions were also performed. Auto Exposure Controls were utilized during the CT exam to meet ALARA standards for radiation dose reduction. INDICATION: Shortness of breath, chest pain. COMPARISON: None. FINDINGS: There is [id number] cardiac enlargement with coronary artery disease. The pulmonary arteries and aorta are grossly unremarkable. There is atherosclerosis of the thoracic aorta without obvious aneurysm. There is no pericardial effusion. There is no mediastinal lymphadenopathy. The lungs are clear. No nodule, mass, or infiltrate is seen. There is no pneumothorax or effusion. Visualized upper abdominal solid organs are grossly unremarkable. There is cholelithiasis. IMPRESSION: 1. Cardiac enlargement without overt pulmonary edema. Coronary artery disease is noted. 2. No pulmonary embolism or acute pulmonary infiltrate. 3. Cholelithiasis. 4. Not mentioned above, nonspecific prominent lymph nodes in the posterior mediastinum. Consider follow-up. Dictated by: Dictated on workstation # [id number]
== END ==
LOC: RT 11:00
PROVIDERS: ATTEND Nurse Practitioner Family
DX: J98.4 Other disorders of lung (principal)
CPT/HCPCS: 71275; 94060; 94726; 94729

== ENCOUNTER 2021-06-08 09:15 | Outpatient (RCR) | payer MEDICARE ==
[~2021-06-08 09:15] MED LIST changes: -HOLD METFORMIN - RECEIVED CONTRAST 20 ML VIAL IV SCH; -IOHEXOL 350 MG/ML 100 ML (OMNIPAQUE 350) VIAL IV ONE; -NS 100 ML (IVPB) BAG IV ONE; -RT-ALBUTEROL SULF 2.5 MG/3 ML PRE-MIX VIAL INH ONE
== END 2021-06-08 11:10 | disposition home or self-care (01) ==
PROVIDERS: ATTEND Nurse Practitioner Family
DX: J98.4 Other disorders of lung (principal); I10 Essential (primary) hypertension; E11.9 Type 2 diabetes mellitus without complications; I48.91 Unspecified atrial fibrillation; Z86.73 Personal history of transient ischemic attack (TIA), and cerebral infarction without residual deficits; Z99.89 Dependence on other enabling machines and devices

== ENCOUNTER → 2021-06-09 | Outpatient (CLI) | payer MEDICARE ==
[~2021-06-09] MED LIST changes: +REGADENOSON 0.4 MG/5 ML SYR (LEXISCAN) IV ONE
[2021-06-09] MEDS: CATHETER FLUSH 10 ML SYR IV PRN ×2 (07:53→09:16)
[2021-06-09 09:05] VITALS: BP 160/61
== END ==
LOC: CARD 07:16
PROVIDERS: ATTEND Nurse Practitioner Family
DX: I25.10 Atherosclerotic heart disease of native coronary artery without angina pectoris (principal)
CPT/HCPCS: 78452; 93017; A9502

== ENCOUNTER → 2021-06-12 | Outpatient (CLI) | payer MEDICARE ==
[~2021-06-12] MED LIST changes: -REGADENOSON 0.4 MG/5 ML SYR (LEXISCAN) IV ONE
== END ==
LOC: CARD 09:00
PROVIDERS: ATTEND Nurse Practitioner Family
DX: I51.7 Cardiomegaly (principal)
CPT/HCPCS: 93306

== ENCOUNTER → 2021-08-31 | Outpatient (CLI) | payer MEDICARE ==
[~2021-08-31] MED LIST changes: +CATHETER FLUSH 10 ML SYR IV PRN; +HOLD METFORMIN - RECEIVED CONTRAST 20 ML VIAL IV SCH; +IOHEXOL 350 MG/ML 100 ML (OMNIPAQUE 350) VIAL IV ONE; +NS 100 ML (IVPB) BAG IV ONE
--- NOTE | 2021-08-31 12:52 | Diagnostic Imaging Report ---
EXAMINATION: CT chest with intravenous contrast. TECHNIQUE: Multiple contiguous axial images were obtained through the chest after the uneventful administration of intravenous contrast. All CT scans use one or more of the following dose optimizing techniques: automated exposure control, MA and/or KvP adjustment based on patient size and exam type or iterative reconstruction. HISTORY: Enlarged mediastinal lymph nodes. COMPARISON: 04/28/2021 FINDINGS: There is no edema or pneumonia. No pleural effusion. No pneumothorax. No suspicious nodules. There is mucous in the trachea. There is a 14 mm left axillary lymph node that was previously 6 mm. There is a 12 mm left supraclavicular lymph node that previously measured 6 mm. There is a 17 mm paraesophageal lymph node that previously measured 9 mm. Heart size is normal. There are moderate coronary artery calcifications. No pericardial effusion. Aorta is normal in caliber. Limited views of the upper abdomen are unremarkable. There are no suspicious osseous lesions. IMPRESSION: 1. Increase in size of left axillary, left supraclavicular and paraesophageal lymphadenopathy. Findings concerning for a malignancy, including lymphoma. Dictated by: Dictated on workstation # [id number]
== END ==
LOC: RAD 10:50
PROVIDERS: ATTEND Nurse Practitioner Family
DX: R59.0 Localized enlarged lymph nodes (principal); R91.8 Other nonspecific abnormal finding of lung field
CPT/HCPCS: 71260

== ENCOUNTER → 2021-09-13 | Outpatient (CLI) | payer MEDICARE ==
[~2021-09-13] MED LIST changes: -CATHETER FLUSH 10 ML SYR IV PRN
--- NOTE | 2021-09-13 12:19 | Diagnostic Imaging Report ---
PROCEDURE: CT abdomen and pelvis with and without contrast. TECHNIQUE: Precontrast acquisitions were acquired through the abdomen and pelvis. Multiple contiguous axial images were obtained through the abdomen and pelvis after the administration of intravenous contrast. Auto Exposure Controls were utilized during the CT exam to meet ALARA standards for radiation dose reduction. INDICATION: Abnormal recent CT chest demonstrating increasing lymphadenopathy. COMPARISON: CT chest of 08/31/2021. FINDINGS: The lung bases are clear. No focal liver mass is identified. There is a small stone in the gallbladder. No biliary ductal dilatation is seen. The pancreas and spleen are unremarkable. Numerous enlarged lymph nodes in the distal paraesophageal/periaortic location are noted. A node in the right upper periaortic region measures 2.6 x 1.8 cm. No definite adrenal mass is identified. There is a large solid appearing mass extending exophytically from the lower pole of the right kidney measuring 9.2 cm AP x 9.5 cm transverse. This is concerning for renal cell carcinoma. The aorta is heavily calcified but nonaneurysmal. No central retroperitoneal or mesenteric lymphadenopathy is seen. The bowel loops are of normal caliber. There is no free fluid or fluid collection. No definite iliac or inguinal lymphadenopathy is identified. The bladder is unremarkable. The prostate is enlarged. No definite osteolytic or osteoblastic lesions are seen. IMPRESSION: 1. There is lymphadenopathy at the thoracoabdominal junction in the paraesophageal/periaortic location. 2. Cholelithiasis. 3. Solid-appearing right lower pole renal mass, concerning for renal cell carcinoma. 4. Prostatomegaly. Dictated by: Dictated on workstation # [id number]
== END ==
LOC: RAD 10:15
PROVIDERS: ATTEND Internal Medicine Hematology & Oncology
DX: K80.20 Calculus of gallbladder without cholecystitis without obstruction (principal); R59.0 Localized enlarged lymph nodes; N40.0 Benign prostatic hyperplasia without lower urinary tract symptoms; N28.89 Other specified disorders of kidney and ureter
CPT/HCPCS: 74178

== ENCOUNTER 2021-10-12 08:48 | Outpatient (RCR) | payer MEDICARE ==
[2021-07-17 08:57] LABS: BASOPHILS % (AUTO) 0 % (0-10); EOSINOPHILS # (AUTO) 0.2 10^3/uL (0.0-0.3); EOSINOPHILS % (AUTO) 2 % (0-10); HEMATOCRIT 43 % (40-54); HEMOGLOBIN 13.7 g/dL (13.3-17.7); LYMPHOCYTES % (AUTO) 12 % (12-44); MEAN CORPUSCULAR HEMOGLOBIN 28 pg (25-34); MEAN CORPUSCULAR HGB CONC 32 g/dL (32-36); MEAN CORPUSCULAR VOLUME 88 fL (80-99); MEAN PLATELET VOLUME 9.6 fL (9.0-12.2); MONOCYTES # (AUTO) 0.6 10^3/uL (0.0-1.0); MONOCYTES % (AUTO) 7 % (0-12); NEUTROPHILS # (AUTO) 6.6 10^3/uL (1.8-7.8); NEUTROPHILS % (AUTO) 79 % (42-75); PLATELET COUNT 208 10^3/uL (130-400); WHITE BLOOD COUNT 8.4 10^3/uL (4.3-11.0)
[2021-07-17 09:25] LABS: BILIRUBIN,TOTAL 0.9 MG/DL (0.1-1.0); CALCIUM 9.9 MG/DL (8.5-10.1); CREATININE SERUM 1.07 MG/DL (0.60-1.30); POTASSIUM 3.4 MMOL/L (3.6-5.0); TOTAL PROTEIN 7.3 GM/DL (6.4-8.2)
[2021-08-31 10:47] LABS: BASOPHILS % (AUTO) 0 % (0-10); EOSINOPHILS # (AUTO) 0.1 10^3/uL (0.0-0.3); EOSINOPHILS % (AUTO) 2 % (0-10); HEMATOCRIT 40 % (40-54); HEMOGLOBIN 12.8 g/dL (13.3-17.7); LYMPHOCYTES # (AUTO) 1.3 10^3/uL (1.0-4.0); LYMPHOCYTES % (AUTO) 14 % (12-44); MEAN CORPUSCULAR HEMOGLOBIN 27 pg (25-34); MEAN CORPUSCULAR HGB CONC 32 g/dL (32-36); MEAN CORPUSCULAR VOLUME 85 fL (80-99); MEAN PLATELET VOLUME 10.1 fL (9.0-12.2); MONOCYTES # (AUTO) 0.7 10^3/uL (0.0-1.0); MONOCYTES % (AUTO) 8 % (0-12); NEUTROPHILS # (AUTO) 6.8 10^3/uL (1.8-7.8); NEUTROPHILS % (AUTO) 76 % (42-75); PLATELET COUNT 219 10^3/uL (130-400)
[2021-08-31 11:18] LABS: CREATININE SERUM 1.1 MG/DL (0.60-1.30)
[2021-09-13 09:10] LABS: ALBUMIN 4.2 GM/DL (3.2-4.5); CALCIUM 10.2 MG/DL (8.5-10.1); CREATININE SERUM 1.22 MG/DL (0.60-1.30); POTASSIUM 3.4 MMOL/L (3.6-5.0); TOTAL PROTEIN 7.8 GM/DL (6.4-8.2)
[2021-10-11 09:47] LABS: BASOPHILS % (AUTO) 0 % (0-10); EOSINOPHILS # (AUTO) 0.2 10^3/uL (0.0-0.3); EOSINOPHILS % (AUTO) 2 % (0-10); HEMATOCRIT 46 % (40-54); LYMPHOCYTES % (AUTO) 10 % (12-44); MEAN CORPUSCULAR HEMOGLOBIN 26 pg (25-34); MEAN CORPUSCULAR HGB CONC 31 g/dL (32-36); MEAN CORPUSCULAR VOLUME 86 fL (80-99); MEAN PLATELET VOLUME 10.1 fL (9.0-12.2); MONOCYTES # (AUTO) 0.7 10^3/uL (0.0-1.0); MONOCYTES % (AUTO) 7 % (0-12); NEUTROPHILS # (AUTO) 8.3 10^3/uL (1.8-7.8); NEUTROPHILS % (AUTO) 81 % (42-75); PLATELET COUNT 232 10^3/uL (130-400); WHITE BLOOD COUNT 10.2 10^3/uL (4.3-11.0)
[2021-10-11 10:03] LABS: ALBUMIN 4.1 GM/DL (3.2-4.5); BILIRUBIN,TOTAL 0.8 MG/DL (0.1-1.0); CALCIUM 10.1 MG/DL (8.5-10.1); CREATININE SERUM 1.17 MG/DL (0.60-1.30); POTASSIUM 3.6 MMOL/L (3.6-5.0); TOTAL PROTEIN 7.9 GM/DL (6.4-8.2)
[~2021-10-12 08:48] MED LIST changes: +FERRIC CARBOXYMALTOSE (CANCER) 750 MG in NS (IVPB) CANCER CENTER 250 ML IV SCH; -HOLD METFORMIN - RECEIVED CONTRAST 20 ML VIAL IV SCH; -IOHEXOL 350 MG/ML 100 ML (OMNIPAQUE 350) VIAL IV ONE; -NS 100 ML (IVPB) BAG IV ONE
== END 2021-10-15 | disposition home or self-care (01) ==
LOC: ONC 08:48
PROVIDERS: ATTEND Internal Medicine Hematology & Oncology
DX: D50.0 Iron deficiency anemia secondary to blood loss (chronic) (principal); K63.5 Polyp of colon; J44.9 Chronic obstructive pulmonary disease, unspecified; I25.10 Atherosclerotic heart disease of native coronary artery without angina pectoris; I73.9 Peripheral vascular disease, unspecified; I12.9 Hypertensive chronic kidney disease with stage 1 through stage 4 chronic kidney disease, or unspecified chronic kidney disease; N18.30 Chronic kidney disease, stage 3 unspecified; E11.22 Type 2 diabetes mellitus with diabetic chronic kidney disease; D63.1 Anemia in chronic kidney disease; I48.91 Unspecified atrial fibrillation; E78.5 Hyperlipidemia, unspecified
CPT/HCPCS: 80053; 82565; 82728; 84520; 85025; 96365; 99213

== ENCOUNTER → 2021-10-16 | Outpatient (CLI) | payer MEDICARE ==
[~2021-10-16] VITALS: Ht 182.9 cm; Wt 113.6 kg
[~2021-10-16] MED LIST changes: -FERRIC CARBOXYMALTOSE (CANCER) 750 MG in NS (IVPB) CANCER CENTER 250 ML IV SCH; +LIDOCAINE 1% INJ 20 ML 20 ML VIAL INJ ONE
--- NOTE | 2021-10-16 09:38 | Diagnostic Imaging Report ---
INDICATION: Left supraclavicular lymphadenopathy noted on recent CT chest. Sonographic interrogation left supraclavicular region was performed. There is a prominent lymph node just lateral to the carotid measuring 2.1 x 1.6 x 1.1 cm. No other enlarged lymph nodes in the left supraclavicular location are identified. No fluid collections are seen. IMPRESSION: Enlarged left supraclavicular lymph node. Dictated by: Dictated on workstation # [id number]
--- NOTE | 2021-10-16 09:41 | Diagnostic Imaging Report ---
INDICATION: Left supraclavicular lymphadenopathy. Patient presents for ultrasound-guided biopsy. DETAILS OF THE PROCEDURE: The patient was brought to the procedure room and placed on the table in the supine position. Ultrasound imaging of the left supraclavicular region was performed to evaluate for an appropriate entry site. The left neck was then prepped and draped in the usual sterile fashion. A small amount of 1% lidocaine was utilized for local anesthesia. A total of 4 passes was made into the enlarged lymph node just lateral to the carotid artery in the left supraclavicular region utilizing an 18-gauge Temno needle. Four core biopsies were obtained. The needle was removed and hemostasis was obtained using manual compression. The patient tolerated the procedure well and left the Department in stable condition. IMPRESSION: Successful ultrasound-guided core biopsy of an enlarged left supraclavicular lymph node. Pathology results are currently pending. Dictated by: Dictated on workstation # [id number]
== END ==
LOC: RAD 09:00
PROVIDERS: ATTEND Internal Medicine Hematology & Oncology
DX: R59.0 Localized enlarged lymph nodes (principal)
CPT/HCPCS: 76536; 76942; 88305; 88341; 88342; 88344

== ENCOUNTER 2021-10-19 08:55 | Outpatient (RCR) | payer MEDICARE ==
[~2021-10-19 08:55] MED LIST changes: +FERRIC CARBOXYMALTOSE (CANCER) 750 MG in NS (IVPB) CANCER CENTER 250 ML IV SCH; -LIDOCAINE 1% INJ 20 ML 20 ML VIAL INJ ONE
== END 2021-10-20 ==
LOC: ONC 08:55
PROVIDERS: ATTEND Internal Medicine Hematology & Oncology
DX: D50.0 Iron deficiency anemia secondary to blood loss (chronic) (principal); J44.9 Chronic obstructive pulmonary disease, unspecified; I25.10 Atherosclerotic heart disease of native coronary artery without angina pectoris; I73.9 Peripheral vascular disease, unspecified; K63.5 Polyp of colon; I12.9 Hypertensive chronic kidney disease with stage 1 through stage 4 chronic kidney disease, or unspecified chronic kidney disease; E11.22 Type 2 diabetes mellitus with diabetic chronic kidney disease; N18.30 Chronic kidney disease, stage 3 unspecified; D63.1 Anemia in chronic kidney disease; I48.91 Unspecified atrial fibrillation; E78.5 Hyperlipidemia, unspecified; I63.9 Cerebral infarction, unspecified; K31.819 Angiodysplasia of stomach and duodenum without bleeding; N28.89 Other specified disorders of kidney and ureter; Z79.01 Long term (current) use of anticoagulants

== ENCOUNTER 2021-12-07 09:01 | Inpatient (IN) | payer MEDICARE ==
[~2021-12-07] VITALS: Ht 180.3 cm; Wt 107.7 kg
[~2021-12-07 09:01] MED LIST changes: -FERRIC CARBOXYMALTOSE (CANCER) 750 MG in NS (IVPB) CANCER CENTER 250 ML IV SCH; -FLUT16SP22 NS; +FLUT16SP22 NSEACH
--- NOTE | 2021-12-07 09:28 | ED Respiratory ---
General Chief Complaint: Respiratory Problems Stated Complaint: SOB,COUGH Nursing Triage Note: ARRIVED VIA AMB WITH COMPLAINTS OF COUGH AND SOA X3 DAYS. THINKS HE HAS PNEUMONIA AGAIN. Source: patient, spouse Exam Limitations: no limitations History of Present Illness Date Seen by Provider: Dec 07, 2021 Time Seen by Provider: 09:13 Initial Comments The patient presents the ER by private conveyance with his significant other chief complaint 3 to 4 days of shortness of breath and productive cough. No fevers chills or sick contacts. He has had COVID vaccines and boosters. He is not having any fevers pain diarrhea nausea or vomiting. No body aches. He is afraid he has pneumonia again. He is scheduled for middle of next week to have a kidney out secondary to cancer by [facility]. He is on Eliquis known to Dr. Acuña and Janel Lennon. He has a history of COPD, atrial fibrillation and quit smoking years ago. He took a breathing treatment this morning and states he only got a small amount of relief from it. Allergies and Home Medications Allergies Coded Allergies: No Known Drug Allergies (Unverified , 10/04/18) Patient Home Medication List Home Medication List Reviewed: Yes Albuterol Sulfate (Ventolin Hfa) 18 Gm Hfa.aer.ad, 2 PUFF INH QID PRN for SHORTNESS OF BREATH, (Reported) Entered as Reported by: ANNEMARIE BRADY on 10/04/18 1538 Amlodipine Besylate (Amlodipine Besylate) 5 Mg Tablet, 5 MG PO DAILY, (Reported) Entered as Reported by: ASHLEY STEVE on 11/23/19 1004 Apixaban (Eliquis) 5 Mg Tablet, 5 MG PO BID, (Reported) Entered as Reported by: ASHLEY STEVE on 11/23/19 1004 Aspirin (Aspir 81) 81 Mg Tablet.dr, 81 MG PO DAILY, (Reported) Entered as Reported by: ASHLEY STEVE on 04/01/18 0826 Budesonide/Formoterol Fumarate (Symbicort 160-4.5 Mcg Inhaler) 10.2 Gm Hfa.aer.ad, 2 PUFF IH BID, (Reported) Entered as Reported by: ASHLEY STEVE on 04/01/18 0826 Cefdinir (Cefdinir) 300 Mg Capsule, 300 MG PO BID Prescribed by: JAYMIE MURPHY on 11/24/19 1022 Cholecalciferol (Vitamin D3) (Vitamin D3) 25 Mcg Capsule, 25 MCG PO DAILY, (Reported) Entered as Reported by: ASHLEY STEVE on 11/23/19 1006 Doxazosin Mesylate (Doxazosin Mesylate) 2 Mg Tablet, 2 MG PO DAILY, (Reported) Entered as Reported by: ASHLEY STEVE on 11/23/19 1004 Fluticasone Propionate (Fluticasone Propionate) 16 Gm Gypsum.susp, 1 SPRAY NS DAILY PRN for ALLERGIES, (Reported) Entered as Reported by: ASHLEY STEVE on 11/23/19 1004 Furosemide (Furosemide) 40 Mg Tablet, 80 MG PO DAILY, (Reported) Entered as Reported by: ASHLEY STEVE on 04/01/18 08 Hydralazine HCl (Hydralazine HCl) 100 Mg Tablet, 100 MG PO BID, (Reported) Entered as Reported by: ASHLEY STEVE on 04/01/18 08 Hydrochlorothiazide (Hydrochlorothiazide) 25 Mg Tablet, 25 MG PO DAILY, (Reporte d) Entered as Reported by: ASHLEY STEVE on 11/23/19 1223 Insulin Aspart (Novolog Flexpen) 300 Units/3 Ml Solution, 48-50 UNITS SQ TIDAC, (Reported) Entered as Reported by: ASHLEY STEVE on 04/01/18 08 Insulin Determir (Levemir) 1,000 Units/10 Ml Soln, 75 UNITS SQ 0600,1800, (Reported) Entered as Reported by: ASHLEY STEVE on 04/01/18 08 Ipratropium/Albuterol Sulfate (Iprat-Albut 0.5-3(2.5) mg/3 ml) 3 Ml Ampul.neb, 3 ML NEB Q6H PRN for SHORTNESS OF BREATH, (Reported) Entered as Reported by: ASHLEY STEVE on 11/23/19 1009 Losartan Potassium (Losartan Potassium) 100 Mg Tablet, 100 MG PO DAILY, (Reported) Entered as Reported by: ASHLEY STEVE on 11/23/19 1217 Metformin HCl (Metformin HCl) 1,000 Mg Tablet, 1,000 MG PO BID WITH MEALS, (Reported) Entered as Reported by: ASHLEY STEVE on 6/12825 Oseltamivir Phosphate (Tamiflu) 75 Mg Cap, 75 MG PO BID Prescribed by: JAYMIE MURPHY on 11/24/19 1022 Potassium Chloride (Potassium Chloride) 20 Meq Tablet.er, 20 MEQ PO BID, (Reported) Entered as Reported by: ASHLEY STEVE on 04/01/18825 Ropinirole HCl (Requip) 3 Mg Tablet, 3 MG PO HS, (Reported) Entered as Reported by: ASHLEY STEVE on 04/01/18825 Rosuvastatin Calcium (Rosuvastatin Calcium) 40 Mg Tablet, 20 MG PO HS, (Reported) Entered as Reported by: ASHLEY STEVE on 04/01/18825 Review of Systems Review of Systems Constitutional: No chills, No diaphoresis EENTM: No ear discharge, No ear pain Respiratory: cough, phlegm, short of breath, wheezing Cardiovascular: No chest pain, No edema Gastrointestinal: No abdominal pain, No nausea, No vomiting Genitourinary: No discharge, No dysuria Musculoskeletal: No back pain, No joint pain All Other Systems Reviewed Negative Unless Noted: Yes Past Jyizqzy-Sgfzld-Degigv Hx Patient Social History Tobacco Use?: No Smoking Status: Former Smoker Use of E-Cig and/or Vaping dev: No Substance use?: No Immunizations Up To Date Tetanus Booster (TDap): Unknown Seasonal Allergies Seasonal Allergies: No Past Medical History Surgeries: Yes (MULTIPLE HERNIA REPAIRS, HEMMORHOIDECTOMY right hemicolectomy) Abdominal, Cardiac Respiratory: Yes Sleep Apnea, COPD Currently Using CPAP: Yes Currently Using BIPAP: No Cardiac: Yes Atrial Fibrillation, Coronary Artery Disease, Hypertension Neurological: Yes Stroke Reproductive Disorders: No Sexually Transmitted Disease: No HIV/AIDS: No Genitourinary: No Gastrointestinal: Yes Gastroesophageal Reflux, Hemorrhoids, Polyps Musculoskeletal: No Endocrine: Yes Diabetes, Insulin dep HEENT: Yes (GLASSES, DENTURES) Loss of Vision: Bilateral Hearing Impairment: Denies Cancer: No Psychosocial: No Integumentary: No Blood Disorders: No Adverse Reaction/Blood Tranf: No (N/A) Family Medical History Family history: Hypertension 03 FATHER, Onset:Unknown 03 MOTHER, Onset:50's - 60 Stroke 03 MOTHER, Onset:50's - 60 No Family History of: Cancer of colon Chest pain Dementia Family history: Alzheimer's disease Family history: Asthma Family history: Diabetes mellitus Kidney disease Myocardial infarction Seizure disorder CVA, Hypertension Physical Exam Vital Signs - First Documented 12/07/21 09:05 Temp 36.9 Pulse 72 Resp 16 B/P (MAP) 182/76 (111) Pulse Ox 95 O2 Delivery Room Air Capillary Refill : Less Than 3 Seconds Height: 5'11.00" Weight: 239lbs. 8.0oz. 108.686723kx; 34.00 BMI Method:Stated General Appearance: WD/WN, mild distress Eyes: Bilateral Eye Normal Inspection, Bilateral Eye PERRL, Bilateral Eye EOMI HEENT: PERRL/EOMI, normal ENT inspection, pharynx normal Neck: full range of motion, supple, normal inspection Respiratory: lungs clear, normal breath sounds, no accessory muscle use, respiratory distress (Mild with oxygen saturations down to 92% after walking in. 98% while at rest and heart rate in the 60s to 70s.), decreased breath sounds; No rales; wheezing ( Small amount of expiratory wheezing bilateral) Cardiovascular: normal peripheral pulses, regular rate, rhythm, no edema Gastrointestinal: normal bowel sounds, non tender, soft Neurologic/Psychiatric: alert, normal mood/affect, oriented x 3 Skin: normal color, warm/dry Progress/Results/Core Measures Suspected Sepsis SIRS Temperature: Pulse: 72 Respiratory Rate: 16 Laboratory Tests 12/07/21 09:15: White Blood Count 8.9 Blood Pressure 182 /76 Mean: 111 Laboratory Tests 12/07/21 09:15: Creatinine 0.90, INR Comment 1.3, Platelet Count 213, Total Bilirubin 0.9 Results/Orders Lab Results Laboratory Tests Test 12/07/21 09:15 12/07/21 09:57 Range/Units White Blood Count 8.9 4.3-11.0 10^3/uL Red Blood Count 5.44 4.30-5.52 10^6/uL Hemoglobin 14.4 13.3-17.7 g/dL Hematocrit 46 40-54 % Mean Corpuscular Volume 84 80-99 fL Mean Corpuscular Hemoglobin 27 25-34 pg Mean Corpuscular Hemoglobin Concent 31 L 32-36 g/dL Red Cell Distribution Width 16.4 H 10.0-14.5 % Platelet Count 213 130-400 10^3/uL Mean Platelet Volume 9.7 9.0-12.2 fL Immature Granulocyte % (Auto) 0 % Neutrophils (%) (Auto) 85 H 42-75 % Lymphocytes (%) (Auto) 6 L 12-44 % Monocytes (%) (Auto) 7 0-12 % Eosinophils (%) (Auto) 1 0-10 % Basophils (%) (Auto) 0 0-10 % Neutrophils # (Auto) 7.6 1.8-7.8 10^3/uL Lymphocytes # (Auto) 0.6 L 1.0-4.0 10^3/uL Monocytes # (Auto) 0.6 0.0-1.0 10^3/uL Eosinophils # (Auto) 0.1 0.0-0.3 10^3/uL Basophils # (Auto) 0.0 0.0-0.1 10^3/uL Immature Granulocyte # (Auto) 0.0 0.0-0.1 10^3/uL Neutrophils % (Manual) 89 % Lymphocytes % (Manual) 6 % Monocytes % (Manual) 5 % Blood Morphology Comment NORMAL Prothrombin Time 16.4 H 12.2-14.7 SEC INR Comment 1.3 0.8-1.4 D-Dimer 0.92 H 0.00-0.49 UG/ML Blood Gas Puncture Site RIGHT RADIAL Blood Gas Patient Temperature 37 Arterial Blood pH 7.47 H 7.37-7.43 Arterial Blood Partial Pressure CO2 36 35-45 MMHG Arterial Blood Partial Pressure O2 70 L 79-93 MMHG Arterial Blood HCO3 26 23-27 MMOL/L Arterial Blood Total CO2 26.6 21.0-31.0 MMOL/L Arterial Blood Oxygen Saturation 96 94-100 % Arterial Blood Base Excess 2.1 -2.5-2.5 MMOL/L Shade Test POSITIVE Blood Gas Ventilator Setting NO Blood Gas Inspired Oxygen N/A Sodium Level 140 135-145 MMOL/L Potassium Level 3.2 L 3.6-5.0 MMOL/L Chloride Level 104 98-107 MMOL/L Carbon Dioxide Level 23 21-32 MMOL/L Anion Gap 13 5-14 MMOL/L Blood Urea Nitrogen 14 7-18 MG/DL Creatinine 0.90 0.60-1.30 MG/DL Estimat Glomerular Filtration Rate 91 BUN/Creatinine Ratio 16 Glucose Level 98 70-105 MG/DL Calcium Level 9.2 8.5-10.1 MG/DL Corrected Calcium 9.2 8.5-10.1 MG/DL Magnesium Level 1.8 1.6-2.4 MG/DL Total Bilirubin 0.9 0.1-1.0 MG/DL Aspartate Amino Transf (AST/SGOT) 19 5-34 U/L Alanine Aminotransferase (ALT/SGPT) 24 0-55 U/L Alkaline Phosphatase 124 40-136 U/L Troponin I 0.040 H <0.028 NG/ML C-Reactive Protein High Sensitivity 1.63 H 0.00-0.50 MG/DL B-Type Natriuretic Peptide 224.4 H <100.0 PG/ML Total Protein 7.3 6.4-8.2 GM/DL Albumin 4.0 3.2-4.5 GM/DL Influenza Type A (RT-PCR) Not Detected Not Detecte Influenza Type B (RT-PCR) Not Detected Not Detecte SARS-CoV-2 RNA (RT-PCR) Not Detected Not Detecte My Orders Orders - RHONDA PEREIRA Ed Iv/Invasive Line Start (12/07/21 09:20) Ns Iv 500 Ml (Sodium Chloride 0.9%) (12/07/21 09:30) Cbc With Automated Diff (12/07/21 09:20) Comprehensive Metabolic Panel (12/07/21 09:20) Hs C Reactive Protein (12/07/21 09:20) Troponin I Aldo (12/07/21 09:20) Continuous Ekg Monitoring (12/07/21 09:20) Ekg Tracing (12/07/21 09:20) Magnesium (12/07/21 09:20) Arterial Blood Gas (12/07/21 09:20) Covid 19 Inhouse Test (12/07/21 09:20) Influenza A And B By Pcr (12/07/21 09:20) Albuterol/Ipra Inhalation Soln (Duoneb I (12/07/21 09:30) Chest 1 View, Ap/Pa Only (12/07/21 09:20) Svn Small Volume Nebulizer (12/07/21 09:20) Bnp Darke (12/07/21 09:20) Manual Differential (12/07/21 09:15) Ct Angio Chest W (12/07/21 10:44) Protime With Inr (12/07/21 10:44) Fibrin Degradation Products (12/07/21 10:44) Iohexol Injection (Omnipaque 350 Mg/Ml 1 (12/07/21 11:00) Received Contrast (Hold Metformin- Contr (12/07/21 11:00) Ns (Ivpb) (Sodium Chloride 0.9% Ivpb Bag (12/07/21 11:00) Blood Culture (12/07/21 11:44) Azithromycin Tablet (Zithromax Tablet) (12/07/21 11:45) Ed Admission (Communication) (12/07/21 12:00) Medications Given in ED Current Medications Medications Dose Ordered Sig/Silva Route Start Time Stop Time Status Last Admin Dose Admin Albuterol/ Ipratropium 3 ml ONCE ONCE INH 12/07/21 09:30 12/07/21 09:31 DC 12/07/21 10:37 3 ML Iohexol 100 ml ONCE ONCE IV 12/07/21 11:00 12/07/21 11:01 DC 12/07/21 11:02 90 ML Sodium Chloride 100 ml ONCE ONCE IV 12/07/21 11:00 12/07/21 11:01 DC 12/07/21 11:03 80 ML Sodium Chloride 500 ml @ 0 mls/hr Q0M ONCE IV 12/07/21 09:30 12/07/21 09:31 DC 12/07/21 09:56 500 MLS/HR Vital Signs/I&O 12/07/21 09:05 Temp 36.9 Pulse 72 Resp 16 B/P (MAP) 182/76 (111) Pulse Ox 95 O2 Delivery Room Air Capillary Refill : Less Than 3 Seconds Blood Pressure Mean: 111 Progress Note #1: Time: 09:27 Progress Note EKG, chest x-ray, labs, ABG, Covid and influenza. DuoNeb Progress Note #2: Time: 10:41 Progress Note Markers of infection are not significantly elevated but troponin is detectable. No ST changes on the EKG. His BNP is pretty much at baseline between one and 400. ABG reveals hypoxemia that he is compensating for with his increased respiratory rate. Plan to offer him a stay in the hospital for some oxygen and repeat troponins. We will get a D-dimer, PT/INR and CT angiogram. Patient supposed to be on Eliquis but he stopped it last week in anticipation for surgery next week. ECG Initial ECG Impression Date: Dec 07, 2021 Initial ECG Impression Time: 09:25 Initial ECG Rate: 93 Initial ECG Rhythm: A Fib/Flutter Initial ECG Intervals: QT (423) Initial ECG Impression: Normal, Nonspecific Changes Initial ECG Comparisson: Unchanged Comment Atrial fibrillation without clinically relevant ST changes. Diagnostic Imaging Diagonstic Imaging: Xray Plain Films/CT/US/NM/MRI: chest Comments [facility], [place] NAME: MERY GARCIA [employer] REC#: [id number] PT STATUS: REG ER : 1950 PHYSICIAN: RHONDA PEREIRA MD ADMIT DATE: 12/07/21/ER Draft Date of Exam:12/07/21 CHEST 1 VIEW, AP/PA ONLY INDICATION: SOA COMPARISON: 11/23/2019 FINDINGS: Single frontal view of the chest demonstrates moderate cardiomegaly. Pulmonary vasculature however is within normal limits. The lungs are well aerated and clear. No large pleural effusion or pneumothorax is seen. The visualized osseous structures show no acute abnormalities. IMPRESSION: 1. Interval progression of moderate cardiomegaly, but no evidence of failure or focal infiltrate. Dictated on workstation # [id number] Dict: 12/07/21 1015 Trans: 12/07/21 1017 [facility] [id number] Interpreted by: KNENETH FONTANEZ MD Electronically signed by: Reviewed: Reviewed by Me Diagonstic Imaging: CT Plain Films/CT/US/NM/MRI: chest Comments [facility], [place] NAME: MERY GARCIA [employer] REC#: [id number] PT STATUS: REG ER : 1950 PHYSICIAN: RHONDA PEREIRA MD ADMIT DATE: 12/07/21/ER Draft Date of Exam:12/07/21 CT ANGIO CHEST W PROCEDURE: CT angiography of the chest with contrast. TECHNIQUE: Multiple contiguous axial images were obtained through the chest after uneventful bolus administration of intravenous contrast. 3D reconstructed CTA MIP acquisitions were also performed. Auto Exposure Controls were utilized during the CT exam to meet ALARA standards for radiation dose reduction. INDICATION: COPD, shortness of air, cough. COMPARED with a chest CT 08/31/2021 FINDINGS: Pulmonary arterial branches are opacified, patent, no filling defect, no PE. The thoracic aorta is atherosclerotic but patent and nonaneurysmal. Coronary artery atherosclerotic vascular calcifications, chronic. There is minute left and small right pleural effusions, new from prior. The right pleural fluid layers to a depth averaging 2 cm. The heart is mildly enlarged. There is mild prominence of the pulmonary venous structures as well as smooth septal thickening, likely mild interstitial edema and reflective of mild failure pattern. No pneumothorax. Some partial atelectasis juxta fissural in the right middle lobe as well as the dependent lower lobes. No consolidating pneumonia. No lung mass. A left supraclavicular node today 2.0 x 1.6 cm, previously 1.8 x 1.1 cm. There is increasing size and number of bilateral greater left axillary lymphadenopathy. The largest left axillary node today 2.2 x 1.6 cm, previously 1.7 x 0.6 cm. A more spherical nodule posteriorly in the left axilla has a diameter of 1.8 cm today, previously 1.6 cm. The lower right paratracheal mediastinal node short axis 12 mm today, previously 9 mm and upper right paratracheal mediastinal node today 2.3 x 1.0 cm, previously 1.6 x 0.8 cm. Subcarinal adenopathy today in the neck with a short axis AP thickness 2.2 cm, previously 1.2 cm. Posterior mediastinal and paraesophageal adenopathy, increased. The largest mass 2.8 x 1.7 cm, previously 2.7 x 1.6 cm. Upper abdominal, retrocrural and periaortic adenopathy showed mild increase. Low-density nodule right hepatic lobe believed cystic, stable. The spleen not enlarged where visualized. No acute bony abnormality. IMPRESSION: 1. Negative for PE or acute aortic disease. 2. Progressive thoracic and upper abdominal lymphadenopathy, worrisome for neoplastic involvement. 3. Cardiomegaly, vascular congestion, small effusions and likely mild septal interstitial edema, correlate for failure versus hypervolemia. 4. Not mentioned above, a gallstone present without visualized features of cholecystitis. Dictated on workstation # [id number] Dict: 12/07/21 1110 Trans: 12/07/21 1124 [facility] [id number] Interpreted by: LAVERNE DE PAZ Electronically signed by: Reviewed: Reviewed by Me Departure Communication (Admissions) Time/Spoke to Admitting Phy: 11:49 Dr Jones agrees with admission and she will put an queued orders. Consult with cardiology Time/Spoke to Consulting Phy: 11:55 Dr. Acuña agrees to consult on the case Impression Primary Impression: Pneumonia Additional Impressions: Acute respiratory failure with hypoxemia Acute heart failure Qualified Codes: I50.9 - Heart failure, unspecified Elevated troponin I level Disposition: ADMITTED INPATIENT Condition: Stable Admissions Decision to Admit Reason: Admit from ER (General) Decision to Admit/Date: Dec 07, 2021 Time/Decision to Admit Time: 11:35 Departure-Patient Inst. Referrals: [facility] (PCP) Primary Care Physician JANEL LENNON (Family) Primary Care Physician RHONDA PEREIRA Dec 07, 2021 09:28
[2021-12-07 09:30] LABS: BASOPHILS % (AUTO) 0 % (0-10); EOSINOPHILS # (AUTO) 0.1 10^3/uL (0.0-0.3); EOSINOPHILS % (AUTO) 1 % (0-10); HEMATOCRIT 46 % (40-54); HEMOGLOBIN 14.4 g/dL (13.3-17.7); LYMPHOCYTES # (AUTO) 0.6 10^3/uL (1.0-4.0); LYMPHOCYTES % (AUTO) 6 % (12-44); MEAN CORPUSCULAR HEMOGLOBIN 27 pg (25-34); MEAN CORPUSCULAR HGB CONC 31 g/dL (32-36); MEAN CORPUSCULAR VOLUME 84 fL (80-99); MEAN PLATELET VOLUME 9.7 fL (9.0-12.2); MONOCYTES # (AUTO) 0.6 10^3/uL (0.0-1.0); MONOCYTES % (AUTO) 7 % (0-12); NEUTROPHILS # (AUTO) 7.6 10^3/uL (1.8-7.8); NEUTROPHILS % (AUTO) 85 % (42-75); PLATELET COUNT 213 10^3/uL (130-400); WHITE BLOOD COUNT 8.9 10^3/uL (4.3-11.0)
[2021-12-07] MEDS ORDERED: NS IV 500 ML 500 ML IV ONE (09:30)
[2021-12-07] MEDS ORDERED: RT-ALBUTEROL/IPRATROPIUM 3 ML (DUONEB) VIAL INH ONE (09:30)
[2021-12-07 09:32] LABS: ABG BASE EXCESS 2.1 MMOL/L (-2.5-2.5); ABG OXYGEN SATURATION 96 % (94-100); ABG PCO2 36 MMHG (35-45); ABG PH 7.47 (7.37-7.43); ABG PO2 70 MMHG (79-93); ABG TCO2 26.6 MMOL/L (21.0-31.0)
[2021-12-07 09:34] LABS: ALLENS TEST POSITIVE; PATIENT TEMP 37; VENTILATOR NO
[2021-12-07 09:36] LABS: POTASSIUM 3.2 MMOL/L (3.6-5.0)
[2021-12-07 09:38] LABS: CALCIUM 9.2 MG/DL (8.5-10.1)
[2021-12-07 09:39] LABS: TOTAL PROTEIN 7.3 GM/DL (6.4-8.2)
[2021-12-07 09:41] LABS: BILIRUBIN,TOTAL 0.9 MG/DL (0.1-1.0)
[2021-12-07 09:42] LABS: CREATININE SERUM 0.9 MG/DL (0.60-1.30)
[2021-12-07 09:45] LABS: MAGNESIUM 1.8 MG/DL (1.6-2.4)
[2021-12-07 09:56] LABS: LYMPHOCYTES % (MANUAL) 6 %; MONOCYTES % (MANUAL) 5 %; NEUTROPHILS % (MANUAL) 89 %; RBC MORPH NORMAL
--- NOTE | 2021-12-07 10:17 | Diagnostic Imaging Report ---
INDICATION: SOA COMPARISON: 11/23/2019 FINDINGS: Single frontal view of the chest demonstrates moderate cardiomegaly. Pulmonary vasculature however is within normal limits. The lungs are well aerated and clear. No large pleural effusion or pneumothorax is seen. The visualized osseous structures show no acute abnormalities. IMPRESSION: 1. Interval progression of moderate cardiomegaly, but no evidence of failure or focal infiltrate. Dictated by: Dictated on workstation # [id number]
[2021-12-07] MEDS ORDERED: IOHEXOL 350 MG/ML 100 ML (OMNIPAQUE 350) VIAL IV ONE (11:00)
[2021-12-07] MEDS ORDERED: HOLD METFORMIN - RECEIVED CONTRAST 20 ML VIAL IV SCH (11:00)
[2021-12-07] MEDS ORDERED: NS 100 ML (IVPB) BAG IV ONE (11:00)
[2021-12-07 11:02] LABS: FIBRIN DEGRADATION PRODUCTS 0.92 UG/ML (0.00-0.49); INR 1.3 (0.8-1.4); PROTHROMBIN TIME PATIENT 16.4 SEC (12.2-14.7)
--- NOTE | 2021-12-07 11:25 | Diagnostic Imaging Report ---
PROCEDURE: CT angiography of the chest with contrast. TECHNIQUE: Multiple contiguous axial images were obtained through the chest after uneventful bolus administration of intravenous contrast. 3D reconstructed CTA MIP acquisitions were also performed. Auto Exposure Controls were utilized during the CT exam to meet ALARA standards for radiation dose reduction. INDICATION: COPD, shortness of air, cough. COMPARED with a chest CT 08/31/2021 FINDINGS: Pulmonary arterial branches are opacified, patent, no filling defect, no PE. The thoracic aorta is atherosclerotic but patent and nonaneurysmal. Coronary artery atherosclerotic vascular calcifications, chronic. There is minute left and small right pleural effusions, new from prior. The right pleural fluid layers to a depth averaging 2 cm. The heart is mildly enlarged. There is mild prominence of the pulmonary venous structures as well as smooth septal thickening, likely mild interstitial edema and reflective of mild failure pattern. No pneumothorax. Some partial atelectasis juxta fissural in the right middle lobe as well as the dependent lower lobes. No consolidating pneumonia. No lung mass. A left supraclavicular node today 2.0 x 1.6 cm, previously 1.8 x 1.1 cm. There is increasing size and number of bilateral greater left axillary lymphadenopathy. The largest left axillary node today 2.2 x 1.6 cm, previously 1.7 x 0.6 cm. A more spherical nodule posteriorly in the left axilla has a diameter of 1.8 cm today, previously 1.6 cm. The lower right paratracheal mediastinal node short axis 12 mm today, previously 9 mm and upper right paratracheal mediastinal node today 2.3 x 1.0 cm, previously 1.6 x 0.8 cm. Subcarinal adenopathy today in the neck with a short axis AP thickness 2.2 cm, previously 1.2 cm. Posterior mediastinal and paraesophageal adenopathy, increased. The largest mass 2.8 x 1.7 cm, previously 2.7 x 1.6 cm. Upper abdominal, retrocrural and periaortic adenopathy showed mild increase. Low-density nodule right hepatic lobe believed cystic, stable. The spleen not enlarged where visualized. No acute bony abnormality. IMPRESSION: 1. Negative for PE or acute aortic disease. 2. Progressive thoracic and upper abdominal lymphadenopathy, worrisome for neoplastic involvement. 3. Cardiomegaly, vascular congestion, small effusions and likely mild septal interstitial edema, correlate for failure versus hypervolemia. 4. Not mentioned above, a gallstone present without visualized features of cholecystitis. Dictated by: Dictated on workstation # [id number]
[2021-12-07] MEDS ORDERED: AZITHROMYCIN 250 MG TAB (ZITHROMAX) PO ONE (11:45)
[2021-12-07] MEDS ORDERED: ONDANSETRON 4 MG/2 ML (SDV) Z0FRAN IV PRN (12:15)
[2021-12-07] MEDS ORDERED: diphenhydrAMINE 50 MG/ML INJ (BENADRYL) IVP PRN (12:15)
[2021-12-07] MEDS ORDERED: MELATONIN 3 MG TABLET PO PRN (12:15)
[2021-12-07] MEDS ORDERED: CALCIUM CARBONATE 500 MG (TUMS) TAB.CHEW PO PRN (12:15)
[2021-12-07] MEDS ORDERED: BISACODYL 10 MG SUPP (DULCOLAX) PR PRN (12:15)
[2021-12-07] MEDS ORDERED: morphine INJ 4 MG/ML 1 ML (VIAL/SYRINGE) IV PRN (12:15)
[2021-12-07] MEDS ORDERED: polyethylene glycoL POWDER 17 GM (MIRALAX) PACK PO PRN (12:15)
[2021-12-07] MEDS ORDERED: ANTACID SUSP 30 ML UDC (MYLANTA) PO PRN (12:15)
[2021-12-07] MEDS ORDERED: diphenhydrAMINE 25 MG TAB (BENADRYL) PO PRN (12:15)
[2021-12-07] MEDS ORDERED: ACETAMINOPHEN 325 MG TABLET PO PRN (12:15)
[2021-12-07] MEDS ORDERED: LACTULOSE SYRUP 10GM/15ML (ENULOSE) 30ML UDC PO PRN (12:15)
[2021-12-07] MEDS ORDERED: PATIENT MAY USE OWN MEDS, ALL PO SCH (12:15)
[2021-12-07] MEDS ORDERED: ONDANSETRON 4 MG (ZOFRAN) ORAL DISSOLVE TAB PO PRN (12:15)
[2021-12-07] MEDS ORDERED: ENOXAPARIN 40 MG/0.4 ML (LOVENOX) SYR SC SCH (12:15)
[2021-12-07] MEDS ORDERED: MILK OF MAGNESIA 400 MG/5 ML 30 ML UDC PO PRN (12:15)
--- NOTE | 2021-12-07 12:44 | History & Physical-Hospitalist ---
History of Present Illness HPI/Chief Complaint CC: Pneumonia HPI: 71 yr old WM with history of atrial fibrillation managed by Dr. Hannon. Pt presented with SOB. PO2 on ABG was 70. He doesn't normally use oxygen. Duonebs doesn't really help him. He does have an elevated BNP which will be managed by Dr. Acuña. Clementine has been off for 7 days in preparation for a nephrectomy at . is at the bedside. Pt does have diminished breath sounds and he is requiring oxygen. So we will order breathing treatments also. Source: patient, family Exam Limitations: no limitations Date Seen 12/07/21 Time Seen by a Provider: 12:45 Attending Physician Maye Jones DO [facility] Referring Physician Date of Admission Dec 07, 2021 at 12:01 Home Medications & Allergies Home Medications Reviewed patient Home Medication Reconciliation performed by pharmacy medication reconciliations sleep lab technician and/or nursing. Patients Allergies have been reviewed. Allergies Allergies Coded Allergies No Known Drug Allergies (Unverified12/07/21) Past Cskcmor-Kqearj-Cmukuv Hx Patient Social History Marrital Status: Employed/Student: retired Tobacco Use?: No Smoking Status: Former Smoker Use of E-Cig and/or Vaping dev: No Substance use?: No Alcohol Use?: Yes Alcohol Frequency: Rarely Immunizations Up To Date Date of Influenza Vaccine: Oct 21, 2019 Tetanus Booster (TDap): Unknown Date of Pneumonia Vaccine: Oct 21, 2019 Seasonal Allergies Seasonal Allergies: No Current Status Advance Directives: No Primary Language: Citizen Of [place] Preferred Spoken Language: Citizen Of [place] Past Medical History Surgeries: Abdominal, Cardiac Sleep Apnea, COPD Currently Using CPAP: Yes Currently Using BIPAP: No Atrial Fibrillation, Coronary Artery Disease, Hypertension Stroke Sexually Transmitted Disease: No HIV/AIDS: No Gastroesophageal Reflux, Hemorrhoids, Polyps Diabetes, Insulin dep Loss of Vision: Bilateral Hearing Impairment: Denies Blood Disorders: No Adverse Reaction/Blood Tranf: No (N/A) Family Medical History Family history: Hypertension 03 FATHER, Onset:Unknown 03 MOTHER, Onset:50's - 60 Stroke 03 MOTHER, Onset:50's - 60 No Family History of: Cancer of colon Chest pain Dementia Family history: Alzheimer's disease Family history: Asthma Family history: Diabetes mellitus Kidney disease Myocardial infarction Seizure disorder CVA, Hypertension Review of Systems Constitutional: see HPI, malaise, weakness EENTM: no symptoms reported Respiratory: cough, dyspnea on exertion Cardiovascular: no symptoms reported Gastrointestinal: no symptoms reported Genitourinary: no symptoms reported Musculoskeletal: no symptoms reported Skin: no symptoms reported Psychiatric/Neurological: No Symptoms Reported All Other Systems Reviewed Negative Unless Noted: Yes Physical Exam Physical Exam Vital Signs Vital Signs - First Documented 12/07/21 12/07/21 12/07/21 09:05 11:45 14:59 Temp 36.9 Pulse 72 Resp 16 B/P (MAP) 182/76 (111) Pulse Ox 95 O2 Delivery Room Air O2 Flow Rate 2.00 FiO2 97 Capillary Refill : Less Than 3 Seconds Height, Weight, BMI Height: 5'11.00" Weight: 239lbs. 8.0oz. 108.086859ha; 34.00 BMI Method:Stated General Appearance: No Apparent Distress, Chronically ill Eyes: Right Eye Normal Inspection, Right Eye PERRL HEENT: PERRL/EOMI, Normal ENT Inspection, Pharynx Normal, Moist Mucous Membranes Neck: Full Range of Motion, Normal Inspection, Non Tender Respiratory: Chest Non Tender, No Accessory Muscle Use, No Respiratory Distress, Decreased Breath Sounds Cardiovascular: No Edema, No Gallop, No JVD, No Murmur, Normal Peripheral Pulses, Irregularly Irregular Gastrointestinal: Normal Bowel Sounds, No Organomegaly, No Pulsatile Mass, Non Tender, Soft Back: Normal Inspection, No CVA Tenderness, No Vertebral Tenderness Extremity: Normal Capillary Refill, Normal Inspection, Normal Range of Motion, Non Tender, No Calf Tenderness, No Pedal Edema Neurologic/Psychiatric: Alert, Oriented x3, No Motor/Sensory Deficits, Normal Mood/Affect Skin: Normal Color, Warm/Dry Lymphatic: No Adenopathy Results Results/Procedures Labs Laboratory Tests 12/07/21 09:15 Patient resulted labs reviewed. Assessment/Plan Admission Diagnosis Assessment: Acute exacerbation COPD Acute hypoxic respiratory failure Congestive heart failure Atrial fibrillation CAD Plan: IV steroids IV antibiotics Admission Status: Inpatient Order (span 2 midnights) Reason for Inpatient Admission: Hypoxia with COPD exacerbation MAYE JONES DO Dec 07, 2021 12:44
[2021-12-07] MEDS: cefTRIAXone 1 GM PRE-MIX 50 ML IV SCH (12:52)
[2021-12-07 12:55] VITALS: BP 183/73
[2021-12-07] MEDS ORDERED: KCL 20 MEQ TAB (K-DUR) PO NR (13:00)
--- NOTE | 2021-12-07 13:04 | Consultation-Cardiology ---
HPI-Cardiology Cardiology Consultation Date of Consultation 12/07/21 Date of Admission Time Seen by Provider: 12:45 Indication: Shortness of breath HPI 71-year-old gentleman with history of chronic atrial fibrillation, hypertension hyperlipidemia, has been having increasing dyspnea on exertion which has been worsening recently. Patient is scheduled for nephrectomy. He was scheduled to see me in the office today covering for Dr. Hannon for clearance for surgery. He denied any chest pain. No syncope or near syncopal episodes. No claudication. Has been having worsening pedal edema. On my evaluation he was feeling somewhat better. Home Medications & Allergies Allergies: Coded Allergies: No Known Drug Allergies (Unverified , 12/07/21) Home Medication List Reviewed: Yes LRV-Jfgdxz-Skpwil Hx Patient Social History Marital Status: Employed/Student: retired Smoking Status: Former Smoker Former smoker/When Quit: Apr 26, 1994 Type Used: Cigarettes Recent Hopitalizations: Yes (JUL 2018) Have you traveled recently?: No Alcohol Use?: Yes Immunizations Up To Date Tetanus Booster (TDap): Unknown Date of Pneumonia Vaccine: Oct 21, 2019 Date of Influenza Vaccine: Oct 21, 2019 Past Medical History Discussed below Family Medical History Significant Family History: CVA, Hypertension Family History: Family history: Hypertension 03 FATHER, Onset:Unknown 03 MOTHER, Onset:50's - 60 Stroke 03 MOTHER, Onset:50's - 60 No Family History of: Cancer of colon Chest pain Dementia Family history: Alzheimer's disease Family history: Asthma Family history: Diabetes mellitus Kidney disease Myocardial infarction Seizure disorder Review of Systems-General Review of Systems Constitutional: see HPI; No chills, No diaphoresis; malaise, weakness EENTM: No ear discharge, No ear pain Respiratory: see HPI, cough, dyspnea on exertion; No hemoptysis, No orthopnea; phlegm, short of breath; No stridor; wheezing; No other Cardiovascular: no symptoms reported, see HPI; No chest pain; edema; No Hx of Intervention, No palpitations, No syncope, No vascular heart diseas, No other Gastrointestinal: see HPI; No abdominal pain, No nausea, No vomiting Genitourinary: see HPI; No discharge, No dysuria Musculoskeletal: see HPI; No back pain, No joint pain Skin: see HPI Psychiatric/Neurological: See HPI All Other Systems Reviewed Negative Unless Noted: Yes Reviewed Test Results Reviewed Test Results Lab Laboratory Tests Test 12/07/21 09:15 12/07/21 09:57 Range/Units White Blood Count 8.9 4.3-11.0 10^3/uL Red Blood Count 5.44 4.30-5.52 10^6/uL Hemoglobin 14.4 13.3-17.7 g/dL Hematocrit 46 40-54 % Mean Corpuscular Volume 84 80-99 fL Mean Corpuscular Hemoglobin 27 25-34 pg Mean Corpuscular Hemoglobin Concent 31 L 32-36 g/dL Red Cell Distribution Width 16.4 H 10.0-14.5 % Platelet Count 213 130-400 10^3/uL Mean Platelet Volume 9.7 9.0-12.2 fL Immature Granulocyte % (Auto) 0 % Neutrophils (%) (Auto) 85 H 42-75 % Lymphocytes (%) (Auto) 6 L 12-44 % Monocytes (%) (Auto) 7 0-12 % Eosinophils (%) (Auto) 1 0-10 % Basophils (%) (Auto) 0 0-10 % Neutrophils # (Auto) 7.6 1.8-7.8 10^3/uL Lymphocytes # (Auto) 0.6 L 1.0-4.0 10^3/uL Monocytes # (Auto) 0.6 0.0-1.0 10^3/uL Eosinophils # (Auto) 0.1 0.0-0.3 10^3/uL Basophils # (Auto) 0.0 0.0-0.1 10^3/uL Immature Granulocyte # (Auto) 0.0 0.0-0.1 10^3/uL Neutrophils % (Manual) 89 % Lymphocytes % (Manual) 6 % Monocytes % (Manual) 5 % Blood Morphology Comment NORMAL Prothrombin Time 16.4 H 12.2-14.7 SEC INR Comment 1.3 0.8-1.4 D-Dimer 0.92 H 0.00-0.49 UG/ML Blood Gas Puncture Site RIGHT RADIAL Blood Gas Patient Temperature 37 Arterial Blood pH 7.47 H 7.37-7.43 Arterial Blood Partial Pressure CO2 36 35-45 MMHG Arterial Blood Partial Pressure O2 70 L 79-93 MMHG Arterial Blood HCO3 26 23-27 MMOL/L Arterial Blood Total CO2 26.6 21.0-31.0 MMOL/L Arterial Blood Oxygen Saturation 96 94-100 % Arterial Blood Base Excess 2.1 -2.5-2.5 MMOL/L Shade Test POSITIVE Blood Gas Ventilator Setting NO Blood Gas Inspired Oxygen N/A Sodium Level 140 135-145 MMOL/L Potassium Level 3.2 L 3.6-5.0 MMOL/L Chloride Level 104 98-107 MMOL/L Carbon Dioxide Level 23 21-32 MMOL/L Anion Gap 13 5-14 MMOL/L Blood Urea Nitrogen 14 7-18 MG/DL Creatinine 0.90 0.60-1.30 MG/DL Estimat Glomerular Filtration Rate 91 BUN/Creatinine Ratio 16 Glucose Level 98 70-105 MG/DL Calcium Level 9.2 8.5-10.1 MG/DL Corrected Calcium 9.2 8.5-10.1 MG/DL Magnesium Level 1.8 1.6-2.4 MG/DL Total Bilirubin 0.9 0.1-1.0 MG/DL Aspartate Amino Transf (AST/SGOT) 19 5-34 U/L Alanine Aminotransferase (ALT/SGPT) 24 0-55 U/L Alkaline Phosphatase 124 40-136 U/L Troponin I 0.040 H <0.028 NG/ML C-Reactive Protein High Sensitivity 1.63 H 0.00-0.50 MG/DL B-Type Natriuretic Peptide 224.4 H <100.0 PG/ML Total Protein 7.3 6.4-8.2 GM/DL Albumin 4.0 3.2-4.5 GM/DL Influenza Type A (RT-PCR) Not Detected Not Detecte Influenza Type B (RT-PCR) Not Detected Not Detecte SARS-CoV-2 RNA (RT-PCR) Not Detected Not Detecte Physical Exam Physical Exam Vital Signs Vital Signs - First Documented 12/07/21 12/07/21 12/07/21 09:05 11:45 14:59 Temp 36.9 Pulse 72 Resp 16 B/P (MAP) 182/76 (111) Pulse Ox 95 O2 Delivery Room Air O2 Flow Rate 2.00 FiO2 97 Capillary Refill : Less Than 3 Seconds Height, Weight, BMI Height: 5'11.00" Weight: 239lbs. 8.0oz. 108.708455hf; 34.00 BMI Method:Stated General Appearance: No Apparent Distress, WD/WN Eyes: Bilateral Eye Normal Inspection, Bilateral Eye PERRL, Bilateral Eye EOMI HEENT: PERRL/EOMI, TMs Normal, Normal ENT Inspection, Pharynx Normal, Moist Mucous Membranes Neck: Full Range of Motion, Normal Inspection, Non Tender, Supple, Carotid Bruit Respiratory: Chest Non Tender, Normal Breath Sounds, No Accessory Muscle Use, No Respiratory Distress Cardiovascular: No Gallop, No JVD, Normal Peripheral Pulses, Systolic Murmur Gastrointestinal: Normal Bowel Sounds, No Organomegaly, No Pulsatile Mass, Non Tender, Soft Back: Normal Inspection, No CVA Tenderness, No Vertebral Tenderness Extremity: Normal Capillary Refill, Normal Inspection, Normal Range of Motion, Non Tender, No Calf Tenderness, Pedal Edema Neurologic/Psychiatric: Alert, Oriented x3, No Motor/Sensory Deficits, Normal Mood/Affect Skin: Normal Color, Warm/Dry Lymphatic: No Adenopathy A/P-Cardiology Admission Diagnosis Shortness of breath Acute on chronic left ventricular diastolic dysfunction Type II non-ST elevation myocardial infarction Hypertension Assessment/Plan Shortness of breath, congestive heart failure, acute decompensated left ventricular diastolic dysfunction, last echocardiogram was reported with ejection fraction 55 to 60% done in May 2021, repeat 2D echocardiogram. Mild elevation in troponin, probably type II myocardial infarction secondary to hypoxemia, cardiac catheterization was done in May 2017 reported mild to moderate disease, 70% of the distal circumflex artery, relatively small artery not amendable to intervention, had a stress test done in May 2021 showing no significant ischemia or infarction with ejection fraction 52%, medical therapy was recommended, continue to monitor cardiac enzymes and EKG. Paroxysmal atrial fibrillation with rapid ventricular response, having episodes of symptomatic bradycardia, history of tachybradycardia syndrome. Had a Holter monitor done in March 2020 showing atrial fibrillation with rates ranging between 30 and 101 with one episode of 3 seconds pause. It was felt that it was due to diltiazem and improved after reducing the dose. Chronic dyspnea, multifactorial with COPD, CHF, diastolic dysfunction, obstructive sleep apnea, History of GI bleed, capsule endoscopy was done by Dr. Vaca in 2018, had a bleeding site at the duodenum/jejunum. Had endoscopic treatment done in February [address] Vaca. Peripheral arterial disease, mild to moderate disease in the lower extremities, nonobstructive disease, followed by Dr. Hannon Diabetes mellitus, followed regularly by primary care physician Hyperlipidemia, continue to monitor lipids Mild bilateral carotid stenosis, followed by Dr. Hannon Tobaccoism, stopped smoking in 1999 Chronic bilateral lower extremities edema, some improvement after reducing amlodipine. Renal cell carcinoma, patient is scheduled for nephrectomy on December 13 2021. ANDI ZAMORA MD Dec 07, 2021 13:04
[2021-12-07] MEDS: hydrALAZINE (APRESOLINE) 25 MG TAB PO SCH ×2 (13:22→19:45)
[2021-12-07 13:47] VITALS: BP 183/73
[2021-12-07] MEDS ORDERED: RT-ALBUTEROL/IPRATROPIUM 3 ML (DUONEB) VIAL INH PRN (14:00)
[2021-12-07] MEDS: RT-ALBUTEROL/IPRATROPIUM 3 ML (DUONEB) VIAL INH SCH ×3 (14:59→22:02)
[2021-12-07] MEDS ORDERED: ROPI3TAB4 PO (15:34)
[2021-12-07] MEDS ORDERED: FLUT1DIS26 IH (15:34)
[2021-12-07] MEDS ORDERED: EMPA25TA PO (15:34)
[2021-12-07] MEDS ORDERED: ASPI-1238 PO (15:34)
[2021-12-07] MEDS ORDERED: INSU100I14 SQ (15:46)
[2021-12-07 16:00] VITALS: BP 187/79
[2021-12-07] MEDS: FUROSEMIDE 40 MG/4 ML INJ (LASIX) IVP SCH (16:15)
[2021-12-07] MEDS ORDERED: ROPI2TAB6 PO (16:37)
[2021-12-07 19:24] VITALS: BP 177/77
[2021-12-07] MEDS: SENNOSIDES 8.6 MG (SENOKOT) TAB PO SCH (19:45)
[2021-12-07] MEDS: APIXABAN 5 MG (ELIQUIS) TABLET PO SCH (19:45)
[2021-12-07] MEDS: DOCUSATE SODIUM 100 MG (COLACE) CAP PO SCH (19:45)
[2021-12-07] MEDS ORDERED: ROPINIROLE HCL PO SCH (21:00)
[2021-12-07] MEDS ORDERED: NON-FORMULARY MEDICATION 1 EA EA (Fluticasone/Salmeterol (Advair 250-50 Diskus) 1 EACH) IH SCH (21:00)
[2021-12-07] MEDS ORDERED: NON-FORMULARY MEDICATION 1 EA EA (Hydralazine HCl 100 MG) PO SCH (21:00)
[2021-12-07] MEDS ORDERED: NON-FORMULARY MEDICATION 1 EA EA (Rosuvastatin Calcium 20 MG) PO SCH (21:00)
[2021-12-07] MEDS ORDERED: NON-FORMULARY MEDICATION 1 EA EA (Potassium Chloride 20 MEQ) PO SCH (21:00)
[2021-12-07 23:52] VITALS: BP 161/71
[2021-12-07] MEDS ORDERED: ASPIRIN E.C. 81 MG (ECOTRIN) TAB PO SCH (23:59)
[2021-12-08] MEDS: APIXABAN 5 MG (ELIQUIS) TABLET PO SCH ×3 (00:10→09:51)
[2021-12-08] MEDS: FLUTICASONE NASAL SPRAY (FLONASE) 16 GM BTL NS SCH ×2 (00:40→09:57)
[2021-12-08] MEDS: RT-ALBUTEROL/IPRATROPIUM 3 ML (DUONEB) VIAL INH SCH ×4 (02:44→14:58)
[2021-12-08 04:14] VITALS: BP 138/72
[2021-12-08] MEDS: FUROSEMIDE 40 MG/4 ML INJ (LASIX) IVP SCH (05:49)
[2021-12-08] MEDS: hydrALAZINE (APRESOLINE) 25 MG TAB PO SCH (05:50)
--- NOTE | 2021-12-08 06:04 | Progress Note - Hospitalist ---
Subjective HPI/CC On Admission Date Seen by Provider: Dec 08, 2021 CC: Pneumonia HPI: 71 yr old WM with history of atrial fibrillation managed by Dr. Hannon. Pt presented with SOB. PO2 on ABG was 70. He doesn't normally use oxygen. Duonebs doesn't really help him. He does have an elevated BNP which will be managed by Dr. Acuña. Clementine has been off for 7 days in preparation for a nephrectomy at . is at the bedside. Pt does have diminished breath sounds and he is requiring oxygen. So we will order breathing treatments also. Objective Exam Vital Signs Vital Signs Date Time Temp Pulse Resp B/P (MAP) Pulse Ox O2 Delivery O2 Flow Rate FiO2 12/08/21 14:58 Room Air 97.00 96 12/08/21 11:43 37.0 87 20 169/72 (104) 96 Capillary Refill : Less Than 3 Seconds Results/Procedures Lab Laboratory Tests 12/08/21 06:14 12/08/21 07:08 Patient resulted labs reviewed. DOMITILA MULLINS DO Dec 08, 2021 06:04
[2021-12-08 06:23] LABS: BASOPHILS % (AUTO) 0 % (0-10); EOSINOPHILS % (AUTO) 0 % (0-10); HEMATOCRIT 44 % (40-54); HEMOGLOBIN 13.8 g/dL (13.3-17.7); LYMPHOCYTES # (AUTO) 0.8 10^3/uL (1.0-4.0); LYMPHOCYTES % (AUTO) 9 % (12-44); MEAN CORPUSCULAR HEMOGLOBIN 26 pg (25-34); MEAN CORPUSCULAR HGB CONC 31 g/dL (32-36); MEAN CORPUSCULAR VOLUME 85 fL (80-99); MEAN PLATELET VOLUME 9.8 fL (9.0-12.2); MONOCYTES # (AUTO) 0.7 10^3/uL (0.0-1.0); MONOCYTES % (AUTO) 8 % (0-12); NEUTROPHILS # (AUTO) 7.4 10^3/uL (1.8-7.8); NEUTROPHILS % (AUTO) 82 % (42-75); PLATELET COUNT 194 10^3/uL (130-400); WHITE BLOOD COUNT 9.1 10^3/uL (4.3-11.0)
[2021-12-08 07:28] LABS: ALBUMIN 3.9 GM/DL (3.2-4.5); POTASSIUM 3.4 MMOL/L (3.6-5.0)
[2021-12-08 07:29] LABS: CALCIUM 8.8 MG/DL (8.5-10.1)
[2021-12-08 07:30] LABS: TOTAL PROTEIN 7.3 GM/DL (6.4-8.2)
[2021-12-08 07:32] LABS: BILIRUBIN,TOTAL 1.2 MG/DL (0.1-1.0)
[2021-12-08 07:34] LABS: CREATININE SERUM 0.96 MG/DL (0.60-1.30)
[2021-12-08 07:57] VITALS: BP 164/57
[2021-12-08] MEDS ORDERED: LOSARTAN 100 MG (COZAAR) TABLET PO SCH (09:00)
[2021-12-08] MEDS ORDERED: NON-FORMULARY MEDICATION 1 EA EA (Empagliflozin (Jardiance) 25 MG) PO SCH (09:00)
[2021-12-08] MEDS ORDERED: AZITHROMYCIN INJECTION 500 MG in NS (IVPB) 250 ML IV SCH (09:00)
[2021-12-08] MEDS ORDERED: VITAMIN D3 25 MCG (1,000 UNITS) TABLET PO SCH (09:00)
[2021-12-08] MEDS ORDERED: KCL 20 MEQ TAB (K-DUR) PO SCH (09:00)
[2021-12-08] MEDS ORDERED: hydrALAZINE (APRESOLINE) 25 MG TAB PO SCH (09:00)
[2021-12-08] MEDS: SENNOSIDES 8.6 MG (SENOKOT) TAB PO SCH (09:49)
[2021-12-08] MEDS: DOCUSATE SODIUM 100 MG (COLACE) CAP PO SCH (09:49)
[2021-12-08] MEDS: cefTRIAXone 1 GM PRE-MIX 50 ML IV SCH (11:41)
[2021-12-08 11:43] VITALS: BP 169/72
[2021-12-08] MEDS ORDERED: EMPAGLIFLOZIN 10 MG TABLET (JARDIANCE) PO SCH (13:00)
--- NOTE | 2021-12-08 13:19 | Cardiology Progress Note ---
Subjective Date Seen by Provider: Dec 08, 2021 Time Seen by Provider: 13:16 Subjective/Events-last exam Patient is laying down in bed, feeling better. No new complaint. No chest pain. Reporting that his breathing is better. Review of Systems General: No Chills, No Night Sweats; Fatigue; No Malaise, No Appetite, No Other HEENT: No Head Aches, No Visual Changes, No Eye Pain, No Ear Pain, No Dysphasia, No Sinus Congestion, No Post Nasal Drip, No Sore Throat, No Other Pulmonary: Dyspnea, Cough; No Pleuritic Chest Pain, No Other Cardiovascular: Edema; No: Chest Pain, Palpitations, Orthopnea, Paroxysmal Noc. Dyspnea, Lt Headedness, Other Objective-Cardiology Exam Last Set of Vital Signs Vital Signs 12/08/21 12/08/21 10:40 11:43 Temp 37.0 Pulse 87 Resp 20 B/P (MAP) 169/72 (104) Pulse Ox 96 O2 Delivery Nasal Cannula O2 Flow Rate 3.00 FiO2 96 I&O Intake and Output 12/08/21 00:00 Intake Total 1640 ml Balance 1640 ml Intake Oral 1140 ml IV Total 500 ml # Voids 4 Daily Weight Change No General: Alert, Oriented X3, Cooperative HEENT: Atraumatic, PERRLA Neck: Supple, No JVD, No Thyromegaly Lungs: Clear to Auscultation, Normal Air Movement Heart: Regular Rate, Normal S1, Normal S2, No Murmurs Abdomen: Normal Bowel Sounds, Soft, No Tenderness, No Hepatosplenomegaly, No Masses Extremities: No Clubbing, No Cyanosis, Normal Pulses, No Tenderness/Swelling, Other (Mild pedal edema) Skin: No Rashes, No Breakdown, No Significant Lesion Neuro: Normal Gait, Normal Speech, Strength at 5/5 X4 Ext, Normal Tone, Sensation Intact Psych/Mental Status: Mental Status NL, Mood NL Results Lab Laboratory Tests 12/08/21 06:14 12/08/21 07:08 A/P-Cardiology Admission Diagnosis Shortness of breath Acute on chronic left ventricular diastolic dysfunction Type II non-ST elevation myocardial infarction Hypertension Assessment/Plan Shortness of breath, congestive heart failure, acute decompensated left ventricular diastolic dysfunction, echocardiogram done on December 07, 2021 showing ejection fraction 45 to 50% with moderate left ventricular hypertrophy, grade 2 diastolic dysfunction. Responding well to diuretics. Feeling better today, still having some shortness of breath but overall significant improvement. Mild elevation in troponin, probably type II myocardial infarction secondary to hypoxemia, cardiac catheterization was done in May 2017 reported mild to moderate disease, 70% of the distal circumflex artery, relatively small artery not amendable to intervention, had a stress test done in May 2021 showing no significant ischemia or infarction with ejection fraction 52%. Patient had minimal elevation in troponin, probably due to the distal circumflex artery lesion. No active chest pain Conservative management is recommended, no need for intervention. May continue to hold aspirin and Plavix for possible nephrectomy next week Paroxysmal atrial fibrillation with rapid ventricular response, having episodes of symptomatic bradycardia, history of tachybradycardia syndrome. Had a Holter monitor done in March 2020 showing atrial fibrillation with rates ranging between 30 and 101 with one episode of 3 seconds pause. It was felt that it was due to diltiazem and improved after reducing the dose. Chronic dyspnea, multifactorial with COPD, CHF, diastolic dysfunction, obstructive sleep apnea, History of GI bleed, capsule endoscopy was done by Dr. Vaca in 2018, had a bleeding site at the duodenum/jejunum. Had endoscopic treatment done in February [address] Vaca. Peripheral arterial disease, mild to moderate disease in the lower extremities, nonobstructive disease, followed by Dr. Hannon Diabetes mellitus, followed regularly by primary care physician Hyperlipidemia, continue to monitor lipids Mild bilateral carotid stenosis, followed by Dr. Hannon Tobaccoism, stopped smoking in 1999 Chronic bilateral lower extremities edema, some improvement after reducing amlodipine. Renal cell carcinoma, patient is scheduled for nephrectomy on December 13 2021. ANDI ZAMORA MD Dec 08, 2021 13:19
[2021-12-08] MEDS ORDERED: CEFD300C3 PO (15:25)
--- NOTE | 2021-12-08 15:25 | Discharge Summary ---
Discharge Summary Hospital Course Was the Problem List Reviewed?: Yes Problems/Dx: (1) Pneumonia (2) Acute heart failure Status: Acute Qualifiers: Qualified Codes: I50.9 - Heart failure, unspecified (3) Elevated troponin I level Status: Acute (4) Acute respiratory failure with hypoxemia Status: Acute Hospital Course Date of Admission: Dec 07, 2021 at 12:01 Admission Diagnosis : Family Physician/Provider: Jens Lennon Date of Discharge: 12/08/21 Discharge Diagnosis: Pneumonia, volume overload, elevated troponin Hospital Course: Pt had a short hospital course after he was admitted for new hypoxia with conges tive heart failure and pneumonia. Few medications were changed by Dr. Acuña. He was overall felt to be stable and he was ready for discharge on home oxygen. Labs and Pending Lab Test: Laboratory Tests 12/08/21 06:14: White Blood Count 9.1, Red Blood Count 5.22, Hemoglobin 13.8, Hematocrit 44, Mean Corpuscular Volume 85, Mean Corpuscular Hemoglobin 26, Mean Corpuscular Hemoglobin Concent 31L, Red Cell Distribution Width 16.6H, Platelet Count 194, Mean Platelet Volume 9.8, Immature Granulocyte % (Auto) 1, Neutrophils (%) (Auto) 82H, Lymphocytes (%) (Auto) 9L, Monocytes (%) (Auto) 8, Eosinophils (%) (Auto) 0, Basophils (%) (Auto) 0, Neutrophils # (Auto) 7.4, Lymphocytes # (Auto) 0.8L, Monocytes # (Auto) 0.7, Eosinophils # (Auto) 0.0, Basophils # (Auto) 0.0, Immature Granulocyte # (Auto) 0.1 12/08/21 07:08: Sodium Level 138, Potassium Level 3.4L, Chloride Level 100, Carbon Dioxide Level 23, Anion Gap 15H, Blood Urea Nitrogen 15, Creatinine 0.96, Estimat Glomerular Filtration Rate 84, BUN/Creatinine Ratio 16, Glucose Level 180H, Calcium Level 8.8, Corrected Calcium 8.9, Total Bilirubin 1.2H, Aspartate Amino Transf (AST/SGOT) 19, Alanine Aminotransferase (ALT/SGPT) 22, Alkaline Phosphatase 116, Troponin I 0.048H, Total Protein 7.3, Albumin 3.9 Microbiology 12/07/21 Blood Culture - Preliminary, Resulted No growth Home Meds Active Cefdinir 300 Mg Capsule 300 Mg PO BID Reported Ropinirole HCl 2 Mg Tablet 2-4 Mg PO HS Novolog Flexpen (Insulin Aspart) 300 Units/3 Ml Solution Units SQ AC Advair 250-50 Diskus (Fluticasone/Salmeterol) 1 Each Blst.w.dev 1 Each IH BID Jardiance (Empagliflozin) 25 Mg Tablet 25 Mg PO DAILY Aspirin EC (Aspirin) 81 Mg Tablet.dr 81 Mg PO HS Losartan Potassium 100 Mg Tablet 100 Mg PO DAILY Vitamin D3 (Cholecalciferol (Vitamin D3)) 25 Mcg Capsule 25 Mcg PO DAILY Fluticasone Propionate 16 Gm Tennyson.susp 1 Tennyson NSEACH BID Eliquis (Apixaban) 5 Mg Tablet 5 Mg PO BID Ventolin Hfa (Albuterol Sulfate) 18 Gm Hfa.aer.ad 2 Puff INH Q4H PRN Rosuvastatin Calcium 40 Mg Tablet 20 Mg PO HS TAKES 1/2 (40MG) TABLET Potassium Chloride 20 Meq Tablet.er 20 Meq PO BID Furosemide 40 Mg Tablet 80 Mg PO DAILY TAKES 2 (40MG) TABLETS Hydralazine HCl 100 Mg Tablet 100 Mg PO BID Levemir (Insulin Determir) 1,000 Units/10 Ml Soln 75 Units SQ BID Metformin HCl 1,000 Mg Tablet 1,000 Mg PO BID WITH MEALS Assessment/Pt Instructions PCP in 1 week Discharge Planning: <30 minutes discharge planning Discharge Instructions Discharge Diet: No Restrictions Activity as Tolerated: Yes Discharge Physical Examination Vital Signs Vital Signs Date Time Temp Pulse Resp B/P (MAP) Pulse Ox O2 Delivery O2 Flow Rate FiO2 12/08/21 14:58 Room Air 97.00 96 12/08/21 11:43 37.0 87 20 169/72 (104) 96 General Appearance: No Apparent Distress, WD/WN, Chronically ill Respiratory: Lungs Clear, Normal Breath Sounds Allergies: Coded Allergies: No Known Drug Allergies (Unverified , 12/07/21) Discharge Summary Date of Admission Dec 07, 2021 at 12:01 Date of Discharge Discharge Date: Dec 08, 2021 Admission Diagnosis Assessment: Acute exacerbation COPD Acute hypoxic respiratory failure Congestive heart failure Atrial fibrillation CAD Plan: IV steroids IV antibiotics DOMITILA MULLINS DO Dec 08, 2021 15:25
[2021-12-08 15:39] VITALS: BP 167/70
[2021-12-08 16:24] VITALS: BP 167/70
[2021-12-08] MEDS ORDERED: metFORMIN 500 MG (GLUCOPHAGE) TAB PO SCH (18:00)
[2021-12-08] MEDS ORDERED: rOPINIRole 1 MG (REQUIP) TABLET PO SCH (21:00)
[2021-12-08] MEDS ORDERED: RT--FLUTICASONE/SALMETEROL 232-14 (AIRDUO RespiCLICK) IH SCH (21:00)
[2021-12-08] MEDS ORDERED: APIXABAN 5 MG (ELIQUIS) TABLET PO SCH (21:00)
[2021-12-08] MEDS ORDERED: ROSUVASTATIN 20 MG (CRESTOR) TABLET PO SCH (21:00)
== END 2021-12-08 16:36 | disposition home or self-care (01) | DRG 280 ==
LOC: EDUNIT# 09:01 → ER 09:03 → 4TH 12:01
PROVIDERS: ADMIT Internal Medicine; ATTEND Internal Medicine
DX: I11.0 Hypertensive heart disease with heart failure (principal); I50.33 Acute on chronic diastolic (congestive) heart failure; I21.A1 Myocardial infarction type 2; J96.01 Acute respiratory failure with hypoxia; J18.9 Pneumonia, unspecified organism; J44.1 Chronic obstructive pulmonary disease with (acute) exacerbation; J44.0 Chronic obstructive pulmonary disease with (acute) lower respiratory infection; I25.10 Atherosclerotic heart disease of native coronary artery without angina pectoris; Z86.73 Personal history of transient ischemic attack (TIA), and cerebral infarction without residual deficits; K21.9 Gastro-esophageal reflux disease without esophagitis; Z79.4 Long term (current) use of insulin; Z87.891 Personal history of nicotine dependence; Z79.82 Long term (current) use of aspirin; Z79.84 Long term (current) use of oral hypoglycemic drugs; Z79.899 Other long term (current) drug therapy; Z20.822 Contact with and (suspected) exposure to COVID-19; I48.0 Paroxysmal atrial fibrillation; G47.33 Obstructive sleep apnea (adult) (pediatric); E11.51 Type 2 diabetes mellitus with diabetic peripheral angiopathy without gangrene; E78.5 Hyperlipidemia, unspecified; I65.23 Occlusion and stenosis of bilateral carotid arteries; Z90.5 Acquired absence of kidney
CPT/HCPCS: 36415; 71045; 71275; 80053; 82805; 83735; 83880; 84484; 85007; 85025; 85027; 85379; 85610; 86141; 87040; 87636; 93005; 93306; 94640; 94761

== ENCOUNTER → 2022-03-26 | Outpatient (CLI) | payer OTHER ==
[~2022-03-26] MED LIST changes: +ASPI-1238 PO; +EMPA25TA PO; +FLUT1DIS26 IH; +ROPI2TAB6 PO; +ROPI3TAB4 PO
--- NOTE | 2022-03-26 09:38 | Diagnostic Imaging Report ---
PROCEDURE: US Renal Bilateral. TECHNIQUE: Multiple real-time grayscale images were obtained over the kidneys in various projections bilaterally. INDICATION: History of right nephrectomy for renal cell carcinoma. Comparison with CT scan of 09/13/2021. FINDINGS: The right kidney has been removed which contained a large solid mass. Left kidney measures 12 x 6.8 x 6.1 cm. There is no hydronephrosis. No masses have developed. No renal calculi are seen. IMPRESSION: Left kidney appears normal with no solid masses developing. Dictated by: Dictated on workstation # [id number]
== END ==
LOC: RAD 09:00
PROVIDERS: ATTEND Hospitalist
DX: C64.1 Malignant neoplasm of right kidney, except renal pelvis (principal); Z90.5 Acquired absence of kidney
CPT/HCPCS: 76770

== ENCOUNTER → 2022-04-12 | Outpatient (CLI) | payer MEDICARE, OTHER ==
[~2022-04-12] MED LIST changes: +RT-ALBUTEROL SULF 2.5 MG/3 ML PRE-MIX VIAL INH ONE
== END ==
LOC: RT 09:15
PROVIDERS: ATTEND Internal Medicine Critical Care Medicine
DX: J44.9 Chronic obstructive pulmonary disease, unspecified (principal); G47.33 Obstructive sleep apnea (adult) (pediatric)
CPT/HCPCS: 94060; 94621; 94729

== ENCOUNTER 2022-07-12 09:55 | Observation (INO) | payer OTHER, MEDICARE ==
[~2022-07-12] VITALS: Ht 180.3 cm; Wt 117.4 kg
[~2022-07-12 09:55] MED LIST changes: -RT-ALBUTEROL SULF 2.5 MG/3 ML PRE-MIX VIAL INH ONE
[2022-07-12] MEDS ORDERED: predniSONE 20 MG TAB PO ONE (11:15)
[2022-07-12] MEDS ORDERED: RT-ALBUTEROL/IPRATROPIUM 3 ML (DUONEB) VIAL IH ONE (11:15)
[2022-07-12 11:18] LABS: BASOPHILS # (AUTO) 0.1 10^3/uL (0.0-0.1); BASOPHILS % (AUTO) 1 % (0-10); EOSINOPHILS # (AUTO) 0.2 10^3/uL (0.0-0.3); EOSINOPHILS % (AUTO) 2 % (0-10); HEMATOCRIT 32 % (40-54); LYMPHOCYTES % (AUTO) 10 % (12-44); MEAN CORPUSCULAR HEMOGLOBIN 26 pg (25-34); MEAN CORPUSCULAR HGB CONC 31 g/dL (32-36); MEAN CORPUSCULAR VOLUME 83 fL (80-99); MEAN PLATELET VOLUME 10.1 fL (9.0-12.2); MONOCYTES # (AUTO) 0.6 10^3/uL (0.0-1.0); MONOCYTES % (AUTO) 7 % (0-12); NEUTROPHILS # (AUTO) 7.6 10^3/uL (1.8-7.8); NEUTROPHILS % (AUTO) 80 % (42-75); PLATELET COUNT 269 10^3/uL (130-400); WHITE BLOOD COUNT 9.6 10^3/uL (4.3-11.0)
[2022-07-12 11:20] LABS: ALBUMIN 3.8 GM/DL (3.2-4.5); CHLORIDE 104 MMOL/L (98-107); POTASSIUM 3.7 MMOL/L (3.6-5.0); SODIUM 139 MMOL/L (135-145)
--- NOTE | 2022-07-12 11:21 | ED Respiratory ---
General Chief Complaint: Respiratory Problems Stated Complaint: SOA Nursing Triage Note: ARRIVED VIA AMB TO ROOM 09 ET SOA. STATES HE THINKS HE IS GETTING PNEUMONIA AGAIN. History of Present Illness Date Seen by Provider: Jul 12, 2022 Time Seen by Provider: 11:05 Initial Comments Patient is a 72 yo M who presents to the ED with progressively worsening s hortness of breath, productive cough, and exertional intolerance for the last 8- 10 days. 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 Patient denies any chest pain but does endorse some slightly worsened BLE edema. He states he took some "breathing treatments" prior to arrival today but he denies any improvement from them. He is a former smoker. Does not wear home oxygen normally. States sputum has been thick and yellow. He denies any fever. No known recent sick contacts. Of note, patient had a right nephrectomy earlier this year at due to renal cell carcinoma. Timing/Duration: getting worse, other (8-10 days) Severity: moderate Modifying Factors: Worse With Activity; Improves With Rest Associated Symptoms: No chest pain/soreness; cough; No fever/chills, No nasal congestion; shortness of breath; No wheezing Allergies and Home Medications Allergies Coded Allergies: prednisone (Verified Allergy, Severe, RASH, 07/12/22) Patient Home Medication List Home Medication List Reviewed: Yes Albuterol Sulfate (Ventolin Hfa) 18 Gm Hfa.aer.ad, 2 PUFF INH Q4H PRN for SHORTNESS OF BREATH, (Reported) Entered as Reported by: ANNEMARIE BRADY on 10/04/18 1538 Apixaban (Eliquis) 5 Mg Tablet, 5 MG PO BID, (Reported) Entered as Reported by: ASHLEY STEVE on 11/23/19 1004 Aspirin (Aspirin EC) 81 Mg Tablet.dr, 81 MG PO HS, (Reported) Entered as Reported by: CHRIS CUNNINGHAM on 12/07/21 1534 Cefdinir (Cefdinir) 300 Mg Capsule, 300 MG PO BID Prescribed by: DMOITILA MULLINS on 12/08/21 1525 Cholecalciferol (Vitamin D3) (Vitamin D3) 25 Mcg Capsule, 25 MCG PO DAILY, (Reported) Entered as Reported by: ASHLEY STEVE on 11/23/19 1006 Empagliflozin (Jardiance) 25 Mg Tablet, 25 MG PO DAILY, (Reported) Entered as Reported by: CHRIS CUNNINGHAM on 12/07/21 153 Fluticasone Propionate (Fluticasone Propionate) 16 Gm [place].susp, 1 SPRAY NSEACH BID, (Reported) Entered as Reported by: ASHLEY STEVE on 11/23/19 1004 Fluticasone/Salmeterol (Advair 250-50 Diskus) 1 Each Blst.w.dev, 1 EACH IH BID, (Reported) Entered as Reported by: CHRIS CUNNINGHAM on 12/07/21 153 Furosemide (Furosemide) 40 Mg Tablet, 80 MG PO DAILY, (Reported) Entered as Reported by: ASHLEY STEVE on 04/01/18825 Hydralazine HCl (Hydralazine HCl) 100 Mg Tablet, 100 MG PO BID, (Reported) Entered as Reported by: ASHLEY STEVE on 04/01/18825 Insulin Aspart (Novolog Flexpen) 300 Units/3 Ml Solution, UNITS SQ AC, (Reported) Entered as Reported by: CHRIS CUNNINGHAM on 12/07/21 154 Insulin Determir (Levemir) 1,000 Units/10 Ml Soln, 75 UNITS SQ BID, (Reported) Entered as Reported by: ASHLEY STEVE on 04/01/18825 Losartan Potassium (Losartan Potassium) 100 Mg Tablet, 100 MG PO DAILY, (Reported) Entered as Reported by: ASHLEY STEVE on 11/23/19 1217 Metformin HCl (Metformin HCl) 1,000 Mg Tablet, 1,000 MG PO BID WITH MEALS, (Reported) Entered as Reported by: ASHLEY STEVE on 04/01/18825 Potassium Chloride (Potassium Chloride) 20 Meq Tablet.er, 20 MEQ PO BID, (Reported) Entered as Reported by: ASHLEY STEVE on 04/01/18825 Ropinirole HCl (Ropinirole HCl) 2 Mg Tablet, 2-4 MG PO HS, (Reported) Entered as Reported by: CHRIS CUNNINGHAM on 12/07/21 1637 Rosuvastatin Calcium (Rosuvastatin Calcium) 40 Mg Tablet, 20 MG PO HS, (Reported) Entered as Reported by: ASHLEY STEVE on 04/01/18825 Review of Systems Review of Systems Constitutional: No diaphoresis, No fever; malaise Respiratory: cough, dyspnea on exertion; No orthopnea; phlegm, short of breath; No wheezing Cardiovascular: No chest pain; edema, Hx of Intervention (pacemaker); No palpitations, No syncope Gastrointestinal: No abdominal pain, No constipation, No diarrhea, No nausea, No vomiting Musculoskeletal: No muscle pain Skin: no symptoms reported Psychiatric/Neurological: No Symptoms Reported Past Pyofzfb-[id number]-Kwgwee Hx Patient Social History Tobacco Use?: Yes Smokeless Tobacco Frequency: Former User Substance use?: No Alcohol Use?: No Immunizations Up To Date Tetanus Booster (TDap): Unknown First/Initial COVID19 Vaccinat: 08/24/21 Second COVID19 Vaccination Tristin: 08/24/21 Third COVID19 Vaccination Date: 08/24/21 COVID19 Vaccine Shared Services And Outsourcing Manager: KRISTIN Seasonal Allergies Seasonal Allergies: No Past Medical History Surgeries: Yes (MULTIPLE HERNIA REPAIRS, HEMMORHOIDECTOMY right hemicolectomy) Abdominal, Cardiac Respiratory: Yes Sleep Apnea, COPD Currently Using CPAP: Yes Currently Using BIPAP: No Cardiac: Yes Atrial Fibrillation, Coronary Artery Disease, Hypertension Neurological: Yes Stroke Reproductive Disorders: No Sexually Transmitted Disease: No HIV/AIDS: No Genitourinary: No Gastrointestinal: Yes Gastroesophageal Reflux, Hemorrhoids, Polyps Musculoskeletal: No Endocrine: Yes Diabetes, Insulin dep HEENT: Yes (GLASSES, DENTURES) Loss of Vision: Bilateral Hearing Impairment: Denies Cancer: No Psychosocial: No Integumentary: No Blood Disorders: No Adverse Reaction/Blood Tranf: No (N/A) Family Medical History Family history: Hypertension 03 FATHER, Onset:Unknown 03 MOTHER, Onset:50's - 60 Stroke 03 MOTHER, Onset:50's - 60 No Family History of: Cancer of colon Chest pain Dementia Family history: Alzheimer's disease Family history: Asthma Family history: Diabetes mellitus Kidney disease Myocardial infarction Seizure disorder CVA, Hypertension Physical Exam Vital Signs - First Documented 07/12/22 07/12/22 09:56 09:57 Temp 36.0 Pulse 88 Resp 20 B/P (MAP) 136/66 (89) Pulse Ox 89 O2 Delivery Room Air O2 Flow Rate 2.00 Capillary Refill : Less Than 3 Seconds Height: 5'11.00" Weight: 239lbs. 8.0oz. 108.983984lg; 36.00 BMI Method:Stated General Appearance: WD/WN, mild distress HEENT: PERRL/EOMI, normal ENT inspection, TMs normal, pharynx normal Neck: non-tender, full range of motion, supple, normal inspection Respiratory: chest non-tender, no respiratory distress, no accessory muscle use, decreased breath sounds Cardiovascular: normal peripheral pulses, regular rate, rhythm, no gallop, no JVD, no murmur, irregularly irregular, other (2+ BLE edema from feet to mid lower leg) Gastrointestinal: normal bowel sounds, non tender, soft, no organomegaly, no pulsatile mass Extremities: normal range of motion, non-tender, normal inspection, no calf tenderness, normal capillary refill, pedal edema Neurologic/Psychiatric: efficiency clerk II-XII nml as tested, no motor/sensory deficits, alert, normal mood/affect, oriented x 3 Skin: normal color, warm/dry Progress/Results/Core Measures Suspected Sepsis SIRS Temperature: Pulse: 88 Respiratory Rate: 20 Laboratory Tests 07/12/22 10:00: White Blood Count 9.6 Blood Pressure 136 /66 Mean: 89 Laboratory Tests 07/12/22 10:00: Creatinine 2.09H, Platelet Count 269, Total Bilirubin 0.5 Results/Orders Lab Results Laboratory Tests Test 07/12/22 10:00 07/12/22 11:40 Range/Units White Blood Count 9.6 4.3-11.0 10^3/uL Red Blood Count 3.84 L 4.30-5.52 10^6/uL Hemoglobin 10.0 L 13.3-17.7 g/dL Hematocrit 32 L 40-54 % Mean Corpuscular Volume 83 80-99 fL Mean Corpuscular Hemoglobin 26 25-34 pg Mean Corpuscular Hemoglobin Concent 31 L 32-36 g/dL Red Cell Distribution Width 17.1 H 10.0-14.5 % Platelet Count 269 130-400 10^3/uL Mean Platelet Volume 10.1 9.0-12.2 fL Immature Granulocyte % (Auto) 1 % Neutrophils (%) (Auto) 80 H 42-75 % Lymphocytes (%) (Auto) 10 L 12-44 % Monocytes (%) (Auto) 7 0-12 % Eosinophils (%) (Auto) 2 0-10 % Basophils (%) (Auto) 1 0-10 % Neutrophils # (Auto) 7.6 1.8-7.8 10^3/uL Lymphocytes # (Auto) 1.0 1.0-4.0 10^3/uL Monocytes # (Auto) 0.6 0.0-1.0 10^3/uL Eosinophils # (Auto) 0.2 0.0-0.3 10^3/uL Basophils # (Auto) 0.1 0.0-0.1 10^3/uL Immature Granulocyte # (Auto) 0.1 0.0-0.1 10^3/uL Neutrophils % (Manual) 83 % Lymphocytes % (Manual) 9 % Monocytes % (Manual) 6 % Eosinophils % (Manual) 1 % Basophils % (Manual) 0 % Band Neutrophils 1 % Poikilocytosis SLIGHT Anisocytosis SLIGHT Elliptocytes SLIGHT Sodium Level 139 135-145 MMOL/L Potassium Level 3.7 3.6-5.0 MMOL/L Chloride Level 104 98-107 MMOL/L Carbon Dioxide Level 21 21-32 MMOL/L Anion Gap 14 5-14 MMOL/L Blood Urea Nitrogen 35 H 7-18 MG/DL Creatinine 2.09 H 0.60-1.30 MG/DL Estimat Glomerular Filtration Rate 33 BUN/Creatinine Ratio 17 Glucose Level 325 H 70-105 MG/DL Calcium Level 9.0 8.5-10.1 MG/DL Total Bilirubin 0.5 0.1-1.0 MG/DL Direct Bilirubin 0.3 0.0-0.3 MG/DL Indirect Bilirubin 0.2 MG/DL Aspartate Amino Transf (AST/SGOT) 17 5-34 U/L Alanine Aminotransferase (ALT/SGPT) 16 0-55 U/L Alkaline Phosphatase 124 40-136 U/L Troponin I < 0.028 <0.028 NG/ML B-Type Natriuretic Peptide 265.7 H <100.0 PG/ML Total Protein 7.6 6.4-8.2 GM/DL Albumin 3.8 3.2-4.5 GM/DL Influenza Type A (RT-PCR) Not Detected Not Detecte Influenza Type B (RT-PCR) Not Detected Not Detecte SARS-CoV-2 RNA (RT-PCR) Not Detected Not Detecte Blood Gas Puncture Site LT RAD Blood Gas Patient Temperature 36.0 Arterial Blood pH 7.41 7.37-7.43 Arterial Blood Partial Pressure CO2 35 35-45 MMHG Arterial Blood Partial Pressure O2 75 L 79-93 MMHG Arterial Blood HCO3 23 23-27 MMOL/L Arterial Blood Total CO2 23.7 21.0-31.0 MMOL/L Arterial Blood Oxygen Saturation 97 94-100 % Arterial Blood Base Excess -1.6 -2.5-2.5 MMOL/L Shade Test YES-POS Blood Gas Ventilator Setting NO Blood Gas Inspired Oxygen 2 L My Orders Orders - RAGLANDRAJFLIP VANESSA Monitor-Rhythm Ecg Trace Only (07/12/22 11:08) Pulse Oximetry Order (07/12/22 11:08) Rt Request For Service (07/12/22 11:08) Albuterol/Ipra Inhalation Soln (Duoneb I (07/12/22 11:15) Sputum Culture (07/12/22 11:08) Cbc And Manual Diff (07/12/22 11:08) Basic Metabolic Panel (07/12/22 11:08) Liver Panel (07/12/22 11:08) Bnp Aldo (07/12/22 11:08) Chest Pa/Lat (2 View) (07/12/22 11:08) Ekg Tracing (07/12/22 11:08) Troponin I Aldo (07/12/22 11:08) Arterial Blood Gas (07/12/22 11:08) Methylprednisolone Sod Succ (Solu-Medrol (07/12/22 11:30) Covid 19 Inhouse Test (07/12/22 11:32) Influenza A And B By Pcr (07/12/22 11:32) Isolation Central Supply Req (07/12/22 11:32) Furosemide Injection (Lasix Injection) (07/12/22 12:15) Arterial Blood Draw - Obtain (07/12/22 ) Code/Resuscitation (07/12/22 12:30) Ambulate 08,12,20 (07/12/22 12:30) Sequential Compression Device ONCE (07/12/22 12:30) Initiate Admission Nursing Pro .admission (07/12/22 12:30) Isolation Central Supply Req (07/12/22 12:30) Telemetry Nursing Assessment ( (07/12/22 12:30) Svn Small Volume Nebulizer (07/12/22 12:30) Ed Admission (Communication) (07/12/22 12:30) Medications Given in ED Current Medications Medications Dose Ordered Sig/Silva Route Start Time Stop Time Status Last Admin Dose Admin Albuterol/ Ipratropium 3 ml ONCE ONCE IH 07/12/22 11:15 07/12/22 11:16 DC 07/12/22 11:46 3 ML Furosemide 40 mg ONCE ONCE IVP 07/12/22 12:15 07/12/22 12:18 DC 07/12/22 12:23 40 MG Methylprednisolone Sodium Succinate 60 mg ONCE ONCE IV 07/12/22 11:30 07/12/22 11:31 DC 07/12/22 11:51 60 MG Vital Signs/I&O 07/12/22 07/12/22 07/12/22 09:56 09:57 11:47 Temp 36.0 Pulse 88 Resp 20 B/P (MAP) 136/66 (89) Pulse Ox 89 89 96 O2 Delivery Room Air Nasal Cannula Nasal Cannula O2 Flow Rate 2.00 2.00 Capillary Refill : Less Than 3 Seconds Blood Pressure Mean: 89 Progress Note : Progress Note Pt is nontoxic and well hydrated on exam. He does have diminished breath sounds throughout all lung gray but has no wheezing or crackles noted. Pt is hypoxic to 89% on room air and is requiring supplemental oxygen to maintain saturations above 90%. Labs and xrays were ordered. Laboratory evaluation is notable for elevated creatinine, elevated BNP, mild anemia, and hyperglycemia. ABG notable for hypoxia without hypercapnia. COVID test negative. Duoneb given with no subjective improvement per patient. Pt diuresed with 40 mg of Lasix. Patient currently takes 80 mg of Lasix daily and may ultimately need a higher dose to achieve meaningful diuresis. Creatinine is elevated from prior level noted here on review of EMR. However this was before his nephrectomy earlier this year. His states "his one kidney isn't doing too good according to his kidney doctor." This may mean patient will require higher diuretic dosing. Given hypoxia and degree of symptomology without significant improvement in the ED, will admit for further evaluation and treatment. Hospitalist kindly agreed to admit. Cardiology was consulted and kindly agreed to see the patient. Patient and spouse were updated on POC and they verbalized understanding. Departure Communication (Admissions) Time/Spoke to Admitting Phy: 12:[address] Mullins who agreed with admission; will place pending orders; requests consult with Cardiology Time/Spoke to Consulting Phy: 12:[address] Hays with cardiology who agrees to see in consultation; no acute recs given Family Conversation Spoke with patient and about admission; they agreed to admission Impression Primary Impression: COPD exacerbation Additional Impression: Acute respiratory failure with hypoxemia Disposition: ADMITTED INPATIENT Condition: Stable/Unchanged Admissions Decision to Admit Reason: Admit from ER (General) Decision to Admit/Date: Jul 12, 2022 Time/Decision to Admit Time: 12:19 Departure-Patient Inst. Referrals: [facility] (PCP) Primary Care Physician JANEL LING (Family) Primary Care Physician FLIP RAGLAND APRN Jul 12, 2022 11:21
[2022-07-12 11:22] LABS: GLUCOSE 325 MG/DL (70-105); TOTAL PROTEIN 7.6 GM/DL (6.4-8.2)
[2022-07-12 11:23] LABS: CARBON DIOXIDE 21 MMOL/L (21-32)
[2022-07-12 11:24] LABS: BILIRUBIN,TOTAL 0.5 MG/DL (0.1-1.0)
[2022-07-12 11:26] LABS: ALKALINE PHOSPHATASE 124 U/L (40-136); CREATININE SERUM 2.09 MG/DL (0.60-1.30); GFR ESTIMATED 33
[2022-07-12 11:27] LABS: BILIRUBIN,DIRECT 0.3 MG/DL (0.0-0.3); BILIRUBIN,INDIRECT 0.2 MG/DL; BUN/CREATININE RATIO 17
[2022-07-12 11:29] LABS: ALANINE AMINOTRANSFERASE 16 U/L (0-55)
[2022-07-12] MEDS ORDERED: methylPREDNISolone 125 MG (Solu-MEDROL) VIAL IV ONE (11:30)
[2022-07-12 11:42] LABS: BAND NEUTROPHILS 1 %; BASOPHILS % (MANUAL) 0 %; EOSINOPHILS % (MANUAL) 1 %; LYMPHOCYTES % (MANUAL) 9 %; MONOCYTES % (MANUAL) 6 %; NEUTROPHILS % (MANUAL) 83 %
[2022-07-12 11:43] LABS: ANISOCYTOSIS SLIGHT; ELLIPT/OVALOCYTES SLIGHT; POIKILOCYTOSIS SLIGHT
[2022-07-12 11:49] LABS: ABG BASE EXCESS -1.6 MMOL/L (-2.5-2.5); ABG OXYGEN SATURATION 97 % (94-100); ABG PCO2 35 MMHG (35-45); ABG PH 7.41 (7.37-7.43); ABG PO2 75 MMHG (79-93); ABG TCO2 23.7 MMOL/L (21.0-31.0)
[2022-07-12 11:50] LABS: ALLENS TEST YES-POS; INSPIRED O2 2 L; VENTILATOR NO
[2022-07-12] MEDS ORDERED: FUROSEMIDE 40 MG/4 ML INJ (LASIX) IVP ONE (12:15)
[2022-07-12] MEDS ORDERED: MELATONIN 3 MG TABLET PO PRN (12:30)
[2022-07-12] MEDS ORDERED: inSUlin (REGULAR) HUMAN 1 UNIT/0.01 ML (CHARGE PER UNIT) SC PRN (12:30)
[2022-07-12] MEDS ORDERED: polyethylene glycoL POWDER 17 GM (MIRALAX) PACK PO PRN (12:30)
[2022-07-12] MEDS ORDERED: cloNIDine 0.1 MG (CATAPRES) TAB PO PRN (12:30)
[2022-07-12] MEDS ORDERED: ANTACID SUSP 30 ML UDC (MYLANTA) PO PRN (12:30)
[2022-07-12] MEDS ORDERED: diphenhydrAMINE 25 MG TAB (BENADRYL) PO PRN (12:30)
[2022-07-12] MEDS ORDERED: ONDANSETRON 4 MG (ZOFRAN) ORAL DISSOLVE TAB PO PRN (12:30)
[2022-07-12] MEDS ORDERED: CALCIUM CARBONATE 500 MG (TUMS) TAB.CHEW PO PRN (12:30)
[2022-07-12] MEDS ORDERED: diphenhydrAMINE 50 MG/ML INJ (BENADRYL) IVP PRN (12:30)
[2022-07-12] MEDS ORDERED: ONDANSETRON 4 MG/2 ML (SDV) Z0FRAN IV PRN (12:30)
[2022-07-12] MEDS ORDERED: LACTULOSE SYRUP 10GM/15ML (ENULOSE) 30ML UDC PO PRN (12:30)
[2022-07-12] MEDS ORDERED: MILK OF MAGNESIA 400 MG/5 ML 30 ML UDC PO PRN (12:30)
[2022-07-12] MEDS ORDERED: BISACODYL 10 MG SUPP (DULCOLAX) PR PRN (12:30)
[2022-07-12] MEDS ORDERED: LORazepam 0.5 MG (ATIVAN) TABLET PO PRN (12:30)
[2022-07-12] MEDS ORDERED: ACETAMINOPHEN 325 MG TABLET PO PRN (12:30)
[2022-07-12] MEDS ORDERED: morphine INJ 4 MG/ML 1 ML (VIAL/SYRINGE) IV PRN (12:30)
--- NOTE | 2022-07-12 12:43 | Diagnostic Imaging Report ---
CHEST PA/LAT (2 VIEW) Indication: COPD, hypoxia Comparison: 12/07/2021 Findings: Interstitial and airspace opacities have developed in the lung bases. Confluent consolidations in the left lung base worsened. No pneumothorax. Small left pleural effusion. Cardiomegaly. Impression: 1. New basilar pulmonary opacities are most likely on the basis of pulmonary edema. 2. Left basilar confluent consolidations could be due to atelectasis or pneumonia in the appropriate setting. 3. Small left pleural effusion. Dictated by: Dictated on workstation # [id number]
[2022-07-12 13:54] VITALS: BP 136/77
--- NOTE | 2022-07-12 14:09 | History & Physical-Hospitalist ---
NOANAZ 07/12/22 1409: History of Present Illness HPI/Chief Complaint CC: Shortness of Air HPI: This is a 72 yo Male who presented to the ED ([id number]) with worsening shortness of air, productive cough, and exertional intolerance for the past 10 days. Medical history includes COPD, diabetes, pacemaker due to bradycardia, atrial fibrillation, IVANNA (uses BIPAP), CHF, GERD, and CAD. He states he took some "breathing treatments" without improvement. He is a former smoker. Does not wear home oxygen normally, does use BIPAP. States sputum has been thick and yellow. He denies any fever. No known recent sick contacts. Ptient had a right nephrectomy earlier this year at due to renal cell carcinoma. Patient is in moderate distress with labored breathing when I visited him in the ER. Accompanied by , and she provideed a hand written medication list. Patient is sitting up because lying in the bed worsens his SOA. Patient endorses BLE edema. In the ER, patient was tachypnic and hypoxic requiring 2L O2 NC to maintain O2 sat in the 90s. CXR revealed new basilar pulmonary opacities and a small left pleural effusion. Source: patient Exam Limitations: no limitations Date Seen 07/12/22 Time Seen by a Provider: 12:13 Attending Physician Reading/[facility] PCP Admitting Physician: Maye Jones DO Attending Physician: Maye Jones DO Referring Physician Date of Admission Jul 12, 2022 at 12:35 Home Medications & Allergies Home Medications Albuterol Sulfate (Ventolin Hfa) 18 Gm Hfa.aer.ad, 2 PUFF INH Q4H PRN Apixaban (Eliquis) 5 Mg Tablet, 5mg PO BID Aspirin (Aspirin EC) 81 Mg Tablet, 81mg PO QD Cholecalciferol (Vitamin D3) 25 Mcg Capsule, 25mcg PO QD Fluticasone Propionate (Fluticasone Propionate) 16 Gm [place].susp, 1 SPRAY NSEACH BID Fluticasone/Salmeterol (Advair 250-50 Diskus) 1 Each Blst.w.dev, 1 EACH IH BID Furosemide (Furosemide) 40 Mg Tablet, 80 MG PO DAILY Hydralazine HCl (Hydralazine HCl) 100 Mg Tablet, 100 MG PO BID Insulin Aspart (Novolog Flexpen) 300 Units/3 Ml Solution, UNITS SQ AC Insulin Determir (Levemir) 1,000 Units/10 Ml Soln, 75 UNITS SQ BID Potassium Chloride (Potassium Chloride) 20 Meq Tablet.er, 20 MEQ PO BID Ropinirole HCl (Ropinirole HCl) 2 Mg Tablet, 2-4 MG PO HS Rosuvastatin Calcium (Rosuvastatin Calcium) 40 Mg Tablet, 20 MG PO HS Amlodipine Methocarbamol Gabapentin, 100mg tablet, 2x HS Ozempic Reviewed patient Home Medication Reconciliation performed by pharmacy medication reconciliations payroll technician and/or nursing. Patients Allergies have been reviewed. Allergies Allergies Coded Allergies prednisone (Verified Allergy, Severe, RASH, 07/12/22) Past Rgbypqq-Dhjkjj-Shuzdr Hx Patient Social History Tobacco Use?: Yes Tobacco type used: Cigarettes Smoking Status: Former Smoker (Reports quittin 20 years ago) Substance use?: No Alcohol Use?: No Immunizations Up To Date Date of Influenza Vaccine: Aug 24, 2021 First/Initial COVID19 Vaccinat: 08/24/21 Second COVID19 Vaccination Tristin: 08/24/21 Tetanus Booster (TDap): Unknown Hepatitis A: No Hepatitis B: No Date of Pneumonia Vaccine: Oct 21, 2019 Seasonal Allergies Seasonal Allergies: No Current Status Advance Directives: No Primary Language: Martiniquais Preferred Spoken Language: Martiniquais Past Medical History Surgeries: Abdominal, Cardiac Sleep Apnea, COPD Currently Using CPAP: Yes Currently Using BIPAP: No Atrial Fibrillation, Coronary Artery Disease, Hypertension Stroke Sexually Transmitted Disease: No HIV/AIDS: No Gastroesophageal Reflux, Hemorrhoids, Polyps Diabetes, Insulin dep Loss of Vision: Bilateral Hearing Impairment: Denies Blood Disorders: No Adverse Reaction/Blood Tranf: No (N/A) Family Medical History Family history: Hypertension 03 FATHER, Onset:Unknown 03 MOTHER, Onset:50's - 60 Stroke 03 MOTHER, Onset:50's - 60 No Family History of: Cancer of colon Chest pain Dementia Family history: Alzheimer's disease Family history: Asthma Family history: Diabetes mellitus Kidney disease Myocardial infarction Seizure disorder CVA, Hypertension Review of Systems Constitutional: No chills, No diaphoresis, No dizziness, No fever; malaise, weakness EENTM: No hearing loss, No blurred vision, No vision loss Respiratory: cough, dyspnea on exertion; No hemoptysis; orthopnea, phlegm, short of breath, wheezing Cardiovascular: No syncope Gastrointestinal: No abdominal pain, No constipation, No diarrhea, No h ematemesis, No nausea, No vomiting Genitourinary: No decreased output, No discharge, No dysuria, No frequency, No hematuria Musculoskeletal: No back pain, No joint pain, No joint swelling Skin: No change in color, No change in hair/nails Psychiatric/Neurological: Denies Anxiety, Denies Depressed, Denies Headache, Denies Numbness Physical Exam Physical Exam Vital Signs Vital Signs - First Documented 07/12/22 07/12/22 07/12/22 09:56 09:57 13:54 Temp 36.0 Pulse 88 Resp 20 B/P (MAP) 136/66 (89) Pulse Ox 89 O2 Delivery Room Air O2 Flow Rate 2.00 FiO2 28 Capillary Refill : Less Than 3 Seconds Height, Weight, BMI Height: 5'11.00" Weight: 239lbs. 8.0oz. 108.344138qi; 36.00 BMI Method:Stated General Appearance: Anxious, Chronically ill, Moderate Distress, Obese HEENT: PERRL/EOMI, Pharynx Normal, Moist Mucous Membranes; No Scleral Icterus (L), No Scleral Icterus (R) Neck: Full Range of Motion, Normal Inspection, Non Tender, Supple Respiratory: Chest Non Tender, Respiratory Distress, Wheezing (bilateral expiratory wheezing) Cardiovascular: Regular Rate, Rhythm, Other (3+ pitting edema bilaterally) Gastrointestinal: Normal Bowel Sounds, No Organomegaly, No Pulsatile Mass, Non Tender, Soft Neurologic/Psychiatric: Alert, Oriented x3, Normal Mood/Affect, manager heavy equipment II-XII Norm as Tested Skin: Normal Color, Warm/Dry Lymphatic: No Adenopathy (Cervical and Supraclavicular) Results Results/Procedures Labs Laboratory Tests 07/12/22 10:00 Patient resulted labs reviewed. Assessment/Plan Admission Diagnosis Acute Respiratory Failure with Hypoxemia Admission Status: Observation Reason for Inpatient Admission: Acute Respiratory Failure with Hypoxemia COPD Exacerbation Assessment and Plan Assessment: Acute Respiratory Failure with Hypoxemia COPD Exacerbation Hx of Nephrectomy (has increased Cr as expected with a single kidney, 2.09) CHF COPD Afib Diabetes GERD Plan: Solumedrol and Duoneb for COPD Exacerbation Regular insulin to manage elevated blood sugars Monitor kidney function with history of nephrectomy Supportive Care MAYE JONES DO 07/13/22 0532: History of Present Illness HPI/Chief Complaint Chief complaint: Dyspnea HPI: This is a 72-year-old male clinic patient [facility] who has a history of COPD who presented for shortness of breath and hypoxia. Patient was found to have no evidence of pneumonia but requiring IV steroids and oxygen supplementation. Source: patient Exam Limitations: clinical condition Past Bowhcni-Gjfhup-Ianjhy Hx Patient Social History Marrital Status: Employed/Student: retired Tobacco type used: Cigarettes Smoking Status: Former Smoker (Reports quittin 20 years ago) Past Medical History COPD Chronic Edema/Swelling, High Cholesterol, Hypertension Family Medical History Family history: Hypertension 03 FATHER, Onset:Unknown 03 MOTHER, Onset:50's - 60 Stroke 03 MOTHER, Onset:50's - 60 No Family History of: Cancer of colon Chest pain Dementia Family history: Alzheimer's disease Family history: Asthma Family history: Diabetes mellitus Kidney disease Myocardial infarction Seizure disorder Review of Systems Constitutional: see HPI Respiratory: dyspnea on exertion, short of breath Physical Exam Physical Exam General Appearance: Anxious, Chronically ill, Moderate Distress Eyes: Right Eye Normal Inspection, Right Eye PERRL HEENT: PERRL/EOMI, Normal ENT Inspection, Pharynx Normal, Moist Mucous Membranes Neck: Full Range of Motion, Normal Inspection, Non Tender Respiratory: Chest Non Tender, Lungs Clear, No Respiratory Distress, Respiratory Distress, Wheezing (bilateral expiratory wheezing) Cardiovascular: Regular Rate, Rhythm, No Edema, No Gallop, No JVD, No Murmur, Normal Peripheral Pulses Gastrointestinal: Normal Bowel Sounds, No Organomegaly, No Pulsatile Mass, Non Tender, Soft Back: Normal Inspection, No CVA Tenderness, No Vertebral Tenderness Extremity: Normal Capillary Refill, Normal Inspection, Normal Range of Motion, Non Tender, No Calf Tenderness, No Pedal Edema Neurologic/Psychiatric: Alert, Oriented x3, No Motor/Sensory Deficits, Normal Mood/Affect Skin: Normal Color, Warm/Dry Lymphatic: No Adenopathy Assessment/Plan Admission Diagnosis Assessment: Acute respiratory failure with hypoxemia Exacerbation of COPD Former smoker CHF with volume overload Plan: IV steroids O2 Nebulizers Supervisory-Addendum Brief Verification & Attestation Participated in pt care: history, MDM, physical Personally performed: exam, history, MDM, supervision of care Care discussed with: Medical Student Procedures: n/a Results interpretation: Verified all documentation Verification and Attestation of Medical Student E/M Service A medical student performed and documented this service in my presence. I reviewed and verified all information documented by the medical student and made modifications to such information, when appropriate. I personally performed the physical exam and medical decision making. Maye Jones, Jul 13, 2022,05:30 NAZ LATHAM Jul 12, 2022 14:09 MAYE JONES DO Jul 13, 2022 05:32
[2022-07-12] MEDS ORDERED: RT-ALBUTEROL/IPRATROPIUM 3 ML (DUONEB) VIAL INH PRN (14:15)
[2022-07-12] MEDS: RT-ALBUTEROL/IPRATROPIUM 3 ML (DUONEB) VIAL INH SCH ×3 (14:42→22:13)
[2022-07-12] MEDS ORDERED: POTA-179 PO (15:40)
[2022-07-12] MEDS ORDERED: GABA-486 PO (15:40)
[2022-07-12] MEDS ORDERED: METH-732 PO (15:40)
[2022-07-12] MEDS ORDERED: FLUT1BLS12 INH (15:40)
[2022-07-12] MEDS ORDERED: FERR-84 PO (15:40)
[2022-07-12] MEDS ORDERED: CHOL-34 PO (15:40)
[2022-07-12] MEDS ORDERED: AMLO-251 PO (15:40)
[2022-07-12] MEDS ORDERED: ASPI-479 PO (15:40)
[2022-07-12] MEDS ORDERED: ALBU2.5V4 NEB (15:40)
[2022-07-12] MEDS ORDERED: INSU100V42 SC (15:40)
[2022-07-12] MEDS ORDERED: DOXA4TAB2 PO (15:40)
[2022-07-12 15:51] VITALS: BP 143/62
--- NOTE | 2022-07-12 16:42 | Consultation-Cardiology ---
HPI-Cardiology Cardiology Consultation: Date of Consultation 07/12/22 Date of Admission 07/12/22 Attending Physician Parachute/Count Includes [facility] Admitting Physician Admitting Physician: Maye Mullins DO Attending Physician: Maye Mullins DO Consulting Physician JANEL VERA JR, MD HPI: Time Seen by a Provider: 16:30 Chief Complaint: REASON FOR CONSULTATION: Heart failure. I had the pleasure of seeing Mike in the cardiac stepdown unit at [facility] in [place], [place] today. He normally follows with Dr. Major at [facility] in [place], [place] for his cardiac issues. He has a history of what seems to be permanent atrial fibrillation, complete heart block with a permanent pacemaker in place (Micra right ventricular device), chronic combined type heart failure, hypertension and hyperlipidemia among several other noncardiac issues. Over the past 10 to 14 days he has been having increasing dyspnea on exertion and lower extremity edema. For about the past 3 months he has had orthopnea and paroxysmal nocturnal dyspnea and has been sleeping in his recliner. He just saw his emblem drawer in about 2 weeks ago and one of his heart medications was adjusted but he is not sure what. He just got the new prescription today. However, over the past 3 days his breathing has gotten significantly worse and he came to the emergency room this morning for further evaluation. He was given some intravenous furosemide and his shortness of breath is starting to improve but has not completely resolved. He denies any chest discomfort. He has noted some tachycardia on a monitoring device he has at home but has not had any palpitations. He denies lightheadedness or syncope. During his evaluation in the emergency room he was found to have a very mildly elevated BNP level and a chest x-ray that showed pulmonary congestion. As such, a cardiology consultation was requested. Certain portions of this document may have been dictated utilizing voice recognition technology. Inherent to this technology, typographical and grammatical errors may exist. As much as I am diligent to identify and correct these mistakes, some errors may remain in the document. Review of Systems-Cardiology Review of Systems Other comments Review of 10 organ systems is as per the history of present illness, otherwise negative. DWJ-[id number]-Yhnkaf Hx Patient Social History Smoking Status: Former Smoker Former smoker/When Quit: Apr 26, 1994 Have you traveled recently?: No Alcohol Use?: No Pt feels they are or have been: No Tobacco type used: Cigarettes Immunizations Up To Date Tetanus Booster (TDap): Unknown Date of Pneumonia Vaccine: Oct 21, 2019 Date of Influenza Vaccine: Aug 24, 2021 Past Medical History PMH As described under Assessment. Family Medical History Family History: Family history: Hypertension 03 FATHER, Onset:Unknown 03 MOTHER, Onset:50's - 60 Stroke 03 MOTHER, Onset:50's - 60 No Family History of: Cancer of colon Chest pain Dementia Family history: Alzheimer's disease Family history: Asthma Family history: Diabetes mellitus Kidney disease Myocardial infarction Seizure disorder Allergies and Home Medications Allergies Coded Allergies: prednisone (Verified Allergy, Severe, RASH, 07/12/22) Patient Home Medication List Home Medication List Reviewed: Yes Albuterol Sulfate (Ventolin Hfa) 18 Gm Hfa.aer.ad, 2 PUFF INH Q4H PRN for SHORTNESS OF BREATH, (Reported) Entered as Reported by: ANNEMARIE BRADY on 10/04/18 1538 Last Action: Reviewed Albuterol Sulfate (Albuterol Sulfate) 2.5 Mg/3 Ml (0.083 %) Vial.neb, 3 ML NEB Q6H PRN for SHORTNESS OF BREATH, (Reported) Entered as Reported by: CHRIS CUNNINGHAM on 07/12/221539 Last Action: Reviewed Amlodipine Besylate (Amlodipine Besylate) 10 Mg Tablet, 10 MG PO DAILY, (Reported) Entered as Reported by: CHRIS CUNNINGHAM on 07/12/221539 Last Action: Reviewed Apixaban (Eliquis) 5 Mg Tablet, 5 MG PO BID, (Reported) Entered as Reported by: ASHLEY STEVE on 11/23/19 1004 Last Action: Reviewed Aspirin (Adult Low Dose Aspirin EC) 81 Mg Tablet.dr, 81 MG PO DAILY, (Reported) Entered as Reported by: CHRIS CUNNINGHAM on 07/12/221539 Last Action: Reviewed Cholecalciferol (Vitamin D3) (Vitamin D3) 25 Mcg (1000 Unit) Tablet, 25 MCG PO DAILY, (Reported) Entered as Reported by: CHRIS CUNNINGHAM on 07/12/221539 Last Action: Reviewed Doxazosin Mesylate (Doxazosin Mesylate) 4 Mg Tablet, 4 MG PO DAILY, (Reported) Entered as Reported by: CHRIS CUNNINGHAM on 07/12/221539 Last Action: Reviewed Ferrous Sulfate (Iron) 325 Mg (65 Mg Iron) Tablet, 325 MG PO DAILY, (Reported) Entered as Reported by: CHRIS CUNNINGHAM on 07/12/221539 Last Action: Reviewed Fluticasone Propion/Salmeterol (Fluticasone-Salmeterol 250-50) 250 Mcg-50 Mcg/Dose Blst.w.dev, 1 PUFF INH BID, (Reported) Entered as Reported by: CHRIS CUNNINGHAM on 07/12/221539 Last Action: Reviewed Fluticasone Propionate (Fluticasone Propionate) 16 Gm [place].susp, 1 SPRAY NSEACH BID, (Reported) Entered as Reported by: ASHLEY STEVE on 11/23/191003 Last Action: Reviewed Furosemide (Furosemide) 40 Mg Tablet, 80 MG PO DAILY, (Reported) Entered as Reported by: ASHLEY STEVE on 04/01/18825 Last Action: Reviewed Gabapentin (Gabapentin) 100 Mg Capsule, 200 MG PO HS, (Reported) Entered as Reported by: CHRIS CUNNINGHAM on 07/12/221539 Last Action: Reviewed Hydralazine HCl (Hydralazine HCl) 100 Mg Tablet, 100 MG PO BID, (Reported) Entered as Reported by: ASHLEY STEVE on 04/01/18825 Last Action: Reviewed Insulin Aspart (Insulin Aspart) 100 Unit/Ml Vial, UNITS SC AC PRN for HYPERGLYCEMIA, (Reported) Entered as Reported by: CHRIS CUNNINGHAM on 07/12/221539 Last Action: Reviewed Insulin Determir (Levemir) 1,000 Units/10 Ml Soln, 75 UNITS SQ BID, (Reported) Entered as Reported by: ASHLEY STEVE on 04/01/18825 Last Action: Reviewed Losartan Potassium (Losartan Potassium) 100 Mg Tablet, 100 MG PO DAILY, (Reported) Entered as Reported by: ASHLEY STEVE on 11/23/19 1217 Last Action: Reviewed Methocarbamol (Methocarbamol) 750 Mg Tablet, 750 MG PO DAILY, (Reported) Entered as Reported by: CHRIS CUNNINGHAM on 07/12/221539 Last Action: Reviewed Potassium Chloride (Potassium Chloride) 20 Meq Tab.er.prt, 20 MEQ PO BID, (Reported) Entered as Reported by: CHRIS CUNNINGHAM on 07/12/22 1540 Last Action: Reviewed Ropinirole HCl (Ropinirole HCl) 2 Mg Tablet, 4 MG PO HS, (Reported) Entered as Reported by: CHRIS CUNNINGHAM on 12/07/21 1637 Last Action: Reviewed Rosuvastatin Calcium (Rosuvastatin Calcium) 40 Mg Tablet, 20 MG PO HS, (Reported) Entered as Reported by: ASHLEY STEVE on 04/01/18825 Last Action: Reviewed Discontinued Medications Aspirin (Aspirin EC) 81 Mg Tablet.dr, 81 MG PO HS, (Reported) Discontinued Reason: Duplicate Order Entered as Reported by: CHRIS CUNNINGHAM on 12/07/21 153 Last Action: Discontinued Cefdinir (Cefdinir) 300 Mg Capsule, 300 MG PO BID Discontinued Reason: No Longer Taking Prescribed by: MAYE MULLINS on 12/08/211524 Last Action: Discontinued Cholecalciferol (Vitamin D3) (Vitamin D3) 25 Mcg Capsule, 25 MCG PO DAILY, (Reported) Discontinued Reason: No Longer Taking Entered as Reported by: ASHLEY STEVE on 11/23/19 1006 Last Action: Discontinued Empagliflozin (Jardiance) 25 Mg Tablet, 25 MG PO DAILY, (Reported) Discontinued Reason: No Longer Taking Entered as Reported by: CHRIS CUNNINGHAM on 12/07/211533 Last Action: Discontinued Fluticasone/Salmeterol (Advair 250-50 Diskus) 1 Each Blst.w.dev, 1 EACH IH BID, (Reported) Discontinued Reason: Duplicate Order Entered as Reported by: CHRIS CUNNINGHAM on 12/07/211533 Last Action: Discontinued Insulin Aspart (Novolog Flexpen) 300 Units/3 Ml Solution, UNITS SQ AC, (Rep orted) Discontinued Reason: Duplicate Order Entered as Reported by: CHRIS CUNNINGHAM on 12/07/21 154 Last Action: Discontinued Metformin HCl (Metformin HCl) 1,000 Mg Tablet, 1,000 MG PO BID WITH MEALS, (Reported) Discontinued Reason: No Longer Taking Entered as Reported by: ASHLEY STEVE on 04/01/18825 Last Action: Discontinued Potassium Chloride (Potassium Chloride) 20 Meq Tablet.er, 20 MEQ PO BID, (Reported) Discontinued Reason: Duplicate Order Entered as Reported by: ASHLEY STEVE on 04/01/18825 Last Action: Discontinued Exam Vital Signs Vital Signs Date Time Temp Pulse Resp B/P (MAP) Pulse Ox O2 Delivery O2 Flow Rate FiO2 07/12/22 15:51 36.2 72 11 143/62 (89) 96 Nasal Cannula 2.00 07/12/22 13:54 28 Physical Exam General: Alert. Mild respiratory distress while moving in bed or speaking. Well nourished and appears stated age. He is obese. He is wearing oxygen by nasal cannula. Eye: Extraocular movements are intact. Conjunctivae are clear. There are no xant helasma. HENT: Normocephalic. Atraumatic. Carotid pulsations 2/2 without bruits. Neck: Jugular venous pressure does not appear elevated. No thyromegaly appreciated. Respiratory: Lungs have some scattered wheezes and decreased breath sounds at the bases bilaterally. Respirations are non-labored. Breath sounds are equal. Symmetrical chest wall expansion. Cardiovascular: Normal rate. Irregular rhythm. Distant S1/S2. No murmur. No gallop. Point of maximal impulse is not appear displaced. Good pulses equal in all extremities. 1+ bilateral pretibial edema. Gastrointestinal: Soft. Normal bowel sounds. Skin: Skin turgor is normal. There is no pallor. Musculoskeletal: No kyphosis or scoliosis appreciated. Neurologic: Alert and oriented to person, place, time. Cranial nerves 3-12 appear grossly intact. The patient has good motor tone strength in the upper and lower extremities bilaterally. Psychiatric: Cooperative. Appropriate mood & affect. Labs Laboratory Tests Test 07/12/22 10:00 07/12/22 11:40 07/12/22 15:41 Range/Units White Blood Count 9.6 4.3-11.0 10^3/uL Red Blood Count 3.84 L 4.30-5.52 10^6/uL Hemoglobin 10.0 L 13.3-17.7 g/dL Hematocrit 32 L 40-54 % Mean Corpuscular Volume 83 80-99 fL Mean Corpuscular Hemoglobin 26 25-34 pg Mean Corpuscular Hemoglobin Concent 31 L 32-36 g/dL Red Cell Distribution Width 17.1 H 10.0-14.5 % Platelet Count 269 130-400 10^3/uL Mean Platelet Volume 10.1 9.0-12.2 fL Immature Granulocyte % (Auto) 1 % Neutrophils (%) (Auto) 80 H 42-75 % Lymphocytes (%) (Auto) 10 L 12-44 % Monocytes (%) (Auto) 7 0-12 % Eosinophils (%) (Auto) 2 0-10 % Basophils (%) (Auto) 1 0-10 % Neutrophils # (Auto) 7.6 1.8-7.8 10^3/uL Lymphocytes # (Auto) 1.0 1.0-4.0 10^3/uL Monocytes # (Auto) 0.6 0.0-1.0 10^3/uL Eosinophils # (Auto) 0.2 0.0-0.3 10^3/uL Basophils # (Auto) 0.1 0.0-0.1 10^3/uL Immature Granulocyte # (Auto) 0.1 0.0-0.1 10^3/uL Neutrophils % (Manual) 83 % Lymphocytes % (Manual) 9 % Monocytes % (Manual) 6 % Eosinophils % (Manual) 1 % Basophils % (Manual) 0 % Band Neutrophils 1 % Poikilocytosis SLIGHT Anisocytosis SLIGHT Elliptocytes SLIGHT Sodium Level 139 135-145 MMOL/L Potassium Level 3.7 3.6-5.0 MMOL/L Chloride Level 104 98-107 MMOL/L Carbon Dioxide Level 21 21-32 MMOL/L Anion Gap 14 5-14 MMOL/L Blood Urea Nitrogen 35 H 7-18 MG/DL Creatinine 2.09 H 0.60-1.30 MG/DL Estimat Glomerular Filtration Rate 33 BUN/Creatinine Ratio 17 Glucose Level 325 H 70-105 MG/DL Calcium Level 9.0 8.5-10.1 MG/DL Total Bilirubin 0.5 0.1-1.0 MG/DL Direct Bilirubin 0.3 0.0-0.3 MG/DL Indirect Bilirubin 0.2 MG/DL Aspartate Amino Transf (AST/SGOT) 17 5-34 U/L Alanine Aminotransferase (ALT/SGPT) 16 0-55 U/L Alkaline Phosphatase 124 40-136 U/L Troponin I < 0.028 <0.028 NG/ML B-Type Natriuretic Peptide 265.7 H <100.0 PG/ML Total Protein 7.6 6.4-8.2 GM/DL Albumin 3.8 3.2-4.5 GM/DL Triglycerides Level 112 <150 MG/DL Cholesterol Level 104 < 200 MG/DL LDL Cholesterol Direct 58 1-129 MG/DL VLDL Cholesterol 22 5-40 MG/DL HDL Cholesterol 28 L 40-60 MG/DL Thyroid Stimulating Hormone (TSH) 4.75 0.35-4.94 UIU/ML Influenza Type A (RT-PCR) Not Detected Not Detecte Influenza Type B (RT-PCR) Not Detected Not Detecte SARS-CoV-2 RNA (RT-PCR) Not Detected Not Detecte Blood Gas Puncture Site LT RAD Blood Gas Patient Temperature 36.0 Arterial Blood pH 7.41 7.37-7.43 Arterial Blood Partial Pressure CO2 35 35-45 MMHG Arterial Blood Partial Pressure O2 75 L 79-93 MMHG Arterial Blood HCO3 23 23-27 MMOL/L Arterial Blood Total CO2 23.7 21.0-31.0 MMOL/L Arterial Blood Oxygen Saturation 97 94-100 % Arterial Blood Base Excess -1.6 -2.5-2.5 MMOL/L [place] Test YES-POS Blood Gas Ventilator Setting NO Blood Gas Inspired Oxygen 2 L Glucometer 230 H 70-110 MG/DL ECG Impression ECG Comment Atrial fibrillation with a controlled ventricular rate with intermittent demand ventricular pacing and nonspecific ST-T wave changes. Diagnosis/Problems Diagnosis/Problems (1) Acute on chronic combined systolic and diastolic congestive heart failure Assessment & Plan: He had an echocardiogram earlier this year that showed an ejection fraction of approximately 45%. He has clinical signs and symptoms of decompensated heart failure. This is a complicated picture due to his chronic kidney disease with 1 kidney. I agree with intravenous diuresis but we will need to watch his renal function closely. Some of his peripheral edema could be related to amlodipine. We may want to consider a different agent for his hypertension. (2) Cardiomyopathy Assessment & Plan: The patient has mild left ventricular systolic dysfunction. Unfortunately, due to his chronic kidney disease, some of the medications we use for heart failure are relatively contraindicated given his kidney disease. I would suggest we change the amlodipine over to low-dose carvedilol. We do not have to worry about bradycardia since he has a permanent pacemaker in place. (3) Permanent atrial fibrillation Assessment & Plan: He appears to have permanent atrial fibrillation. He has been on apixaban for stroke prophylaxis. His heart rate appears well controlled on no AV mary blocking agents. We do not have to worry about bradycardia since he has a permanent pacemaker in place. (4) Complete heart block Assessment & Plan: He may have had some remote sick sinus syndrome but at the present time has complete heart block which is intermittent as noted by [place] conduction of much of the atrial fibrillation. He does have some intermittent ventricular pacing. He has an intracardiac right ventricular pacemaker (Micra). (5) Primary hypertension Assessment & Plan: As above, amlodipine which she was taking at home could be contributing to his peripheral edema. I will change his over to carvedilol. (6) Mixed hyperlipidemia Assessment & Plan: Continue rosuvastatin which he was taking at home. (7) Acute on chronic respiratory failure with hypoxemia Assessment & Plan: Most likely multifactorial due to his underlying chronic obstructive pulmonary disease as well as heart failure. (8) Acute kidney injury superimposed on chronic kidney disease Assessment & Plan: We will need to watch his renal function closely with the diuretics. Due to the severe renal dysfunction, some cardiac medications are contraindicated. (9) Cardiac pacemaker in situ Assessment & Plan: He has a Micra device in the right ventricle. This is a leadless pacing system. You can see the device on his chest x-ray obtained in the emergency room. JANEL VERA JR, MD Jul 12, 2022 16:42
[2022-07-12] MEDS: methylPREDNISolone 40 MG/ML (Solu-MEDROL) VIAL IV SCH ×2 (16:56→23:59)
[2022-07-12] MEDS: inSUlin (REGULAR) HUMAN 1 UNIT/0.01 ML (CHARGE PER UNIT) SC SCH ×2 (16:56→20:37)
[2022-07-12] MEDS: FUROSEMIDE 40 MG/4 ML INJ (LASIX) IVP SCH (16:56)
[2022-07-12 19:00] VITALS: BP 148/66
[2022-07-12] MEDS: APIXABAN 5 MG (ELIQUIS) TABLET PO SCH (20:36)
[2022-07-12] MEDS: DOCUSATE SODIUM 100 MG (COLACE) CAP PO SCH (20:47)
[2022-07-12] MEDS: SENNOSIDES 8.6 MG (SENOKOT) TAB PO SCH (20:48)
[2022-07-12] MEDS ORDERED: ADVAIR HFA 115/21 MCG INHALER 8 GM IH SCH (21:00)
[2022-07-13] VITALS (7 sets, daily range): BP systolic 124–158; BP diastolic 58–88
[2022-07-13] MEDS: RT-ALBUTEROL/IPRATROPIUM 3 ML (DUONEB) VIAL INH SCH ×2 (02:47→08:06)
[2022-07-13 05:10] LABS: BASOPHILS % (AUTO) 0 % (0-10); EOSINOPHILS % (AUTO) 0 % (0-10); HEMATOCRIT 31 % (40-54); HEMOGLOBIN 9.6 g/dL (13.3-17.7); LYMPHOCYTES # (AUTO) 0.5 10^3/uL (1.0-4.0); LYMPHOCYTES % (AUTO) 5 % (12-44); MEAN CORPUSCULAR HEMOGLOBIN 26 pg (25-34); MEAN CORPUSCULAR HGB CONC 31 g/dL (32-36); MEAN CORPUSCULAR VOLUME 83 fL (80-99); MEAN PLATELET VOLUME 9.7 fL (9.0-12.2); MONOCYTES # (AUTO) 0.1 10^3/uL (0.0-1.0); MONOCYTES % (AUTO) 1 % (0-12); NEUTROPHILS # (AUTO) 8.5 10^3/uL (1.8-7.8); NEUTROPHILS % (AUTO) 93 % (42-75); PLATELET COUNT 236 10^3/uL (130-400); WHITE BLOOD COUNT 9.2 10^3/uL (4.3-11.0)
[2022-07-13 05:32] LABS: ALBUMIN 3.6 GM/DL (3.2-4.5); BILIRUBIN,TOTAL 0.6 MG/DL (0.1-1.0); CALCIUM 8.9 MG/DL (8.5-10.1); CREATININE SERUM 2.11 MG/DL (0.60-1.30)
[2022-07-13] MEDS: FUROSEMIDE 40 MG/4 ML INJ (LASIX) IVP SCH (07:32)
[2022-07-13] MEDS: methylPREDNISolone 40 MG/ML (Solu-MEDROL) VIAL IV SCH ×2 (07:33→12:42)
[2022-07-13] MEDS: inSUlin (REGULAR) HUMAN 1 UNIT/0.01 ML (CHARGE PER UNIT) SC SCH ×2 (07:35→11:40)
[2022-07-13] MEDS ORDERED: RT--FLUTICASONE/SALMETEROL 113-14 (AIRDUO RespiCLICK) IH SCH (08:00)
[2022-07-13] MEDS ORDERED: KCL 20 MEQ TAB (K-DUR) PO SCH (08:00)
[2022-07-13] MEDS ORDERED: ASPIRIN E.C. 81 MG (ECOTRIN) TAB PO SCH (09:00)
[2022-07-13] MEDS ORDERED: METHOCARBAMOL 750 MG (ROBAXIN) TAB PO SCH (09:00)
[2022-07-13] MEDS ORDERED: FLUTICASONE NASAL SPRAY (FLONASE) 16 GM BTL NS SCH (09:00)
[2022-07-13] MEDS: SENNOSIDES 8.6 MG (SENOKOT) TAB PO SCH (09:00)
[2022-07-13] MEDS: DOCUSATE SODIUM 100 MG (COLACE) CAP PO SCH (09:00)
[2022-07-13] MEDS ORDERED: LOSARTAN 100 MG (COZAAR) TABLET PO SCH (09:00)
[2022-07-13] MEDS ORDERED: FERROUS SULF 325 MG (IRON) TAB PO SCH (09:00)
[2022-07-13] MEDS ORDERED: doxAzosin 4 MG (CARDURA) TAB PO SCH (09:00)
[2022-07-13] MEDS ORDERED: amLODIPine 10 MG (NORVASC) TAB PO SCH (09:00)
[2022-07-13] MEDS ORDERED: VITAMIN D3 25 MCG (1,000 UNITS) TABLET PO SCH (09:00)
[2022-07-13] MEDS ORDERED: hydrALAZINE (APRESOLINE) 25 MG TAB PO SCH (09:00)
[2022-07-13] MEDS ORDERED: CARV3.122 PO (09:24)
--- NOTE | 2022-07-13 09:24 | Cardiology Progress Note ---
Progress Note-Cardiology Events since last exam Date Seen by Provider: Jul 13, 2022 Time Seen by Provider: 09:19 Events since last exam I am following him due to heart failure. His breathing is much better today. His peripheral edema has almost completely resolved. He would like to go home today. He denies chest discomfort, palpitations, or syncope. Certain portions of this document may have been dictated utilizing voice recognition technology. Inherent to this technology, typographical and grammatical errors may exist. As much as I am diligent to identify and correct these mistakes, some errors may remain in the document. Vitals Last set of Vitals Signs Vital Signs 07/12/22 07/13/22 07/13/22 13:54 09:00 11:44 Temp 36.9 Pulse 70 Resp 16 B/P (MAP) 127/62 (83) Pulse Ox 92 O2 Delivery Room Air O2 Flow Rate 2.00 FiO2 28 Labs Labs Laboratory Tests 07/13/22 04:50 Exam Vital Signs Vital Signs Date Time Temp Pulse Resp B/P (MAP) Pulse Ox O2 Delivery O2 Flow Rate FiO2 07/13/22 11:44 36.9 70 16 127/62 (83) 92 Room Air 07/13/22 09:00 2.00 07/12/22 13:54 28 Physical Exam General: Alert. No acute distress. He is obese. He is wearing oxygen by nasal cannula. Eye: No xanthelasma. HENT: Normocephalic. Neck: Jugular venous pressure does not appear elevated. Respiratory: Lungs have some minimal scattered wheezes, improved. Respirations are non-labored. Breath sounds are equal. Symmetrical chest wall expansion. Cardiovascular: Normal rate. Irregular rhythm. Distant S1/S2. No murmur. No gallop. Trace bilateral pretibial edema. Gastrointestinal: Soft. Normal bowel sounds. Skin: Warm. Dry. Neurologic: Alert and oriented to person, place, time. Cranial nerves 3-11 grossly intact. Psychiatric: Cooperative. Appropriate mood & affect. Labs Laboratory Tests Test 07/12/22 15:41 07/12/22 20:28 07/13/22 04:50 07/13/22 09:16 Range/Units Glucometer 230 H 293 H 263 H 70-110 MG/DL White Blood Count 9.2 4.3-11.0 10^3/uL Red Blood Count 3.75 L 4.30-5.52 10^6/uL Hemoglobin 9.6 L 13.3-17.7 g/dL Hematocrit 31 L 40-54 % Mean Corpuscular Volume 83 80-99 fL Mean Corpuscular Hemoglobin 26 25-34 pg Mean Corpuscular Hemoglobin Concent 31 L 32-36 g/dL Red Cell Distribution Width 17.2 H 10.0-14.5 % Platelet Count 236 130-400 10^3/uL Mean Platelet Volume 9.7 9.0-12.2 fL Immature Granulocyte % (Auto) 1 % Neutrophils (%) (Auto) 93 H 42-75 % Lymphocytes (%) (Auto) 5 L 12-44 % Monocytes (%) (Auto) 1 0-12 % Eosinophils (%) (Auto) 0 0-10 % Basophils (%) (Auto) 0 0-10 % Neutrophils # (Auto) 8.5 H 1.8-7.8 10^3/uL Lymphocytes # (Auto) 0.5 L 1.0-4.0 10^3/uL Monocytes # (Auto) 0.1 0.0-1.0 10^3/uL Eosinophils # (Auto) 0.0 0.0-0.3 10^3/uL Basophils # (Auto) 0.0 0.0-0.1 10^3/uL Immature Granulocyte # (Auto) 0.1 0.0-0.1 10^3/uL Sodium Level 140 135-145 MMOL/L Potassium Level 4.0 3.6-5.0 MMOL/L Chloride Level 105 98-107 MMOL/L Carbon Dioxide Level 21 21-32 MMOL/L Anion Gap 14 5-14 MMOL/L Blood Urea Nitrogen 43 H 7-18 MG/DL Creatinine 2.11 H 0.60-1.30 MG/DL Estimat Glomerular Filtration Rate 32 BUN/Creatinine Ratio 20 Glucose Level 197 H 70-105 MG/DL Calcium Level 8.9 8.5-10.1 MG/DL Corrected Calcium 9.2 8.5-10.1 MG/DL Total Bilirubin 0.6 0.1-1.0 MG/DL Aspartate Amino Transf (AST/SGOT) 12 5-34 U/L Alanine Aminotransferase (ALT/SGPT) 16 0-55 U/L Alkaline Phosphatase 115 40-136 U/L Total Protein 7.0 6.4-8.2 GM/DL Albumin 3.6 3.2-4.5 GM/DL Test 07/13/22 10:30 Range/Units Glucometer 328 H 70-110 MG/DL Diagnosis/Problems Diagnosis/Problems (1) Acute on chronic combined systolic and diastolic congestive heart failure Assessment & Plan: He had an echocardiogram earlier this year that showed an ejection fraction of approximately 45%. His symptoms have improved with intravenous diuretic. This is a complicated picture due to his chronic kidney disease with 1 kidney. Some of his peripheral edema could be related to amlodipine which I discontinued and changed this over to carvedilol. Symptomatically he is improved. He is probably ready for discharge. He can go back on his previous oral dose of furosemide. He needs to follow-up with his regular rest room maid in [place] within 1-2 weeks. (2) Cardiomyopathy Assessment & Plan: The patient has mild left ventricular systolic dysfunction. Unfortunately, due to his chronic kidney disease, some of the medications we use for heart failure and cardiomyopathy are relatively contraindicated given his kidney disease. As above, I have changed his amlodipine over to carvedilol. We do not have to worry about bradycardia since he has a permanent pacemaker in place. (3) Permanent atrial fibrillation Assessment & Plan: He appears to have permanent atrial fibrillation. He has been on apixaban for stroke prophylaxis. His heart rate appears well controlled on no AV mary blocking agents. We do not have to worry about bradycardia since he has a permanent pacemaker in place. (4) Complete heart block Assessment & Plan: He may have had some remote sick sinus syndrome but at the present time has complete heart block which is intermittent as noted by [place] conduction of much of the atrial fibrillation. He does have some intermittent ventricular pacing. He has an intracardiac right ventricular pacemaker (Micra). (5) Primary hypertension Assessment & Plan: As above, amlodipine which he was taking at home could be contributing to his peripheral edema. I changed this over to carvedilol. (6) Mixed hyperlipidemia Assessment & Plan: Continue rosuvastatin which he was taking at home. (7) Acute on chronic respiratory failure with hypoxemia Assessment & Plan: Most likely multifactorial due to his underlying chronic obstructive pulmonary disease as well as heart failure. He has a follow-up appointment with his test consultant next week. (8) Acute kidney injury superimposed on chronic kidney disease Assessment & Plan: This needs to be monitored closely. Due to the severe renal dysfunction, some cardiac medications are contraindicated. (9) Cardiac pacemaker in situ Assessment & Plan: He has a Micra device in the right ventricle. This is a leadless pacing system. You can see the device on his chest x-ray obtained in the emergency room. JANEL VERA JR, MD Jul 13, 2022 09:24
[2022-07-13] MEDS: APIXABAN 5 MG (ELIQUIS) TABLET PO SCH (09:26)
[2022-07-13] MEDS ORDERED: DEXA4TAB66 PO (11:55)
--- NOTE | 2022-07-13 11:57 | Discharge Summary ---
Discharge Summary Hospital Course Was the Problem List Reviewed?: Yes Problems/Dx: (1) Acute on chronic combined systolic and diastolic congestive heart failure (2) Cardiomyopathy (3) Permanent atrial fibrillation (4) Complete heart block (5) Primary hypertension (6) Mixed hyperlipidemia (7) Acute on chronic respiratory failure with hypoxemia (8) Acute kidney injury superimposed on chronic kidney disease (9) Cardiac pacemaker in situ Hospital Course Date of Admission: Jul 12, 2022 at 12:35 Admission Diagnosis : Family Physician/Provider: Jens Lennon Date of Discharge: 07/13/22 Discharge Diagnosis: AECOPD, acute hypoxic resp failure, CHF Hospital Course: Hospital Course: This is a 72-year-old male clinic patient [facility] who has a history of COPD who presented for shortness of breath and hypoxia. Patient was found to have no evidence of pneumonia but requiring IV steroids and oxygen supplementation. Patient had bilateral wheezing and pitting edema on presentation. For the d iagnosis of acute respiratory failure with hypoxemia, exacerbation of COPD, and CHF with volume overload, he was administered IV steroids, Nebulizers, and Lasix with significant improvement in symptoms. The next day he did not have any wheezing and no lower extremity edema. Patient stated he was ready to go home. NAZ LATHAM Jul 13, 2022 12:28 Labs and Pending Lab Test: Laboratory Tests 07/12/22 15:41: Glucometer 230H 07/12/22 20:28: Glucometer 293H 07/13/22 04:50: White Blood Count 9.2, Red Blood Count 3.75L, Hemoglobin 9.6L, Hematocrit 31L, Mean Corpuscular Volume 83, Mean Corpuscular Hemoglobin 26, Mean Corpuscular Hemoglobin Concent 31L, Red Cell Distribution Width 17.2H, Platelet Count 236, Mean Platelet Volume 9.7, Immature Granulocyte % (Auto) 1, Neutrophils (%) (Auto) 93H, Lymphocytes (%) (Auto) 5L, Monocytes (%) (Auto) 1, Eosinophils (%) (Auto) 0, Basophils (%) (Auto) 0, Neutrophils # (Auto) 8.5H, Lymphocytes # (Auto) 0.5L, Monocytes # (Auto) 0.1, Eosinophils # (Auto) 0.0, Basophils # (Auto) 0.0, Immature Granulocyte # (Auto) 0.1, Sodium Level 140, Potassium Level 4.0, Chloride Level 105, Carbon Dioxide Level 21, Anion Gap 14, Blood Urea Nitrogen 43H, Creatinine 2.11H, Estimat Glomerular Filtration Rate 32, BUN/Creatinine Ratio 20, Glucose Level 197H, Calcium Level 8.9, Corrected Calcium 9.2, Total Bilirubin 0.6, Aspartate Amino Transf (AST/SGOT) 12, Alanine Aminotransferase (ALT/SGPT) 16, Alkaline Phosphatase 115, Total Protein 7.0, Albumin 3.6 07/13/22 09:16: Glucometer 263H 07/13/22 10:30: Glucometer 328H Home Meds Active Decadron (Dexamethasone) 4 Mg Tablet 4 Mg PO DAILY Carvedilol 3.125 Mg Tablet 3.125 Mg PO BID Reported Insulin Aspart 100 Unit/Ml Vial Units SC AC PRN Fluticasone-Salmeterol 250-50 (Fluticasone Propion/Salmeterol) 250 Mcg-50 Mcg/Dose Blst.w.dev 1 Puff INH BID Vitamin D3 (Cholecalciferol (Vitamin D3)) 25 Mcg (1000 Unit) Tablet 25 Mcg PO DAILY Potassium Chloride 20 Meq Tab.er.prt 20 Meq PO BID Adult Low Dose Aspirin EC (Aspirin) 81 Mg Tablet.dr 81 Mg PO DAILY Amlodipine Besylate 10 Mg Tablet 10 Mg PO DAILY Albuterol Sulfate 2.5 Mg/3 Ml (0.083 %) Vial.neb 3 Ml NEB Q6H PRN Methocarbamol 750 Mg Tablet 750 Mg PO DAILY Iron (Ferrous Sulfate) 325 Mg (65 Mg Iron) Tablet 325 Mg PO DAILY Doxazosin Mesylate 4 Mg Tablet 4 Mg PO DAILY Gabapentin 100 Mg Capsule 200 Mg PO HS TAKES 2 (100MG) CAPS Ropinirole HCl 2 Mg Tablet 4 Mg PO HS TAKES 2 (2MG) TABS Losartan Potassium 100 Mg Tablet 100 Mg PO DAILY Fluticasone Propionate 16 Gm [place].susp 1 [place] NSEACH BID Eliquis (Apixaban) 5 Mg Tablet 5 Mg PO BID Ventolin Hfa (Albuterol Sulfate) 18 Gm Hfa.aer.ad 2 Puff INH Q4H PRN Rosuvastatin Calcium 40 Mg Tablet 20 Mg PO HS TAKES 1/2 (40MG) TABLET Furosemide 40 Mg Tablet 80 Mg PO DAILY TAKES 2 (40MG) TABLETS Hydralazine HCl 100 Mg Tablet 100 Mg PO BID Levemir (Insulin Determir) 1,000 Units/10 Ml Soln 75 Units SQ BID Assessment/Pt Instructions PCP 1 week Discharge Planning: <30 minutes discharge planning Discharge Instructions Discharge Diet: No Restrictions Discharge Physical Examination Vital Signs Vital Signs Date Time Temp Pulse Resp B/P (MAP) Pulse Ox O2 Delivery O2 Flow Rate FiO2 07/13/22 11:44 36.9 70 16 127/62 (83) 92 Room Air 07/13/22 09:00 2.00 07/12/22 13:54 28 General Appearance: No Apparent Distress, WD/WN Respiratory: Chest Non Tender, Lungs Clear, Normal Breath Sounds, No Accessory Muscle Use, No Respiratory Distress Cardiovascular: Regular Rate, Rhythm, No Edema, No Gallop, No JVD, No Murmur, Normal Peripheral Pulses Allergies: Coded Allergies: prednisone (Verified Allergy, Severe, RASH, 07/12/22) Discharge Summary Date of Admission Jul 12, 2022 at 12:35 Date of Discharge Discharge Date: Jul 13, 2022 Admission Diagnosis Assessment: Acute respiratory failure with hypoxemia Exacerbation of COPD Former smoker CHF with volume overload Plan: IV steroids O2 Nebulizers Discharge Diagnosis (1) Acute on chronic combined systolic and diastolic congestive heart failure Assessment & Plan: He had an echocardiogram earlier this year that showed an ejection fraction of approximately 45%. His symptoms have improved with intravenous diuretic. This is a complicated picture due to his chronic kidney disease with 1 kidney Some of his peripheral edema could be related to amlodipine which I discontinued and changed this over to carvedilol. (2) Cardiomyopathy Assessment & Plan: The patient has mild left ventricular systolic dysfunction. Unfortunately, due to his chronic kidney disease, some of the medications we use for heart failure are relatively contraindicated given his kidney disease. As above, I have changed his amlodipine over to carvedilol. We do not have to worry about bradycardia since he has a permanent pacemaker in place. (3) Permanent atrial fibrillation Assessment & Plan: He appears to have permanent atrial fibrillation. He has been on apixaban for stroke prophylaxis. His heart rate appears well controlled on no AV mary blocking agents. We do not have to worry about bradycardia since he has a permanent pacemaker in place. (4) Complete heart block Assessment & Plan: He may have had some remote sick sinus syndrome but at the present time has complete heart block which is intermittent as noted by rampart conduction of much of the atrial fibrillation. He does have some intermittent ventricular pacing. He has an intracardiac right ventricular pacemaker (Micra). (5) Primary hypertension Assessment & Plan: As above, amlodipine which she was taking at home could be contributing to his peripheral edema. I will change his over to carvedilol. (6) Mixed hyperlipidemia Assessment & Plan: Continue rosuvastatin which he was taking at home. (7) Acute on chronic respiratory failure with hypoxemia Assessment & Plan: Most likely multifactorial due to his underlying chronic obstructive pulmonary disease as well as heart failure. (8) Acute kidney injury superimposed on chronic kidney disease Assessment & Plan: We will need to watch his renal function closely with the diuretics. Due to the severe renal dysfunction, some cardiac medications are contraindicated. (9) Cardiac pacemaker in situ Assessment & Plan: He has a Micra device in the right ventricle. This is a leadless pacing system. You can see the device on his chest x-ray obtained in the emergency room. DOMITILA MULLINS DO Jul 13, 2022 11:57
--- NOTE | 2022-07-13 12:28 | Progress Note ---
NAZ LATHAM 07/13/22 1228: Progress Note Hospital Course: This is a 72-year-old male clinic patient [facility] who has a history of COPD who presented for shortness of breath and hypoxia. Patient was found to have no evidence of pneumonia but requiring IV steroids and oxygen supplementation. Patient had bilateral wheezing and pitting edema on presentation. For the diagnosis of acute respiratory failure with hypoxemia, exacerbation of COPD, and CHF with volume overload, he was administered IV steroids, Nebulizers, and Lasix with significant improvement in symptoms. The next day he did not have any wheezing and no lower extremity edema. Patient stated he was ready to go home. MAYE MULLINS DO 07/14/22 0746: Supervisory-Addendum Brief Verification & Attestation Participated in pt care: history, MDM, physical Personally performed: exam, history, MDM, supervision of care Care discussed with: Medical Student Procedures: n/a Results interpretation: Verified all documentation Verification and Attestation of Medical Student E/M Service A medical student performed and documented this service in my presence. I reviewed and verified all information documented by the medical student and made modifications to such information, when appropriate. I personally performed the physical exam and medical decision making. Maye Mullins Jul 14, 2022,07:46 NAZ LATHAM Jul 13, 2022 12:28 MAYE MULLINS DO Jul 14, 2022 07:46
[2022-07-13] MEDS ORDERED: ROSUVASTATIN 20 MG (CRESTOR) TABLET PO SCH (21:00)
[2022-07-13] MEDS ORDERED: rOPINIRole 1 MG (REQUIP) TABLET PO SCH (21:00)
[2022-07-13] MEDS ORDERED: GABAPENTIN 100 MG (NEURONTIN) CAP PO SCH (21:00)
== END 2022-07-13 11:49 | disposition home or self-care (01) ==
LOC: EDUNIT# 09:55 → ER 09:57 → CSD 12:35 → UNDOADMOB 12:35 → CSD 15:20 → UNDODISOB 07-13 11:49
PROVIDERS: ADMIT Internal Medicine; ATTEND Internal Medicine
DX: J96.21 Acute and chronic respiratory failure with hypoxia (principal); N17.9 Acute kidney failure, unspecified; I50.43 Acute on chronic combined systolic (congestive) and diastolic (congestive) heart failure; I42.9 Cardiomyopathy, unspecified; I48.19 Other persistent atrial fibrillation; E78.2 Mixed hyperlipidemia; J44.1 Chronic obstructive pulmonary disease with (acute) exacerbation; Z99.81 Dependence on supplemental oxygen; N18.9 Chronic kidney disease, unspecified; I13.0 Hypertensive heart and chronic kidney disease with heart failure and stage 1 through stage 4 chronic kidney disease, or unspecified chronic kidney disease; Z79.899 Other long term (current) drug therapy; I44.2 Atrioventricular block, complete; Z95.0 Presence of cardiac pacemaker
CPT/HCPCS: 36415; 36600; 71046; 80048; 80053; 80061; 80076; 82805; 82947; 83036; 83880; 84443; 84484; 85007; 85025; 85027; 87636; 93005; 93041; 94640; 94664; 96372; 96374; 96375; 96376

== ENCOUNTER → 2022-08-02 | Outpatient (CLI) | payer MEDICARE, OTHER ==
[~2022-08-02] MED LIST changes: +ALBU2.5V4 NEB; +AMLO-251 PO; +ASPI-479 PO; +CARV3.122 PO; +CHOL-34 PO; +DEXA4TAB66 PO; +DOXA4TAB2 PO; +FERR-84 PO; +FLUT1BLS12 INH; +GABA-486 PO; +INSU100V42 SC; +METH-732 PO; +POTA-179 PO
--- NOTE | 2022-08-02 10:44 | Diagnostic Imaging Report ---
INDICATION: Dyspnea. Comparison is made with prior examination 07/12/2022 FINDINGS: There is cardiomegaly. There is some venous congestion. There is a small left pleural effusion. There is no pneumothorax. Mediastinum is unremarkable. IMPRESSION: Cardiomegaly and mild central pulmonary venous congestion with probable small left pleural effusion. Dictated by: Dictated on workstation # [id number]
== END ==
LOC: RAD 09:57
PROVIDERS: ATTEND Hospitalist
DX: I51.7 Cardiomegaly (principal)
CPT/HCPCS: 71046

== ENCOUNTER → 2022-08-22 | Outpatient (CLI) | payer MEDICARE, OTHER ==
[2022-08-22 13:22] LABS: ABG BASE EXCESS 0.3 MMOL/L (-2.5-2.5); ABG OXYGEN SATURATION 98 % (94-100); ABG PCO2 36 MMHG (35-45); ABG PH 7.44 (7.37-7.43); ABG PO2 84 MMHG (79-93); ABG TCO2 25.3 MMOL/L (21.0-31.0)
[2022-08-22 13:23] LABS: ALLENS TEST YES-POS; INSPIRED O2 ROOM AIR; PATIENT TEMP 36.4; VENTILATOR NO
== END ==
LOC: LAB 12:43
PROVIDERS: ATTEND Internal Medicine Critical Care Medicine
DX: J44.9 Chronic obstructive pulmonary disease, unspecified (principal); G47.33 Obstructive sleep apnea (adult) (pediatric); G47.14 Hypersomnia due to medical condition
CPT/HCPCS: 36600; 82805

== ENCOUNTER 2022-10-20 15:06 | Emergency (ER) | payer OTHER ==
[~2022-10-20] VITALS: Ht 180 cm; Wt 102.0 kg
[2022-10-20 15:15] VITALS: BP 134/88
--- NOTE | 2022-10-20 16:14 | ED Integumentary General ---
General Chief Complaint: Allergic Reaction Stated Complaint: ITCHING/RASH Nursing Triage Note: ARRIVED VIA AMB TO ROOM 02 WITH COMPLAINTS OF ITCHING X2 WEEKS. PT STATES HE HAS TAKEN MANY THINGS TO TRY TO STOP IT. Source: patient Exam Limitations: no limitations (STEFAN FLORES APRN) History of Present Illness Date Seen by Provider: Oct 20, 2022 Time Seen by Provider: 15:30 Initial Comments 72 y/o male presents today with c/o diffuse pruritic rash. Pt states it has been present x 2 weeks, was prescribed prednisone a couple days ago, but he believes that has made it even worse. Unable to sleep, has been itching constantly. Denies new lotions, soaps, detergents, or any other new exposures. Denies h/o similar symptoms. reports patient "has had trouble with steroids in the past", she is uncertain what reaction exactly but states she believes he is allergic to steroids Location: scalp, face, torso, hands, feet, extremities Possible Cause: no cause identified Modifying Factors: worse with prednisone, worse with scratching Associated Symptoms: No blisters, No change in skin texture, No edema, No fever, No flushing, No headache; hives; No malaise, No nasal congestion, No numbness, No paresthesia; rash; No sore throat, No swelling/mass/lumps, No tingling (STEFAN FLORES APRN) Allergies and Home Medications Allergies Coded Allergies: prednisone (Verified Allergy, Severe, RASH, 07/12/22) Patient Home Medication List Home Medication List Reviewed: Yes (STEFAN FLORES APRN) Albuterol Sulfate (Ventolin Hfa) 18 Gm Hfa.aer.ad, 2 PUFF INH Q4H PRN for SHORTNESS OF BREATH, (Reported) Entered as Reported by: ANNEMARIE BRADY on 10/04/18 1538 Albuterol Sulfate (Albuterol Sulfate) 2.5 Mg/3 Ml (0.083 %) Vial.neb, 3 ML NEB Q6H PRN for SHORTNESS OF BREATH, (Reported) Entered as Reported by: CHRIS CUNNINGHAM on 07/12/22 1540 Apixaban (Eliquis) 5 Mg Tablet, 5 MG PO BID, (Reported) Entered as Reported by: ASHLEY STEVE on 11/23/19 1004 Aspirin (Adult Low Dose Aspirin EC) 81 Mg Tablet.dr, 81 MG PO DAILY, (Reported) Entered as Reported by: CHRIS CUNNINGHAM on 07/12/22 154 Carvedilol (Carvedilol) 3.125 Mg Tablet, 3.125 MG PO BID Prescribed by: JANEL VERA JR, MD on 07/13/22 0924 Cholecalciferol (Vitamin D3) (Vitamin D3) 25 Mcg (1000 Unit) Tablet, 25 MCG PO DAILY, (Reported) Entered as Reported by: CHRIS CUNNINGHAM on 07/12/22 154 Dexamethasone (Decadron) 4 Mg Tablet, 4 MG PO DAILY Prescribed by: DOMITILA MULLINS on 07/13/22 1155 Doxazosin Mesylate (Doxazosin Mesylate) 4 Mg Tablet, 4 MG PO DAILY, (Reported) Entered as Reported by: CHRIS CUNNINGHAM on 07/12/22 154 Ferrous Sulfate (Iron) 325 Mg (65 Mg Iron) Tablet, 325 MG PO DAILY, (Reported) Entered as Reported by: CHRIS CUNNINGHAM on 07/12/221539 Fluticasone Propion/Salmeterol (Fluticasone-Salmeterol 250-50) 250 Mcg-50 Mcg/Dose Blst.w.dev, 1 PUFF INH BID, (Reported) Entered as Reported by: CHRIS CUNNINGHAM on 07/12/221539 Fluticasone Propionate (Fluticasone Propionate) 16 Gm [place].susp, 1 SPRAY NSEACH BID, (Reported) Entered as Reported by: ASHLEY STEVE on 11/23/19 1004 Furosemide (Furosemide) 40 Mg Tablet, 80 MG PO DAILY, (Reported) Entered as Reported by: ASHLEY STEVE on 04/01/18 08 Gabapentin (Gabapentin) 100 Mg Capsule, 200 MG PO HS, (Reported) Entered as Reported by: CHRIS CUNNINGHAM on 07/12/22 154 Hydralazine HCl (Hydralazine HCl) 100 Mg Tablet, 100 MG PO BID, (Reported) Entered as Reported by: ASHLEY STEVE on 04/01/18 0826 Insulin Aspart (Insulin Aspart) 100 Unit/Ml Vial, UNITS SC AC PRN for HYPERGLYCEMIA, (Reported) Entered as Reported by: CHRIS CUNNINGHAM on 07/12/22 1540 Insulin Determir (Levemir) 1,000 Units/10 Ml Soln, 75 UNITS SQ BID, (Reported) Entered as Reported by: ASHLEY STEVE on 04/01/18 0826 Losartan Potassium (Losartan Potassium) 100 Mg Tablet, 100 MG PO DAILY, (Reported) Entered as Reported by: ASHLEY STEVE on 11/23/19 1217 Methocarbamol (Methocarbamol) 750 Mg Tablet, 750 MG PO DAILY, (Reported) Entered as Reported by: CHRIS CUNNINGHAM on 07/12/22 1540 Potassium Chloride (Potassium Chloride) 20 Meq Tab.er.prt, 20 MEQ PO BID, (Repor jacquie) Entered as Reported by: CHRIS CUNNINGHAM on 07/12/22 154 Ropinirole HCl (Ropinirole HCl) 2 Mg Tablet, 4 MG PO HS, (Reported) Entered as Reported by: CHRIS CUNNINGHAM on 12/07/21 1637 Rosuvastatin Calcium (Rosuvastatin Calcium) 40 Mg Tablet, 20 MG PO HS, (Reported) Entered as Reported by: ASHLEY STEVE on 04/01/18 08 Review of Systems Review of Systems Constitutional: no symptoms reported EENTM: no symptoms reported Respiratory: no symptoms reported Cardiovascular: no symptoms reported Gastrointestinal: no symptoms reported Genitourinary: no symptoms reported Musculoskeletal: no symptoms reported Skin: dryness, pruritus, rash Endocrine: No Symptoms Reported Hematologic/Lymphatic: No Symptoms Reported (STEFAN FLORES APRN) Past Tutamji-Wzflde-Lrivcx Hx Patient Social History Tobacco Use?: Yes Smoking Status: Former Smoker Substance use?: No Alcohol Use?: No (STEFAN FLORES APRN) Immunizations Up To Date Tetanus Booster (TDap): Unknown First/Initial COVID19 Vaccinat: 08/24/21 Second COVID19 Vaccination Tristin: 08/24/21 Third COVID19 Vaccination Date: 08/24/21 COVID19 Vaccine Seasonal Warehouse Associate: UNKNOWN (STEFAN FLORES APRN) Seasonal Allergies Seasonal Allergies: No (STEFAN FLORES APRN) Past Medical History Surgeries: Yes (MULTIPLE HERNIA REPAIRS, HEMMORHOIDECTOMY right hemicolectomy) Abdominal, Cardiac Respiratory: Yes COPD Currently Using CPAP: Yes Currently Using BIPAP: No Cardiac: Yes Chronic Edema/Swelling, High Cholesterol, Hypertension Neurological: Yes Stroke Reproductive Disorders: No Sexually Transmitted Disease: No HIV/AIDS: No Genitourinary: No Gastrointestinal: Yes Gastroesophageal Reflux, Hemorrhoids, Polyps Musculoskeletal: No Endocrine: Yes Diabetes, Insulin dep HEENT: Yes (GLASSES, DENTURES) Loss of Vision: Bilateral Hearing Impairment: Denies Cancer: No Psychosocial: No Integumentary: No Blood Disorders: No Adverse Reaction/Blood Tranf: No (N/A) (STEFAN FLORES APRN) Family Medical History Family history: Hypertension 03 FATHER, Onset:Unknown 03 MOTHER, Onset:50's - 60 Stroke 03 MOTHER, Onset:50's - 60 No Family History of: Cancer of colon Chest pain Dementia Family history: Alzheimer's disease Family history: Asthma Family history: Diabetes mellitus Kidney disease Myocardial infarction Seizure disorder CVA, Hypertension (STEFAN FLORES APRN) Physical Exam Vital Signs Vital Signs - First Documented 10/20/22 15:15 Temp 35.2 Pulse 93 Resp 16 B/P (MAP) 134/88 (103) Pulse Ox 93 O2 Delivery Room Air (MAGGIE MEDRANO MD) Vital Signs Capillary Refill : Less Than 3 Seconds (STEFAN FLORES APRN) General Appearance: WD/WN, no apparent distress HEENT: PERRL/EOMI, normal ENT inspection, TMs normal, pharynx normal Neck: non-tender, full range of motion, supple Cardiovascular: normal peripheral pulses, regular rate, rhythm Respiratory: chest non-tender, lungs clear, normal breath sounds Gastrointestinal: normal bowel sounds, non tender, soft Extremities: normal range of motion, non-tender Neurologic/Psychiatric: no motor/sensory deficits, alert, normal mood/affect, oriented x 3 Skin: warm/dry, rash Skin Problem Location: generalized Skin Problem Character: erythema, rash, urticarial Lymphatic: no adenopathy (STEFAN FLORES APRN) Progress/Results/Core Measures Results/Orders Vital Signs/I&O 10/20/22 15:15 Temp 35.2 Pulse 93 Resp 16 B/P (MAP) 134/88 (103) Pulse Ox 93 O2 Delivery Room Air (MAGGIE MEDRANO MD) Blood Pressure Mean: 103 Progress Progress Note : Progress Note Pt given IV pepcid and benadryl, topical calamine/pramoxine applied to torso and extremities. Pt reports improvement of pruritus following medication adm inistration. (STEFAN FLORES APRN) Departure Impression Primary Impression: Urticaria Disposition: HOME, SELF-CARE Condition: Improved Departure-Patient Inst. Decision time for Depature: 17:30 (STEFAN FLORES APRN) Referrals: [facility] (PCP/Family) Primary Care Physician ALESSANDRO LUJAN MD Patient Instructions: Hives (DC) Add. Discharge Instructions: Benadryl 25mg every 4 hours as needed. Cool compresses as needed. Avoid scratching affected areas. Calamine lotion QID prn. Follow up with Dr Lujan in 2-3 days All discharge instructions reviewed with patient and/or family. Voiced understanding. ATTENDING PHYSICIAN NOTE: I was physically present as attending physician in the emergency department during the care of this patient, but I was not directly involved in the decision making or delivery of care for this patient. (MAGGIE MEDRANO MD) STEFAN FLORES APRN Oct 20, 2022 16:13 MAGGIE MEDRANO MD Oct 23, 2022 18:53
[2022-10-20] MEDS ORDERED: FAMOTIDINE 20MG/2ML IV (PEPCID) IVP ONE (16:30)
[2022-10-20] MEDS ORDERED: diphenhydrAMINE 50 MG/ML INJ (BENADRYL) IV ONE (16:30)
[2022-10-20] MEDS ORDERED: CALAMINE/PRAMOXINE (CALADRYL) 180 ML TOP ONE (17:00)
== END 2022-10-20 17:39 | disposition home or self-care (01) ==
LOC: EDUNIT# 15:06 → ER 15:09
DX: L50.9 Urticaria, unspecified (principal); Z87.891 Personal history of nicotine dependence
CPT/HCPCS: 96374; 96375; 99281